=== PATIENT | male | born 1955 ===

== ENCOUNTER 2018-01-14 10:47 | Inpatient (IN) | payer OTHER ==
[2018-01-14] MEDS ORDERED: Sodium Chloride 0.9% 1,000 ML IV STA (11:09)
--- NOTE | 2018-01-14 11:10 | ED PDOC ---
Arrival/HPI - General Time Seen by Provider: 01/14/18 11:00 Historian: Patient, Family - History of Present Illness Narrative History of Present Illness (Text): 01/14/18 11:10 62 year old male hx of quadruple bypass with mitral valve replacement, in [facility] with care at [facility] with prior pneumothorax and pleural effusion per son, presents to the ED accompanied by son for evaluation of shortness of breath and decreased urination. As per son, patient has been unable to urinate for past couple days even after compliance with Lasix. Son states patient began experiencing shortness of breath upon waking up this morning, which progressively worsened with time, prompting him to present to the ED. Medication log shows patient gained 10 pounds overnight. At bedside, patient is tachypneic and is unable express complaints secondary to shortness of breath. Patient denies to any fever, cough or chest pain. HPI and ROS limited due to patient's clinical condition. Time/Duration: < week Symptom Onset: Gradual Symptom Course: Unchanged Activities at Onset: Light Context: Home Past Medical History - Provider Review Nursing Documentation Reviewed: Yes - Psychiatric Hx Depression: No Hx Emotional Abuse: No Hx Physical Abuse: No Hx Substance Use: No - Suicidal Assessment Feels Threatened In Home Enviroment: No Family/Social History - Physician Review Nursing Documentation Reviewed: Yes Family/Social History: Unknown Family HX Hx Alcohol Use: No Hx Substance Use: No Hx Substance Use Treatment: No Allergies/Home Meds Allergies/Adverse Reactions: Allergies No Known Allergies Allergy (Verified 01/14/18 11:05) Review of Systems - Review of Systems Systems not reviewed;Unavailable: Acuity of Condition (limited by shortness of breath) Constitutional: absent: Fevers Eyes: absent: Vision Changes Respiratory: SOB. absent: Cough Cardiovascular: absent: Chest Pain Gastrointestinal: absent: Abdominal Pain, Constipation, Diarrhea, Nausea, Vomiting Skin: absent: Rash Physical Exam Temperature: Hypothermic Blood Pressure: Hypotensive Pulse: Regular Respiratory Rate: Tachypneic Appearance: Positive for: Ill-Appearing Pain Distress: None Mental Status: Positive for: Alert and Oriented X 3 - Systems Exam Head: Present: Atraumatic, Normocephalic Pupils: Present: PERRL Extroacular Muscles: Present: EOMI Conjunctiva: Present: Normal Mouth: Present: Moist Mucous Membranes Neck: Present: Normal Range of Motion Respiratory/Chest: Present: Decreased Breath Sounds (decreased breath sounds to L side), Tachypneic Cardiovascular: Present: Regular Rate and Rhythm. No: Murmurs Abdomen: No: Tenderness, Distention, Peritoneal Signs Back: Present: Normal Inspection Upper Extremity: Present: Normal Inspection. No: Cyanosis, Edema Lower Extremity: Present: Edema (2+ pitting edema ) Neurological: Present: GCS=15, CN II-XII Intact Skin: Present: Warm, Dry, Normal Color, Other (Well healing surgical scar in midline of the chest). No: Rashes Psychiatric: Present: Alert, Oriented x 3 Medical Decision Making ED Course and Treatment: 01/14/18 11:10 Impression: 62 year old male presents to the Emergency department complaining of shortness of breath and lack of urination. Plan: -- ABG -- VBG -- Labs -- EKG -- IV Fluids -- Blood Culture -- Urine Culture -- BIPAP -- Urinalysis -- Reassess and disposition Prior Visits: Notes and results from previous visits were reviewed. Progress Notes: Cxray reviewed by radiologist, shows: Large left pleural effusion. No pneumothorax. Saunders placed with no return of urine. 01/14/18 11:37 Lactate elevated. Hypothermic with elevated wbc and respiratory rate. Giving slow hydration until intubated due to respiratory distress. Covered with broad spectrum antibiotics. Patient uremic with signs of overload and needs emergent dialysis. Treatment of hyperkalemia ordered. Discussed case with Dr. Penaloza, sales marketing director director of flight operations, who is aware of hyperkalemia and agrees with ED management plan, accepts patient consult. 01/14/18 11:[address] Elvis Diaz, drier transfer car operator director of flight operations, who is aware and agrees with Ed management plan, accepts patient admission to ICU. Will evaluate patient at bedside. 01/14/18 12:34 PROCEDURE: INTUBATION Performed by the emergency provider Time: 12:30 Consent: Discussion of the risks, benefits, and alternatives to the procedure, along with informed consent. Timeout: A timeout to verify the correct patient, procedure, and site was performed. Indication: Respiratory distress. Pre-oxygenation: [id number] Medications: See MAR for details. ETT Size: 7.5 Confirmation: Cords directly visualized as tube passed, good bilateral breath sounds, positive CO2 detector color change, tube fogging, adequate chest rise, improving pulse oximetry reading, improved skin color, and absence of gastric sounds,. ETT Secured: The cuff was inflated and the tube was secured appropriately. Post-Procedure: There were no immediate complications. CXR Confirmation: Yes 01/14/18 12:34 30cc/kg IVF ordered immediately after intubation. Dr. Diaz (ICU), Nephrology resident, Dr. Simms and son are present at bedside. - Critical Care Critical Care Minutes: 30 minutes - RAD Interpretation Radiology Orders: 01/14/18 11:08 CHEST PORTABLE [RAD] Stat Tailor'S Aide: Radiologist - Scribe Statement The provider has reviewed the documentation as recorded by the Scribe Masoud Dennis. All medical record entries made by the Scribe were at my direction and personally dictated by me. I have reviewed the chart and agree that the record accurately reflects my personal performance of the history, physical exam, medical decision making, and the department course for this patient. I have also personally directed, reviewed, and agree with the discharge instructions and disposition. Disposition/Present on Arrival - Present on Arrival Any Indicators Present on Arrival: No History of DVT/PE: No History of Uncontrolled Diabetes: No Urinary Catheter: No History Surgical Site Infection Following: None - Disposition Have Diagnosis and Disposition been Completed?: Yes Diagnosis: Pleural effusion, Renal failure, Acidosis, Respiratory distress Disposition: HOSPITALIZED Disposition Time: 11:54 Patient Plan: ICU Patient Problems: Current Active Problems Problem Status Onset Pleural effusion Acute Renal failure Acute Acidosis Acute Condition: CRITICAL
[2018-01-14 11:11] VITALS: BMI 31.8
[2018-01-14 11:29] LABS: VENOUS BLOOD GAS BASE EXCESS -14.8 mmol/L (0.0-2.0); VENOUS BLOOD GAS PO2 58 mm/Hg (30-55)
--- NOTE | 2018-01-14 11:29 | RAD ---
Date of service: 01/14/2018 HISTORY: decreased breath sounds COMPARISON: No prior. FINDINGS: LUNGS: There is a large left effusion with only a small amount of aerated lung in the left apex. PLEURA: There is a large left pleural effusion. No pneumothorax CARDIOVASCULAR: No aortic atherosclerotic calcification present. Severe cardiomegaly. No pulmonary vascular congestion. OSSEOUS STRUCTURES: Sternal wires VISUALIZED UPPER ABDOMEN: Normal. OTHER FINDINGS: None. IMPRESSION: Large left pleural effusion. No pneumothorax
[2018-01-14] MEDS ORDERED: Sodium Chloride 0.9% 250 ML IV SCH (11:30)
[2018-01-14 11:32] LABS: EOS % 0.3 % (1.5-5.0); GRAN # 9.36 (1.4-6.5); HEMOGLOBIN 13.7 g/dL (14.0-18.0); LYMPH # 2.3 (1.2-3.4); LYMPH % 17.6 % (22.0-35.0); MEAN CELL VOLUME 85.7 fl (80.0-105.0); MONO # 1.2 (0.1-0.6); MONO % 9.1 % (1.0-6.0); PLATELET COUNT 132 10^3/uL (120.0-450.0); RBC 4.56 10^6/uL (3.5-6.1); RED CELL DISTRIBUTION WIDTH 21.6 % (11.5-14.5); WHITE BLOOD COUNT 12.8 10^3/uL (4.5-11.0)
[2018-01-14 11:33] LABS: VENOUS BLOOD PH 7.19 (7.32-7.43)
[2018-01-14] MEDS ORDERED: Vancomycin 1gm in NS 250ml 1 GM/250 ML BAG IVPB STA (11:38)
[2018-01-14] MEDS ORDERED: Piperacillin/Tazobact 3.375 gm 100 ML IVPB STA (11:38)
[2018-01-14 11:46] LABS: INR 1.51; PARTIAL THROMBOPLASTIN TIME 42.4 Seconds (25.1-36.5); PROTHROMBIN TIME 17.5 SECONDS (9.4-12.5)
[2018-01-14 11:48] LABS: ALB/GLOB RATIO 0.5 (1.1-1.8); ALBUMIN 2.6 g/dL (3.0-4.8); CALCIUM 7.4 mg/dL (8.4-10.5)
[2018-01-14] MEDS ORDERED: Sodium Bicarbonate (8.4%) 50 Meq Syringe IVP STA (11:50)
[2018-01-14] MEDS ORDERED: Dextrose 50% SYRINGE Inj (50 ml) IVP STA ×2 (11:50→15:42)
[2018-01-14] MEDS ORDERED: Insulin Regular 1 UNITS/0.01 ML ML IV STA ×2 (11:51→15:38)
[2018-01-14 11:56] LABS: TROPONIN I 0.07 ng/mL
[2018-01-14 12:09] LABS: ARTERIAL BLOOD GAS HEMOGLOBIN 13.4 g/dL (11.7-17.4); ARTERIAL BLOOD GAS O2 CAPACITY 18.5 mL/dl (16-24); ARTERIAL BLOOD GAS O2 CONTENT 18.6 ML/dl (15-23); ARTERIAL BLOOD GAS O2 SAT 100.3 % (95-98); ARTERIAL BLOOD GAS PH 7.32 (7.35-7.45); ARTERIAL BLOOD GAS TCO2 9.9 mmol.L (22-28)
[2018-01-14] MEDS ORDERED: Etomidate 20 mg/10ml Inj IV ONE (12:20)
[2018-01-14] MEDS ORDERED: Rocuronium 10 mg/ml (5 ml) ONE (12:21)
[2018-01-14] MEDS ORDERED: Fentanyl 1000mcg/100ml NS 1,000 MCG/100 ML BAG IV PRN (12:33)
[2018-01-14] MEDS ORDERED: Midazolam 50 mg/10 ml Inj IVP ONE (12:33)
[2018-01-14] MEDS ORDERED: Midazolam 100 mg/100ml in NS 100 MG/100 ML SOL IV PRN (12:33)
[2018-01-14] MEDS ORDERED: Midazolam 2 MG/2 ML VIAL IV ONE (12:45)
--- NOTE | 2018-01-14 12:53 | CP.PCM.CON ---
<Jerome Vaughan - Last Filed: 01/14/18 14:51> History of Present Illness - History of Present Illness History of Present Illness: Jerome Vaughan, ICU Consult Note for Dr. Diaz Patient is a 62 y/o M with PMHx of HTN, HLD, quadruple bypass with post op afib, mitral valve repair (October 2017), left pneumothroax at [facility] presented to the ED, accompanied by son, for shortness of breath and decrease urine output for the past several days. In the ED, temperature is 93.1, HR 57, BP 111/57, and SaO2 100% on non-rebreather. VBG in the ED showed pH 7.19 with lactate of 8.1. WBC 12.8, Na 125, K 7.4, and BUN/Cr is 63/7.2. CXR in the ED showed large left sided pleural effusion. BNP was 2010. AST/ALT 728/439. History was obtained from son at bedside due to patient's critical condition. Patient's son mentioned that patient has been having markedly increased sob for the past few days with decreased appetite and decreased urinary output for the past 4 days despite diuretic use. Patient has recently been getting sob during ADLs like changing clothing, walking, and doing household tasks. He has also required more pillows to sleep at night. No fevers, chills, lower extremity swelling was endorsed by the patient's son. During time of interview, patient was intubated in the emergency room. CXR was done and showed proper placement of ET tube. ROS was obtained from patient's son at bedside due to patient's critical state. History was obtained from son due to patient's critical condition: Heliarc Welder: Dr. Hernandez PMHx: HTN, HLD, quadruple bypass with post op afib, mitral valve repair (2017), left pneumothorax PSHx: quadruple bypass with mitral valve repair (October 2017) Meds: lasix 40, potassium 20meq, protonix 40, MVI, norvasc 10, metoprolol 50, aspirin 81, lipitor 40, Allergies: NKDA SocialHx: social drinker. No smoking history. No recreational drug use. FamHx: non-contributory. Review of Systems - Review of Systems All systems: reviewed and no additional remarkable complaints except (as per HPI.) Past Patient History - Past Social History Smoking Status: Unknown If Ever Smoked - CARDIAC Hx Cardiac Disorders: Yes Hx Congestive Heart Failure: Yes Hx Hypertension: Yes Hx Mitral Valve Prolapse: Yes - PULMONARY Hx Respiratory Disorders: Yes (L lung collapse postop 10/2017) - NEUROLOGICAL Hx Neurological Disorder: No - HEENT Hx HEENT Problems: No - ENDOCRINE/METABOLIC Hx Endocrine Disorders: Yes Hx Diabetes Mellitus Type 2: Yes - HEMATOLOGICAL/ONCOLOGICAL Hx Blood Disorders: No - INTEGUMENTARY Hx Dermatological Problems: Yes Other/Comment: surgical scar midsternal and epigastric - MUSCULOSKELETAL/RHEUMATOLOGICAL Hx Musculoskeletal Disorders: No - GASTROINTESTINAL Hx Gastrointestinal Disorders: No - GENITOURINARY/GYNECOLOGICAL Hx Genitourinary Disorders: No - PSYCHIATRIC Hx Depression: No Hx Emotional Abuse: No Hx Physical Abuse: No Hx Substance Use: No - SURGICAL HISTORY Hx Surgeries: Yes Hx Coronary Artery Bypass Graft: Yes (quadruple bypass 10/2017) Hx Valve Replacement: Yes (mitral 10/2017) Meds Allergies/Adverse Reactions: Allergies Allergy/AdvReac Type Severity Reaction Status Date / Time No Known Allergies Allergy Verified 01/14/18 11:05 - Medications Medications: Current Medications Sodium Chloride (Sodium Chloride 0.9%) 250 mls @ 250 mls/hr IV .Q1H NILES Last Admin: 01/14/18 11:30 Dose: 250 mls/hr Vancomycin HCl (Vancomycin 1gm) 1 gm in 250 mls @ 167 mls/hr IVPB STAT STA; Protocol Stop: 01/14/18 13:07 Calcium Gluconate 1,000 mg/ (Sodium Chloride) 110 mls @ 110 mls/hr IVPB ONCE ONE Stop: 01/14/18 12:49 Last Admin: 01/14/18 12:15 Dose: 110 mls/hr Fentanyl Citrate (Fentanyl Citrate/Sodium Chloride 1 Mg/100 Ml) 1,000 mcg in 100 mls @ 2 mls/hr IV .Q24H PRN; Protocol PRN Reason: TITRATE PER MD ORDER Midazolam 100 mg/100ml in NS (Midazolam 100 Mg/100ml In Ns) 100 mg in 100 mls @ 1 mls/hr IV .Q24H PRN; Protocol PRN Reason: Sedation Midazolam HCl (Versed Inj) 5 mg IV ONCE ONE Stop: 01/14/18 12:46 Results - Vital Signs Recent Vital Signs: Last Vital Signs Temp 93.1 F L 01/14/18 11:10 Pulse 56 L 01/14/18 12:34 Resp 14 01/14/18 12:34 BP 84/36 L 01/14/18 12:34 Pulse Ox 100 01/14/18 12:34 - Labs Result Diagrams: 01/14/18 11:00 01/14/18 11:00 Labs: Laboratory Results - last 24 hr 01/14/18 01/14/18 01/14/18 11:00 11:00 11:00 WBC 12.8 H RBC 4.56 Hgb 13.7 L Hct 39.1 L MCV 85.7 MCH 30.0 MCHC 35.0 RDW 21.6 H Plt Count 132 Gran % 73.0 H Lymph % (Auto) 17.6 L [place] % (Auto) 9.1 H Eos % (Auto) 0.3 L Baso % (Auto) 0.0 Gran # 9.36 H Lymph # (Auto) 2.3 [place] # (Auto) 1.2 H Eos # (Auto) 0.0 Baso # (Auto) 0.00 PT 17.5 H INR 1.51 APTT 42.4 H pO2 58 H VBG pH 7.19 L* VBG pCO2 32.0 L VBG HCO3 12.2 L VBG Total CO2 13.2 L VBG O2 Sat (Calc) 87.2 H VBG Base Excess -14.8 L VBG Potassium 7.4 H* Sodium 122.0 L Chloride 90.0 L Glucose 145 H Lactate 8.1 H* FiO2 21.0 Potassium Carbon Dioxide Anion Gap BUN Creatinine Est GFR ( Amer) Est GFR (Non-Af Amer) Random Glucose Calcium Phosphorus Magnesium Total Bilirubin AST ALT Alkaline Phosphatase Lactate Dehydrogenase Total Creatine Kinase CK-MB (CK-2) CK-MB (CK-2) % Troponin I NT-Pro-B Natriuret Pep Total Protein Albumin Globulin Albumin/Globulin Ratio Venous Blood Potassium 7.4 H* 01/14/18 11:00 WBC RBC Hgb Hct MCV MCH MCHC RDW Plt Count Gran % Lymph % (Auto) [place] % (Auto) Eos % (Auto) Baso % (Auto) Gran # Lymph # (Auto) [place] # (Auto) Eos # (Auto) Baso # (Auto) PT INR APTT pO2 VBG pH VBG pCO2 VBG HCO3 VBG Total CO2 VBG O2 Sat (Calc) VBG Base Excess VBG Potassium Sodium 125 L Chloride 97 L Glucose Lactate FiO2 Potassium 7.4 H* Carbon Dioxide 12 L Anion Gap 23 H BUN 63 H Creatinine 7.2 H Est GFR ( Amer) 9 Est GFR (Non-Af Amer) 8 Random Glucose 139 H Calcium 7.4 L Phosphorus 7.6 H Magnesium 2.6 H Total Bilirubin 7.3 H AST 728 H ALT 439 H Alkaline Phosphatase 547 H Lactate Dehydrogenase 1779 H Total Creatine Kinase 588 H CK-MB (CK-2) 12.0 H CK-MB (CK-2) % 2.0 L Troponin I 0.07 NT-Pro-B Natriuret Pep 2010 H Total Protein 8.0 Albumin 2.6 L Globulin 5.4 Albumin/Globulin Ratio 0.5 L Venous Blood Potassium Assessment & Plan - Assessment and Plan (Free Text) Assessment: Patient is a 62 y/o M with PMHx of HTN, HLD, quadruple bypass with mitral valve repair (October 2017) with complication of Left pneumothrox at [facility] presented to the ED, accompanied by son, for shortness of breath and decrease urine output for the past several days. Patient is admitted for Acute Renal Failure, requiring emergent dialysis. Plan: Neuro: - Intubated; ET tube is in place - fentanyl gtt for sedation at 20 mcg/hr Cardio: - Femoral central line was placed - on levophed for blood pressure control - Arterial line was placed in the femoral artery for BP monitoring - Maintain MAP > 65 - serial troponins - Echo - Resume home meds, hold HTN meds for now - Hypothermia in ED, Temp 93.1; maintain normothermia with bear-hugger - Hx of mitral valve repair - Cardio consulted (Dr. Hernandez) Pulm: - Intubated; ET tube - Ventilation settings: PRVC 450/5/20 - CXR: large left pleural effusion - Maintain SaO2 > 92% GI: - Protonix IVP 40mg - Transaminitis; f/u AST/ALT - NPO : - da silva catheter placed Renal: - Trialysis catheter placed in right IJ; dialysis session for the afternoon - f/u BUN/Cr - BUN/Cr was 63/7.2 in ED - K was 7.4 in ED - Given calcium gluconate, insulin, and D50 in the ED - Monitor Intake and Output - Hold nephrotoxic meds Heme: - Heparin SC for DVT ppx ID: - procalcitonin level - Lactate 8.1 in ED; repeat - f/u blood cx - f/u urine cx Dispo: Patient will be monitored in the ICU. Pending dialysis this afternoon. Case was discussed and reviewed with Attending Physician, Dr. Diaz <Elvis Diaz - Last Filed: 01/14/18 17:58> Meds - Medications Medications: Current Medications Heparin Sodium (Porcine) (Heparin) 5,000 units SC Q12 NILES; Protocol Sodium Chloride (Sodium Chloride 0.9%) 250 mls @ 250 mls/hr IV .Q1H NILES Last Admin: 01/14/18 11:30 Dose: 250 mls/hr Fentanyl Citrate (Fentanyl Citrate/Sodium Chloride 1 Mg/100 Ml) 1,000 mcg in 100 mls @ 2 mls/hr IV .Q24H PRN; Protocol PRN Reason: TITRATE PER MD ORDER Midazolam 100 mg/100ml in NS (Midazolam 100 Mg/100ml In Ns) 100 mg in 100 mls @ 1 mls/hr IV .Q24H PRN; Protocol PRN Reason: Sedation NOREPINEPHRINE BIT/0.9 % NACL (Levophed 4 Mg/ 250 Ml Ns Premixed) 4 mg in 250 mls @ 15 mls/hr IV .[id number] PRN; Protocol PRN Reason: TITRATE PER MD ORDER Last Admin: 01/14/18 15:45 Dose: 4 mcg/min, 15 mls/hr Vancomycin HCl (Vancomycin 1gm) 1 gm in 250 mls @ 167 mls/hr IVPB DAILY NILES; Protocol Piperacillin Sod/Tazobactam Sod (Zosyn 3.375 In Ns 100ml) 100 mls @ 25 mls/hr IVPB Q12 NILES; Protocol Stop: 01/15/18 01:59 Pantoprazole Sodium (Protonix Inj) 40 mg IVP DAILY NILES Results - Vital Signs Recent Vital Signs: Last Vital Signs Temp 93.1 F L 01/14/18 15:28 Pulse 57 L 01/14/18 14:46 Resp 12 01/14/18 15:28 BP 111/57 L 01/14/18 15:28 Pulse Ox 100 01/14/18 15:28 - Labs Result Diagrams: 01/14/18 11:00 01/14/18 15:00 Labs: Laboratory Results - last 24 hr 01/14/18 01/14/18 01/14/18 11:00 11:00 11:00 WBC 12.8 H RBC 4.56 Hgb 13.7 L Hct 39.1 L MCV 85.7 MCH 30.0 MCHC 35.0 RDW 21.6 H Plt Count 132 Gran % 73.0 H Lymph % (Auto) 17.6 L [place] % (Auto) 9.1 H Eos % (Auto) 0.3 L Baso % (Auto) 0.0 Gran # 9.36 H Lymph # (Auto) 2.3 [place] # (Auto) 1.2 H Eos # (Auto) 0.0 Baso # (Auto) 0.00 PT 17.5 H INR 1.51 APTT 42.4 H pCO2 pO2 58 H HCO3 ABG pH ABG Total CO2 ABG O2 Saturation ABG O2 Content ABG Base Excess ABG Hemoglobin ABG Carboxyhemoglobin POC ABG HHb (Measured) ABG Methemoglobin ABG O2 Capacity VBG pH 7.19 L* VBG pCO2 32.0 L VBG HCO3 12.2 L VBG Total CO2 13.2 L VBG O2 Sat (Calc) 87.2 H VBG Base Excess -14.8 L VBG Potassium 7.4 H* Hgb O2 Saturation Sodium 122.0 L Chloride 90.0 L Glucose 145 H Lactate 8.1 H* FiO2 21.0 Potassium Carbon Dioxide Anion Gap BUN Creatinine Est GFR ( Amer) Est GFR (Non-Af Amer) Random Glucose Calcium Phosphorus Magnesium Total Bilirubin AST ALT Alkaline Phosphatase Lactate Dehydrogenase Total Creatine Kinase CK-MB (CK-2) CK-MB (CK-2) % Troponin I NT-Pro-B Natriuret Pep Total Protein Albumin Globulin Albumin/Globulin Ratio Venous Blood Potassium 7.4 H* 01/14/18 01/14/18 01/14/18 11:00 12:00 15:00 WBC RBC Hgb Hct MCV MCH MCHC RDW Plt Count Gran % Lymph % (Auto) [place] % (Auto) Eos % (Auto) Baso % (Auto) Gran # Lymph # (Auto) [place] # (Auto) Eos # (Auto) Baso # (Auto) PT INR APTT pCO2 18 L* pO2 149.0 H HCO3 9.3 L* ABG pH 7.32 L ABG Total CO2 9.9 L ABG O2 Saturation 100.3 H ABG O2 Content 18.6 ABG Base Excess -14.3 L ABG Hemoglobin 13.4 ABG Carboxyhemoglobin 1.9 H POC ABG HHb (Measured) -0.3 L ABG Methemoglobin 1.0 ABG O2 Capacity 18.5 VBG pH VBG pCO2 VBG HCO3 VBG Total CO2 VBG O2 Sat (Calc) VBG Base Excess VBG Potassium Hgb O2 Saturation 97.4 Sodium 125 L Chloride 97 L Glucose Lactate FiO2 40.0 Potassium 7.4 H* 7.0 H* Carbon Dioxide 12 L Anion Gap 23 H BUN 63 H Creatinine 7.2 H Est GFR ( Amer) 9 Est GFR (Non-Af Amer) 8 Random Glucose 139 H Calcium 7.4 L Phosphorus 7.6 H Magnesium 2.6 H Total Bilirubin 7.3 H AST 728 H ALT 439 H Alkaline Phosphatase 547 H Lactate Dehydrogenase 1779 H Total Creatine Kinase 588 H CK-MB (CK-2) 12.0 H CK-MB (CK-2) % 2.0 L Troponin I 0.07 NT-Pro-B Natriuret Pep 2010 H Total Protein 8.0 Albumin 2.6 L Globulin 5.4 Albumin/Globulin Ratio 0.5 L Venous Blood Potassium 01/14/18 15:00 WBC RBC Hgb Hct MCV MCH MCHC RDW Plt Count Gran % Lymph % (Auto) [place] % (Auto) Eos % (Auto) Baso % (Auto) Gran # Lymph # (Auto) [place] # (Auto) Eos # (Auto) Baso # (Auto) PT INR APTT pCO2 pO2 65 H HCO3 ABG pH ABG Total CO2 ABG O2 Saturation ABG O2 Content ABG Base Excess ABG Hemoglobin ABG Carboxyhemoglobin POC ABG HHb (Measured) ABG Methemoglobin ABG O2 Capacity VBG pH 7.33 VBG pCO2 28.0 L VBG HCO3 14.8 L VBG Total CO2 15.7 L VBG O2 Sat (Calc) 93.9 H VBG Base Excess -9.6 L VBG Potassium 7.0 H* Hgb O2 Saturation Sodium 123.0 L Chloride 93.0 L Glucose 198 H Lactate 5.2 H* FiO2 21.0 Potassium Carbon Dioxide Anion Gap BUN Creatinine Est GFR ( Amer) Est GFR (Non-Af Amer) Random Glucose Calcium Phosphorus Magnesium Total Bilirubin AST ALT Alkaline Phosphatase Lactate Dehydrogenase Total Creatine Kinase CK-MB (CK-2) CK-MB (CK-2) % Troponin I NT-Pro-B Natriuret Pep Total Protein Albumin Globulin Albumin/Globulin Ratio Venous Blood Potassium 7.0 H* Addendum Addendum: 01/14/18 17:58 ICU Attending Addendum Patient seen and examined. Case reviewed on round with housestaff. Agree with resident note above with the following additions/exceptions: 62M with recent quadruple bypass with post op afib, mitral valve repair (October 2017), left effusion at [facility] presented to the ED with shortness of breath and decrease urine output for the past several days. Labs and history reviewed. pH 7.19 with lactate of 8.1. WBC 12.8, Na 125, K 7.4, and BUN/Cr is 63/7.2. CXR shows large left sided pleural effusion. AST/ALT 728/439. Mr. Solano is very sick. He is in acute renal failure possibly cardio-renal vs dehydration given poor PO intake while still taking his diuretics. His entire cardio history is not clear at this point as we will illicit more history from his primary mortgage manager. His renal failure is likely causing and RTA and lac acidosis making his very acidemia which is causing hyperk. HyperK was initially treated in ED. For now he will need emergent HD for hyperK and acidosis. Will insert HD catheter via right IJ. repeat chem and lac Will give him empitic abx for now although infection is low on my list. -morena and kourtney Cardio on consult. Will also get 2 D echo and repeat TNI x 3. He was intubated in the ED. Will follow up ABG. He has a unilateral left sided effusion that I will tap. 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 Rest of care as above Elvis Diaz MD Pulmonary Critical Care and Sleep Medicine CC Time: Spent 74 mins caring for the patient and discussing with ED physician, nephrology and sitting with family.
[2018-01-14 12:59] LABS: ARTERIAL BLOOD GAS PCO2 18 mm/Hg (35-45)
[2018-01-14 13:00] LABS: ARTERIAL BLOOD GAS HCO3 9.3 mmol/L (21-28)
--- NOTE | 2018-01-14 13:13 | RAD ---
Date of service: 01/14/2018 HISTORY: s/p intubation COMPARISON: Earlier same day FINDINGS: LUNGS: Endotracheal tube in satisfactory position PLEURA: Large left pleural effusion CARDIOVASCULAR: No aortic atherosclerotic calcification present. Cardiomegaly no pulmonary vascular congestion. OSSEOUS STRUCTURES: Sternal wires VISUALIZED UPPER ABDOMEN: Normal. OTHER FINDINGS: None. IMPRESSION: Endotracheal tube in satisfactory position
[2018-01-14] MEDS ORDERED: NOREPINEPHRINE BIT/0.9 % NACL 4 MG/250 ML BAG IV ONE (13:35)
[2018-01-14] MEDS ORDERED: Pneumococcal 23-Valent Vaccine IM ONE (13:56)
[2018-01-14] MEDS ORDERED: Influenza Vaccine 60 mcg/0.5 mL SYR (4YR UP) IM ONE (13:56)
[2018-01-14 15:13] LABS: VENOUS BLOOD GAS BASE EXCESS -9.6 mmol/L (0.0-2.0); VENOUS BLOOD GAS PO2 65 mm/Hg (30-55); VENOUS BLOOD PH 7.33 (7.32-7.43)
--- NOTE | 2018-01-14 15:25 | RAD ---
Date of service: 01/14/2018 HISTORY: dialysis COMPARISON: 01/14/2018 FINDINGS: Endotracheal tube terminates in the mid trachea. The right IJV central venous catheter terminates in the SVC. LUNGS: The right lung is well inflated and clear. There is near complete opacification of the left hemithorax. There are multiple surgical clips in the left perihilar region. PLEURA: No pleural effusions or pneumothorax. CARDIOVASCULAR: Cannot be evaluated due to complete opacification of the left hemithorax. Status post CABG and prosthetic valve OSSEOUS STRUCTURES: Within normal limits for the patient's age. VISUALIZED UPPER ABDOMEN: Normal. OTHER FINDINGS: None. IMPRESSION: Interval near complete opacification of the left hemithorax which may be related to worsening pleural effusion planus atelectasis. Stable position endotracheal tube. Right IJV central venous catheter terminates in the SVC.
--- NOTE | 2018-01-14 15:43 | CP.PCM.CON ---
<Harris Matias - Last Filed: 01/14/18 20:57> History of Present Illness - History of Present Illness History of Present Illness: Nephro Consult Note for Dr. Penaloza Service Consulted for possible emergent hemodialysis This is a 62 yo M with PMH of quadruple bypass with mitral valve replacement 3 months prior, and reported borderline diabetes who presents from home with reports of decreasing urine production despite daily Lasix x2 weeks and anuria for last 4 days, now with acute onset and acutely worsening shortness of breath since this morning. HPI and ROS limited to history provided by son as patient on Bipap and then intubated at time of exam due to worsening mental status, bradycardia, and hypotension. As per son, patient was started on Lasix due to LE edema that he began to develop post-CABG. He has been compliant with the medications since. Patient reported feeling malaised/ill for last 2 weeks, coinciding with his decreased urine output. Son is not aware of patient doubling-up on Lasix or skipping doses. For last 4 days, patient has had not urine output, but not until this AM did patient report any shortness of breath. No recent imaging studies with dye. No known frequent or routine NSAID use prior to this admission. No history of renal injury or failure as per son. Of note, patient's vitals on arrival concerning for HR in the 30's-40's and SBP in the 70's, and labs concerning for Cr of 7.2 and K of 7.4. Received Calcium gluconate IVPB, Insulin IV, D50 IV, and Sodium Bicarb emergently. Patient was intubated, taken to the ICU, and access with a [facility] and [facility] Dialysis Cath was obtained, and the patient was started on Levophed for pressor support given persistent hypotension. Repeat K was 7.0, so decision was made to initiate emergent hemodialysis. PMH: as above PSH: quadruple bypass and Mitral valve replacement 3 months prior Fam Hx: unknown Soc Hx: Denies tobacco, illicits, IVDA. Admits to social EtOH use (no binge episode within last 4 weeks). PMD: Dr. Solomon Review of Systems - Review of Systems Systems not reviewed;Unavailable: Intubated Past Patient History - Past Social History Smoking Status: Unknown If Ever Smoked - CARDIAC Hx Cardiac Disorders: Yes Hx Congestive Heart Failure: Yes Hx Hypertension: Yes Hx Mitral Valve Prolapse: Yes - PULMONARY Hx Respiratory Disorders: Yes (L lung collapse postop 10/2017) - NEUROLOGICAL Hx Neurological Disorder: No - HEENT Hx HEENT Problems: No - RENAL Hx Chronic Kidney Disease: No - ENDOCRINE/METABOLIC Hx Endocrine Disorders: Yes Hx Diabetes Mellitus Type 2: Yes - HEMATOLOGICAL/ONCOLOGICAL Hx Blood Disorders: No - INTEGUMENTARY Hx Dermatological Problems: Yes Other/Comment: surgical scar midsternal and epigastric - MUSCULOSKELETAL/RHEUMATOLOGICAL Hx Musculoskeletal Disorders: No - GASTROINTESTINAL Hx Gastrointestinal Disorders: No - GENITOURINARY/GYNECOLOGICAL Hx Genitourinary Disorders: No - PSYCHIATRIC Hx Depression: No Hx Emotional Abuse: No Hx Physical Abuse: No Hx Substance Use: No - SURGICAL HISTORY Hx Surgeries: Yes Hx Coronary Artery Bypass Graft: Yes (quadruple bypass 10/2017) Hx Valve Replacement: Yes (mitral 10/2017) Meds Allergies/Adverse Reactions: Allergies Allergy/AdvReac Type Severity Reaction Status Date / Time No Known Allergies Allergy Verified 01/14/18 11:05 - Medications Medications: Current Medications Heparin Sodium (Porcine) (Heparin) 5,000 units SC Q12 NILES; Protocol Sodium Chloride (Sodium Chloride 0.9%) 250 mls @ 250 mls/hr IV .Q1H NILES Last Admin: 01/14/18 11:30 Dose: 250 mls/hr Fentanyl Citrate (Fentanyl Citrate/Sodium Chloride 1 Mg/100 Ml) 1,000 mcg in 100 mls @ 2 mls/hr IV .Q24H PRN; Protocol PRN Reason: TITRATE PER MD ORDER Midazolam 100 mg/100ml in NS (Midazolam 100 Mg/100ml In Ns) 100 mg in 100 mls @ 1 mls/hr IV .Q24H PRN; Protocol PRN Reason: Sedation NOREPINEPHRINE BIT/0.9 % NACL (Levophed 4 Mg/ 250 Ml Ns Premixed) 4 mg in 250 mls @ 15 mls/hr IV .[id number] PRN; Protocol PRN Reason: TITRATE PER MD ORDER Pantoprazole Sodium (Protonix Inj) 40 mg IVP DAILY [facility] Physical Exam - Constitutional Appears: In Acute Distress Additional comments: Ill-appearing, Lethargic - Head Exam Head Exam: ATRAUMATIC, NORMAL INSPECTION, NORMOCEPHALIC - Eye Exam Eye Exam: EOMI, Normal appearance. absent: Conjunctival injection, Scleral icterus Pupil Exam: absent: Irregular, Unequal - ENT Exam ENT Exam: Mucous Membranes Moist - Neck Exam Neck exam: Positive for: Full Rom. Negative for: Lymphadenopathy - Respiratory Exam Respiratory Exam: Clear to Auscultation Bilateral, NORMAL BREATHING PATTERN. absent: Accessory Muscle Use, Chest Wall Tenderness, Decreased Breath Sounds, Rales, Rhonchi, Wheezes - Cardiovascular Exam Cardiovascular Exam: Bradycardia, Irregular Rhythm, +S1, +S2. absent: Tac hycardia, REGULAR RHYTHM, JVD, RRR, +S4 - GI/Abdominal Exam GI & Abdominal Exam: Firm, Normal Bowel Sounds. absent: Diminished Bowel Sounds, Hyperactive Bowel Sounds, Hypoactive Bowel Sounds, Rigid, Soft - Extremities Exam Extremities exam: Positive for: pedal edema (+1-2 pitting edema from feet to mid-shins bilaterally) - Neurological Exam Additional comments: prior to sedation/intubation: lethargic but arousable, following simple commands, few spontaneous movements - Psychiatric Exam Additional comments: unable to assess, lethargic, then intubated - Skin Skin Exam: Dry, Intact, Normal Color, Warm Results - Vital Signs Recent Vital Signs: Last Vital Signs Temp 93.1 F L 01/14/18 15:28 Pulse 57 L 01/14/18 14:46 Resp 12 01/14/18 15:28 BP 111/57 L 01/14/18 15:28 Pulse Ox 100 01/14/18 15:28 - Labs Result Diagrams: 01/14/18 11:00 01/14/18 15:00 Labs: Laboratory Results - last 24 hr 01/14/18 01/14/18 01/14/18 11:00 11:00 11:00 WBC 12.8 H RBC 4.56 Hgb 13.7 L Hct 39.1 L MCV 85.7 MCH 30.0 MCHC 35.0 RDW 21.6 H Plt Count 132 Gran % 73.0 H Lymph % (Auto) 17.6 L [place] % (Auto) 9.1 H Eos % (Auto) 0.3 L Baso % (Auto) 0.0 Gran # 9.36 H Lymph # (Auto) 2.3 [place] # (Auto) 1.2 H Eos # (Auto) 0.0 Baso # (Auto) 0.00 PT 17.5 H INR 1.51 APTT 42.4 H pCO2 pO2 58 H HCO3 ABG pH ABG Total CO2 ABG O2 Saturation ABG O2 Content ABG Base Excess ABG Hemoglobin ABG Carboxyhemoglobin POC ABG HHb (Measured) ABG Methemoglobin ABG O2 Capacity VBG pH 7.19 L* VBG pCO2 32.0 L VBG HCO3 12.2 L VBG Total CO2 13.2 L VBG O2 Sat (Calc) 87.2 H VBG Base Excess -14.8 L VBG Potassium 7.4 H* Hgb O2 Saturation Sodium 122.0 L Chloride 90.0 L Glucose 145 H Lactate 8.1 H* FiO2 21.0 Potassium Carbon Dioxide Anion Gap BUN Creatinine Est GFR ( Amer) Est GFR (Non-Af Amer) Random Glucose Calcium Phosphorus Magnesium Total Bilirubin AST ALT Alkaline Phosphatase Lactate Dehydrogenase Total Creatine Kinase CK-MB (CK-2) CK-MB (CK-2) % Troponin I NT-Pro-B Natriuret Pep Total Protein Albumin Globulin Albumin/Globulin Ratio Venous Blood Potassium 7.4 H* 01/14/18 01/14/18 01/14/18 11:00 12:00 15:00 WBC RBC Hgb Hct MCV MCH MCHC RDW Plt Count Gran % Lymph % (Auto) [place] % (Auto) Eos % (Auto) Baso % (Auto) Gran # Lymph # (Auto) [place] # (Auto) Eos # (Auto) Baso # (Auto) PT INR APTT pCO2 18 L* pO2 149.0 H HCO3 9.3 L* ABG pH 7.32 L ABG Total CO2 9.9 L ABG O2 Saturation 100.3 H ABG O2 Content 18.6 ABG Base Excess -14.3 L ABG Hemoglobin 13.4 ABG Carboxyhemoglobin 1.9 H POC ABG HHb (Measured) -0.3 L ABG Methemoglobin 1.0 ABG O2 Capacity 18.5 VBG pH VBG pCO2 VBG HCO3 VBG Total CO2 VBG O2 Sat (Calc) VBG Base Excess VBG Potassium Hgb O2 Saturation 97.4 Sodium 125 L Chloride 97 L Glucose Lactate FiO2 40.0 Potassium 7.4 H* 7.0 H* Carbon Dioxide 12 L Anion Gap 23 H BUN 63 H Creatinine 7.2 H Est GFR ( Amer) 9 Est GFR (Non-Af Amer) 8 Random Glucose 139 H Calcium 7.4 L Phosphorus 7.6 H Magnesium 2.6 H Total Bilirubin 7.3 H AST 728 H ALT 439 H Alkaline Phosphatase 547 H Lactate Dehydrogenase 1779 H Total Creatine Kinase 588 H CK-MB (CK-2) 12.0 H CK-MB (CK-2) % 2.0 L Troponin I 0.07 NT-Pro-B Natriuret Pep 2010 H Total Protein 8.0 Albumin 2.6 L Globulin 5.4 Albumin/Globulin Ratio 0.5 L Venous Blood Potassium 01/14/18 15:00 WBC RBC Hgb Hct MCV MCH MCHC RDW Plt Count Gran % Lymph % (Auto) [place] % (Auto) Eos % (Auto) Baso % (Auto) Gran # Lymph # (Auto) [place] # (Auto) Eos # (Auto) Baso # (Auto) PT INR APTT pCO2 pO2 65 H HCO3 ABG pH ABG Total CO2 ABG O2 Saturation ABG O2 Content ABG Base Excess ABG Hemoglobin ABG Carboxyhemoglobin POC ABG HHb (Measured) ABG Methemoglobin ABG O2 Capacity VBG pH 7.33 VBG pCO2 28.0 L VBG HCO3 14.8 L VBG Total CO2 15.7 L VBG O2 Sat (Calc) 93.9 H VBG Base Excess -9.6 L VBG Potassium 7.0 H* Hgb O2 Saturation Sodium 123.0 L Chloride 93.0 L Glucose 198 H Lactate 5.2 H* FiO2 21.0 Potassium Carbon Dioxide Anion Gap BUN Creatinine Est GFR ( Amer) Est GFR (Non-Af Amer) Random Glucose Calcium Phosphorus Magnesium Total Bilirubin AST ALT Alkaline Phosphatase Lactate Dehydrogenase Total Creatine Kinase CK-MB (CK-2) CK-MB (CK-2) % Troponin I NT-Pro-B Natriuret Pep Total Protein Albumin Globulin Albumin/Globulin Ratio Venous Blood Potassium 7.0 H* Assessment & Plan - Assessment and Plan (Free Text) Assessment: This is a 62 yo M with PMH of quadruple bypass with mitral valve replacement 3 months prior, and reported borderline diabetes who presents from home with reports of decreasing urine production despite daily Lasix x2 weeks and anuria for last 4 days, now with acute onset and acutely worsening shortness of breath since this morning. Nephro consulted for emergent hemodialysis in setting of acute renal failure. Plan: Acute Renal Failure Acute respiratory failure requiring intubation Shock requiring pressor support Severe Hyperkalemia with Bradycardia to 30's Hypermagnesemia Hyperphosphatemia Anuria Sepsis Left pleural effusion on CXR S/p quadruple bypass with MV replacement K 7.4, repeat was 7 despite Insulin, D50, Bicarb Anuric, no output since da silva placed in ED Pending initiation of Hemodialysis, Shiley cath placed by ICU Agree with pressor support, intubation/ventilation, Calcium gluconate for cardiac membrane stabilization Recommend careful IVF as remains anuric and signs of fluid overload (left pleural effusion) Urine eosinophils ordered, f/u Patient reviewed and discussed at length with attending, Dr. Penaloza <Tommy Penaloza S - Last Filed: 01/14/18 21:39> Meds - Medications Medications: Current Medications Heparin Sodium (Porcine) (Heparin) 5,000 units SC Q12 NILES; Protocol Fentanyl Citrate (Fentanyl Citrate/Sodium Chloride 1 Mg/100 Ml) 1,000 mcg in 100 mls @ 2 mls/hr IV .Q24H PRN; Protocol PRN Reason: TITRATE PER MD ORDER Midazolam 100 mg/100ml in NS (Midazolam 100 Mg/100ml In Ns) 100 mg in 100 mls @ 1 mls/hr IV .Q24H PRN; Protocol PRN Reason: Sedation NOREPINEPHRINE BIT/0.9 % NACL (Levophed 4 Mg/ 250 Ml Ns Premixed) 4 mg in 250 mls @ 15 mls/hr IV .[id number] PRN; Protocol PRN Reason: TITRATE PER MD ORDER Last Titration: 01/14/18 19:47 Dose: 20 mcg/min, 75 mls/hr Piperacillin Sod/Tazobactam Sod (Zosyn 3.375 In Ns 100ml) 100 mls @ 25 mls/hr IVPB Q12 NILES; Protocol Stop: 01/15/18 01:59 Sodium Chloride (Sodium Chloride 0.9%) 1,000 mls @ 100 mls/hr IV .Q10H NILES Last Admin: 01/14/18 20:29 Dose: 100 mls/hr Meropenem/Sodium Chloride (Merrem Iv 500 Mg/Ns 50 Ml) 500 mg in 50 mls @ 100 mls/hr IVPB Q12 NILES; Protocol Linezolid (Zyvox 600mg/300ml D5w) 600 mg in 300 mls @ 200 mls/hr IVPB Q12 NILES; Protocol Stop: 01/21/18 22:01 Doxycycline Hyclate 100 mg/ (Sodium Chloride) 100 mls @ 100 mls/hr IVPB Q12 NILES; Protocol Ondansetron HCl (Zofran Inj) 4 mg IVP Q4H PRN PRN Reason: Nausea/Vomiting Pantoprazole Sodium (Protonix Inj) 40 mg IVP DAILY NILES Results - Vital Signs Recent Vital Signs: Last Vital Signs Temp 95.7 F L 01/14/18 18:50 Pulse 78 01/14/18 18:50 Resp 18 01/14/18 18:50 BP 86/48 L 01/14/18 17:05 Pulse Ox 98 01/14/18 18:50 - Labs Result Diagrams: 01/14/18 11:00 01/14/18 15:00 Labs: Laboratory Results - last 24 hr 01/14/18 01/14/18 01/14/18 11:00 11:00 11:00 WBC 12.8 H RBC 4.56 Hgb 13.7 L Hct 39.1 L MCV 85.7 MCH 30.0 MCHC 35.0 RDW 21.6 H Plt Count 132 Gran % 73.0 H Lymph % (Auto) 17.6 L [place] % (Auto) 9.1 H Eos % (Auto) 0.3 L Baso % (Auto) 0.0 Gran # 9.36 H Lymph # (Auto) 2.3 [place] # (Auto) 1.2 H Eos # (Auto) 0.0 Baso # (Auto) 0.00 PT 17.5 H INR 1.51 APTT 42.4 H pCO2 pO2 58 H HCO3 ABG pH ABG Total CO2 ABG O2 Saturation ABG O2 Content ABG Base Excess ABG Hemoglobin ABG Carboxyhemoglobin POC ABG HHb (Measured) ABG Methemoglobin ABG O2 Capacity VBG pH 7.19 L* VBG pCO2 32.0 L VBG HCO3 12.2 L VBG Total CO2 13.2 L VBG O2 Sat (Calc) 87.2 H VBG Base Excess -14.8 L VBG Potassium 7.4 H* Hgb O2 Saturation Sodium 122.0 L Chloride 90.0 L Glucose 145 H Lactate 8.1 H* FiO2 21.0 Potassium Carbon Dioxide Anion Gap BUN Creatinine Est GFR ( Amer) Est GFR (Non-Af Amer) Random Glucose Uric Acid Calcium Phosphorus Magnesium Total Bilirubin AST ALT Alkaline Phosphatase Lactate Dehydrogenase Total Creatine Kinase CK-MB (CK-2) CK-MB (CK-2) % Troponin I NT-Pro-B Natriuret Pep Total Protein Albumin Globulin Albumin/Globulin Ratio Venous Blood Potassium 7.4 H* Fluid Source Fluid Appearance Fluid WBC Fluid RBC Fluid Tot Cell Count Fluid Neutrophils Fluid Lymphocytes Fld Monocyte/Macrophag Fluid Comment Thoracentesis Fluid pH 01/14/18 01/14/18 01/14/18 11:00 12:00 15:00 WBC RBC Hgb Hct MCV MCH MCHC RDW Plt Count Gran % Lymph % (Auto) [place] % (Auto) Eos % (Auto) Baso % (Auto) Gran # Lymph # (Auto) [place] # (Auto) Eos # (Auto) Baso # (Auto) PT INR APTT pCO2 18 L* pO2 149.0 H HCO3 9.3 L* ABG pH 7.32 L ABG Total CO2 9.9 L ABG O2 Saturation 100.3 H ABG O2 Content 18.6 ABG Base Excess -14.3 L ABG Hemoglobin 13.4 ABG Carboxyhemoglobin 1.9 H POC ABG HHb (Measured) -0.3 L ABG Methemoglobin 1.0 ABG O2 Capacity 18.5 VBG pH VBG pCO2 VBG HCO3 VBG Total CO2 VBG O2 Sat (Calc) VBG Base Excess VBG Potassium Hgb O2 Saturation 97.4 Sodium 125 L Chloride 97 L Glucose Lactate FiO2 40.0 Potassium 7.4 H* 7.0 H* Carbon Dioxide 12 L Anion Gap 23 H BUN 63 H Creatinine 7.2 H Est GFR ( Amer) 9 Est GFR (Non-Af Amer) 8 Random Glucose 139 H Uric Acid Calcium 7.4 L Phosphorus 7.6 H Magnesium 2.6 H Total Bilirubin 7.3 H AST 728 H ALT 439 H Alkaline Phosphatase 547 H Lactate Dehydrogenase 1779 H Total Creatine Kinase 588 H CK-MB (CK-2) 12.0 H CK-MB (CK-2) % 2.0 L Troponin I 0.07 NT-Pro-B Natriuret Pep 2010 H Total Protein 8.0 Albumin 2.6 L Globulin 5.4 Albumin/Globulin Ratio 0.5 L Venous Blood Potassium Fluid Source Fluid Appearance Fluid WBC Fluid RBC Fluid Tot Cell Count Fluid Neutrophils Fluid Lymphocytes Fld Monocyte/Macrophag Fluid Comment Thoracentesis Fluid pH 01/14/18 01/14/18 01/14/18 15:00 17:40 19:27 WBC RBC Hgb Hct MCV MCH MCHC RDW Plt Count Gran % Lymph % (Auto) [place] % (Auto) Eos % (Auto) Baso % (Auto) Gran # Lymph # (Auto) [place] # (Auto) Eos # (Auto) Baso # (Auto) PT INR APTT pCO2 pO2 65 H HCO3 ABG pH ABG Total CO2 ABG O2 Saturation ABG O2 Content ABG Base Excess ABG Hemoglobin ABG Carboxyhemoglobin POC ABG HHb (Measured) ABG Methemoglobin ABG O2 Capacity VBG pH 7.33 VBG pCO2 28.0 L VBG HCO3 14.8 L VBG Total CO2 15.7 L VBG O2 Sat (Calc) 93.9 H VBG Base Excess -9.6 L VBG Potassium 7.0 H* Hgb O2 Saturation Sodium 123.0 L Chloride 93.0 L Glucose 198 H Lactate 5.2 H* FiO2 21.0 Potassium Carbon Dioxide Anion Gap BUN Creatinine Est GFR ( Amer) Est GFR (Non-Af Amer) Random Glucose Uric Acid Calcium Phosphorus Magnesium Total Bilirubin AST ALT Alkaline Phosphatase Lactate Dehydrogenase Total Creatine Kinase CK-MB (CK-2) CK-MB (CK-2) % Troponin I 0.07 NT-Pro-B Natriuret Pep Total Protein Albumin Globulin Albumin/Globulin Ratio Venous Blood Potassium 7.0 H* Fluid Source Fluid Appearance Fluid WBC Fluid RBC Fluid Tot Cell Count Fluid Neutrophils Fluid Lymphocytes Fld Monocyte/Macrophag Fluid Comment Thoracentesis Fluid pH 8.0 01/14/18 01/14/18 19:27 19:31 WBC RBC Hgb Hct MCV MCH MCHC RDW Plt Count Gran % Lymph % (Auto) [place] % (Auto) Eos % (Auto) Baso % (Auto) Gran # Lymph # (Auto) [place] # (Auto) Eos # (Auto) Baso # (Auto) PT INR APTT pCO2 pO2 HCO3 ABG pH ABG Total CO2 ABG O2 Saturation ABG O2 Content ABG Base Excess ABG Hemoglobin ABG Carboxyhemoglobin POC ABG HHb (Measured) ABG Methemoglobin ABG O2 Capacity VBG pH VBG pCO2 VBG HCO3 VBG Total CO2 VBG O2 Sat (Calc) VBG Base Excess VBG Potassium Hgb O2 Saturation Sodium Chloride Glucose Lactate FiO2 Potassium Carbon Dioxide Anion Gap BUN Creatinine Est GFR ( Amer) Est GFR (Non-Af Amer) Random Glucose Uric Acid 6.3 Calcium Phosphorus Magnesium Total Bilirubin AST ALT Alkaline Phosphatase Lactate Dehydrogenase Total Creatine Kinase 474 H CK-MB (CK-2) 10.3 H CK-MB (CK-2) % 2.2 L Troponin I 0.07 NT-Pro-B Natriuret Pep Total Protein Albumin Globulin Albumin/Globulin Ratio Venous Blood Potassium Fluid Source Pleural/thoracentesi Fluid Appearance Bloody Fluid WBC 463.0 H Fluid RBC 85006.0 H Fluid Tot Cell Count 100 H Fluid Neutrophils 24.2 H Fluid Lymphocytes 75.8 H Fld Monocyte/Macrophag TEST NOT PERFORMED Fluid Comment Red color Thoracentesis Fluid pH Assessment & Plan - Assessment and Plan (Free Text) Plan: Pt seen and examined. I have reviewed the note of the medical advisor and agree with it. I have discussed the assessment and plan with the resident. I have re viewed the patient's labs and medications. Pt with ROBER and hypotensive shock, acute resp failure and hyperkalemia. ER called about acute HD for hyperkalemia. Pt received Cagluconate in the ER. Repeat K did show that K was critically high. A R IJ temp dialysis catheter was placed and dialysis was begun. Pt was seen at the start of HD. I did speak to the family regarding the plan of care. I spoke t o the administration intern (Dr Leal) about the case. L pleural effusion improved after thoracentesis. Dr Valdivia asked for Dr Goldberg to take over care for this pt. ICU updated Dr Goldberg, who will take over at this point.
[2018-01-14] MEDS: NOREPINEPHRINE BIT/0.9 % NACL 4 MG/250 ML BAG IV PRN ×3 (15:45→22:42)
--- NOTE | 2018-01-14 17:59 | PCM.SEPTIC ---
Sepsis Progress Note - Reassessment Type Date of Evaluation: 01/14/18 Time of Evaluation: 17:58 Reassessment Type: Non-invasive reassessment - Non Invasive Reassessment Were the most recent vital sign reviewed: Yes Vital Sign (Latest): Temp Pulse Resp BP Pulse Ox 93.1 F L 57 L 12 111/57 L 100 01/14/18 15:28 01/14/18 14:46 01/14/18 15:28 01/14/18 15:28 01/14/18 15:28 Cardiovascular: Yes: Regular Rate, Rhythm. No: Gallop, Murmur, Ectopy, Friction Rub Respiratory: Yes: Other (mechanical ventilated). No: Crackles, Rales, Rhonchi Capillary Refill: Delayed Pulses: Normal Radial, Decreased Dorsalis Pedis, Decreased Posterior Tibialis Skin: Warm - Invasive Reassessment (complete 2 of 4) Was a Central Venous Pressure Measurement obtained within 6 Hours after the presentation of septic shock: No Was a central venous oxygen measurement obtained within 6 hours after the presentation of septic shock: No Was a bedside cardiovascular ultrasound performed within 6 hours after the presentation of septic shock: No Was a passive leg raise performed or was a fluid challenge performed within 6 hrs of the initial fluid bolus: No
--- NOTE | 2018-01-14 18:02 | PCM.PROC ---
Addendum Addendum: 01/14/18 18:01 Central Venous Catheter (CVC, Central Line) Placement 01/14/2018 Indication: Hemodynamic monitoring/Intravenous access A time-out was completed verifying correct patient, procedure, site, positioning. The patient was placed in a dependent position appropriate for central line placement based on the vein to be cannulated. The patients right groin was prepped and draped in sterile fashion. 1% Lidocaine was used to anesthetize the surrounding skin area. A triple lumen Cordis catheter was introduced into the common femoral vein using the Seldinger technique and under ultrasound guidance. The catheter was threaded smoothly over the guide wire and appropriate blood return was obtained. Each lumen of the catheter was evacuated of air and flushed with sterile saline. The catheter was then sutured in place to the skin and a sterile dressing applied. Perfusion to the extremity distal to the point of catheter insertion was checked and found to be adequate. Estimated Blood Loss: minimal The patient tolerated the procedure well and there were no complications.
--- NOTE | 2018-01-14 18:05 | PCM.PROC ---
Addendum Addendum: 01/14/18 18:03 A-Line placement Right Fem Artery 01/14/2018 Indication: Hemodynamic monitoring A time-out was completed verifying correct patient, procedure, site, positioning. The patients right groin was prepped and draped in sterile fashion. 1% Lidocaine was used to anesthetize the surrounding skin area. An Arrow arterial line was introduced into the femoral artery using the Seldinger technique and under ultrasound guidance. Pulsatile flow seen. The catheter was threaded smoothly over the guide wire and appropriate blood return was obtained. The catheter was then sutured in place to the skin and a sterile dressing applied. Perfusion to the extremity distal to the point of catheter insertion was checked and found to be adequate. Estimated Blood Loss: minimal The patient tolerated the procedure well and there were no complications.
--- NOTE | 2018-01-14 18:08 | PCM.PROC ---
Addendum Addendum: 01/14/18 18:06 Hemodialysis Catheter Placement Indication: Emergent HD A time-out was completed verifying correct patient, procedure, site, positioning. The patient was placed in a dependent position appropriate for central line placement based on the vein to be cannulated. The patients right neck was prepped and draped in sterile fashion. 1% Lidocaine was used to anesthetize the surrounding skin area. A HD catheter was introduced into the right IJ using the Seldinger technique and under ultrasound guidance. The cath eter was threaded smoothly over the guide wire and appropriate blood return was obtained. Each lumen of the catheter was evacuated of air and flushed with sterile saline. The catheter was then sutured in place to the skin and a sterile dressing applied. Perfusion to the extremity distal to the point of catheter insertion was checked and found to be adequate. CXR confirms good positions and now PTX. Estimated Blood Loss: minimal The patient tolerated the procedure well and there were no complications.
--- NOTE | 2018-01-14 18:11 | RAD ---
Date of service: 01/14/2018 HISTORY: s/p thoracentesis; r/o pneumothorax COMPARISON: 01/14/2018 at 14:59. FINDINGS: LUNGS: Markedly improved aeration of the previously identified collapse left lung. PLEURA: No significant remaining left pleural effusion. No pneumothorax. CARDIOVASCULAR: No radiographic findings to suggest acute or significant cardiovascular disease. Atherosclerotic calcifications identified primarily aortic arch Venous access catheter in stable, satisfactory position. OSSEOUS STRUCTURES: No significant abnormalities. VISUALIZED UPPER ABDOMEN: Normal. OTHER FINDINGS: Stable position of endotracheal tube. IMPRESSION: Status post left thoracentesis. Substantial reduction in left pleural effusion with commensurate re-expansion left lung. No visible pneumothorax
--- NOTE | 2018-01-14 18:12 | PCM.PROC ---
Addendum Addendum: 01/14/18 18:10 Thoracentesis 01/14/2018 Indication: Large left pleural effusion A time-out was completed verifying correct patient, procedure, site, positioning. The patients left side was prepped and draped in a sterile manner after the appropriate infiltration level was confirmed by ultrasound. 1% lidocaine was used anesthetize the surrounding skin. A finder needle was then used to locate fluid and clear yellow fluid was obtained. A 10-blade scalpel used to make the incision. The thoracentesis catheter was then threaded without difficulty. The patient had 1800 of pinkinsh yellow fluid removed. A post- procedure chest x-ray was ordered and the fluid will be sent for several studies. Estimated Blood Loss: minimal The patient tolerated the procedure well and there were no complications.
[2018-01-14 19:29] LABS: BODY FLUID TYPE PLEURAL/THORACENTESI
[2018-01-14 19:48] LABS: URIC ACID 6.3 mg/dL (3.5-8.5)
[2018-01-14 20:01] LABS: BF GROSS APPEARANCE BLOODY (CLEAR)
[2018-01-14 20:01] LABS: TROPONIN I 0.07 ng/mL
[2018-01-14 20:02] LABS: BODY FLUID TOTAL COUNT 100 (0-0)
[2018-01-14 20:05] LABS: CK MB% 2.2 % (2.5-3.0); CK-MB 10.3 ng/mL (0.0-3.6)
--- NOTE | 2018-01-14 20:09 | CP.PCM.CON ---
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 d/w , she had agreed. pt has dialysis access Rt IJ in place Maintain hemodynamics stable. Avoid hypotension. Patient not on ACEI/ARB due to ROBER and low BP Monitor Input/Output, daily weights and renal function with basic metabolic panel continue with IVF as NS @ 100 ml/hr supplement lytes as needed Check urine analysis, spot protein/creatinine, albumin/creatinine ratio, urine Na/cr. renal sono Check GN work up as VIRIDIANA,Anti dsDNA, ANCA (MPO and MA-3), Anti GBM antibody, H IV/Hep B and Hep C serology Check for 25-OH vitamin D, iPTH, phosphorus level. SPEP and ARIEL with serum FLC assay acetaminophen, salicylate and alcohol level with urine drug screen. Dose meds/antibiotics for reduced GFR. Avoid fleets enema/magnesium based laxatives. Avoid nephrotoxins/NSAIDs/ iodinated contrast (unless needed emergently) Glycemic control Further work up/management as per primary team Thanks for allowing me to participate in care of your patient. Will follow patient with you. Please call if any Qs. had d/w team Dr Jose Goldberg Office: [phone] Chief Complaint; unable to obtain Reason for consult: ROBER HPI: Pt is a 62 year M with hx of HTN, mitral valve repair and CABG oct 2017 @ [facility], also left collapsed lung with water as per , went to rehab and has been home since early november. as per , pt has been doing fine, no known kidney or liver problem (except Hep B +), until weekend when he felt SOB and decreased urine output renal consult for ROBER pt unable to provide any hx pt was hypothermic, intubated for respi failure, s/p thoracocentesis (1.8 L) left lung, started on pressors, abnormal LFT denied smoking/etoh/drugs/acetaminophen/salicylate/toxic ingestion/OTC or herbal meds no vomitting or diarrhoea review of home vitals WNL ROS: unable obtain from pt Physical Examination: General Appearance: in no acute respiratory distress, ill appearing. orally intubated Vitals reviewed and noted as below Head; Atraumatic, normocephalic ENT: orally intubated EYES: Pupils are equal, round and reactive to light accommodation. Eye muscles and extraocular movement intact. Sclera is icteric. Neck; supple no lymphadenopathy, no thyromegaly or bruit Lungs: Increased respiratory rate/effort. Breath sounds reduced at Lt base Heart: Normal rate. s1s2 normal. No rub or gallop. has CABg scar + Extremities: 1+ edema. No varicose veins. Neurological: Patient is sedated Skin: Warm and dry. Normal turgor. No rash. Palpitation: Normal elasticity for age Abdomen: Abdomen is soft. Bowel sounds +. There is no abdominal tenderness, no guarding/rigidity no organomegaly. has superifical erythematous angiomas over abdomen skin Psych: unable MSK: no joint tenderness or swelling. Digits and nails normal, no deformity : kidney or bladder not palpable. has da silva Labs/imaging reviewed. Past medical history, past surgical history, family history, social history, allergy reviewed and noted as below Family hx: no hx of CKD. Rest non-contributory Past Patient History - Past Social History Smoking Status: Unknown If Ever Smoked - CARDIAC Hx Cardiac Disorders: Yes Hx Congestive Heart Failure: Yes Hx Hypertension: Yes Hx Mitral Valve Prolapse: Yes - PULMONARY Hx Respiratory Disorders: Yes (L lung collapse postop 10/2017) - NEUROLOGICAL Hx Neurological Disorder: No - HEENT Hx HEENT Problems: No - RENAL Hx Chronic Kidney Disease: No - ENDOCRINE/METABOLIC Hx Endocrine Disorders: Yes Hx Diabetes Mellitus Type 2: Yes - HEMATOLOGICAL/ONCOLOGICAL Hx Blood Disorders: No - INTEGUMENTARY Hx Dermatological Problems: Yes Other/Comment: surgical scar midsternal and epigastric - MUSCULOSKELETAL/RHEUMATOLOGICAL Hx Musculoskeletal Disorders: No - GASTROINTESTINAL Hx Gastrointestinal Disorders: No - GENITOURINARY/GYNECOLOGICAL Hx Genitourinary Disorders: No - PSYCHIATRIC Hx Depression: No Hx Emotional Abuse: No Hx Physical Abuse: No Hx Substance Use: No - SURGICAL HISTORY Hx Surgeries: Yes Hx Coronary Artery Bypass Graft: Yes (quadruple bypass 10/2017) Hx Valve Replacement: Yes (mitral 10/2017) Meds Allergies/Adverse Reactions: Allergies Allergy/AdvReac Type Severity Reaction Status Date / Time No Known Allergies Allergy Verified 01/14/18 11:05 - Medications Medications: Current Medications Heparin Sodium (Porcine) (Heparin) 5,000 units SC Q12 NILES; Protocol Sodium Chloride (Sodium Chloride 0.9%) 250 mls @ 250 mls/hr IV .Q1H NILES Last Admin: 01/14/18 11:30 Dose: 250 mls/hr Fentanyl Citrate (Fentanyl Citrate/Sodium Chloride 1 Mg/100 Ml) 1,000 mcg in 100 mls @ 2 mls/hr IV .Q24H PRN; Protocol PRN Reason: TITRATE PER MD ORDER Midazolam 100 mg/100ml in NS (Midazolam 100 Mg/100ml In Ns) 100 mg in 100 mls @ 1 mls/hr IV .Q24H PRN; Protocol PRN Reason: Sedation NOREPINEPHRINE BIT/0.9 % NACL (Levophed 4 Mg/ 250 Ml Ns Premixed) 4 mg in 250 mls @ 15 mls/hr IV .[id number] PRN; Protocol PRN Reason: TITRATE PER MD ORDER Last Titration: 01/14/18 19:47 Dose: 20 mcg/min, 75 mls/hr Vancomycin HCl (Vancomycin 1gm) 1 gm in 250 mls @ 167 mls/hr IVPB DAILY NILES; Protocol Piperacillin Sod/Tazobactam Sod (Zosyn 3.375 In Ns 100ml) 100 mls @ 25 mls/hr IVPB Q12 NILES; Protocol Stop: 01/15/18 01:59 Ondansetron HCl (Zofran Inj) 4 mg IVP Q4H PRN PRN Reason: Nausea/Vomiting Pantoprazole Sodium (Protonix Inj) 40 mg IVP DAILY NILES Results - Vital Signs Recent Vital Signs: Last Vital Signs Temp 95.7 F L 01/14/18 18:50 Pulse 78 01/14/18 18:50 Resp 18 01/14/18 18:50 BP 86/48 L 01/14/18 17:05 Pulse Ox 98 01/14/18 18:50 - Labs Result Diagrams: 01/14/18 11:00 01/14/18 15:00 Labs: Laboratory Results - last 24 hr 01/14/18 01/14/18 01/14/18 11:00 11:00 11:00 WBC 12.8 H RBC 4.56 Hgb 13.7 L Hct 39.1 L MCV 85.7 MCH 30.0 MCHC 35.0 RDW 21.6 H Plt Count 132 Gran % 73.0 H Lymph % (Auto) 17.6 L [place] % (Auto) 9.1 H Eos % (Auto) 0.3 L Baso % (Auto) 0.0 Gran # 9.36 H Lymph # (Auto) 2.3 [place] # (Auto) 1.2 H Eos # (Auto) 0.0 Baso # (Auto) 0.00 PT 17.5 H INR 1.51 APTT 42.4 H pCO2 pO2 58 H HCO3 ABG pH ABG Total CO2 ABG O2 Saturation ABG O2 Content ABG Base Excess ABG Hemoglobin ABG Carboxyhemoglobin POC ABG HHb (Measured) ABG Methemoglobin ABG O2 Capacity VBG pH 7.19 L* VBG pCO2 32.0 L VBG HCO3 12.2 L VBG Total CO2 13.2 L VBG O2 Sat (Calc) 87.2 H VBG Base Excess -14.8 L VBG Potassium 7.4 H* Hgb O2 Saturation Sodium 122.0 L Chloride 90.0 L Glucose 145 H Lactate 8.1 H* FiO2 21.0 Potassium Carbon Dioxide Anion Gap BUN Creatinine Est GFR ( Amer) Est GFR (Non-Af Amer) Random Glucose Uric Acid Calcium Phosphorus Magnesium Total Bilirubin AST ALT Alkaline Phosphatase Lactate Dehydrogenase Total Creatine Kinase CK-MB (CK-2) CK-MB (CK-2) % Troponin I NT-Pro-B Natriuret Pep Total Protein Albumin Globulin Albumin/Globulin Ratio Venous Blood Potassium 7.4 H* Fluid Source Thoracentesis Fluid pH 01/14/18 01/14/18 01/14/18 11:00 12:00 15:00 WBC RBC Hgb Hct MCV MCH MCHC RDW Plt Count Gran % Lymph % (Auto) [place] % (Auto) Eos % (Auto) Baso % (Auto) Gran # Lymph # (Auto) [place] # (Auto) Eos # (Auto) Baso # (Auto) PT INR APTT pCO2 18 L* pO2 149.0 H HCO3 9.3 L* ABG pH 7.32 L ABG Total CO2 9.9 L ABG O2 Saturation 100.3 H ABG O2 Content 18.6 ABG Base Excess -14.3 L ABG Hemoglobin 13.4 ABG Carboxyhemoglobin 1.9 H POC ABG HHb (Measured) -0.3 L ABG Methemoglobin 1.0 ABG O2 Capacity 18.5 VBG pH VBG pCO2 VBG HCO3 VBG Total CO2 VBG O2 Sat (Calc) VBG Base Excess VBG Potassium Hgb O2 Saturation 97.4 Sodium 125 L Chloride 97 L Glucose Lactate FiO2 40.0 Potassium 7.4 H* 7.0 H* Carbon Dioxide 12 L Anion Gap 23 H BUN 63 H Creatinine 7.2 H Est GFR ( Amer) 9 Est GFR (Non-Af Amer) 8 Random Glucose 139 H Uric Acid Calcium 7.4 L Phosphorus 7.6 H Magnesium 2.6 H Total Bilirubin 7.3 H AST 728 H ALT 439 H Alkaline Phosphatase 547 H Lactate Dehydrogenase 1779 H Total Creatine Kinase 588 H CK-MB (CK-2) 12.0 H CK-MB (CK-2) % 2.0 L Troponin I 0.07 NT-Pro-B Natriuret Pep 2010 H Total Protein 8.0 Albumin 2.6 L Globulin 5.4 Albumin/Globulin Ratio 0.5 L Venous Blood Potassium Fluid Source Thoracentesis Fluid pH 01/14/18 01/14/18 01/14/18 15:00 17:40 19:27 WBC RBC Hgb Hct MCV MCH MCHC RDW Plt Count Gran % Lymph % (Auto) [place] % (Auto) Eos % (Auto) Baso % (Auto) Gran # Lymph # (Auto) [place] # (Auto) Eos # (Auto) Baso # (Auto) PT INR APTT pCO2 pO2 65 H HCO3 ABG pH ABG Total CO2 ABG O2 Saturation ABG O2 Content ABG Base Excess ABG Hemoglobin ABG Carboxyhemoglobin POC ABG HHb (Measured) ABG Methemoglobin ABG O2 Capacity VBG pH 7.33 VBG pCO2 28.0 L VBG HCO3 14.8 L VBG Total CO2 15.7 L VBG O2 Sat (Calc) 93.9 H VBG Base Excess -9.6 L VBG Potassium 7.0 H* Hgb O2 Saturation Sodium 123.0 L Chloride 93.0 L Glucose 198 H Lactate 5.2 H* FiO2 21.0 Potassium Carbon Dioxide Anion Gap BUN Creatinine Est GFR ( Amer) Est GFR (Non-Af Amer) Random Glucose Uric Acid Calcium Phosphorus Magnesium Total Bilirubin AST ALT Alkaline Phosphatase Lactate Dehydrogenase Total Creatine Kinase CK-MB (CK-2) CK-MB (CK-2) % Troponin I 0.07 NT-Pro-B Natriuret Pep Total Protein Albumin Globulin Albumin/Globulin Ratio Venous Blood Potassium 7.0 H* Fluid Source Thoracentesis Fluid pH 8.0 01/14/18 01/14/18 19:27 19:31 WBC RBC Hgb Hct MCV MCH MCHC RDW Plt Count Gran % Lymph % (Auto) [place] % (Auto) Eos % (Auto) Baso % (Auto) Gran # Lymph # (Auto) [place] # (Auto) Eos # (Auto) Baso # (Auto) PT INR APTT pCO2 pO2 HCO3 ABG pH ABG Total CO2 ABG O2 Saturation ABG O2 Content ABG Base Excess ABG Hemoglobin ABG Carboxyhemoglobin POC ABG HHb (Measured) ABG Methemoglobin ABG O2 Capacity VBG pH VBG pCO2 VBG HCO3 VBG Total CO2 VBG O2 Sat (Calc) VBG Base Excess VBG Potassium Hgb O2 Saturation Sodium Chloride Glucose Lactate FiO2 Potassium Carbon Dioxide Anion Gap BUN Creatinine Est GFR ( Amer) Est GFR (Non-Af Amer) Random Glucose Uric Acid 6.3 Calcium Phosphorus Magnesium Total Bilirubin AST ALT Alkaline Phosphatase Lactate Dehydrogenase Total Creatine Kinase 474 H CK-MB (CK-2) CK-MB (CK-2) % Troponin I NT-Pro-B Natriuret Pep Total Protein Albumin Globulin Albumin/Globulin Ratio Venous Blood Potassium Fluid Source Pleural/thoracentesi Thoracentesis Fluid pH
--- NOTE | 2018-01-14 20:11 | CP.PCM.PN ---
Subjective - Date & Time of Evaluation Date of Evaluation: 01/14/18 Time of Evaluation: 20:10 - Subjective Subjective: Dialysis NOTE pt seen during HD, tolerating well bedside d/w HD nurse will use dialysate Na 130 as pt hyponatremic, hence to avoid correction in serum Na >6-8 meq/24 hrs 2 K bath UF goal nil at this time due to his shock state vitals reviewed next HD tomorrow as well Objective - Vital Signs/Intake and Output Vital Signs (last 24 hours): Temp Pulse Resp BP Pulse Ox 95.7 F L 78 18 86/48 L 98 01/14/18 18:50 01/14/18 18:50 01/14/18 18:50 01/14/18 17:05 01/14/18 18:50 Intake and Output: 01/14/18 01/15/18 18:59 06:59 Intake Total 250 90 Balance 250 90 - Medications Medications: Current Medications Heparin Sodium (Porcine) (Heparin) 5,000 units SC Q12 NILES; Protocol Sodium Chloride (Sodium Chloride 0.9%) 250 mls @ 250 mls/hr IV .Q1H NILES Last Admin: 01/14/18 11:30 Dose: 250 mls/hr Fentanyl Citrate (Fentanyl Citrate/Sodium Chloride 1 Mg/100 Ml) 1,000 mcg in 100 mls @ 2 mls/hr IV .Q24H PRN; Protocol PRN Reason: TITRATE PER MD ORDER Midazolam 100 mg/100ml in NS (Midazolam 100 Mg/100ml In Ns) 100 mg in 100 mls @ 1 mls/hr IV .Q24H PRN; Protocol PRN Reason: Sedation NOREPINEPHRINE BIT/0.9 % NACL (Levophed 4 Mg/ 250 Ml Ns Premixed) 4 mg in 250 mls @ 15 mls/hr IV .[id number] PRN; Protocol PRN Reason: TITRATE PER MD ORDER Last Titration: 01/14/18 19:47 Dose: 20 mcg/min, 75 mls/hr Vancomycin HCl (Vancomycin 1gm) 1 gm in 250 mls @ 167 mls/hr IVPB DAILY NILES; Protocol Piperacillin Sod/Tazobactam Sod (Zosyn 3.375 In Ns 100ml) 100 mls @ 25 mls/hr IVPB Q12 NILES; Protocol Stop: 01/15/18 01:59 Ondansetron HCl (Zofran Inj) 4 mg IVP Q4H PRN PRN Reason: Nausea/Vomiting Pantoprazole Sodium (Protonix Inj) 40 mg IVP DAILY NILES - Labs Labs: 01/14/18 11:00 01/14/18 15:00 PT 17.5 SECONDS (9.4-12.5) H 01/14/18 11:00 INR 1.51 01/14/18 11:00 APTT 42.4 Seconds (25.1-36.5) H 01/14/18 11:00
[2018-01-14] MEDS ORDERED: Sodium Chloride 0.9% 1,000 ML IV SCH (20:30)
[2018-01-14] MEDS ORDERED: Piperacillin/Tazobact 3.375 gm 100 ML IVPB SCH (22:00)
[2018-01-14 22:29] LABS: ARTERIAL BLOOD GAS HCO3 17.5 mmol/L (21-28); ARTERIAL BLOOD GAS PCO2 21 mm/Hg (35-45); ARTERIAL BLOOD GAS PH 7.53 (7.35-7.45); ARTERIAL BLOOD GAS TCO2 18.1 mmol.L (22-28)
[2018-01-14 22:51] LABS: VENOUS BLOOD GAS BASE EXCESS -2.1 mmol/L (0.0-2.0); VENOUS BLOOD GAS PO2 260 mm/Hg (30-55); VENOUS BLOOD PH 7.51 (7.32-7.43)
[2018-01-14] MEDS: Linezolid 600 mg in D5W 300 ml 600 MG/300 ML BAG IVPB SCH (22:55)
[2018-01-14 23:09] LABS: ACETAMINOPHEN < 10.0 ug/ml (10.0-20.0); SALICYLATE < 1 mg/dL (2.0-20.0)
[2018-01-14 23:10] LABS: ALB/GLOB RATIO 0.5 (1.1-1.8); CALCIUM 6.6 mg/dL (8.4-10.5)
[2018-01-14 23:13] LABS: TROPONIN I 0.08 ng/mL
[2018-01-14 23:28] LABS: CK-MB 8.4 ng/mL (0.0-3.6)
[2018-01-14] MEDS: MEROPENEM 500 MG in NS 500 MG/50 ML BAG IVPB SCH (23:51)
[2018-01-15 01:02] LABS: BASO # 0.02 K/mm3 (0.0-2.0); BASO % 0.2 % (0.0-3.0); EOS # 0.2 (0.0-0.7); EOS % 2.2 % (1.5-5.0); GRAN % 67.6 % (50.0-68.0); HEMOGLOBIN 12.9 g/dL (14.0-18.0); LYMPH # 2.3 (1.2-3.4); LYMPH % 21.5 % (22.0-35.0); MEAN CELL VOLUME 83.3 fl (80.0-105.0); MEAN CORPUSCULAR HEMOGLOBIN 29.9 pg (25.0-35.0); MEAN CORPUSCULAR HGB CONC 35.9 g/dl (31.0-37.0); MONO # 0.9 (0.1-0.6); MONO % 8.5 % (1.0-6.0); PLATELET COUNT 86 10^3/uL (120.0-450.0); RBC 4.31 10^6/uL (3.5-6.1); RED CELL DISTRIBUTION WIDTH 21.3 % (11.5-14.5); WHITE BLOOD COUNT 10.5 10^3/uL (4.5-11.0)
[2018-01-15] MEDS: NOREPINEPHRINE BIT/0.9 % NACL 4 MG/250 ML BAG IV PRN ×8 (02:23→22:15)
[2018-01-15 03:50] LABS: BASO # 0.03 K/mm3 (0.0-2.0); BASO % 0.2 % (0.0-3.0); EOS # 0.2 (0.0-0.7); GRAN # 8.54 (1.4-6.5); GRAN % 69.6 % (50.0-68.0); HEMOGLOBIN 13.2 g/dL (14.0-18.0); LYMPH # 2.5 (1.2-3.4); LYMPH % 20.1 % (22.0-35.0); MEAN CELL VOLUME 84.5 fl (80.0-105.0); MEAN CORPUSCULAR HEMOGLOBIN 30.1 pg (25.0-35.0); MEAN CORPUSCULAR HGB CONC 35.6 g/dl (31.0-37.0); MONO % 8.1 % (1.0-6.0); PLATELET COUNT 87 10^3/uL (120.0-450.0); RBC 4.39 10^6/uL (3.5-6.1); RED CELL DISTRIBUTION WIDTH 21.5 % (11.5-14.5); WHITE BLOOD COUNT 12.3 10^3/uL (4.5-11.0)
[2018-01-15 04:00] LABS: VENOUS BLOOD GAS BASE EXCESS -7.6 mmol/L (0.0-2.0); VENOUS BLOOD GAS PO2 105 mm/Hg (30-55); VENOUS BLOOD PH 7.43 (7.32-7.43)
[2018-01-15 04:09] LABS: ALB/GLOB RATIO 0.4 (1.1-1.8); ALBUMIN 1.8 g/dL (3.0-4.8); BILIRUBIN,DIRECT 4.4 mg/dL (0.0-0.4); CALCIUM 6.1 mg/dL (8.4-10.5); TROPONIN I 0.12 ng/mL
[2018-01-15] MEDS ORDERED: Dextrose 50% SYRINGE Inj (50 ml) IVP ONE ×2 (04:13→05:50)
[2018-01-15] MEDS ORDERED: Insulin Regular 1 UNITS/0.01 ML ML SC ONE (04:13)
[2018-01-15] MEDS ORDERED: Sodium Bicarbonate (8.4%) 50 Meq Syringe IVP ONE ×2 (04:22→04:35)
[2018-01-15] MEDS ORDERED: Albumin Human 25% (12.5 gm/50 ml) IV ONE ×2 (04:25→07:18)
[2018-01-15] MEDS ORDERED: Dextrose 50% SYRINGE Inj (50 ml) ONE (04:35)
[2018-01-15 05:35] LABS: CK MB% 0.9 % (2.5-3.0); CK-MB 9.6 ng/mL (0.0-3.6)
[2018-01-15 06:06] LABS: ARTERIAL BLOOD GAS O2 SAT 98.2 % (95-98); ARTERIAL BLOOD GAS PCO2 26 mm/Hg (35-45); ARTERIAL BLOOD GAS PH 7.34 (7.35-7.45); ARTERIAL BLOOD GAS TCO2 14.8 mmol.L (22-28)
--- NOTE | 2018-01-15 07:20 | CON ---
DATE: 01/14/2018 ADDENDUM TO THE CONSULTATION DONE TODAY This is a 62-year-old male who was admitted to the hospital because of acute kidney injury, hypokalemia, metabolic acidosis. The patient is in shock. I was consulted from the ER because the patient required emergent treatment for the hypokalemia. The patient has a right IJ catheter that was placed for dialysis by the ICU team. Repeat potassium that was done after the patient had received fluids, calcium, insulin, dextrose, and bicarb still showed hypokalemia. The patient had undergone emergent dialysis. I was at the bedside with the nurse when the patient was started on dialysis. I will order a renal ultrasound. At this point, I am not sure of the cause of the acute kidney injury. The patient does have a mild white count, no fevers. The patient's chest x-ray does not show any infiltrates. We will need to rule out sepsis. The patient has blood cultures and urine cultures that have been done. I placed the patient on a 2K bath for 3 hours. The patient is on Levophed. The patient is oxygenating well on the ventilator. I did speak to the patient's family at the bedside to give them an update. Please see the full consultation that was done earlier today. Dr. Simms had asked for Dr. Goldberg to take over care for this patient's dialysis and management of acute kidney injury. Tommy Penaloza MD
[2018-01-15] MEDS ORDERED: Sodium Chloride 0.9% 1,000 ML IV SCH (07:27)
--- NOTE | 2018-01-15 07:28 | CP.PCM.CON ---
History of Present Illness - History of Present Illness History of Present Illness: Surgical Consult Note for Dr. Huerta 62M w/ PMH of HTN, HLD, quadruple bypass with post op afib, mitral valve repair (October 2017), left pneumothroax at [facility] [place] presented to [facility] [place] ED on 01/14 w/ CC of SOB and decreased urine output over the past few days. Patient's son mentioned that patient has been having markedly increased sob for the past few days with decreased appetite and decreased urinary output for the past 4 days de spite diuretic use. Surgery was consulted because patient was noted to have a Tbili of 5.3 and a di rect bilirubin of 4.4; CTAP showed large cholelithiasis. Pt. seen and examined at bedside this AM Intubated at this time w/ mild sedation. Unable to respond to questioning/ ROS unobtainable. X Ray Service Technician: Dr. Hernandez PMHx: HTN, HLD, quadruple bypass with post op afib, mitral valve repair (Oct), left pneumothorax PSHx: quadruple bypass with mitral valve repair (October 2017) Meds: lasix 40, potassium 20meq, protonix 40, MVI, norvasc 10, metoprolol 50, aspirin 81, lipitor 40, Allergies: NKDA SocialHx: social drinker. No smoking history. No recreational drug use. FamHx: non-contributory. Review of Systems - Review of Systems Systems not reviewed;Unavailable: Intubated Past Patient History - Past Social History Smoking Status: Unknown If Ever Smoked - CARDIAC Hx Cardiac Disorders: Yes Hx Congestive Heart Failure: Yes Hx Hypertension: Yes Hx Mitral Valve Prolapse: Yes - PULMONARY Hx Respiratory Disorders: Yes (L lung collapse postop 10/2017) - NEUROLOGICAL Hx Neurological Disorder: No - HEENT Hx HEENT Problems: No - RENAL Hx Chronic Kidney Disease: No - ENDOCRINE/METABOLIC Hx Endocrine Disorders: Yes Hx Diabetes Mellitus Type 2: Yes - HEMATOLOGICAL/ONCOLOGICAL Hx Blood Disorders: No - INTEGUMENTARY Hx Dermatological Problems: Yes Other/Comment: surgical scar midsternal and epigastric - MUSCULOSKELETAL/RHEUMATOLOGICAL Hx Musculoskeletal Disorders: No - GASTROINTESTINAL Hx Gastrointestinal Disorders: No - GENITOURINARY/GYNECOLOGICAL Hx Genitourinary Disorders: No - PSYCHIATRIC Hx Depression: No Hx Emotional Abuse: No Hx Physical Abuse: No Hx Substance Use: No - SURGICAL HISTORY Hx Surgeries: Yes Hx Coronary Artery Bypass Graft: Yes (quadruple bypass 10/2017) Hx Valve Replacement: Yes (mitral 10/2017) Meds Allergies/Adverse Reactions: Allergies Allergy/AdvReac Type Severity Reaction Status Date / Time No Known Allergies Allergy Verified 01/14/18 11:05 - Medications Medications: Current Medications Albumin Human (Albumin Human 25% (12.5 Gm/50 Ml)) 100 gm IV ONCE ONE Stop: 01/15/18 07:19 Heparin Sodium (Porcine) (Heparin) 5,000 units SC Q12 NILES; Protocol Last Admin: 01/14/18 22:53 Dose: 5,000 units Fentanyl Citrate (Fentanyl Citrate/Sodium Chloride 1 Mg/100 Ml) 1,000 mcg in 100 mls @ 2 mls/hr IV .Q24H PRN; Protocol PRN Reason: TITRATE PER MD ORDER Last Titration: 01/14/18 22:29 Dose: 5 mcg/hr, 0.5 mls/hr Midazolam 100 mg/100ml in NS (Midazolam 100 Mg/100ml In Ns) 100 mg in 100 mls @ 1 mls/hr IV .Q24H PRN; Protocol PRN Reason: Sedation NOREPINEPHRINE BIT/0.9 % NACL (Levophed 4 Mg/ 250 Ml Ns Premixed) 4 mg in 250 mls @ 15 mls/hr IV .[id number] PRN; Protocol PRN Reason: TITRATE PER MD ORDER Last Admin: 01/15/18 06:03 Dose: 20 mcg/min, 75 mls/hr Sodium Chloride (Sodium Chloride 0.9%) 1,000 mls @ 100 mls/hr IV .Q10H NILES Last Admin: 01/14/18 20:29 Dose: 100 mls/hr Meropenem/Sodium Chloride (Merrem Iv 500 Mg/Ns 50 Ml) 500 mg in 50 mls @ 100 mls/hr IVPB Q12 NILES; Protocol Last Admin: 01/14/18 23:51 Dose: 100 mls/hr Linezolid (Zyvox 600mg/300ml D5w) 600 mg in 300 mls @ 200 mls/hr IVPB Q12 NILES; Protocol Stop: 01/21/18 22:01 Last Admin: 01/14/18 22:55 Dose: 200 mls/hr Doxycycline Hyclate 100 mg/ (Sodium Chloride) 100 mls @ 100 mls/hr IVPB Q12 [facility]; Protocol Last Admin: 01/14/18 23:51 Dose: 100 mls/hr Vasopressin 20 units/ Sodium (Chloride) 101 mls @ 9.09 mls/hr IV .Q11H7M [facility]; Protocol Last Admin: 01/15/18 04:56 Dose: 9.09 mls/hr Ondansetron HCl (Zofran Inj) 4 mg IVP Q4H PRN PRN Reason: Nausea/Vomiting Pantoprazole Sodium (Protonix Inj) 40 mg IVP DAILY [facility] Physical Exam - Constitutional Appears: Toxic, No Acute Distress - Head Exam Head Exam: ATRAUMATIC, NORMOCEPHALIC - Eye Exam Eye Exam: EOMI, PERRL, Scleral icterus - ENT Exam Additional comments: ET Tube in place - Respiratory Exam Additional comments: Vented - Cardiovascular Exam Cardiovascular Exam: RRR, +S1, +S2 - GI/Abdominal Exam Additional comments: Fluid wave present Distended Dull to percussion - Skin Additional comments: Jaundice Results - Vital Signs Recent Vital Signs: Last Vital Signs Temp 98.8 F 01/15/18 06:30 Pulse 82 01/15/18 06:30 Resp 25 H 01/15/18 00:00 BP 106/44 L 01/15/18 06:00 Pulse Ox 94 L 01/15/18 06:30 - Labs Result Diagrams: 01/15/18 03:30 01/15/18 03:30 Labs: Laboratory Results - last 24 hr 01/14/18 01/14/18 01/14/18 11:00 11:00 11:00 WBC 12.8 H RBC 4.56 Hgb 13.7 L Hct 39.1 L MCV 85.7 MCH 30.0 MCHC 35.0 RDW 21.6 H Plt Count 132 Gran % 73.0 H Lymph % (Auto) 17.6 L [place] % (Auto) 9.1 H Eos % (Auto) 0.3 L Baso % (Auto) 0.0 Gran # 9.36 H Lymph # (Auto) 2.3 [place] # (Auto) 1.2 H Eos # (Auto) 0.0 Baso # (Auto) 0.00 PT 17.5 H INR 1.51 APTT 42.4 H pCO2 pO2 58 H HCO3 ABG pH ABG Total CO2 ABG O2 Saturation ABG O2 Content ABG Base Excess ABG Hemoglobin ABG Carboxyhemoglobin POC ABG HHb (Measured) ABG Methemoglobin ABG O2 Capacity ABG Potassium VBG pH 7.19 L* VBG pCO2 32.0 L VBG HCO3 12.2 L VBG Total CO2 13.2 L VBG O2 Sat (Calc) 87.2 H VBG Base Excess -14.8 L VBG Potassium 7.4 H* Hgb O2 Saturation Sodium 122.0 L Chloride 90.0 L Glucose 145 H Lactate 8.1 H* Mechanical Rate FiO2 21.0 Tidal Volume PEEP Potassium Carbon Dioxide Anion Gap BUN Creatinine Est GFR ( Amer) Est GFR (Non-Af Amer) Random Glucose Fructosamine Uric Acid Calcium Phosphorus Magnesium Total Bilirubin Direct Bilirubin AST ALT Alkaline Phosphatase Lactate Dehydrogenase Total Creatine Kinase CK-MB (CK-2) CK-MB (CK-2) % Troponin I NT-Pro-B Natriuret Pep Total Protein Albumin Globulin Albumin/Globulin Ratio Triglycerides Cholesterol LDL Cholesterol Direct HDL Cholesterol Arterial Blood Potassium Venous Blood Potassium 7.4 H* Fluid Source Fluid Appearance Fluid WBC Fluid RBC Fluid Tot Cell Count Fluid Neutrophils Fluid Lymphocytes Fld Monocyte/Macrophag Fluid Comment Thoracentesis Fluid pH Salicylates Acetaminophen Alcohol, Quantitative 01/14/18 01/14/18 01/14/18 11:00 12:00 15:00 WBC RBC Hgb Hct MCV MCH MCHC RDW Plt Count Gran % Lymph % (Auto) [place] % (Auto) Eos % (Auto) Baso % (Auto) Gran # Lymph # (Auto) [place] # (Auto) Eos # (Auto) Baso # (Auto) PT INR APTT pCO2 18 L* pO2 149.0 H HCO3 9.3 L* ABG pH 7.32 L ABG Total CO2 9.9 L ABG O2 Saturation 100.3 H ABG O2 Content 18.6 ABG Base Excess -14.3 L ABG Hemoglobin 13.4 ABG Carboxyhemoglobin 1.9 H POC ABG HHb (Measured) -0.3 L ABG Methemoglobin 1.0 ABG O2 Capacity 18.5 ABG Potassium VBG pH VBG pCO2 VBG HCO3 VBG Total CO2 VBG O2 Sat (Calc) VBG Base Excess VBG Potassium Hgb O2 Saturation 97.4 Sodium 125 L Chloride 97 L Glucose Lactate Mechanical Rate FiO2 40.0 Tidal Volume PEEP Potassium 7.4 H* 7.0 H* Carbon Dioxide 12 L Anion Gap 23 H BUN 63 H Creatinine 7.2 H Est GFR ( Amer) 9 Est GFR (Non-Af Amer) 8 Random Glucose 139 H Fructosamine Uric Acid Calcium 7.4 L Phosphorus 7.6 H Magnesium 2.6 H Total Bilirubin 7.3 H Direct Bilirubin AST 728 H ALT 439 H Alkaline Phosphatase 547 H Lactate Dehydrogenase 1779 H Total Creatine Kinase 588 H CK-MB (CK-2) 12.0 H CK-MB (CK-2) % 2.0 L Troponin I 0.07 NT-Pro-B Natriuret Pep 2010 H Total Protein 8.0 Albumin 2.6 L Globulin 5.4 Albumin/Globulin Ratio 0.5 L Triglycerides Cholesterol LDL Cholesterol Direct HDL Cholesterol Arterial Blood Potassium Venous Blood Potassium Fluid Source Fluid Appearance Fluid WBC Fluid RBC Fluid Tot Cell Count Fluid Neutrophils Fluid Lymphocytes Fld Monocyte/Macrophag Fluid Comment Thoracentesis Fluid pH Salicylates Acetaminophen Alcohol, Quantitative 01/14/18 01/14/18 01/14/18 15:00 17:40 19:27 WBC RBC Hgb Hct MCV MCH MCHC RDW Plt Count Gran % Lymph % (Auto) [place] % (Auto) Eos % (Auto) Baso % (Auto) Gran # Lymph # (Auto) [place] # (Auto) Eos # (Auto) Baso # (Auto) PT INR APTT pCO2 pO2 65 H HCO3 ABG pH ABG Total CO2 ABG O2 Saturation ABG O2 Content ABG Base Excess ABG Hemoglobin ABG Carboxyhemoglobin POC ABG HHb (Measured) ABG Methemoglobin ABG O2 Capacity ABG Potassium VBG pH 7.33 VBG pCO2 28.0 L VBG HCO3 14.8 L VBG Total CO2 15.7 L VBG O2 Sat (Calc) 93.9 H VBG Base Excess -9.6 L VBG Potassium 7.0 H* Hgb O2 Saturation Sodium 123.0 L Chloride 93.0 L Glucose 198 H Lactate 5.2 H* Mechanical Rate FiO2 21.0 Tidal Volume PEEP Potassium Carbon Dioxide Anion Gap BUN Creatinine Est GFR ( Amer) Est GFR (Non-Af Amer) Random Glucose Fructosamine Uric Acid Calcium Phosphorus Magnesium Total Bilirubin Direct Bilirubin AST ALT Alkaline Phosphatase Lactate Dehydrogenase Total Creatine Kinase CK-MB (CK-2) CK-MB (CK-2) % Troponin I 0.07 NT-Pro-B Natriuret Pep Total Protein Albumin Globulin Albumin/Globulin Ratio Triglycerides Cholesterol LDL Cholesterol Direct HDL Cholesterol Arterial Blood Potassium Venous Blood Potassium 7.0 H* Fluid Source Fluid Appearance Fluid WBC Fluid RBC Fluid Tot Cell Count Fluid Neutrophils Fluid Lymphocytes Fld Monocyte/Macrophag Fluid Comment Thoracentesis Fluid pH 8.0 Salicylates Acetaminophen Alcohol, Quantitative 01/14/18 01/14/18 01/14/18 19:27 19:31 19:31 WBC RBC Hgb Hct MCV MCH MCHC RDW Plt Count Gran % Lymph % (Auto) [place] % (Auto) Eos % (Auto) Baso % (Auto) Gran # Lymph # (Auto) [place] # (Auto) Eos # (Auto) Baso # (Auto) PT INR APTT pCO2 pO2 HCO3 ABG pH ABG Total CO2 ABG O2 Saturation ABG O2 Content ABG Base Excess ABG Hemoglobin ABG Carboxyhemoglobin POC ABG HHb (Measured) ABG Methemoglobin ABG O2 Capacity ABG Potassium VBG pH VBG pCO2 VBG HCO3 VBG Total CO2 VBG O2 Sat (Calc) VBG Base Excess VBG Potassium Hgb O2 Saturation Sodium Chloride Glucose Lactate Mechanical Rate FiO2 Tidal Volume PEEP Potassium Carbon Dioxide Anion Gap BUN Creatinine Est GFR ( Amer) Est GFR (Non-Af Amer) Random Glucose Fructosamine 315 H Uric Acid 6.3 Calcium Phosphorus Magnesium Total Bilirubin Direct Bilirubin AST ALT Alkaline Phosphatase Lactate Dehydrogenase Total Creatine Kinase 474 H CK-MB (CK-2) 10.3 H CK-MB (CK-2) % 2.2 L Troponin I 0.07 NT-Pro-B Natriuret Pep Total Protein Albumin Globulin Albumin/Globulin Ratio Triglycerides Cholesterol LDL Cholesterol Direct HDL Cholesterol Arterial Blood Potassium Venous Blood Potassium Fluid Source Pleural/thoracentesi Fluid Appearance Bloody Fluid WBC 463.0 H Fluid RBC 75058.0 H Fluid Tot Cell Count 100 H Fluid Neutrophils 24.2 H Fluid Lymphocytes 75.8 H Fld Monocyte/Macrophag TEST NOT PERFORMED Fluid Comment Red color Thoracentesis Fluid pH Salicylates Acetaminophen Alcohol, Quantitative 01/14/18 01/14/18 01/14/18 22:26 22:30 22:46 WBC RBC Hgb Hct MCV MCH MCHC RDW Plt Count Gran % Lymph % (Auto) [place] % (Auto) Eos % (Auto) Baso % (Auto) Gran # Lymph # (Auto) [place] # (Auto) Eos # (Auto) Baso # (Auto) PT INR APTT pCO2 21 L pO2 266.0 H 260 H HCO3 17.5 L ABG pH 7.53 H ABG Total CO2 18.1 L ABG O2 Saturation 100.0 H ABG O2 Content ABG Base Excess -3.2 L ABG Hemoglobin ABG Carboxyhemoglobin POC ABG HHb (Measured) ABG Methemoglobin ABG O2 Capacity ABG Potassium 4.9 VBG pH 7.51 H VBG pCO2 24.0 L VBG HCO3 19.2 L VBG Total CO2 19.9 L VBG O2 Sat (Calc) 100.1 H VBG Base Excess -2.1 L VBG Potassium 5.2 Hgb O2 Saturation Sodium 135.0 130 L 128.0 L Chloride 97.0 L 102 98.0 Glucose 97 99 Lactate 3.7 H 4.4 H* Mechanical Rate 20 FiO2 80.0 21.0 Tidal Volume 450 PEEP 5 Potassium 5.2 H Carbon Dioxide 20 L Anion Gap 13 BUN 36 H Creatinine 4.4 H Est GFR ( Amer) 17 Est GFR (Non-Af Amer) 14 Random Glucose 97 Fructosamine Uric Acid Calcium 6.6 L* Phosphorus 5.1 H Magnesium 1.9 Total Bilirubin 5.6 H Direct Bilirubin AST 752 H ALT 380 H Alkaline Phosphatase 454 H Lactate Dehydrogenase Total Creatine Kinase 467 H CK-MB (CK-2) 8.4 H CK-MB (CK-2) % Troponin I 0.08 NT-Pro-B Natriuret Pep Total Protein 6.2 Albumin 2.0 L Globulin 4.2 Albumin/Globulin Ratio 0.5 L Triglycerides Cholesterol LDL Cholesterol Direct HDL Cholesterol Arterial Blood Potassium 4.9 Venous Blood Potassium 5.2 Fluid Source Fluid Appearance Fluid WBC Fluid RBC Fluid Tot Cell Count Fluid Neutrophils Fluid Lymphocytes Fld Monocyte/Macrophag Fluid Comment Thoracentesis Fluid pH Salicylates Acetaminophen Alcohol, Quantitative 01/14/18 01/14/18 01/15/18 22:57 22:58 00:40 WBC 10.5 RBC 4.31 Hgb 12.9 L Hct 35.9 L MCV 83.3 MCH 29.9 MCHC 35.9 RDW 21.3 H Plt Count 86 L Gran % 67.6 Lymph % (Auto) 21.5 L [place] % (Auto) 8.5 H Eos % (Auto) 2.2 Baso % (Auto) 0.2 Gran # 7.10 H Lymph # (Auto) 2.3 [place] # (Auto) 0.9 H Eos # (Auto) 0.2 Baso # (Auto) 0.02 PT INR APTT pCO2 pO2 HCO3 ABG pH ABG Total CO2 ABG O2 Saturation ABG O2 Content ABG Base Excess ABG Hemoglobin ABG Carboxyhemoglobin POC ABG HHb (Measured) ABG Methemoglobin ABG O2 Capacity ABG Potassium VBG pH VBG pCO2 VBG HCO3 VBG Total CO2 VBG O2 Sat (Calc) VBG Base Excess VBG Potassium Hgb O2 Saturation Sodium Chloride Glucose Lactate Mechanical Rate FiO2 Tidal Volume PEEP Potassium Carbon Dioxide Anion Gap BUN Creatinine Est GFR ( Amer) Est GFR (Non-Af Amer) Random Glucose Fructosamine Uric Acid Calcium Phosphorus Magnesium Total Bilirubin Direct Bilirubin AST ALT Alkaline Phosphatase Lactate Dehydrogenase Total Creatine Kinase CK-MB (CK-2) CK-MB (CK-2) % Troponin I NT-Pro-B Natriuret Pep Total Protein Albumin Globulin Albumin/Globulin Ratio Triglycerides Cholesterol LDL Cholesterol Direct HDL Cholesterol Arterial Blood Potassium Venous Blood Potassium Fluid Source Fluid Appearance Fluid WBC Fluid RBC Fluid Tot Cell Count Fluid Neutrophils Fluid Lymphocytes Fld Monocyte/Macrophag Fluid Comment Thoracentesis Fluid pH Salicylates < 1 L Acetaminophen < 10.0 L Alcohol, Quantitative < 10 01/15/18 01/15/18 01/15/18 03:30 03:30 03:30 WBC 12.3 H RBC 4.39 Hgb 13.2 L Hct 37.1 L MCV 84.5 MCH 30.1 MCHC 35.6 RDW 21.5 H Plt Count 87 L Gran % 69.6 H Lymph % (Auto) 20.1 L [place] % (Auto) 8.1 H Eos % (Auto) 2.0 Baso % (Auto) 0.2 Gran # 8.54 H Lymph # (Auto) 2.5 [place] # (Auto) 1.0 H Eos # (Auto) 0.2 Baso # (Auto) 0.03 PT INR APTT pCO2 pO2 105 H HCO3 ABG pH ABG Total CO2 ABG O2 Saturation ABG O2 Content ABG Base Excess ABG Hemoglobin ABG Carboxyhemoglobin POC ABG HHb (Measured) ABG Methemoglobin ABG O2 Capacity ABG Potassium VBG pH 7.43 VBG pCO2 22.0 L VBG HCO3 14.6 L VBG Total CO2 15.3 L VBG O2 Sat (Calc) 99.3 H VBG Base Excess -7.6 L VBG Potassium 5.7 H Hgb O2 Saturation Sodium 128 L 128.0 L Chloride 103 98.0 Glucose 73 L Lactate 6.7 H* Mechanical Rate FiO2 21.0 Tidal Volume PEEP Potassium 5.6 H* Carbon Dioxide 15 L Anion Gap 16 BUN 37 H Creatinine 4.7 H Est GFR ( Amer) 15 Est GFR (Non-Af Amer) 13 Random Glucose 69 L Fructosamine Uric Acid Calcium 6.1 L* Phosphorus 5.7 H Magnesium 1.9 Total Bilirubin 5.3 H Direct Bilirubin 4.4 H AST 853 H ALT 391 H Alkaline Phosphatase 436 H Lactate Dehydrogenase Total Creatine Kinase 1124 H CK-MB (CK-2) 9.6 H CK-MB (CK-2) % 0.9 L Troponin I 0.12 D NT-Pro-B Natriuret Pep Total Protein 5.8 Albumin 1.8 L Globulin 4.0 Albumin/Globulin Ratio 0.4 L Triglycerides 126 Cholesterol 145 LDL Cholesterol Direct 76 HDL Cholesterol 12 L Arterial Blood Potassium Venous Blood Potassium 5.7 H Fluid Source Fluid Appearance Fluid WBC Fluid RBC Fluid Tot Cell Count Fluid Neutrophils Fluid Lymphocytes Fld Monocyte/Macrophag Fluid Comment Thoracentesis Fluid pH Salicylates Acetaminophen Alcohol, Quantitative 01/15/18 05:50 WBC RBC Hgb Hct MCV MCH MCHC RDW Plt Count Gran % Lymph % (Auto) [place] % (Auto) Eos % (Auto) Baso % (Auto) Gran # Lymph # (Auto) [place] # (Auto) Eos # (Auto) Baso # (Auto) PT INR APTT pCO2 26 L pO2 86.0 HCO3 14.0 L ABG pH 7.34 L ABG Total CO2 14.8 L ABG O2 Saturation 98.2 H ABG O2 Content ABG Base Excess -10.1 L ABG Hemoglobin ABG Carboxyhemoglobin POC ABG HHb (Measured) ABG Methemoglobin ABG O2 Capacity ABG Potassium 4.8 VBG pH VBG pCO2 VBG HCO3 VBG Total CO2 VBG O2 Sat (Calc) VBG Base Excess VBG Potassium Hgb O2 Saturation Sodium 130.0 L Chloride 99.0 Glucose 76 Lactate 8.2 H* Mechanical Rate FiO2 40.0 Tidal Volume PEEP Potassium Carbon Dioxide Anion Gap BUN Creatinine Est GFR ( Amer) Est GFR (Non-Af Amer) Random Glucose Fructosamine Uric Acid Calcium Phosphorus Magnesium Total Bilirubin Direct Bilirubin AST ALT Alkaline Phosphatase Lactate Dehydrogenase Total Creatine Kinase CK-MB (CK-2) CK-MB (CK-2) % Troponin I NT-Pro-B Natriuret Pep Total Protein Albumin Globulin Albumin/Globulin Ratio Triglycerides Cholesterol LDL Cholesterol Direct HDL Cholesterol Arterial Blood Potassium 4.8 Venous Blood Potassium Fluid Source Fluid Appearance Fluid WBC Fluid RBC Fluid Tot Cell Count Fluid Neutrophils Fluid Lymphocytes Fld Monocyte/Macrophag Fluid Comment Thoracentesis Fluid pH Salicylates Acetaminophen Alcohol, Quantitative Assessment & Plan - Assessment and Plan (Free Text) Assessment: 62M admitted to ICU for urgent HD. Surgery consulted for evaluation of large cholelithiasis on CTAP w/ associated Tbili / Dbili elevations. Plan: -CTAP shows 8.5 x 6.4 mm stone along biliary tract -Abd U/s official read pending - Gallbladder contracted possible biliary sludge + cholelithiasis -C/w Abx as per ID -C/w DVT PPX -C/w Aggressive fluid resuscitation -Monitor urine output -Correct electrolytes -Dialysis as per nephrology -Vent management as per intesivist service -IR reccs appreciated -Further reccs by Dr. Deanna Srivastava DO PGY1 - Internal Medicine [employer] - Surgical Consult Note for Dr. Huerta - Date & Time Date: 01/15/18 Time: 08:04
--- NOTE | 2018-01-15 07:28 | HP ---
DATE OF EXAM: 01/14/2018 HISTORY OF PRESENT ILLNESS: The patient is a 62-year-old [place] male who presented to the [facility] emergency room via [facility] ambulance. Most of the history is given by the patient's daughter and the patient's . According to the family, the patient has been having increasing shortness of breath for the last 3-4 days. The patient to the emergency room, unable to speak full sentences. The patient was found to be tachypneic, lethargic. According to the patient's and the daughter, the patient has no urine output since Sunday or Sunday. The patient was seen by according to the ER physician evaluation. The patient presented with above symptoms according to the son. The patient also had been unable to urinate for the last 3 to 4 days. Also complaining of shortness of breath on waking this morning and had chest heaviness.. The patient was found to be tachypneic, short of breath. The patient had coronary artery bypass graft done in 11/2017 at [facility] and also had a mitral valve surgery and was then the patient was sent to rehab. According to the patient's , the patient does not like to see the doctors that often. The patient was seen in stretcher #3 in the emergency room. According to the patient's , the patient has not seen any doctor since his discharge from the rehab in 11/2017, and according to the patient's , the patient had lab work done with his primary care physician, Dr. Solomon on Sunday, but the patient was unable to urinate and the patient came to the emergency room with above. CODE STATUS: FULL CODE. LIVING WILL ADVANCE DIRECTIVE: None. ALLERGIES: NONE. Height is 5 feet 6 inches. BMI is 32. HOME MEDICATIONS: Hydralazine 10 mg 3 times a day, Norvasc 10 mg daily, K-Dur 20 mEq twice a day, Protonix 40 mg daily, Lopressor 50 mg twice a day, Lasix 40 mg twice a day, Dermovate 0.25% twice a day, Lipitor 40 mg daily, Ecotrin 81 mg daily, DuoNeb nebulizer p.r.n. SOCIAL HISTORY: Negative for substance abuse. Negative for alcohol use. Negative for smoking. PAST MEDICAL AND SURGICAL HISTORY: History of coronary artery disease, history of mitral valve disorder status post mitral valve repair, history of hypertension, history of hyperlipidemia, history of coronary artery bypass graft x4, history of congestive heart failure, history of mitral valve prolapse, history of bilateral lower extremity venous stasis, history of questionable diabetes, history of gait dysfunction, history of left lung collapse in 10/2017 and 11/2017, history of left pneumothorax in [facility], and history of post coronary artery bypass graft atrial fibrillation. PHYSICAL EXAMINATION: GENERAL: The patient is seen in stretcher #3 in the emergency room. The patient is in the process of being intubated by the ER physician. VITAL SIGNS: T-max 92.3 at arrival. Pulse rate is 57, 54, 48. Blood pressure was 95/54, 90/45, 81/49. Respiration is 12. O2 sat was 93% to 85% to 100%. The patient is seen lying in the stretcher. The patient is tachypneic, in the process of being intubated. HEENT: Head examination; normocephalic, atraumatic. HEENT examination shows pinkish pale conjunctivae. Anicteric sclerae. No oropharyngeal lesion. No neck rigidity. Positive median sternotomy surgical scar. LUNGS: Examination shows decreased breath sounds bilaterally, left more than the right. CARDIOVASCULAR: S1, S2. Positive systolic murmur in left sternal border, right second intercostal space, left second intercostal space. Decreased breath sounds noted. Positive rhonchi, upper anterior lung field. ABDOMEN: Soft. Positive bowel sounds. No palpable appreciable hepatosplenomegaly noted. GENITALIA: Male. Rectal examination deferred. EXTREMITY: Shows positive swelling of the lower extremity. MUSCULOSKELETAL: Examination shows a body mass index of 31. Gait examination is not tested. As mentioned, the patient is in the process of getting intubated by the ER physician and the typing bookkeeper. DIAGNOSTICS: WBC 12.8, hemoglobin and hematocrit 13.7 and 39.1, platelet 132,000. Granulocytes, 73% segs. PT and PTT 17.5 and 42.4. VBG initially shows a pH of 7.19, pCO2 of 32, bicarb 12, pO2 of 87. Potassium 7.4, lactic acid 8.1. After repeat VBG was done in 6 hours, which still shows lactate of 5.2, pH of 7.33, and pCO2 of 28. The patient had ABG done after intubation which shows pH of 7.32, pCO2 of 18, pO2 of 149, bicarb 9.3, saturation of 100% on 40%. The patient's chemistry shows sodium of 125, potassium 7.4 non-hemolyzed. Chloride 97, CO2 of 12, anion gap 23, BUN 63, creatinine 7.4, glucose 139, uric acid 6.3, calcium 7.4, phosphorus 7.6, magnesium 2.6, total bili 7.3, AST 728, ALT 439, alk phos 547, LDH 1779, CPK 588. BNP 2010. Repeat CPK 474. Troponin 0.07 x3. The patient had an ultrasound-guided left thoracentesis done with drainage of 1800 mL removed. The patient had a hemodialysis catheter placement. The patient had arterial line, central line and dialysis catheter placed. The patient was intubated in the emergency room and the patient was transferred to ICU after . The patient's EKG shows sinus rhythm, questionable intraventricular conduction delay versus left bundle-branch block pattern. IMPRESSION AND PLAN: 1. Hypothermia, etiology undetermined. 2. Questionable acute systolic versus diastolic congestive heart failure with volume overload. 3. Large left pleural effusion status post left thoracentesis. 4. Non-hemolyzed hyperkalemia. 5. Hypotensive shock. 6. Ventilator-dependent respiratory failure. 7. Leukocytosis with granulocytosis. 8. Normocytic anemia. 9. Increased anion gap metabolic acidosis and lactic acidosis. 10. Hyponatremia. 11. Acute renal failure. 12. Hyperglycemia. 13. Hyperphosphatemia. 14. Hyperbilirubinemia and severe transaminitis versus shock liver. 15. Indeterminate troponin. 16. Mild rhabdomyolysis. 17. Status post left thoracentesis with removal of 1800 mL of pleural fluid. 18. Status post right internal jugular hemodialysis catheter placement. 19. Status post arterial line placement in the right femoral artery. 20. Status post triple-lumen catheter placement. 21. History of coronary artery disease, coronary artery bypass graft, history of mitral valve repair, and history of left-sided pleural effusion. 22. Hepatorenal and cardiorenal syndrome. 23. Ventilator-dependent respiratory failure. 24. Status post coronary artery disease. 25. Severe cardiomegaly. 26. Questionable left anterior hemiblock with nonspecific intraventricular conduction delay versus incomplete left bundle-branch block. 27. Acute tubular necrosis secondary to hypotension and hypotensive shock. 28. Questionable sepsis. 29. Hyperglobulinemia with decreased albumin-globulin ratio. PLAN: At this time, the patient will be admitted to intensive care unit. The patient has been treated for hyperkalemia in the emergency room. The patient will be started on hemodialysis as soon as possible. Currently, Nephrology consultation, Cardiology consultation, Infectious Disease consultation, and Interventional Radiology consultation have been ordered. Repeat serial labs have been ordered. LFTs, magnesium, phosphorus, and troponin have been ordered. Vitamin D level has been ordered. The patient has been ordered lab data as per urology. The patient's repeat CBC has been ordered. Blood and urine cultures ordered. The patient has been ordered procalcitonin level. The patient has been treated with calcium gluconate D50. The patient has been started on doxycycline 100 mg IV every 12 hours. The patient is sedated on ventilator. The patient has been started on DVT prophylaxis, insulin was given intravenously. The patient is started on meropenem 500 IV every 12 hours. The patient is on Levophed drip. The patient has been started on GI, DVT prophylaxis. The patient has been started on IV fluid 0.9 normal saline at 100 mL an hour by Nephrology. The patient received vancomycin 1 g in the emergency room. The patient is on Zofran 4 IV every 4 hours. The patient received Zosyn in the emergency room. The patient is started on Zyvox 600 IV every 12 hours. Repeat chest x-ray has been ordered. Ultrasound of the abdomen and renal ultrasound ordered. The patient has been ordered repeat EKG. SLY stockings, SCDs have been ordered. At present, the patient's overall prognosis is extremely guarded to poor, which has been explained to the patient's and the patient's son at length. I have discussed the living will advance directive with the patient's son and the patient does not have a living will advance directive. Later on in the day, I have met with the patient's in the intensive care unit. I have explained to the patient's about overall the patient's guarded to poor prognosis, critical condition which she acknowledged understand. All questions concerned answered to her satisfaction. The patient's entire diagnostic data reviewed. Case discussed with Nephrology, Infectious Disease and other subspecialty. Time spent in the entire process more than 1 hour 55 minutes. Dictated and electronically signed, not read. Abdon Simms MD
[2018-01-15 07:57] LABS: VENOUS BLOOD GAS BASE EXCESS -9.4 mmol/L (0.0-2.0); VENOUS BLOOD GAS PO2 42 mm/Hg (30-55); VENOUS BLOOD PH 7.28 (7.32-7.43)
[2018-01-15 08:04] LABS: INR 2.01; PARTIAL THROMBOPLASTIN TIME 79.4 Seconds (25.1-36.5); PROTHROMBIN TIME 23.4 SECONDS (9.4-12.5)
[2018-01-15] MEDS ORDERED: DOBUTamine 500mg/250ml D5W 500 MG/250 ML BAG IV PRN (08:21)
--- NOTE | 2018-01-15 08:31 | RAD ---
Date of service: 01/15/2018 HISTORY: left pleural effusion; intubated COMPARISON: Portable chest 01/14/2018 4:44 p.m.. FINDINGS: LUNGS: Endotracheal tube not significantly changed in position and temporary right central venous dialysis catheter unchanged in position. Post CABG and prosthetic cardiac valve replacement reiterated. No definite acute airspace disease appreciated bilaterally. PLEURA: No significant pleural effusion identified, no pneumothorax apparent. CARDIOVASCULAR: No aortic atherosclerotic calcification present. Normal cardiac size. No pulmonary vascular congestion. OSSEOUS STRUCTURES: No significant abnormalities. VISUALIZED UPPER ABDOMEN: Normal. OTHER FINDINGS: None. IMPRESSION: No definitive interval acute cardiopulmonary changes identified. Tubes and catheters in situ as discussed above.
--- NOTE | 2018-01-15 08:32 | CARD ---
APPROVED REPORT Date of service: 01/14/2018 EXAM: Two-dimensional and M-mode echocardiogram with Doppler and color Doppler. Other Information Quality : FairRhythm : INDICATION LT PLEURAL EFFUSION, HX MVR 2D DIMENSIONS Left Atrium (2D)3.6 (1.6-4.0cm)IVSd1.3 (0.7-1.1cm) LVDd3.8 (3.9-5.9cm)PWd1.3 (0.7-1.1cm) LVDs2.2 (2.5-4.0cm)FS (%) 41.9 % LVEF (%)73.0 (>50%) M-Mode DIMENSIONS Aortic Root3.10 (2.2-3.7cm)Aortic Cusp Exc.1.50 (1.5-2.0cm) Aortic Valve AoV Peak Iyatuvar139.0cm/s Mitral Valve MV E Wlgjajuu02.3cm/sMV A Tllomnxo404.0cm/sMV IFE427mc E/A ratio0.8MVA (PHT)2.04cm2 TDI Lateral E' Peak V4.48cm/sMedial E' Peak V5.26cm/sE/Lateral E'19.9 E/Medial E'17.0 Pulmonary Valve PV Peak Bztamvly48.5cm/sPV Peak Grad.2mmHg Tricuspid Valve TR Peak Xeucvihe200ee/sRAP [id number] Peak Gr.13mmHg [id number] LEFT VENTRICLE The left ventricle is normal size. There is moderate concentric left ventricular hypertrophy. The left ventricular function is normal. The left ventricular ejection fraction is within the normal range. There is normal LV segmental wall motion. RIGHT VENTRICLE The right ventricle is normal size. ATRIA The left atrium size is normal. The right atrium size is normal. The interatrial septum is intact with no evidence for an atrial septal defect. AORTIC VALVE The aortic valve is normal in structure. There is mild aortic regurgitation. MITRAL VALVE The mitral valve is mildly thickened but opens well. Intact MV repair, probable annuloplasty ring present. TRICUSPID VALVE The tricuspid valve is normal in structure. There is trace tricuspid regurgitation. GREAT VESSELS The aortic root is normal in size. PERICARDIAL EFFUSION Pleural effusion present There is a trace pericardial effusion. <Conclusion> The left ventricle is normal size. There is moderate concentric left ventricular hypertrophy. The left ventricular function is normal. There is mild aortic regurgitation. The mitral valve is mildly thickened but opens well. Intact MV repair, probable annuloplasty ring present. There is trace tricuspid regurgitation. A large pleural effusion present There is a trace pericardial effusion.
[2018-01-15 08:36] LABS: ARTERIAL BLOOD GAS HCO3 12.7 mmol/L (21-28); ARTERIAL BLOOD GAS HEMOGLOBIN 11.7 g/dL (11.7-17.4); ARTERIAL BLOOD GAS O2 CONTENT 15.5 ML/dl (15-23); ARTERIAL BLOOD GAS O2 SAT 96.9 % (95-98); ARTERIAL BLOOD GAS PCO2 23 mm/Hg (35-45); ARTERIAL BLOOD GAS PH 7.35 (7.35-7.45); ARTERIAL BLOOD GAS TCO2 13.4 mmol.L (22-28)
[2018-01-15] MEDS ORDERED: WATER IV ONE ×3 (09:00→14:00)
[2018-01-15] MEDS ORDERED: DEXTROSE 5% IV ONE ×3 (09:00→14:00)
[2018-01-15] MEDS ORDERED: Sodium Bicarbonate 8.4% 150 MEQ in Dextrose 5% In Water 1,000 ML IV SCH (09:00)
[2018-01-15] MEDS ORDERED: ACETYLCYSTEINE IV ONE ×3 (09:00→14:00)
[2018-01-15] MEDS ORDERED: Albumin Human 5% (12.5 gm/250 ml) IV ONE (09:04)
[2018-01-15] MEDS: Linezolid 600 mg in D5W 300 ml 600 MG/300 ML BAG IVPB SCH (09:19)
[2018-01-15] MEDS: MEROPENEM 500 MG in NS 500 MG/50 ML BAG IVPB SCH ×2 (09:20→21:17)
--- NOTE | 2018-01-15 09:21 | CP.PCM.CON ---
History of Present Illness - History of Present Illness History of Present Illness: 62 y/o male presented to [facility] 10/2017 for sx's of CHF: found to have severe MR due to myxomatous P2 prolapse, severe 3V CAD, hyperdynamic LV function and severe PULM HTN. Ultimately had CABG and MV repair with annuplasty ring on 11/13/2017 and prolonged hospital stay. -> He had re-exploration of CABG same day due to bleeding/coagulopathy -> multiple pleural taps related effusions left sided. -> AFIB/Flutter post op: not given AC due to bleeding/anemia -> D/C creat was 0.9 on 12/05/17 PMHX: reported at [facility] to have untreated HEp B infection, HTN, DM, 2nd habd smoke exposure, asthma Presented to [facility] on 01/14 w/ CC of SOB and decreased urine output over the past few days. Patient's son mentioned that patient has been having markedly increased sob for the past few days with decreased appetite and decreased urinary output for the past 4 days despite diuretic use. Intubated aqnd brought to ICU requring pressor support. Interval : emergent HD done and L. sided thoracentesis with 1.8L removed. Review of Systems - Review of Systems Systems not reviewed;Unavailable: Intubated Past Patient History - Past Social History Smoking Status: Unknown If Ever Smoked - CARDIAC Hx Cardiac Disorders: Yes Hx Congestive Heart Failure: Yes Hx Hypertension: Yes Hx Mitral Valve Prolapse: Yes - PULMONARY Hx Respiratory Disorders: Yes (L lung collapse postop 10/2017) - NEUROLOGICAL Hx Neurological Disorder: No - HEENT Hx HEENT Problems: No - RENAL Hx Chronic Kidney Disease: No - ENDOCRINE/METABOLIC Hx Endocrine Disorders: Yes Hx Diabetes Mellitus Type 2: Yes - HEMATOLOGICAL/ONCOLOGICAL Hx Blood Disorders: No - INTEGUMENTARY Hx Dermatological Problems: Yes Other/Comment: surgical scar midsternal and epigastric - MUSCULOSKELETAL/RHEUMATOLOGICAL Hx Musculoskeletal Disorders: No - GASTROINTESTINAL Hx Gastrointestinal Disorders: No - GENITOURINARY/GYNECOLOGICAL Hx Genitourinary Disorders: No - PSYCHIATRIC Hx Depression: No Hx Emotional Abuse: No Hx Physical Abuse: No Hx Substance Use: No - SURGICAL HISTORY Hx Surgeries: Yes Hx Coronary Artery Bypass Graft: Yes (quadruple bypass 10/2017) Hx Valve Replacement: Yes (mitral 10/2017) Meds Allergies/Adverse Reactions: Allergies Allergy/AdvReac Type Severity Reaction Status Date / Time No Known Allergies Allergy Verified 01/14/18 11:05 - Medications Medications: Current Medications Albumin Human (Albumin Human 25% (12.5 Gm/50 Ml)) 12.5 gm IV Q4H NILES Heparin Sodium (Porcine) (Heparin) 5,000 units SC Q12 NILES; Protocol Last Admin: 01/14/18 22:53 Dose: 5,000 units Hydrocortisone Sodium Succinate (Solu-Cortef) 50 mg IVP Q6H NILES Last Admin: 01/15/18 08:38 Dose: 50 mg Fentanyl Citrate (Fentanyl Citrate/Sodium Chloride 1 Mg/100 Ml) 1,000 mcg in 100 mls @ 2 mls/hr IV .Q24H PRN; Protocol PRN Reason: TITRATE PER MD ORDER Last Titration: 01/14/18 22:29 Dose: 5 mcg/hr, 0.5 mls/hr Midazolam 100 mg/100ml in NS (Midazolam 100 Mg/100ml In Ns) 100 mg in 100 mls @ 1 mls/hr IV .Q24H PRN; Protocol PRN Reason: Sedation NOREPINEPHRINE BIT/0.9 % NACL (Levophed 4 Mg/ 250 Ml Ns Premixed) 4 mg in 250 mls @ 15 mls/hr IV .[id number] PRN; Protocol PRN Reason: TITRATE PER MD ORDER Last Admin: 01/15/18 06:03 Dose: 20 mcg/min, 75 mls/hr Meropenem/Sodium Chloride (Merrem Iv 500 Mg/Ns 50 Ml) 500 mg in 50 mls @ 100 mls/hr IVPB Q12 NILES; Protocol Last Admin: 01/14/18 23:51 Dose: 100 mls/hr Linezolid (Zyvox 600mg/300ml D5w) 600 mg in 300 mls @ 200 mls/hr IVPB Q12 NILES; Protocol Stop: 01/21/18 22:01 Last Admin: 01/14/18 22:55 Dose: 200 mls/hr Doxycycline Hyclate 100 mg/ (Sodium Chloride) 100 mls @ 100 mls/hr IVPB Q12 NILES; Protocol Last Admin: 01/14/18 23:51 Dose: 100 mls/hr Vasopressin 20 units/ Sodium (Chloride) 101 mls @ 9.09 mls/hr IV .Q11H7M NILES; Protocol Last Admin: 01/15/18 04:56 Dose: 9.09 mls/hr Albumin Human (Albumin Human 25% (25 Gm/100 Ml)) 400 mls @ 1 mls/min IV ONCE ONE Stop: 01/15/18 14:24 Last Admin: 01/15/18 08:46 Dose: 1 mls/min Dobutamine HCl/Dextrose (Dobutamine/Dextrose 5% 500mg/250ml) 500 mg in 250 mls @ 6.651 mls/hr IV .Q24H PRN; Protocol PRN Reason: TITRATE PER PROTOCOL Last Admin: 01/15/18 08:38 Dose: 2.5 mcg/kg/min, 6.651 mls/hr Acetylcysteine 13,300 mg/ (Dextrose) 266.5 mls @ 200 mls/hr IV .Q1H20M ONE; Protocol Stop: 01/15/18 10:19 Acetylcysteine 4,430 mg/ (Dextrose) 522.15 mls @ 125 mls/hr IV .Q4H11M ONE; Protocol Stop: 01/15/18 14:10 Acetylcysteine 8,870 mg/ (Dextrose) 1,044.35 mls @ 62.5 mls/hr IV .[id number] ONE; Protocol Stop: 01/16/18 06:42 Sodium Bicarbonate 150 meq/ (Dextrose) 1,150 mls @ 150 mls/hr IV .Q7H40M NILES Epinephrine HCl 1 mg/ Sodium (Chloride) 51 mls @ 3.06 mls/hr IV .[id number] PRN; Protocol PRN Reason: TITRATE PER MD ORDER Ondansetron HCl (Zofran Inj) 4 mg IVP Q4H PRN PRN Reason: Nausea/Vomiting Pantoprazole Sodium (Protonix Inj) 40 mg IVP DAILY [facility] Thiamine HCl (Vitamin B1 Inj) 200 mg IV Q12 NILES Physical Exam - Constitutional Appears: Chronically Ill - Head Exam Head Exam: ATRAUMATIC, NORMAL INSPECTION, NORMOCEPHALIC - Eye Exam Eye Exam: Normal appearance. absent: Scleral icterus - Neck Exam Neck exam: Positive for: Normal Inspection - Respiratory Exam Respiratory Exam: Decreased Breath Sounds, Rhonchi - Cardiovascular Exam Cardiovascular Exam: REGULAR RHYTHM, +S1, +S2. absent: Gallop, Rubs, Systolic Murmur Additional comments: clean midsternotomy scar - GI/Abdominal Exam GI & Abdominal Exam: Distended, Soft. absent: Tenderness - Extremities Exam Extremities exam: Positive for: pedal edema - Skin Skin Exam: Rash Additional comments: cool extrem Results - Vital Signs Recent Vital Signs: Last Vital Signs Temp 99.1 F 01/15/18 07:46 Pulse 85 01/15/18 08:38 Resp 25 H 01/15/18 00:00 BP 87/41 L 01/15/18 08:38 Pulse Ox 95 01/15/18 07:40 - Labs Result Diagrams: 01/15/18 03:30 01/15/18 03:30 Labs: Laboratory Results - last 24 hr 01/14/18 01/14/18 01/14/18 11:00 11:00 11:00 WBC 12.8 H RBC 4.56 Hgb 13.7 L Hct 39.1 L MCV 85.7 MCH 30.0 MCHC 35.0 RDW 21.6 H Plt Count 132 Manual Plt Count Gran % 73.0 H Lymph % (Auto) 17.6 L Hartley % (Auto) 9.1 H Eos % (Auto) 0.3 L Baso % (Auto) 0.0 Gran # 9.36 H Lymph # (Auto) 2.3 Hartley # (Auto) 1.2 H Eos # (Auto) 0.0 Baso # (Auto) 0.00 PT 17.5 H INR 1.51 APTT 42.4 H pCO2 pO2 58 H HCO3 ABG pH ABG Total CO2 ABG O2 Saturation ABG O2 Content ABG Base Excess ABG Hemoglobin ABG Carboxyhemoglobin POC ABG HHb (Measured) ABG Methemoglobin ABG O2 Capacity ABG Potassium VBG pH 7.19 L* VBG pCO2 32.0 L VBG HCO3 12.2 L VBG Total CO2 13.2 L VBG O2 Sat (Calc) 87.2 H VBG Base Excess -14.8 L VBG Potassium 7.4 H* Hgb O2 Saturation Sodium 122.0 L Chloride 90.0 L Glucose 145 H Lactate 8.1 H* Mechanical Rate FiO2 21.0 Tidal Volume PEEP Potassium Carbon Dioxide Anion Gap BUN Creatinine Est GFR ( Amer) Est GFR (Non-Af Amer) POC Glucose (mg/dL) Random Glucose Fructosamine Uric Acid Calcium Phosphorus Magnesium Total Bilirubin Direct Bilirubin AST ALT Alkaline Phosphatase Lactate Dehydrogenase Total Creatine Kinase CK-MB (CK-2) CK-MB (CK-2) % Troponin I NT-Pro-B Natriuret Pep Total Protein Albumin Globulin Albumin/Globulin Ratio Triglycerides Cholesterol LDL Cholesterol Direct HDL Cholesterol Arterial Blood Potassium Venous Blood Potassium 7.4 H* Fluid Source Fluid Appearance Fluid WBC Fluid RBC Fluid Tot Cell Count Fluid Neutrophils Fluid Lymphocytes Fld Monocyte/Macrophag Fluid Comment Thoracentesis Fluid pH Salicylates Acetaminophen Alcohol, Quantitative 01/14/18 01/14/18 01/14/18 11:00 12:00 15:00 WBC RBC Hgb Hct MCV MCH MCHC RDW Plt Count Manual Plt Count Gran % Lymph % (Auto) Hartley % (Auto) Eos % (Auto) Baso % (Auto) Gran # Lymph # (Auto) Hartley # (Auto) Eos # (Auto) Baso # (Auto) PT INR APTT pCO2 18 L* pO2 149.0 H HCO3 9.3 L* ABG pH 7.32 L ABG Total CO2 9.9 L ABG O2 Saturation 100.3 H ABG O2 Content 18.6 ABG Base Excess -14.3 L ABG Hemoglobin 13.4 ABG Carboxyhemoglobin 1.9 H POC ABG HHb (Measured) -0.3 L ABG Methemoglobin 1.0 ABG O2 Capacity 18.5 ABG Potassium VBG pH VBG pCO2 VBG HCO3 VBG Total CO2 VBG O2 Sat (Calc) VBG Base Excess VBG Potassium Hgb O2 Saturation 97.4 Sodium 125 L Chloride 97 L Glucose Lactate Mechanical Rate FiO2 40.0 Tidal Volume PEEP Potassium 7.4 H* 7.0 H* Carbon Dioxide 12 L Anion Gap 23 H BUN 63 H Creatinine 7.2 H Est GFR ( Amer) 9 Est GFR (Non-Af Amer) 8 POC Glucose (mg/dL) Random Glucose 139 H Fructosamine Uric Acid Calcium 7.4 L Phosphorus 7.6 H Magnesium 2.6 H Total Bilirubin 7.3 H Direct Bilirubin AST 728 H ALT 439 H Alkaline Phosphatase 547 H Lactate Dehydrogenase 1779 H Total Creatine Kinase 588 H CK-MB (CK-2) 12.0 H CK-MB (CK-2) % 2.0 L Troponin I 0.07 NT-Pro-B Natriuret Pep 2010 H Total Protein 8.0 Albumin 2.6 L Globulin 5.4 Albumin/Globulin Ratio 0.5 L Triglycerides Cholesterol LDL Cholesterol Direct HDL Cholesterol Arterial Blood Potassium Venous Blood Potassium Fluid Source Fluid Appearance Fluid WBC Fluid RBC Fluid Tot Cell Count Fluid Neutrophils Fluid Lymphocytes Fld Monocyte/Macrophag Fluid Comment Thoracentesis Fluid pH Salicylates Acetaminophen Alcohol, Quantitative 01/14/18 01/14/18 01/14/18 15:00 17:40 19:27 WBC RBC Hgb Hct MCV MCH MCHC RDW Plt Count Manual Plt Count Gran % Lymph % (Auto) Hartley % (Auto) Eos % (Auto) Baso % (Auto) Gran # Lymph # (Auto) Hartley # (Auto) Eos # (Auto) Baso # (Auto) PT INR APTT pCO2 pO2 65 H HCO3 ABG pH ABG Total CO2 ABG O2 Saturation ABG O2 Content ABG Base Excess ABG Hemoglobin ABG Carboxyhemoglobin POC ABG HHb (Measured) ABG Methemoglobin ABG O2 Capacity ABG Potassium VBG pH 7.33 VBG pCO2 28.0 L VBG HCO3 14.8 L VBG Total CO2 15.7 L VBG O2 Sat (Calc) 93.9 H VBG Base Excess -9.6 L VBG Potassium 7.0 H* Hgb O2 Saturation Sodium 123.0 L Chloride 93.0 L Glucose 198 H Lactate 5.2 H* Mechanical Rate FiO2 21.0 Tidal Volume PEEP Potassium Carbon Dioxide Anion Gap BUN Creatinine Est GFR ( Amer) Est GFR (Non-Af Amer) POC Glucose (mg/dL) Random Glucose Fructosamine Uric Acid Calcium Phosphorus Magnesium Total Bilirubin Direct Bilirubin AST ALT Alkaline Phosphatase Lactate Dehydrogenase Total Creatine Kinase CK-MB (CK-2) CK-MB (CK-2) % Troponin I 0.07 NT-Pro-B Natriuret Pep Total Protein Albumin Globulin Albumin/Globulin Ratio Triglycerides Cholesterol LDL Cholesterol Direct HDL Cholesterol Arterial Blood Potassium Venous Blood Potassium 7.0 H* Fluid Source Fluid Appearance Fluid WBC Fluid RBC Fluid Tot Cell Count Fluid Neutrophils Fluid Lymphocytes Fld Monocyte/Macrophag Fluid Comment Thoracentesis Fluid pH 8.0 Salicylates Acetaminophen Alcohol, Quantitative 01/14/18 01/14/18 01/14/18 19:27 19:31 19:31 WBC RBC Hgb Hct MCV MCH MCHC RDW Plt Count Manual Plt Count Gran % Lymph % (Auto) Hartley % (Auto) Eos % (Auto) Baso % (Auto) Gran # Lymph # (Auto) Hartley # (Auto) Eos # (Auto) Baso # (Auto) PT INR APTT pCO2 pO2 HCO3 ABG pH ABG Total CO2 ABG O2 Saturation ABG O2 Content ABG Base Excess ABG Hemoglobin ABG Carboxyhemoglobin POC ABG HHb (Measured) ABG Methemoglobin ABG O2 Capacity ABG Potassium VBG pH VBG pCO2 VBG HCO3 VBG Total CO2 VBG O2 Sat (Calc) VBG Base Excess VBG Potassium Hgb O2 Saturation Sodium Chloride Glucose Lactate Mechanical Rate FiO2 Tidal Volume PEEP Potassium Carbon Dioxide Anion Gap BUN Creatinine Est GFR ( Amer) Est GFR (Non-Af Amer) POC Glucose (mg/dL) Random Glucose Fructosamine 315 H Uric Acid 6.3 Calcium Phosphorus Magnesium Total Bilirubin Direct Bilirubin AST ALT Alkaline Phosphatase Lactate Dehydrogenase Total Creatine Kinase 474 H CK-MB (CK-2) 10.3 H CK-MB (CK-2) % 2.2 L Troponin I 0.07 NT-Pro-B Natriuret Pep Total Protein Albumin Globulin Albumin/Globulin Ratio Triglycerides Cholesterol LDL Cholesterol Direct HDL Cholesterol Arterial Blood Potassium Venous Blood Potassium Fluid Source Pleural/thoracentesi Fluid Appearance Bloody Fluid WBC 463.0 H Fluid RBC 67132.0 H Fluid Tot Cell Count 100 H Fluid Neutrophils 24.2 H Fluid Lymphocytes 75.8 H Fld Monocyte/Macrophag TEST NOT PERFORMED Fluid Comment Red color Thoracentesis Fluid pH Salicylates Acetaminophen Alcohol, Quantitative 01/14/18 01/14/18 01/14/18 22:26 22:30 22:46 WBC RBC Hgb Hct MCV MCH MCHC RDW Plt Count Manual Plt Count Gran % Lymph % (Auto) Hartley % (Auto) Eos % (Auto) Baso % (Auto) Gran # Lymph # (Auto) Hartley # (Auto) Eos # (Auto) Baso # (Auto) PT INR APTT pCO2 21 L pO2 266.0 H 260 H HCO3 17.5 L ABG pH 7.53 H ABG Total CO2 18.1 L ABG O2 Saturation 100.0 H ABG O2 Content ABG Base Excess -3.2 L ABG Hemoglobin ABG Carboxyhemoglobin POC ABG HHb (Measured) ABG Methemoglobin ABG O2 Capacity ABG Potassium 4.9 VBG pH 7.51 H VBG pCO2 24.0 L VBG HCO3 19.2 L VBG Total CO2 19.9 L VBG O2 Sat (Calc) 100.1 H VBG Base Excess -2.1 L VBG Potassium 5.2 Hgb O2 Saturation Sodium 135.0 130 L 128.0 L Chloride 97.0 L 102 98.0 Glucose 97 99 Lactate 3.7 H 4.4 H* Mechanical Rate 20 FiO2 80.0 21.0 Tidal Volume 450 PEEP 5 Potassium 5.2 H Carbon Dioxide 20 L Anion Gap 13 BUN 36 H Creatinine 4.4 H Est GFR ( Amer) 17 Est GFR (Non-Af Amer) 14 POC Glucose (mg/dL) Random Glucose 97 Fructosamine Uric Acid Calcium 6.6 L* Phosphorus 5.1 H Magnesium 1.9 Total Bilirubin 5.6 H Direct Bilirubin AST 752 H ALT 380 H Alkaline Phosphatase 454 H Lactate Dehydrogenase Total Creatine Kinase 467 H CK-MB (CK-2) 8.4 H CK-MB (CK-2) % Troponin I 0.08 NT-Pro-B Natriuret Pep Total Protein 6.2 Albumin 2.0 L Globulin 4.2 Albumin/Globulin Ratio 0.5 L Triglycerides Cholesterol LDL Cholesterol Direct HDL Cholesterol Arterial Blood Potassium 4.9 Venous Blood Potassium 5.2 Fluid Source Fluid Appearance Fluid WBC Fluid RBC Fluid Tot Cell Count Fluid Neutrophils Fluid Lymphocytes Fld Monocyte/Macrophag Fluid Comment Thoracentesis Fluid pH Salicylates Acetaminophen Alcohol, Quantitative 01/14/18 01/14/18 01/15/18 22:57 22:58 00:40 WBC 10.5 RBC 4.31 Hgb 12.9 L Hct 35.9 L MCV 83.3 MCH 29.9 MCHC 35.9 RDW 21.3 H Plt Count 86 L Manual Plt Count Gran % 67.6 Lymph % (Auto) 21.5 L Hartley % (Auto) 8.5 H Eos % (Auto) 2.2 Baso % (Auto) 0.2 Gran # 7.10 H Lymph # (Auto) 2.3 Hartley # (Auto) 0.9 H Eos # (Auto) 0.2 Baso # (Auto) 0.02 PT INR APTT pCO2 pO2 HCO3 ABG pH ABG Total CO2 ABG O2 Saturation ABG O2 Content ABG Base Excess ABG Hemoglobin ABG Carboxyhemoglobin POC ABG HHb (Measured) ABG Methemoglobin ABG O2 Capacity ABG Potassium VBG pH VBG pCO2 VBG HCO3 VBG Total CO2 VBG O2 Sat (Calc) VBG Base Excess VBG Potassium Hgb O2 Saturation Sodium Chloride Glucose Lactate Mechanical Rate FiO2 Tidal Volume PEEP Potassium Carbon Dioxide Anion Gap BUN Creatinine Est GFR ( Amer) Est GFR (Non-Af Amer) POC Glucose (mg/dL) Random Glucose Fructosamine Uric Acid Calcium Phosphorus Magnesium Total Bilirubin Direct Bilirubin AST ALT Alkaline Phosphatase Lactate Dehydrogenase Total Creatine Kinase CK-MB (CK-2) CK-MB (CK-2) % Troponin I NT-Pro-B Natriuret Pep Total Protein Albumin Globulin Albumin/Globulin Ratio Triglycerides Cholesterol LDL Cholesterol Direct HDL Cholesterol Arterial Blood Potassium Venous Blood Potassium Fluid Source Fluid Appearance Fluid WBC Fluid RBC Fluid Tot Cell Count Fluid Neutrophils Fluid Lymphocytes Fld Monocyte/Macrophag Fluid Comment Thoracentesis Fluid pH Salicylates < 1 L Acetaminophen < 10.0 L Alcohol, Quantitative < 10 01/15/18 01/15/18 01/15/18 03:30 03:30 03:30 WBC 12.3 H RBC 4.39 Hgb 13.2 L Hct 37.1 L MCV 84.5 MCH 30.1 MCHC 35.6 RDW 21.5 H Plt Count 87 L Manual Plt Count Gran % 69.6 H Lymph % (Auto) 20.1 L Hartley % (Auto) 8.1 H Eos % (Auto) 2.0 Baso % (Auto) 0.2 Gran # 8.54 H Lymph # (Auto) 2.5 Hartley # (Auto) 1.0 H Eos # (Auto) 0.2 Baso # (Auto) 0.03 PT INR APTT pCO2 pO2 105 H HCO3 ABG pH ABG Total CO2 ABG O2 Saturation ABG O2 Content ABG Base Excess ABG Hemoglobin ABG Carboxyhemoglobin POC ABG HHb (Measured) ABG Methemoglobin ABG O2 Capacity ABG Potassium VBG pH 7.43 VBG pCO2 22.0 L VBG HCO3 14.6 L VBG Total CO2 15.3 L VBG O2 Sat (Calc) 99.3 H VBG Base Excess -7.6 L VBG Potassium 5.7 H Hgb O2 Saturation Sodium 128 L 128.0 L Chloride 103 98.0 Glucose 73 L Lactate 6.7 H* Mechanical Rate FiO2 21.0 Tidal Volume PEEP Potassium 5.6 H* Carbon Dioxide 15 L Anion Gap 16 BUN 37 H Creatinine 4.7 H Est GFR ( Amer) 15 Est GFR (Non-Af Amer) 13 POC Glucose (mg/dL) Random Glucose 69 L Fructosamine Uric Acid Calcium 6.1 L* Phosphorus 5.7 H Magnesium 1.9 Total Bilirubin 5.3 H Direct Bilirubin 4.4 H AST 853 H ALT 391 H Alkaline Phosphatase 436 H Lactate Dehydrogenase Total Creatine Kinase 1124 H CK-MB (CK-2) 9.6 H CK-MB (CK-2) % 0.9 L Troponin I 0.12 D NT-Pro-B Natriuret Pep Total Protein 5.8 Albumin 1.8 L Globulin 4.0 Albumin/Globulin Ratio 0.4 L Triglycerides 126 Cholesterol 145 LDL Cholesterol Direct 76 HDL Cholesterol 12 L Arterial Blood Potassium Venous Blood Potassium 5.7 H Fluid Source Fluid Appearance Fluid WBC Fluid RBC Fluid Tot Cell Count Fluid Neutrophils Fluid Lymphocytes Fld Monocyte/Macrophag Fluid Comment Thoracentesis Fluid pH Salicylates Acetaminophen Alcohol, Quantitative 01/15/18 01/15/18 01/15/18 05:34 05:50 06:43 WBC RBC Hgb Hct MCV MCH MCHC RDW Plt Count Manual Plt Count Gran % Lymph % (Auto) Hartley % (Auto) Eos % (Auto) Baso % (Auto) Gran # Lymph # (Auto) Hartley # (Auto) Eos # (Auto) Baso # (Auto) PT INR APTT pCO2 26 L pO2 86.0 42 HCO3 14.0 L ABG pH 7.34 L ABG Total CO2 14.8 L ABG O2 Saturation 98.2 H ABG O2 Content ABG Base Excess -10.1 L ABG Hemoglobin ABG Carboxyhemoglobin POC ABG HHb (Measured) ABG Methemoglobin ABG O2 Capacity ABG Potassium 4.8 VBG pH 7.28 L VBG pCO2 35.0 L VBG HCO3 16.4 L VBG Total CO2 17.5 L VBG O2 Sat (Calc) 74.5 H VBG Base Excess -9.4 L VBG Potassium 5.4 H Hgb O2 Saturation Sodium 130.0 L 131.0 L Chloride 99.0 98.0 Glucose 76 76 Lactate 8.2 H* 8.3 H* Mechanical Rate FiO2 40.0 21.0 Tidal Volume PEEP Potassium Carbon Dioxide Anion Gap BUN Creatinine Est GFR ( Amer) Est GFR (Non-Af Amer) POC Glucose (mg/dL) 72 Random Glucose Fructosamine Uric Acid Calcium Phosphorus Magnesium Total Bilirubin Direct Bilirubin AST ALT Alkaline Phosphatase Lactate Dehydrogenase Total Creatine Kinase CK-MB (CK-2) CK-MB (CK-2) % Troponin I NT-Pro-B Natriuret Pep Total Protein Albumin Globulin Albumin/Globulin Ratio Triglycerides Cholesterol LDL Cholesterol Direct HDL Cholesterol Arterial Blood Potassium 4.8 Venous Blood Potassium 5.4 H Fluid Source Fluid Appearance Fluid WBC Fluid RBC Fluid Tot Cell Count Fluid Neutrophils Fluid Lymphocytes Fld Monocyte/Macrophag Fluid Comment Thoracentesis Fluid pH Salicylates Acetaminophen Alcohol, Quantitative 01/15/18 01/15/18 01/15/18 06:51 06:51 08:26 WBC RBC Hgb Hct MCV MCH MCHC RDW Plt Count Manual Plt Count 85 L Gran % Lymph % (Auto) Hartley % (Auto) Eos % (Auto) Baso % (Auto) Gran # Lymph # (Auto) Hartley # (Auto) Eos # (Auto) Baso # (Auto) PT 23.4 H INR 2.01 APTT 79.4 H pCO2 23 L pO2 80.0 HCO3 12.7 L ABG pH 7.35 ABG Total CO2 13.4 L ABG O2 Saturation 96.9 ABG O2 Content 15.5 ABG Base Excess -11.1 L ABG Hemoglobin 11.7 ABG Carboxyhemoglobin 1.8 H POC ABG HHb (Measured) 3.0 ABG Methemoglobin 1.2 ABG O2 Capacity 16.0 ABG Potassium VBG pH VBG pCO2 VBG HCO3 VBG Total CO2 VBG O2 Sat (Calc) VBG Base Excess VBG Potassium Hgb O2 Saturation 93.9 L Sodium Chloride Glucose Lactate Mechanical Rate FiO2 40.0 Tidal Volume PEEP Potassium Carbon Dioxide Anion Gap BUN Creatinine Est GFR ( Amer) Est GFR (Non-Af Amer) POC Glucose (mg/dL) Random Glucose Fructosamine Uric Acid Calcium Phosphorus Magnesium Total Bilirubin Direct Bilirubin AST ALT Alkaline Phosphatase Lactate Dehydrogenase Total Creatine Kinase CK-MB (CK-2) CK-MB (CK-2) % Troponin I NT-Pro-B Natriuret Pep Total Protein Albumin Globulin Albumin/Globulin Ratio Triglycerides Cholesterol LDL Cholesterol Direct HDL Cholesterol Arterial Blood Potassium Venous Blood Potassium Fluid Source Fluid Appearance Fluid WBC Fluid RBC Fluid Tot Cell Count Fluid Neutrophils Fluid Lymphocytes Fld Monocyte/Macrophag Fluid Comment Thoracentesis Fluid pH Salicylates Acetaminophen Alcohol, Quantitative - EKG Data EKG Interpreted by: Myself Assessment & Plan - Assessment and Plan (Free Text) Assessment: 62 y/o admitted for anuric/oliguric acute renal failure, acidosis, hyperkalemia, SOB, large L. 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 Cholilithiasis noted on imaging. 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 pleural effusion > ROBER now on HD via R. neck catheter > Intubated on FIO2 40% peep 5 > transaminitis AST 800's; acidotic, mild leukocytosis, normal H/H, hyperkalemia 7.4 > 5.6; creat 7.4 > 4.7, INR 2.0, ALB 1.8 Hypotensive on vent support and pressor support Vassopressin 0.03u levophed 30mcg Epi drip 1mcg ECHO done 01/14/2018: directly reviewed by me: Normal LVEF (small cavity); Normal RV size, no sig TR, no sig MR, mild AI, mild-mod LVH with grade 1 diastolic dysfunction. Findings are suggestive of distributive shock with associated hepatopathy and renal failure. Echo does not suggest primary cardiac cause as MV repair appears preserved, wall motion and EF is normal and filling pressures are not elevated. Plan: Continue HD to help correct lytes and acidosis Supportive ventilation, abx and RX possible sepsis DVT prophylaxis Prognosis is guarded. f/u GI imaging - Date & Time Date: 01/15/18 Time: 09:45
--- NOTE | 2018-01-15 09:23 | CARD ---
APPROVED REPORT Date of service: 01/14/2018 EKG Measurement Heart [id number] <Conclusion> Sinus rhythm with 1st degree AV block LBBB
[2018-01-15] MEDS: EPINEPHrine- 1 MG in Sodium Chloride 0.9% 50 ML IV PRN ×4 (09:48→21:50)
--- NOTE | 2018-01-15 09:59 | CARD ---
APPROVED REPORT Date of service: 01/15/2018 EKG Measurement Heart [id number] <Conclusion> Probably acceleration junctional rhythm PRWP STTW changes LBBB no longer present c/w ECG 01/14/18
[2018-01-15] MEDS ORDERED: Vancomycin 1gm in NS 250ml 1 GM/250 ML BAG IVPB SCH (10:00)
[2018-01-15] MEDS ORDERED: Thiamine 100 mg/ml Inj IV SCH (10:00)
--- NOTE | 2018-01-15 10:39 | CT ---
Date of service: 01/15/2018 PROCEDURE: CT Chest, Abdomen and Pelvis without intravenous contrast HISTORY: ROBER,TRANSAMINITIS COMPARISON: None available. TECHNIQUE: Radiation dose: Total exam DLP = 1590.82 mGy-cm. This CT exam was performed using one or more of the following dose reduction techniques: Automated exposure control, adjustment of the mA and/or kV according to patient size, and/or use of iterative reconstruction technique. FINDINGS: CT CHEST WITHOUT CONTRAST: LUNGS: Release some subsegmental atelectasis affects the left lower lobe in the dependent portion of the left upper lobe as well. Air bronchograms left lower lobe do suggest infiltrate here. No right-sided infiltrate. No definitive mass is seen within aerated lung including the central airways. Endotracheal tube terminates approximately 2.2 cm above the mike. 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 Normal caliber main pulmonary artery. Extensive coronary artery atherosclerosis appreciated. LYMPH NODES: Unremarkable. PLEURA: Trace bilateral pleural effusions are identified with borderline pericardial effusion as well. BONES: Sternotomy wires. OTHER FINDINGS: None. CT ABDOMEN AND PELVIS: LIVER: Obstruction nodule liver is appreciated suggestive of cirrhosis. No overt pattern of varices is appreciated in the abdomen in this noncontrast examination. No definitive biliary tree dilatation is appreciated within or extrinsic to the liver. Mild perihepatic ascites noted. GALLBLADDER AND BILE DUCTS: Appears mild to moderately distended with somewhat thick wall. Cholelithiasis. Is unclear whether this is the function of hydrops related to the abdominal ascites or intrinsic gallbladder inflammation. The former is suspected. No radiodense cholelithiasis evident. CBD appears normal caliber overall. PANCREAS: Some peripancreatic reaction is difficult to exclude at the level of the neck and head with remainder of the pancreas unremarkable. Accordingly, pancreatitis not completely excluded and clinical correlation is advised. SPLEEN: Limited perisplenic ascites with spleen intrinsically unremarkable appearing otherwise. ADRENALS: Unremarkable. No mass. KIDNEYS AND URETERS: Limited nonspecific streaky perinephric changes are identified bilateral with no obstructive uropathy or radiodense urolithiasis related to either kidney. VASCULATURE: Nonaneurysmal abdominal aortic calcific atherosclerotic changes are identified. Unremarkable. No aortic aneurysm. BOWEL: No bowel obstruction identified. Evaluation of the gastrointestinal tract is limited due to the lack of oral contrast administration. Thickening of the arrington of the distal rectosigmoid is not excluded. Small bowel loops appear unremarkable grossly. Rectal probe inserted. APPENDIX: Normal appendix. PERITONEUM: Mild abdominal ascites of indeterminate origin. No free intrarenal gas collection or hemoperitoneum evident. LYMPH NODES: Unremarkable. No enlarged lymph nodes. BLADDER: Saunders catheter decompresses the urinary bladder. REPRODUCTIVE: Unremarkable. BONES: No acute fracture. OTHER FINDINGS: None. IMPRESSION: 1. Potential left lower lobe pneumonia. Asymmetric dependent atelectasis in the left lower lobe and sub dependent portion of the left upper lobe as well on a minimal basis. 2. Trace bilateral pleural effusions. 3. Borderline pericardial effusion. Mild cardiomegaly identified. Prior CABG and mitral replacement operative changes noted as well as extensive coronary artery atherosclerosis. 4. No bowel obstruction appreciate however there is mild ascites of uncertain origin. Potential limited pancreatitis at the level the pancreatic head clinically correlate further. 5. Cirrhotic liver. 6. Cholelithiasis. Likely gallbladder hydrops evident. Clinically correlate further. 7. Thickening of the distal rectosigmoid may reflect colitis/proctitis. Rectal probe inserted. 8. Saunders catheter decompresses urinary bladder. 9. Other lesser findings as discussed above. Preliminary report provided by [facility], 12/15/2017.
--- NOTE | 2018-01-15 10:42 | CP.CCUPN ---
<Jerome Vaughan - Last Filed: 01/15/18 12:28> CCU Subjective - Physician Review Subjective (Free Text): Jerome Vaughan, PGY1 ICU Progress Note for Dr. Shen Patient was seen and examined at bedside this morning. Patient is intubated on sedation. Ventilation settings are PRVC 450/16/5/40%. Patient was briefly following commands. Patient was seen moving his extremities spontaneously. In regards to vital signs, afebrile overnight, BP noted to be 87/41 via A-line during time of interview. ROS was unable to be obtained due to patient's critical condition. CCU Objective - Vital Signs / Intake & Output Vital Signs (Last 4 hours): Vital Signs Temp Pulse Resp BP Pulse Ox 01/15/18 10:15 90 26 H 103/35 L 100 01/15/18 10:10 99.3 F 89 99 01/15/18 10:08 99.3 F 86 01/15/18 10:00 99.3 F 84 27 H 102/37 L 98 01/15/18 09:53 99.3 F 84 01/15/18 09:52 99.3 F 84 01/15/18 09:51 99.3 F 83 01/15/18 09:50 99.3 F 83 01/15/18 09:49 99.3 F 84 01/15/18 09:48 99.3 F 84 01/15/18 09:47 99.3 F 85 01/15/18 09:46 99.3 F 84 01/15/18 09:45 99.5 F 84 92/49 L 01/15/18 09:44 99.5 F 84 01/15/18 09:43 99.5 F 84 01/15/18 09:42 99.5 F 86 01/15/18 09:41 99.3 F 86 01/15/18 09:40 99.3 F 85 01/15/18 09:39 99.5 F 84 01/15/18 09:38 99.5 F 83 01/15/18 09:37 99.5 F 83 01/15/18 09:36 99.5 F 85 01/15/18 09:35 99.5 F 84 01/15/18 09:34 99.5 F 85 01/15/18 09:33 99.5 F 86 01/15/18 09:32 99.5 F 85 18 09:31 99.5 F 86 18 09:30 99.3 F 84 89/45 L 01/15/18 09:29 99.3 F 83 18 09:28 99.5 F 85 18 09:27 99.5 F 84 01/15/18 09:26 99.3 F 85 18 09:25 99.3 F 85 18 09:24 99.5 F 84 18 09:23 99.5 F 83 18 09:22 99.5 F 84 18 09:21 99.5 F 85 01/15/18 09:20 99.5 F 85 01/15/18 09:19 99.5 F 84 01/15/18 09:18 99.5 F 85 01/15/18 09:17 99.5 F 84 01/15/18 09:16 99.5 F 84 01/15/18 09:15 99.5 F 83 79/52 L 01/15/18 09:14 99.5 F 83 01/15/18 09:13 99.5 F 84 01/15/18 09:12 99.5 F 85 01/15/18 09:11 99.5 F 84 01/15/18 09:10 99.5 F 83 01/15/18 09:09 99.5 F 84 01/15/18 09:08 99.5 F 84 01/15/18 09:07 99.3 F 84 01/15/18 09:00 84 26 H 63/30 L 98 01/15/18 08:38 85 87/41 L 18 08:30 85 69/38 L 01/15/18 08:15 85 28 H 78/40 L 97 01/15/18 08:00 85 28 H 90/45 L 95 01/15/18 07:49 83 18 07:46 99.1 F 83 18 07:45 99.1 F 84 01/15/18 07:40 99.1 F 82 95 01/15/18 07:30 99.1 F 81 96 01/15/18 07:20 99.0 F 82 94 L 01/15/18 07:10 99.0 F 82 93 L 01/15/18 07:05 85 26 H 92/41 L 97 01/15/18 07:00 99.0 F 83 92 L 01/15/18 06:50 99.0 F 84 98 01/15/18 06:40 99.0 F 82 82 L Intake and Output (Last 8hrs): Intake & Output 01/14/18 01/15/18 01/15/18 22:59 06:59 14:59 Intake Total 502 3050 200 Output Total 0 Balance 502 3050 200 Weight 88.677 kg Intake: IV 502 3000 200 Right Femoral 2500 Oral 0 Albumin 50 Output: Urine 0 Urine, Voided 0 Other: # Bowel Movements 0 - Physical Exam Physical Exam Limitations: Positive for: Clinical Condition Head: Positive for: Atraumatic, Normocephalic Pupils: Positive for: Non-Reactive, Other (horizontal nystagmus noted at the left eye ). Negative for: PERRL Neck: Positive for: Other (R-IJ HD catheter in place) Respiratory/Chest: Positive for: Decreased Breath Sounds (decreased breath sounds to L lung ). Negative for: Wheezes, Rales, Rhonchi Cardiovascular: Positive for: Regular Rate and Rhythm, Normal S1, S2. Negative for: Murmurs Abdomen: Positive for: Distention. Negative for: Peritoneal Signs, Rebound, Mass/Organomegaly Genitourinary Male: Positive for: Other (Saunders in place. ) Upper Extremity: Positive for: Normal Inspection, NORMAL PULSES. Negative for: Cyanosis, Edema Lower Extremity: Positive for: NORMAL PULSES, Other (Femoral central venous line in place. Femoral arterial line in place. ). Negative for: Edema, CALF TENDERNESS, Tenderness Skin: Positive for: Warm, Dry, Normal Color, Other (Well healing surgical scar in midline of the chest). Negative for: Rashes Psychiatric: Negative for: Alert, Oriented x 3 - Medications Active Medications: Active Medications Generic Name Dose Route Start Last Admin Trade Name Freq PRN Reason Stop Dose Admin Albumin Human 12.5 gm 01/15/18 09:00 Albumin Human 25% (12.5 Gm/50 Ml) IV Q4H NILES Heparin Sodium (Porcine) 5,000 units 01/14/18 22:00 01/14/18 22:53 Heparin SC 5,000 units Q12 NILES Administration Protocol Hydrocortisone Sodium Succinate 50 mg 01/15/18 08:30 01/15/18 08:38 Solu-Cortef IVP 50 mg Q6H NILES Administration Fentanyl Citrate 1,000 mcg in 100 mls @ 2 mls/hr 01/14/18 12:33 01/14/18 22:29 Fentanyl Citrate/Sodium Chloride 1 Mg/100 Ml IV 5 mcg/hr .Q24H PRN 0.5 mls/hr TITRATE PER MD ORDER Titration Protocol 20 MCG/HR Midazolam 100 mg/100ml in NS 100 mg in 100 mls @ 1 mls/hr 01/14/18 12:33 Midazolam 100 Mg/100ml In Ns IV .Q24H PRN Sedation Protocol 1 MG/HR NOREPINEPHRINE BIT/0.9 % NACL 4 mg in 250 mls @ 15 mls/hr 01/14/18 14:20 01/15/18 09:15 Levophed 4 Mg/ 250 Ml Ns Premixed IV 30 mcg/min .[id number] PRN 112.5 mls/hr TITRATE PER MD ORDER Titration Protocol 4 MCG/MIN Meropenem/Sodium Chloride 500 mg in 50 mls @ 100 mls/hr 01/14/18 22:00 12/2818 09:20 Merrem Iv 500 Mg/Ns 50 Ml IVPB 100 mls/hr Q12 NILES Administration Protocol Linezolid 600 mg in 300 mls @ 200 mls/hr 01/14/18 22:00 01/15/18 09:19 Zyvox 600mg/300ml D5w IVPB 01/21/18 22:01 200 mls/hr Q12 NILES Administration Protocol Doxycycline Hyclate 100 mg/ 100 mls @ 100 mls/hr 01/14/18 22:00 01/15/18 09:20 Sodium Chloride IVPB 100 mls/hr Q12 NILES Administration Protocol Vasopressin 20 units/ Sodium 101 mls @ 9.09 mls/hr 01/15/18 04:45 01/15/18 04:56 Chloride IV 9.09 mls/hr .Q11H7M NILES Administration Protocol 0.03 U/MIN Albumin Human 400 mls @ 1 mls/min 01/15/18 07:45 01/15/18 08:46 Albumin Human 25% (25 Gm/100 Ml) IV 01/15/18 14:24 1 mls/min ONCE ONE Administration Dobutamine HCl/Dextrose 500 mg in 250 mls @ 6.651 mls/hr 01/15/18 08:21 01/15/18 08:38 Dobutamine/Dextrose 5% 500mg/250ml IV 2.5 mcg/kg/min .Q24H PRN 6.651 mls/hr TITRATE PER PROTOCOL Administration Protocol 2.5 MCG/KG/MIN Acetylcysteine 4,430 mg/ 522.15 mls @ 125 mls/hr 01/15/18 10:00 Dextrose IV 01/15/18 14:10 .Q4H11M ONE Protocol Acetylcysteine 8,870 mg/ 1,044.35 mls @ 62.5 mls/hr 01/15/18 14:00 Dextrose IV 01/16/18 06:42 .[id number] ONE Protocol Sodium Bicarbonate 150 meq/ 1,150 mls @ 150 mls/hr 01/15/18 09:00 01/15/18 09:45 Dextrose IV 150 mls/hr .Q7H40M NILES Administration Epinephrine HCl 1 mg/ Sodium 51 mls @ 3.06 mls/hr 01/15/18 09:05 01/15/18 09:48 Chloride IV 5 mcg/min .[id number] PRN 15.3 mls/hr TITRATE PER MD ORDER Administration Protocol 1 MCG/MIN Ondansetron HCl 4 mg 01/14/18 18:50 Zofran Inj IVP Q4H PRN Nausea/Vomiting Pantoprazole Sodium 40 mg 01/15/18 10:00 01/15/18 09:19 Protonix Inj IVP 40 mg DAILY NILES Administration Thiamine HCl 200 mg 01/15/18 10:00 01/15/18 09:19 Vitamin B1 Inj IV 200 mg Q12 NILES Administration - Patient Studies Lab Studies: Lab Studies 01/15/18 01/15/18 01/15/18 Range/Units 09:40 08:26 06:51 WBC (4.5-11.0) 10^3/uL RBC (3.5-6.1) 10^6/uL Hgb (14.0-18.0) g/dL Hct (42.0-52.0) % MCV (80.0-105.0) fl MCH (25.0-35.0) pg MCHC (31.0-37.0) g/dl RDW (11.5-14.5) % Plt Count (120.0-450.0) 10^3/uL Manual Plt Count (120-450) K/mm3 Gran % (50.0-68.0) % Lymph % (Auto) (22.0-35.0) % Ector % (Auto) (1.0-6.0) % Eos % (Auto) (1.5-5.0) % Baso % (Auto) (0.0-3.0) % Gran # (1.4-6.5) Lymph # (Auto) (1.2-3.4) Ector # (Auto) (0.1-0.6) Eos # (Auto) (0.0-0.7) Baso # (Auto) (0.0-2.0) K/mm3 PT 23.4 H (9.4-12.5) SECONDS INR 2.01 APTT 79.4 H (25.1-36.5) Seconds pCO2 23 L (35-45) mm/Hg pO2 80.0 (30-55) mm/Hg HCO3 12.7 L (21-28) mmol/L ABG pH 7.35 (7.35-7.45) ABG Total CO2 13.4 L (22-28) mmol.L ABG O2 Saturation 96.9 (95-98) % ABG O2 Content 15.5 (15-23) ML/dl ABG Base Excess -11.1 L (-2.0-3.0) mmol/L ABG Hemoglobin 11.7 (11.7-17.4) g/dL ABG Carboxyhemoglobin 1.8 H (0.5-1.5) % POC ABG HHb (Measured) 3.0 (0-5) % ABG Methemoglobin 1.2 (0.0-3.0) % ABG O2 Capacity 16.0 (16-24) mL/dl ABG Potassium (3.6-5.2) mmol/L VBG pH (7.32-7.43) VBG pCO2 (40-60) VBG HCO3 (21-28) mmol/l VBG Total CO2 (22-28) mmol.L VBG O2 Sat (Calc) (40-65) % VBG Base Excess (0.0-2.0) mmol/L VBG Potassium (3.6-5.2) mmol/L Hgb O2 Saturation 93.9 L (95.0-98.0) % Sodium (132-148) mmol/L Chloride (98-107) mmol/L Glucose (75-110) mg/dl Lactate (0.7-2.1) mmol/L Mechanical Rate FiO2 40.0 % Tidal Volume PEEP Potassium (3.6-5.0) mmol/L Carbon Dioxide (21-33) mmol/L Anion Gap (10-20) BUN (7-21) mg/dL Creatinine (0.8-1.5) mg/dl Est GFR ( Amer) Est GFR (Non-Af Amer) POC Glucose (mg/dL) (65-110) mg/dL Random Glucose (70-110) mg/dL Fructosamine (190-270) umol/L Uric Acid (3.5-8.5) mg/dL Calcium (8.4-10.5) mg/dL Phosphorus (2.5-4.5) mg/dL Magnesium (1.7-2.2) mg/dL Total Bilirubin (0.2-1.3) mg/dL Direct Bilirubin (0.0-0.4) mg/dL AST (17-59) U/L ALT (7-56) U/L Alkaline Phosphatase (38-126) U/L Ammonia 23 (9-33) umol/L Lactate Dehydrogenase (333-699) U/L Total Creatine Kinase (35-230) U/L CK-MB (CK-2) (0.0-3.6) ng/mL CK-MB (CK-2) % (2.5-3.0) % Troponin I ng/mL NT-Pro-B Natriuret Pep (0-450) pg/mL Total Protein (5.8-8.3) g/dL Albumin (3.0-4.8) g/dL Globulin gm/dL Albumin/Globulin Ratio (1.1-1.8) Triglycerides (35-160) mg/dL Cholesterol (130-200) mg/dL LDL Cholesterol Direct (0-129) mg/dL HDL Cholesterol (29-60) mg/dL Arterial Blood Potassium (3.6-5.2) mmol/L Venous Blood Potassium (3.6-5.2) mmol/L Fluid Source Fluid Appearance (CLEAR) Fluid WBC (0.0-300.0) /uL Fluid RBC (0.0-0.0) /uL Fluid Tot Cell Count (0-0) Fluid Neutrophils (0-0) % Fluid Lymphocytes (0-0) % Fld Monocyte/Macrophag Fluid Comment Thoracentesis Fluid pH Salicylates (2.0-20.0) mg/dL Acetaminophen (10.0-20.0) ug/ml Alcohol, Quantitative (0-10) mg/dL 01/15/18 01/15/18 01/15/18 Range/Units 06:51 06:43 05:50 WBC (4.5-11.0) 10^3/uL RBC (3.5-6.1) 10^6/uL Hgb (14.0-18.0) g/dL Hct (42.0-52.0) % MCV (80.0-105.0) fl MCH (25.0-35.0) pg MCHC (31.0-37.0) g/dl RDW (11.5-14.5) % Plt Count (120.0-450.0) 10^3/uL Manual Plt Count 85 L (120-450) K/mm3 Gran % (50.0-68.0) % Lymph % (Auto) (22.0-35.0) % Ector % (Auto) (1.0-6.0) % Eos % (Auto) (1.5-5.0) % Baso % (Auto) (0.0-3.0) % Gran # (1.4-6.5) Lymph # (Auto) (1.2-3.4) Ector # (Auto) (0.1-0.6) Eos # (Auto) (0.0-0.7) Baso # (Auto) (0.0-2.0) K/mm3 PT (9.4-12.5) SECONDS INR APTT (25.1-36.5) Seconds pCO2 26 L (35-45) mm/Hg pO2 42 86.0 (30-55) mm/Hg HCO3 14.0 L (21-28) mmol/L ABG pH 7.34 L (7.35-7.45) ABG Total CO2 14.8 L (22-28) mmol.L ABG O2 Saturation 98.2 H (95-98) % ABG O2 Content (15-23) ML/dl ABG Base Excess -10.1 L (-2.0-3.0) mmol/L ABG Hemoglobin (11.7-17.4) g/dL ABG Carboxyhemoglobin (0.5-1.5) % POC ABG HHb (Measured) (0-5) % ABG Methemoglobin (0.0-3.0) % ABG O2 Capacity (16-24) mL/dl ABG Potassium 4.8 (3.6-5.2) mmol/L VBG pH 7.28 L (7.32-7.43) VBG pCO2 35.0 L (40-60) VBG HCO3 16.4 L (21-28) mmol/l VBG Total CO2 17.5 L (22-28) mmol.L VBG O2 Sat (Calc) 74.5 H (40-65) % VBG Base Excess -9.4 L (0.0-2.0) mmol/L VBG Potassium 5.4 H (3.6-5.2) mmol/L Hgb O2 Saturation (95.0-98.0) % Sodium 131.0 L 130.0 L (132-148) mmol/L Chloride 98.0 99.0 (98-107) mmol/L Glucose 76 76 (75-110) mg/dl Lactate 8.3 H* 8.2 H* (0.7-2.1) mmol/L Mechanical Rate FiO2 21.0 40.0 % Tidal Volume PEEP Potassium (3.6-5.0) mmol/L Carbon Dioxide (21-33) mmol/L Anion Gap (10-20) BUN (7-21) mg/dL Creatinine (0.8-1.5) mg/dl Est GFR ( Amer) Est GFR (Non-Af Amer) POC Glucose (mg/dL) (65-110) mg/dL Random Glucose (70-110) mg/dL Fructosamine (190-270) umol/L Uric Acid (3.5-8.5) mg/dL Calcium (8.4-10.5) mg/dL Phosphorus (2.5-4.5) mg/dL Magnesium (1.7-2.2) mg/dL Total Bilirubin (0.2-1.3) mg/dL Direct Bilirubin (0.0-0.4) mg/dL AST (17-59) U/L ALT (7-56) U/L Alkaline Phosphatase (38-126) U/L Ammonia (9-33) umol/L Lactate Dehydrogenase (333-699) U/L Total Creatine Kinase (35-230) U/L CK-MB (CK-2) (0.0-3.6) ng/mL CK-MB (CK-2) % (2.5-3.0) % Troponin I ng/mL NT-Pro-B Natriuret Pep (0-450) pg/mL Total Protein (5.8-8.3) g/dL Albumin (3.0-4.8) g/dL Globulin gm/dL Albumin/Globulin Ratio (1.1-1.8) Triglycerides (35-160) mg/dL Cholesterol (130-200) mg/dL LDL Cholesterol Direct (0-129) mg/dL HDL Cholesterol (29-60) mg/dL Arterial Blood Potassium 4.8 (3.6-5.2) mmol/L Venous Blood Potassium 5.4 H (3.6-5.2) mmol/L Fluid Source Fluid Appearance (CLEAR) Fluid WBC (0.0-300.0) /uL Fluid RBC (0.0-0.0) /uL Fluid Tot Cell Count (0-0) Fluid Neutrophils (0-0) % Fluid Lymphocytes (0-0) % Fld Monocyte/Macrophag Fluid Comment Thoracentesis Fluid pH Salicylates (2.0-20.0) mg/dL Acetaminophen (10.0-20.0) ug/ml Alcohol, Quantitative (0-10) mg/dL 01/15/18 01/15/18 01/15/18 Range/Units 05:34 03:30 03:30 WBC 12.3 H (4.5-11.0) 10^3/uL RBC 4.39 (3.5-6.1) 10^6/uL Hgb 13.2 L (14.0-18.0) g/dL Hct 37.1 L (42.0-52.0) % MCV 84.5 (80.0-105.0) fl MCH 30.1 (25.0-35.0) pg MCHC 35.6 (31.0-37.0) g/dl RDW 21.5 H (11.5-14.5) % Plt Count 87 L (120.0-450.0) 10^3/uL Manual Plt Count (120-450) K/mm3 Gran % 69.6 H (50.0-68.0) % Lymph % (Auto) 20.1 L (22.0-35.0) % Ector % (Auto) 8.1 H (1.0-6.0) % Eos % (Auto) 2.0 (1.5-5.0) % Baso % (Auto) 0.2 (0.0-3.0) % Gran # 8.54 H (1.4-6.5) Lymph # (Auto) 2.5 (1.2-3.4) Ector # (Auto) 1.0 H (0.1-0.6) Eos # (Auto) 0.2 (0.0-0.7) Baso # (Auto) 0.03 (0.0-2.0) K/mm3 PT (9.4-12.5) SECONDS INR APTT (25.1-36.5) Seconds pCO2 (35-45) mm/Hg pO2 105 H (30-55) mm/Hg HCO3 (21-28) mmol/L ABG pH (7.35-7.45) ABG Total CO2 (22-28) mmol.L ABG O2 Saturation (95-98) % ABG O2 Content (15-23) ML/dl ABG Base Excess (-2.0-3.0) mmol/L ABG Hemoglobin (11.7-17.4) g/dL ABG Carboxyhemoglobin (0.5-1.5) % POC ABG HHb (Measured) (0-5) % ABG Methemoglobin (0.0-3.0) % ABG O2 Capacity (16-24) mL/dl ABG Potassium (3.6-5.2) mmol/L VBG pH 7.43 (7.32-7.43) VBG pCO2 22.0 L (40-60) VBG HCO3 14.6 L (21-28) mmol/l VBG Total CO2 15.3 L (22-28) mmol.L VBG O2 Sat (Calc) 99.3 H (40-65) % VBG Base Excess -7.6 L (0.0-2.0) mmol/L VBG Potassium 5.7 H (3.6-5.2) mmol/L Hgb O2 Saturation (95.0-98.0) % Sodium 128.0 L (132-148) mmol/L Chloride 98.0 (98-107) mmol/L Glucose 73 L (75-110) mg/dl Lactate 6.7 H* (0.7-2.1) mmol/L Mechanical Rate FiO2 21.0 % Tidal Volume PEEP Potassium (3.6-5.0) mmol/L Carbon Dioxide (21-33) mmol/L Anion Gap (10-20) BUN (7-21) mg/dL Creatinine (0.8-1.5) mg/dl Est GFR ( Amer) Est GFR (Non-Af Amer) POC Glucose (mg/dL) 72 (65-110) mg/dL Random Glucose (70-110) mg/dL Fructosamine (190-270) umol/L Uric Acid (3.5-8.5) mg/dL Calcium (8.4-10.5) mg/dL Phosphorus (2.5-4.5) mg/dL Magnesium (1.7-2.2) mg/dL Total Bilirubin (0.2-1.3) mg/dL Direct Bilirubin (0.0-0.4) mg/dL AST (17-59) U/L ALT (7-56) U/L Alkaline Phosphatase (38-126) U/L Ammonia (9-33) umol/L Lactate Dehydrogenase (333-699) U/L Total Creatine Kinase (35-230) U/L CK-MB (CK-2) (0.0-3.6) ng/mL CK-MB (CK-2) % (2.5-3.0) % Troponin I ng/mL NT-Pro-B Natriuret Pep (0-450) pg/mL Total Protein (5.8-8.3) g/dL Albumin (3.0-4.8) g/dL Globulin gm/dL Albumin/Globulin Ratio (1.1-1.8) Triglycerides (35-160) mg/dL Cholesterol (130-200) mg/dL LDL Cholesterol Direct (0-129) mg/dL HDL Cholesterol (29-60) mg/dL Arterial Blood Potassium (3.6-5.2) mmol/L Venous Blood Potassium 5.7 H (3.6-5.2) mmol/L Fluid Source Fluid Appearance (CLEAR) Fluid WBC (0.0-300.0) /uL Fluid RBC (0.0-0.0) /uL Fluid Tot Cell Count (0-0) Fluid Neutrophils (0-0) % Fluid Lymphocytes (0-0) % Fld Monocyte/Macrophag Fluid Comment Thoracentesis Fluid pH Salicylates (2.0-20.0) mg/dL Acetaminophen (10.0-20.0) ug/ml Alcohol, Quantitative (0-10) mg/dL 01/15/18 01/15/18 01/14/18 Range/Units 03:30 00:40 22:58 WBC 10.5 (4.5-11.0) 10^3/uL RBC 4.31 (3.5-6.1) 10^6/uL Hgb 12.9 L (14.0-18.0) g/dL Hct 35.9 L (42.0-52.0) % MCV 83.3 (80.0-105.0) fl MCH 29.9 (25.0-35.0) pg MCHC 35.9 (31.0-37.0) g/dl RDW 21.3 H (11.5-14.5) % Plt Count 86 L (120.0-450.0) 10^3/uL Manual Plt Count (120-450) K/mm3 Gran % 67.6 (50.0-68.0) % Lymph % (Auto) 21.5 L (22.0-35.0) % Ector % (Auto) 8.5 H (1.0-6.0) % Eos % (Auto) 2.2 (1.5-5.0) % Baso % (Auto) 0.2 (0.0-3.0) % Gran # 7.10 H (1.4-6.5) Lymph # (Auto) 2.3 (1.2-3.4) Ector # (Auto) 0.9 H (0.1-0.6) Eos # (Auto) 0.2 (0.0-0.7) Baso # (Auto) 0.02 (0.0-2.0) K/mm3 PT (9.4-12.5) SECONDS INR APTT (25.1-36.5) Seconds pCO2 (35-45) mm/Hg pO2 (30-55) mm/Hg HCO3 (21-28) mmol/L ABG pH (7.35-7.45) ABG Total CO2 (22-28) mmol.L ABG O2 Saturation (95-98) % ABG O2 Content (15-23) ML/dl ABG Base Excess (-2.0-3.0) mmol/L ABG Hemoglobin (11.7-17.4) g/dL ABG Carboxyhemoglobin (0.5-1.5) % POC ABG HHb (Measured) (0-5) % ABG Methemoglobin (0.0-3.0) % ABG O2 Capacity (16-24) mL/dl ABG Potassium (3.6-5.2) mmol/L VBG pH (7.32-7.43) VBG pCO2 (40-60) VBG HCO3 (21-28) mmol/l VBG Total CO2 (22-28) mmol.L VBG O2 Sat (Calc) (40-65) % VBG Base Excess (0.0-2.0) mmol/L VBG Potassium (3.6-5.2) mmol/L Hgb O2 Saturation (95.0-98.0) % Sodium 128 L (132-148) mmol/L Chloride 103 (98-107) mmol/L Glucose (75-110) mg/dl Lactate (0.7-2.1) mmol/L Mechanical Rate FiO2 % Tidal Volume PEEP Potassium 5.6 H* (3.6-5.0) mmol/L Carbon Dioxide 15 L (21-33) mmol/L Anion Gap 16 (10-20) BUN 37 H (7-21) mg/dL Creatinine 4.7 H (0.8-1.5) mg/dl Est GFR ( Amer) 15 Est GFR (Non-Af Amer) 13 POC Glucose (mg/dL) (65-110) mg/dL Random Glucose 69 L (70-110) mg/dL Fructosamine (190-270) umol/L Uric Acid (3.5-8.5) mg/dL Calcium 6.1 L* (8.4-10.5) mg/dL Phosphorus 5.7 H (2.5-4.5) mg/dL Magnesium 1.9 (1.7-2.2) mg/dL Total Bilirubin 5.3 H (0.2-1.3) mg/dL Direct Bilirubin 4.4 H (0.0-0.4) mg/dL AST 853 H (17-59) U/L ALT 391 H (7-56) U/L Alkaline Phosphatase 436 H (38-126) U/L Ammonia (9-33) umol/L Lactate Dehydrogenase (333-699) U/L Total Creatine Kinase 1124 H (35-230) U/L CK-MB (CK-2) 9.6 H (0.0-3.6) ng/mL CK-MB (CK-2) % 0.9 L (2.5-3.0) % Troponin I 0.12 D ng/mL NT-Pro-B Natriuret Pep (0-450) pg/mL Total Protein 5.8 (5.8-8.3) g/dL Albumin 1.8 L (3.0-4.8) g/dL Globulin 4.0 gm/dL Albumin/Globulin Ratio 0.4 L (1.1-1.8) Triglycerides 126 (35-160) mg/dL Cholesterol 145 (130-200) mg/dL LDL Cholesterol Direct 76 (0-129) mg/dL HDL Cholesterol 12 L (29-60) mg/dL Arterial Blood Potassium (3.6-5.2) mmol/L Venous Blood Potassium (3.6-5.2) mmol/L Fluid Source Fluid Appearance (CLEAR) Fluid WBC (0.0-300.0) /uL Fluid RBC (0.0-0.0) /uL Fluid Tot Cell Count (0-0) Fluid Neutrophils (0-0) % Fluid Lymphocytes (0-0) % Fld Monocyte/Macrophag Fluid Comment Thoracentesis Fluid pH Salicylates < 1 L (2.0-20.0) mg/dL Acetaminophen < 10.0 L (10.0-20.0) ug/ml Alcohol, Quantitative (0-10) mg/dL 01/14/18 01/14/18 01/14/18 Range/Units 22:57 22:46 22:30 WBC (4.5-11.0) 10^3/uL RBC (3.5-6.1) 10^6/uL Hgb (14.0-18.0) g/dL Hct (42.0-52.0) % MCV (80.0-105.0) fl MCH (25.0-35.0) pg MCHC (31.0-37.0) g/dl RDW (11.5-14.5) % Plt Count (120.0-450.0) 10^3/uL Manual Plt Count (120-450) K/mm3 Gran % (50.0-68.0) % Lymph % (Auto) (22.0-35.0) % Ector % (Auto) (1.0-6.0) % Eos % (Auto) (1.5-5.0) % Baso % (Auto) (0.0-3.0) % Gran # (1.4-6.5) Lymph # (Auto) (1.2-3.4) Ector # (Auto) (0.1-0.6) Eos # (Auto) (0.0-0.7) Baso # (Auto) (0.0-2.0) K/mm3 PT (9.4-12.5) SECONDS INR APTT (25.1-36.5) Seconds pCO2 (35-45) mm/Hg pO2 260 H (30-55) mm/Hg HCO3 (21-28) mmol/L ABG pH (7.35-7.45) ABG Total CO2 (22-28) mmol.L ABG O2 Saturation (95-98) % ABG O2 Content (15-23) ML/dl ABG Base Excess (-2.0-3.0) mmol/L ABG Hemoglobin (11.7-17.4) g/dL ABG Carboxyhemoglobin (0.5-1.5) % POC ABG HHb (Measured) (0-5) % ABG Methemoglobin (0.0-3.0) % ABG O2 Capacity (16-24) mL/dl ABG Potassium (3.6-5.2) mmol/L VBG pH 7.51 H (7.32-7.43) VBG pCO2 24.0 L (40-60) VBG HCO3 19.2 L (21-28) mmol/l VBG Total CO2 19.9 L (22-28) mmol.L VBG O2 Sat (Calc) 100.1 H (40-65) % VBG Base Excess -2.1 L (0.0-2.0) mmol/L VBG Potassium 5.2 (3.6-5.2) mmol/L Hgb O2 Saturation (95.0-98.0) % Sodium 128.0 L 130 L (132-148) mmol/L Chloride 98.0 102 (98-107) mmol/L Glucose 99 (75-110) mg/dl Lactate 4.4 H* (0.7-2.1) mmol/L Mechanical Rate FiO2 21.0 % Tidal Volume PEEP Potassium 5.2 H (3.6-5.0) mmol/L Carbon Dioxide 20 L (21-33) mmol/L Anion Gap 13 (10-20) BUN 36 H (7-21) mg/dL Creatinine 4.4 H (0.8-1.5) mg/dl Est GFR ( Amer) 17 Est GFR (Non-Af Amer) 14 POC Glucose (mg/dL) (65-110) mg/dL Random Glucose 97 (70-110) mg/dL Fructosamine (190-270) umol/L Uric Acid (3.5-8.5) mg/dL Calcium 6.6 L* (8.4-10.5) mg/dL Phosphorus 5.1 H (2.5-4.5) mg/dL Magnesium 1.9 (1.7-2.2) mg/dL Total Bilirubin 5.6 H (0.2-1.3) mg/dL Direct Bilirubin (0.0-0.4) mg/dL AST 752 H (17-59) U/L ALT 380 H (7-56) U/L Alkaline Phosphatase 454 H (38-126) U/L Ammonia (9-33) umol/L Lactate Dehydrogenase (333-699) U/L Total Creatine Kinase 467 H (35-230) U/L CK-MB (CK-2) 8.4 H (0.0-3.6) ng/mL CK-MB (CK-2) % (2.5-3.0) % Troponin I 0.08 ng/mL NT-Pro-B Natriuret Pep (0-450) pg/mL Total Protein 6.2 (5.8-8.3) g/dL Albumin 2.0 L (3.0-4.8) g/dL Globulin 4.2 gm/dL Albumin/Globulin Ratio 0.5 L (1.1-1.8) Triglycerides (35-160) mg/dL Cholesterol (130-200) mg/dL LDL Cholesterol Direct (0-129) mg/dL HDL Cholesterol (29-60) mg/dL Arterial Blood Potassium (3.6-5.2) mmol/L Venous Blood Potassium 5.2 (3.6-5.2) mmol/L Fluid Source Fluid Appearance (CLEAR) Fluid WBC (0.0-300.0) /uL Fluid RBC (0.0-0.0) /uL Fluid Tot Cell Count (0-0) Fluid Neutrophils (0-0) % Fluid Lymphocytes (0-0) % Fld Monocyte/Macrophag Fluid Comment Thoracentesis Fluid pH Salicylates (2.0-20.0) mg/dL Acetaminophen (10.0-20.0) ug/ml Alcohol, Quantitative < 10 (0-10) mg/dL 01/14/18 01/14/18 01/14/18 Range/Units 22:26 19:31 19:31 WBC (4.5-11.0) 10^3/uL RBC (3.5-6.1) 10^6/uL Hgb (14.0-18.0) g/dL Hct (42.0-52.0) % MCV (80.0-105.0) fl MCH (25.0-35.0) pg MCHC (31.0-37.0) g/dl RDW (11.5-14.5) % Plt Count (120.0-450.0) 10^3/uL Manual Plt Count (120-450) K/mm3 Gran % (50.0-68.0) % Lymph % (Auto) (22.0-35.0) % Ector % (Auto) (1.0-6.0) % Eos % (Auto) (1.5-5.0) % Baso % (Auto) (0.0-3.0) % Gran # (1.4-6.5) Lymph # (Auto) (1.2-3.4) Ector # (Auto) (0.1-0.6) Eos # (Auto) (0.0-0.7) Baso # (Auto) (0.0-2.0) K/mm3 PT (9.4-12.5) SECONDS INR APTT (25.1-36.5) Seconds pCO2 21 L (35-45) mm/Hg pO2 266.0 H (30-55) mm/Hg HCO3 17.5 L (21-28) mmol/L ABG pH 7.53 H (7.35-7.45) ABG Total CO2 18.1 L (22-28) mmol.L ABG O2 Saturation 100.0 H (95-98) % ABG O2 Content (15-23) ML/dl ABG Base Excess -3.2 L (-2.0-3.0) mmol/L ABG Hemoglobin (11.7-17.4) g/dL ABG Carboxyhemoglobin (0.5-1.5) % POC ABG HHb (Measured) (0-5) % ABG Methemoglobin (0.0-3.0) % ABG O2 Capacity (16-24) mL/dl ABG Potassium 4.9 (3.6-5.2) mmol/L VBG pH (7.32-7.43) VBG pCO2 (40-60) VBG HCO3 (21-28) mmol/l VBG Total CO2 (22-28) mmol.L VBG O2 Sat (Calc) (40-65) % VBG Base Excess (0.0-2.0) mmol/L VBG Potassium (3.6-5.2) mmol/L Hgb O2 Saturation (95.0-98.0) % Sodium 135.0 (132-148) mmol/L Chloride 97.0 L (98-107) mmol/L Glucose 97 (75-110) mg/dl Lactate 3.7 H (0.7-2.1) mmol/L Mechanical Rate 20 FiO2 80.0 % Tidal Volume 450 PEEP 5 Potassium (3.6-5.0) mmol/L Carbon Dioxide (21-33) mmol/L Anion Gap (10-20) BUN (7-21) mg/dL Creatinine (0.8-1.5) mg/dl Est GFR ( Amer) Est GFR (Non-Af Amer) POC Glucose (mg/dL) (65-110) mg/dL Random Glucose (70-110) mg/dL Fructosamine 315 H (190-270) umol/L Uric Acid 6.3 (3.5-8.5) mg/dL Calcium (8.4-10.5) mg/dL Phosphorus (2.5-4.5) mg/dL Magnesium (1.7-2.2) mg/dL Total Bilirubin (0.2-1.3) mg/dL Direct Bilirubin (0.0-0.4) mg/dL AST (17-59) U/L ALT (7-56) U/L Alkaline Phosphatase (38-126) U/L Ammonia (9-33) umol/L Lactate Dehydrogenase (333-699) U/L Total Creatine Kinase 474 H (35-230) U/L CK-MB (CK-2) 10.3 H (0.0-3.6) ng/mL CK-MB (CK-2) % 2.2 L (2.5-3.0) % Troponin I 0.07 ng/mL NT-Pro-B Natriuret Pep (0-450) pg/mL Total Protein (5.8-8.3) g/dL Albumin (3.0-4.8) g/dL Globulin gm/dL Albumin/Globulin Ratio (1.1-1.8) Triglycerides (35-160) mg/dL Cholesterol (130-200) mg/dL LDL Cholesterol Direct (0-129) mg/dL HDL Cholesterol (29-60) mg/dL Arterial Blood Potassium 4.9 (3.6-5.2) mmol/L Venous Blood Potassium (3.6-5.2) mmol/L Fluid Source Fluid Appearance (CLEAR) Fluid WBC (0.0-300.0) /uL Fluid RBC (0.0-0.0) /uL Fluid Tot Cell Count (0-0) Fluid Neutrophils (0-0) % Fluid Lymphocytes (0-0) % Fld Monocyte/Macrophag Fluid Comment Thoracentesis Fluid pH Salicylates (2.0-20.0) mg/dL Acetaminophen (10.0-20.0) ug/ml Alcohol, Quantitative (0-10) mg/dL 01/14/18 01/14/18 01/14/18 Range/Units 19:27 19:27 17:40 WBC (4.5-11.0) 10^3/uL RBC (3.5-6.1) 10^6/uL Hgb (14.0-18.0) g/dL Hct (42.0-52.0) % MCV (80.0-105.0) fl MCH (25.0-35.0) pg MCHC (31.0-37.0) g/dl RDW (11.5-14.5) % Plt Count (120.0-450.0) 10^3/uL Manual Plt Count (120-450) K/mm3 Gran % (50.0-68.0) % Lymph % (Auto) (22.0-35.0) % Ector % (Auto) (1.0-6.0) % Eos % (Auto) (1.5-5.0) % Baso % (Auto) (0.0-3.0) % Gran # (1.4-6.5) Lymph # (Auto) (1.2-3.4) Ector # (Auto) (0.1-0.6) Eos # (Auto) (0.0-0.7) Baso # (Auto) (0.0-2.0) K/mm3 PT (9.4-12.5) SECONDS INR APTT (25.1-36.5) Seconds pCO2 (35-45) mm/Hg pO2 (30-55) mm/Hg HCO3 (21-28) mmol/L ABG pH (7.35-7.45) ABG Total CO2 (22-28) mmol.L ABG O2 Saturation (95-98) % ABG O2 Content (15-23) ML/dl ABG Base Excess (-2.0-3.0) mmol/L ABG Hemoglobin (11.7-17.4) g/dL ABG Carboxyhemoglobin (0.5-1.5) % POC ABG HHb (Measured) (0-5) % ABG Methemoglobin (0.0-3.0) % ABG O2 Capacity (16-24) mL/dl ABG Potassium (3.6-5.2) mmol/L VBG pH (7.32-7.43) VBG pCO2 (40-60) VBG HCO3 (21-28) mmol/l VBG Total CO2 (22-28) mmol.L VBG O2 Sat (Calc) (40-65) % VBG Base Excess (0.0-2.0) mmol/L VBG Potassium (3.6-5.2) mmol/L Hgb O2 Saturation (95.0-98.0) % Sodium (132-148) mmol/L Chloride (98-107) mmol/L Glucose (75-110) mg/dl Lactate (0.7-2.1) mmol/L Mechanical Rate FiO2 % Tidal Volume PEEP Potassium (3.6-5.0) mmol/L Carbon Dioxide (21-33) mmol/L Anion Gap (10-20) BUN (7-21) mg/dL Creatinine (0.8-1.5) mg/dl Est GFR ( Amer) Est GFR (Non-Af Amer) POC Glucose (mg/dL) (65-110) mg/dL Random Glucose (70-110) mg/dL Fructosamine (190-270) umol/L Uric Acid (3.5-8.5) mg/dL Calcium (8.4-10.5) mg/dL Phosphorus (2.5-4.5) mg/dL Magnesium (1.7-2.2) mg/dL Total Bilirubin (0.2-1.3) mg/dL Direct Bilirubin (0.0-0.4) mg/dL AST (17-59) U/L ALT (7-56) U/L Alkaline Phosphatase (38-126) U/L Ammonia (9-33) umol/L Lactate Dehydrogenase (333-699) U/L Total Creatine Kinase (35-230) U/L CK-MB (CK-2) (0.0-3.6) ng/mL CK-MB (CK-2) % (2.5-3.0) % Troponin I 0.07 ng/mL NT-Pro-B Natriuret Pep (0-450) pg/mL Total Protein (5.8-8.3) g/dL Albumin (3.0-4.8) g/dL Globulin gm/dL Albumin/Globulin Ratio (1.1-1.8) Triglycerides (35-160) mg/dL Cholesterol (130-200) mg/dL LDL Cholesterol Direct (0-129) mg/dL HDL Cholesterol (29-60) mg/dL Arterial Blood Potassium (3.6-5.2) mmol/L Venous Blood Potassium (3.6-5.2) mmol/L Fluid Source Pleural/thoracentesi Fluid Appearance Bloody (CLEAR) Fluid WBC 463.0 H (0.0-300.0) /uL Fluid RBC 16340.0 H (0.0-0.0) /uL Fluid Tot Cell Count 100 H (0-0) Fluid Neutrophils 24.2 H (0-0) % Fluid Lymphocytes 75.8 H (0-0) % Fld Monocyte/Macrophag TEST NOT PERFORMED Fluid Comment Red color Thoracentesis Fluid pH 8.0 Salicylates (2.0-20.0) mg/dL Acetaminophen (10.0-20.0) ug/ml Alcohol, Quantitative (0-10) mg/dL 01/14/18 01/14/18 01/14/18 Range/Units 15:00 15:00 12:00 WBC (4.5-11.0) 10^3/uL RBC (3.5-6.1) 10^6/uL Hgb (14.0-18.0) g/dL Hct (42.0-52.0) % MCV (80.0-105.0) fl MCH (25.0-35.0) pg MCHC (31.0-37.0) g/dl RDW (11.5-14.5) % Plt Count (120.0-450.0) 10^3/uL Manual Plt Count (120-450) K/mm3 Gran % (50.0-68.0) % Lymph % (Auto) (22.0-35.0) % Ector % (Auto) (1.0-6.0) % Eos % (Auto) (1.5-5.0) % Baso % (Auto) (0.0-3.0) % Gran # (1.4-6.5) Lymph # (Auto) (1.2-3.4) Ector # (Auto) (0.1-0.6) Eos # (Auto) (0.0-0.7) Baso # (Auto) (0.0-2.0) K/mm3 PT (9.4-12.5) SECONDS INR APTT (25.1-36.5) Seconds pCO2 18 L* (35-45) mm/Hg pO2 65 H 149.0 H (30-55) mm/Hg HCO3 9.3 L* (21-28) mmol/L ABG pH 7.32 L (7.35-7.45) ABG Total CO2 9.9 L (22-28) mmol.L ABG O2 Saturation 100.3 H (95-98) % ABG O2 Content 18.6 (15-23) ML/dl ABG Base Excess -14.3 L (-2.0-3.0) mmol/L ABG Hemoglobin 13.4 (11.7-17.4) g/dL ABG Carboxyhemoglobin 1.9 H (0.5-1.5) % POC ABG HHb (Measured) -0.3 L (0-5) % ABG Methemoglobin 1.0 (0.0-3.0) % ABG O2 Capacity 18.5 (16-24) mL/dl ABG Potassium (3.6-5.2) mmol/L VBG pH 7.33 (7.32-7.43) VBG pCO2 28.0 L (40-60) VBG HCO3 14.8 L (21-28) mmol/l VBG Total CO2 15.7 L (22-28) mmol.L VBG O2 Sat (Calc) 93.9 H (40-65) % VBG Base Excess -9.6 L (0.0-2.0) mmol/L VBG Potassium 7.0 H* (3.6-5.2) mmol/L Hgb O2 Saturation 97.4 (95.0-98.0) % Sodium 123.0 L (132-148) mmol/L Chloride 93.0 L (98-107) mmol/L Glucose 198 H (75-110) mg/dl Lactate 5.2 H* (0.7-2.1) mmol/L Mechanical Rate FiO2 21.0 40.0 % Tidal Volume PEEP Potassium 7.0 H* (3.6-5.0) mmol/L Carbon Dioxide (21-33) mmol/L Anion Gap (10-20) BUN (7-21) mg/dL Creatinine (0.8-1.5) mg/dl Est GFR ( Amer) Est GFR (Non-Af Amer) POC Glucose (mg/dL) (65-110) mg/dL Random Glucose (70-110) mg/dL Fructosamine (190-270) umol/L Uric Acid (3.5-8.5) mg/dL Calcium (8.4-10.5) mg/dL Phosphorus (2.5-4.5) mg/dL Magnesium (1.7-2.2) mg/dL Total Bilirubin (0.2-1.3) mg/dL Direct Bilirubin (0.0-0.4) mg/dL AST (17-59) U/L ALT (7-56) U/L Alkaline Phosphatase (38-126) U/L Ammonia (9-33) umol/L Lactate Dehydrogenase (333-699) U/L Total Creatine Kinase (35-230) U/L CK-MB (CK-2) (0.0-3.6) ng/mL CK-MB (CK-2) % (2.5-3.0) % Troponin I ng/mL NT-Pro-B Natriuret Pep (0-450) pg/mL Total Protein (5.8-8.3) g/dL Albumin (3.0-4.8) g/dL Globulin gm/dL Albumin/Globulin Ratio (1.1-1.8) Triglycerides (35-160) mg/dL Cholesterol (130-200) mg/dL LDL Cholesterol Direct (0-129) mg/dL HDL Cholesterol (29-60) mg/dL Arterial Blood Potassium (3.6-5.2) mmol/L Venous Blood Potassium 7.0 H* (3.6-5.2) mmol/L Fluid Source Fluid Appearance (CLEAR) Fluid WBC (0.0-300.0) /uL Fluid RBC (0.0-0.0) /uL Fluid Tot Cell Count (0-0) Fluid Neutrophils (0-0) % Fluid Lymphocytes (0-0) % Fld Monocyte/Macrophag Fluid Comment Thoracentesis Fluid pH Salicylates (2.0-20.0) mg/dL Acetaminophen (10.0-20.0) ug/ml Alcohol, Quantitative (0-10) mg/dL 01/14/18 01/14/18 01/14/18 Range/Units 11:00 11:00 11:00 WBC (4.5-11.0) 10^3/uL RBC (3.5-6.1) 10^6/uL Hgb (14.0-18.0) g/dL Hct (42.0-52.0) % MCV (80.0-105.0) fl MCH (25.0-35.0) pg MCHC (31.0-37.0) g/dl RDW (11.5-14.5) % Plt Count (120.0-450.0) 10^3/uL Manual Plt Count (120-450) K/mm3 Gran % (50.0-68.0) % Lymph % (Auto) (22.0-35.0) % Ector % (Auto) (1.0-6.0) % Eos % (Auto) (1.5-5.0) % Baso % (Auto) (0.0-3.0) % Gran # (1.4-6.5) Lymph # (Auto) (1.2-3.4) Ector # (Auto) (0.1-0.6) Eos # (Auto) (0.0-0.7) Baso # (Auto) (0.0-2.0) K/mm3 PT 17.5 H (9.4-12.5) SECONDS INR 1.51 APTT 42.4 H (25.1-36.5) Seconds pCO2 (35-45) mm/Hg pO2 58 H (30-55) mm/Hg HCO3 (21-28) mmol/L ABG pH (7.35-7.45) ABG Total CO2 (22-28) mmol.L ABG O2 Saturation (95-98) % ABG O2 Content (15-23) ML/dl ABG Base Excess (-2.0-3.0) mmol/L ABG Hemoglobin (11.7-17.4) g/dL ABG Carboxyhemoglobin (0.5-1.5) % POC ABG HHb (Measured) (0-5) % ABG Methemoglobin (0.0-3.0) % ABG O2 Capacity (16-24) mL/dl ABG Potassium (3.6-5.2) mmol/L VBG pH 7.19 L* (7.32-7.43) VBG pCO2 32.0 L (40-60) VBG HCO3 12.2 L (21-28) mmol/l VBG Total CO2 13.2 L (22-28) mmol.L VBG O2 Sat (Calc) 87.2 H (40-65) % VBG Base Excess -14.8 L (0.0-2.0) mmol/L VBG Potassium 7.4 H* (3.6-5.2) mmol/L Hgb O2 Saturation (95.0-98.0) % Sodium 125 L 122.0 L (132-148) mmol/L Chloride 97 L 90.0 L (98-107) mmol/L Glucose 145 H (75-110) mg/dl Lactate 8.1 H* (0.7-2.1) mmol/L Mechanical Rate FiO2 21.0 % Tidal Volume PEEP Potassium 7.4 H* (3.6-5.0) mmol/L Carbon Dioxide 12 L (21-33) mmol/L Anion Gap 23 H (10-20) BUN 63 H (7-21) mg/dL Creatinine 7.2 H (0.8-1.5) mg/dl Est GFR ( Amer) 9 Est GFR (Non-Af Amer) 8 POC Glucose (mg/dL) (65-110) mg/dL Random Glucose 139 H (70-110) mg/dL Fructosamine (190-270) umol/L Uric Acid (3.5-8.5) mg/dL Calcium 7.4 L (8.4-10.5) mg/dL Phosphorus 7.6 H (2.5-4.5) mg/dL Magnesium 2.6 H (1.7-2.2) mg/dL Total Bilirubin 7.3 H (0.2-1.3) mg/dL Direct Bilirubin (0.0-0.4) mg/dL AST 728 H (17-59) U/L ALT 439 H (7-56) U/L Alkaline Phosphatase 547 H (38-126) U/L Ammonia (9-33) umol/L Lactate Dehydrogenase 1779 H (333-699) U/L Total Creatine Kinase 588 H (35-230) U/L CK-MB (CK-2) 12.0 H (0.0-3.6) ng/mL CK-MB (CK-2) % 2.0 L (2.5-3.0) % Troponin I 0.07 ng/mL NT-Pro-B Natriuret Pep 2010 H (0-450) pg/mL Total Protein 8.0 (5.8-8.3) g/dL Albumin 2.6 L (3.0-4.8) g/dL Globulin 5.4 gm/dL Albumin/Globulin Ratio 0.5 L (1.1-1.8) Triglycerides (35-160) mg/dL Cholesterol (130-200) mg/dL LDL Cholesterol Direct (0-129) mg/dL HDL Cholesterol (29-60) mg/dL Arterial Blood Potassium (3.6-5.2) mmol/L Venous Blood Potassium 7.4 H* (3.6-5.2) mmol/L Fluid Source Fluid Appearance (CLEAR) Fluid WBC (0.0-300.0) /uL Fluid RBC (0.0-0.0) /uL Fluid Tot Cell Count (0-0) Fluid Neutrophils (0-0) % Fluid Lymphocytes (0-0) % Fld Monocyte/Macrophag Fluid Comment Thoracentesis Fluid pH Salicylates (2.0-20.0) mg/dL Acetaminophen (10.0-20.0) ug/ml Alcohol, Quantitative (0-10) mg/dL 01/14/18 Range/Units 11:00 WBC 12.8 H (4.5-11.0) 10^3/uL RBC 4.56 (3.5-6.1) 10^6/uL Hgb 13.7 L (14.0-18.0) g/dL Hct 39.1 L (42.0-52.0) % MCV 85.7 (80.0-105.0) fl MCH 30.0 (25.0-35.0) pg MCHC 35.0 (31.0-37.0) g/dl RDW 21.6 H (11.5-14.5) % Plt Count 132 (120.0-450.0) 10^3/uL Manual Plt Count (120-450) K/mm3 Gran % 73.0 H (50.0-68.0) % Lymph % (Auto) 17.6 L (22.0-35.0) % Ector % (Auto) 9.1 H (1.0-6.0) % Eos % (Auto) 0.3 L (1.5-5.0) % Baso % (Auto) 0.0 (0.0-3.0) % Gran # 9.36 H (1.4-6.5) Lymph # (Auto) 2.3 (1.2-3.4) Ector # (Auto) 1.2 H (0.1-0.6) Eos # (Auto) 0.0 (0.0-0.7) Baso # (Auto) 0.00 (0.0-2.0) K/mm3 PT (9.4-12.5) SECONDS INR APTT (25.1-36.5) Seconds pCO2 (35-45) mm/Hg pO2 (30-55) mm/Hg HCO3 (21-28) mmol/L ABG pH (7.35-7.45) ABG Total CO2 (22-28) mmol.L ABG O2 Saturation (95-98) % ABG O2 Content (15-23) ML/dl ABG Base Excess (-2.0-3.0) mmol/L ABG Hemoglobin (11.7-17.4) g/dL ABG Carboxyhemoglobin (0.5-1.5) % POC ABG HHb (Measured) (0-5) % ABG Methemoglobin (0.0-3.0) % ABG O2 Capacity (16-24) mL/dl ABG Potassium (3.6-5.2) mmol/L VBG pH (7.32-7.43) VBG pCO2 (40-60) VBG HCO3 (21-28) mmol/l VBG Total CO2 (22-28) mmol.L VBG O2 Sat (Calc) (40-65) % VBG Base Excess (0.0-2.0) mmol/L VBG Potassium (3.6-5.2) mmol/L Hgb O2 Saturation (95.0-98.0) % Sodium (132-148) mmol/L Chloride (98-107) mmol/L Glucose (75-110) mg/dl Lactate (0.7-2.1) mmol/L Mechanical Rate FiO2 % Tidal Volume PEEP Potassium (3.6-5.0) mmol/L Carbon Dioxide (21-33) mmol/L Anion Gap (10-20) BUN (7-21) mg/dL Creatinine (0.8-1.5) mg/dl Est GFR ( Amer) Est GFR (Non-Af Amer) POC Glucose (mg/dL) (65-110) mg/dL Random Glucose (70-110) mg/dL Fructosamine (190-270) umol/L Uric Acid (3.5-8.5) mg/dL Calcium (8.4-10.5) mg/dL Phosphorus (2.5-4.5) mg/dL Magnesium (1.7-2.2) mg/dL Total Bilirubin (0.2-1.3) mg/dL Direct Bilirubin (0.0-0.4) mg/dL AST (17-59) U/L ALT (7-56) U/L Alkaline Phosphatase (38-126) U/L Ammonia (9-33) umol/L Lactate Dehydrogenase (333-699) U/L Total Creatine Kinase (35-230) U/L CK-MB (CK-2) (0.0-3.6) ng/mL CK-MB (CK-2) % (2.5-3.0) % Troponin I ng/mL NT-Pro-B Natriuret Pep (0-450) pg/mL Total Protein (5.8-8.3) g/dL Albumin (3.0-4.8) g/dL Globulin gm/dL Albumin/Globulin Ratio (1.1-1.8) Triglycerides (35-160) mg/dL Cholesterol (130-200) mg/dL LDL Cholesterol Direct (0-129) mg/dL HDL Cholesterol (29-60) mg/dL Arterial Blood Potassium (3.6-5.2) mmol/L Venous Blood Potassium (3.6-5.2) mmol/L Fluid Source Fluid Appearance (CLEAR) Fluid WBC (0.0-300.0) /uL Fluid RBC (0.0-0.0) /uL Fluid Tot Cell Count (0-0) Fluid Neutrophils (0-0) % Fluid Lymphocytes (0-0) % Fld Monocyte/Macrophag Fluid Comment Thoracentesis Fluid pH Salicylates (2.0-20.0) mg/dL Acetaminophen (10.0-20.0) ug/ml Alcohol, Quantitative (0-10) mg/dL Laboratory Results - last 24 hr 01/14/18 01/14/18 01/14/18 11:00 11:00 11:00 WBC 12.8 H RBC 4.56 Hgb 13.7 L Hct 39.1 L MCV 85.7 MCH 30.0 MCHC 35.0 RDW 21.6 H Plt Count 132 Manual Plt Count Gran % 73.0 H Lymph % (Auto) 17.6 L Ector % (Auto) 9.1 H Eos % (Auto) 0.3 L Baso % (Auto) 0.0 Gran # 9.36 H Lymph # (Auto) 2.3 Ector # (Auto) 1.2 H Eos # (Auto) 0.0 Baso # (Auto) 0.00 PT 17.5 H INR 1.51 APTT 42.4 H pCO2 pO2 58 H HCO3 ABG pH ABG Total CO2 ABG O2 Saturation ABG O2 Content ABG Base Excess ABG Hemoglobin ABG Carboxyhemoglobin POC ABG HHb (Measured) ABG Methemoglobin ABG O2 Capacity ABG Potassium VBG pH 7.19 L* VBG pCO2 32.0 L VBG HCO3 12.2 L VBG Total CO2 13.2 L VBG O2 Sat (Calc) 87.2 H VBG Base Excess -14.8 L VBG Potassium 7.4 H* Hgb O2 Saturation Sodium 122.0 L Chloride 90.0 L Glucose 145 H Lactate 8.1 H* Mechanical Rate FiO2 21.0 Tidal Volume PEEP Potassium Carbon Dioxide Anion Gap BUN Creatinine Est GFR ( Amer) Est GFR (Non-Af Amer) POC Glucose (mg/dL) Random Glucose Fructosamine Uric Acid Calcium Phosphorus Magnesium Total Bilirubin Direct Bilirubin AST ALT Alkaline Phosphatase Ammonia Lactate Dehydrogenase Total Creatine Kinase CK-MB (CK-2) CK-MB (CK-2) % Troponin I NT-Pro-B Natriuret Pep Total Protein Albumin Globulin Albumin/Globulin Ratio Triglycerides Cholesterol LDL Cholesterol Direct HDL Cholesterol Arterial Blood Potassium Venous Blood Potassium 7.4 H* Fluid Source Fluid Appearance Fluid WBC Fluid RBC Fluid Tot Cell Count Fluid Neutrophils Fluid Lymphocytes Fld Monocyte/Macrophag Fluid Comment Thoracentesis Fluid pH Salicylates Acetaminophen Alcohol, Quantitative 01/14/18 01/14/18 01/14/18 11:00 12:00 15:00 WBC RBC Hgb Hct MCV MCH MCHC RDW Plt Count Manual Plt Count Gran % Lymph % (Auto) Ector % (Auto) Eos % (Auto) Baso % (Auto) Gran # Lymph # (Auto) Ector # (Auto) Eos # (Auto) Baso # (Auto) PT INR APTT pCO2 18 L* pO2 149.0 H HCO3 9.3 L* ABG pH 7.32 L ABG Total CO2 9.9 L ABG O2 Saturation 100.3 H ABG O2 Content 18.6 ABG Base Excess -14.3 L ABG Hemoglobin 13.4 ABG Carboxyhemoglobin 1.9 H POC ABG HHb (Measured) -0.3 L ABG Methemoglobin 1.0 ABG O2 Capacity 18.5 ABG Potassium VBG pH VBG pCO2 VBG HCO3 VBG Total CO2 VBG O2 Sat (Calc) VBG Base Excess VBG Potassium Hgb O2 Saturation 97.4 Sodium 125 L Chloride 97 L Glucose Lactate Mechanical Rate FiO2 40.0 Tidal Volume PEEP Potassium 7.4 H* 7.0 H* Carbon Dioxide 12 L Anion Gap 23 H BUN 63 H Creatinine 7.2 H Est GFR ( Amer) 9 Est GFR (Non-Af Amer) 8 POC Glucose (mg/dL) Random Glucose 139 H Fructosamine Uric Acid Calcium 7.4 L Phosphorus 7.6 H Magnesium 2.6 H Total Bilirubin 7.3 H Direct Bilirubin AST 728 H ALT 439 H Alkaline Phosphatase 547 H Ammonia Lactate Dehydrogenase 1779 H Total Creatine Kinase 588 H CK-MB (CK-2) 12.0 H CK-MB (CK-2) % 2.0 L Troponin I 0.07 NT-Pro-B Natriuret Pep 2009 H Total Protein 8.0 Albumin 2.6 L Globulin 5.4 Albumin/Globulin Ratio 0.5 L Triglycerides Cholesterol LDL Cholesterol Direct HDL Cholesterol Arterial Blood Potassium Venous Blood Potassium Fluid Source Fluid Appearance Fluid WBC Fluid RBC Fluid Tot Cell Count Fluid Neutrophils Fluid Lymphocytes Fld Monocyte/Macrophag Fluid Comment Thoracentesis Fluid pH Salicylates Acetaminophen Alcohol, Quantitative 01/14/18 01/14/18 01/14/18 15:00 17:40 19:27 WBC RBC Hgb Hct MCV MCH MCHC RDW Plt Count Manual Plt Count Gran % Lymph % (Auto) Ector % (Auto) Eos % (Auto) Baso % (Auto) Gran # Lymph # (Auto) Ector # (Auto) Eos # (Auto) Baso # (Auto) PT INR APTT pCO2 pO2 65 H HCO3 ABG pH ABG Total CO2 ABG O2 Saturation ABG O2 Content ABG Base Excess ABG Hemoglobin ABG Carboxyhemoglobin POC ABG HHb (Measured) ABG Methemoglobin ABG O2 Capacity ABG Potassium VBG pH 7.33 VBG pCO2 28.0 L VBG HCO3 14.8 L VBG Total CO2 15.7 L VBG O2 Sat (Calc) 93.9 H VBG Base Excess -9.6 L VBG Potassium 7.0 H* Hgb O2 Saturation Sodium 123.0 L Chloride 93.0 L Glucose 198 H Lactate 5.2 H* Mechanical Rate FiO2 21.0 Tidal Volume PEEP Potassium Carbon Dioxide Anion Gap BUN Creatinine Est GFR ( Amer) Est GFR (Non-Af Amer) POC Glucose (mg/dL) Random Glucose Fructosamine Uric Acid Calcium Phosphorus Magnesium Total Bilirubin Direct Bilirubin AST ALT Alkaline Phosphatase Ammonia Lactate Dehydrogenase Total Creatine Kinase CK-MB (CK-2) CK-MB (CK-2) % Troponin I 0.07 NT-Pro-B Natriuret Pep Total Protein Albumin Globulin Albumin/Globulin Ratio Triglycerides Cholesterol LDL Cholesterol Direct HDL Cholesterol Arterial Blood Potassium Venous Blood Potassium 7.0 H* Fluid Source Fluid Appearance Fluid WBC Fluid RBC Fluid Tot Cell Count Fluid Neutrophils Fluid Lymphocytes Fld Monocyte/Macrophag Fluid Comment Thoracentesis Fluid pH 8.0 Salicylates Acetaminophen Alcohol, Quantitative 01/14/18 01/14/18 01/14/18 19:27 19:31 19:31 WBC RBC Hgb Hct MCV MCH MCHC RDW Plt Count Manual Plt Count Gran % Lymph % (Auto) Ector % (Auto) Eos % (Auto) Baso % (Auto) Gran # Lymph # (Auto) Ector # (Auto) Eos # (Auto) Baso # (Auto) PT INR APTT pCO2 pO2 HCO3 ABG pH ABG Total CO2 ABG O2 Saturation ABG O2 Content ABG Base Excess ABG Hemoglobin ABG Carboxyhemoglobin POC ABG HHb (Measured) ABG Methemoglobin ABG O2 Capacity ABG Potassium VBG pH VBG pCO2 VBG HCO3 VBG Total CO2 VBG O2 Sat (Calc) VBG Base Excess VBG Potassium Hgb O2 Saturation Sodium Chloride Glucose Lactate Mechanical Rate FiO2 Tidal Volume PEEP Potassium Carbon Dioxide Anion Gap BUN Creatinine Est GFR ( Amer) Est GFR (Non-Af Amer) POC Glucose (mg/dL) Random Glucose Fructosamine 315 H Uric Acid 6.3 Calcium Phosphorus Magnesium Total Bilirubin Direct Bilirubin AST ALT Alkaline Phosphatase Ammonia Lactate Dehydrogenase Total Creatine Kinase 474 H CK-MB (CK-2) 10.3 H CK-MB (CK-2) % 2.2 L Troponin I 0.07 NT-Pro-B Natriuret Pep Total Protein Albumin Globulin Albumin/Globulin Ratio Triglycerides Cholesterol LDL Cholesterol Direct HDL Cholesterol Arterial Blood Potassium Venous Blood Potassium Fluid Source Pleural/thoracentesi Fluid Appearance Bloody Fluid WBC 463.0 H Fluid RBC 07477.0 H Fluid Tot Cell Count 100 H Fluid Neutrophils 24.2 H Fluid Lymphocytes 75.8 H Fld Monocyte/Macrophag TEST NOT PERFORMED Fluid Comment Red color Thoracentesis Fluid pH Salicylates Acetaminophen Alcohol, Quantitative 01/14/18 01/14/18 01/14/18 22:26 22:30 22:46 WBC RBC Hgb Hct MCV MCH MCHC RDW Plt Count Manual Plt Count Gran % Lymph % (Auto) Ector % (Auto) Eos % (Auto) Baso % (Auto) Gran # Lymph # (Auto) Ector # (Auto) Eos # (Auto) Baso # (Auto) PT INR APTT pCO2 21 L pO2 266.0 H 260 H HCO3 17.5 L ABG pH 7.53 H ABG Total CO2 18.1 L ABG O2 Saturation 100.0 H ABG O2 Content ABG Base Excess -3.2 L ABG Hemoglobin ABG Carboxyhemoglobin POC ABG HHb (Measured) ABG Methemoglobin ABG O2 Capacity ABG Potassium 4.9 VBG pH 7.51 H VBG pCO2 24.0 L VBG HCO3 19.2 L VBG Total CO2 19.9 L VBG O2 Sat (Calc) 100.1 H VBG Base Excess -2.1 L VBG Potassium 5.2 Hgb O2 Saturation Sodium 135.0 130 L 128.0 L Chloride 97.0 L 102 98.0 Glucose 97 99 Lactate 3.7 H 4.4 H* Mechanical Rate 20 FiO2 80.0 21.0 Tidal Volume 450 PEEP 5 Potassium 5.2 H Carbon Dioxide 20 L Anion Gap 13 BUN 36 H Creatinine 4.4 H Est GFR ( Amer) 17 Est GFR (Non-Af Amer) 14 POC Glucose (mg/dL) Random Glucose 97 Fructosamine Uric Acid Calcium 6.6 L* Phosphorus 5.1 H Magnesium 1.9 Total Bilirubin 5.6 H Direct Bilirubin AST 752 H ALT 380 H Alkaline Phosphatase 454 H Ammonia Lactate Dehydrogenase Total Creatine Kinase 467 H CK-MB (CK-2) 8.4 H CK-MB (CK-2) % Troponin I 0.08 NT-Pro-B Natriuret Pep Total Protein 6.2 Albumin 2.0 L Globulin 4.2 Albumin/Globulin Ratio 0.5 L Triglycerides Cholesterol LDL Cholesterol Direct HDL Cholesterol Arterial Blood Potassium 4.9 Venous Blood Potassium 5.2 Fluid Source Fluid Appearance Fluid WBC Fluid RBC Fluid Tot Cell Count Fluid Neutrophils Fluid Lymphocytes Fld Monocyte/Macrophag Fluid Comment Thoracentesis Fluid pH Salicylates Acetaminophen Alcohol, Quantitative 01/14/18 01/14/18 01/15/18 22:57 22:58 00:40 WBC 10.5 RBC 4.31 Hgb 12.9 L Hct 35.9 L MCV 83.3 MCH 29.9 MCHC 35.9 RDW 21.3 H Plt Count 86 L Manual Plt Count Gran % 67.6 Lymph % (Auto) 21.5 L Ector % (Auto) 8.5 H Eos % (Auto) 2.2 Baso % (Auto) 0.2 Gran # 7.10 H Lymph # (Auto) 2.3 Ector # (Auto) 0.9 H Eos # (Auto) 0.2 Baso # (Auto) 0.02 PT INR APTT pCO2 pO2 HCO3 ABG pH ABG Total CO2 ABG O2 Saturation ABG O2 Content ABG Base Excess ABG Hemoglobin ABG Carboxyhemoglobin POC ABG HHb (Measured) ABG Methemoglobin ABG O2 Capacity ABG Potassium VBG pH VBG pCO2 VBG HCO3 VBG Total CO2 VBG O2 Sat (Calc) VBG Base Excess VBG Potassium Hgb O2 Saturation Sodium Chloride Glucose Lactate Mechanical Rate FiO2 Tidal Volume PEEP Potassium Carbon Dioxide Anion Gap BUN Creatinine Est GFR ( Amer) Est GFR (Non-Af Amer) POC Glucose (mg/dL) Random Glucose Fructosamine Uric Acid Calcium Phosphorus Magnesium Total Bilirubin Direct Bilirubin AST ALT Alkaline Phosphatase Ammonia Lactate Dehydrogenase Total Creatine Kinase CK-MB (CK-2) CK-MB (CK-2) % Troponin I NT-Pro-B Natriuret Pep Total Protein Albumin Globulin Albumin/Globulin Ratio Triglycerides Cholesterol LDL Cholesterol Direct HDL Cholesterol Arterial Blood Potassium Venous Blood Potassium Fluid Source Fluid Appearance Fluid WBC Fluid RBC Fluid Tot Cell Count Fluid Neutrophils Fluid Lymphocytes Fld Monocyte/Macrophag Fluid Comment Thoracentesis Fluid pH Salicylates < 1 L Acetaminophen < 10.0 L Alcohol, Quantitative < 10 01/15/18 01/15/18 01/15/18 03:30 03:30 03:30 WBC 12.3 H RBC 4.39 Hgb 13.2 L Hct 37.1 L MCV 84.5 MCH 30.1 MCHC 35.6 RDW 21.5 H Plt Count 87 L Manual Plt Count Gran % 69.6 H Lymph % (Auto) 20.1 L Ector % (Auto) 8.1 H Eos % (Auto) 2.0 Baso % (Auto) 0.2 Gran # 8.54 H Lymph # (Auto) 2.5 Ector # (Auto) 1.0 H Eos # (Auto) 0.2 Baso # (Auto) 0.03 PT INR APTT pCO2 pO2 105 H HCO3 ABG pH ABG Total CO2 ABG O2 Saturation ABG O2 Content ABG Base Excess ABG Hemoglobin ABG Carboxyhemoglobin POC ABG HHb (Measured) ABG Methemoglobin ABG O2 Capacity ABG Potassium VBG pH 7.43 VBG pCO2 22.0 L VBG HCO3 14.6 L VBG Total CO2 15.3 L VBG O2 Sat (Calc) 99.3 H VBG Base Excess -7.6 L VBG Potassium 5.7 H Hgb O2 Saturation Sodium 128 L 128.0 L Chloride 103 98.0 Glucose 73 L Lactate 6.7 H* Mechanical Rate FiO2 21.0 Tidal Volume PEEP Potassium 5.6 H* Carbon Dioxide 15 L Anion Gap 16 BUN 37 H Creatinine 4.7 H Est GFR ( Amer) 15 Est GFR (Non-Af Amer) 13 POC Glucose (mg/dL) Random Glucose 69 L Fructosamine Uric Acid Calcium 6.1 L* Phosphorus 5.7 H Magnesium 1.9 Total Bilirubin 5.3 H Direct Bilirubin 4.4 H AST 853 H ALT 391 H Alkaline Phosphatase 436 H Ammonia Lactate Dehydrogenase Total Creatine Kinase 1124 H CK-MB (CK-2) 9.6 H CK-MB (CK-2) % 0.9 L Troponin I 0.12 D NT-Pro-B Natriuret Pep Total Protein 5.8 Albumin 1.8 L Globulin 4.0 Albumin/Globulin Ratio 0.4 L Triglycerides 126 Cholesterol 145 LDL Cholesterol Direct 76 HDL Cholesterol 12 L Arterial Blood Potassium Venous Blood Potassium 5.7 H Fluid Source Fluid Appearance Fluid WBC Fluid RBC Fluid Tot Cell Count Fluid Neutrophils Fluid Lymphocytes Fld Monocyte/Macrophag Fluid Comment Thoracentesis Fluid pH Salicylates Acetaminophen Alcohol, Quantitative 01/15/18 01/15/18 01/15/18 05:34 05:50 06:43 WBC RBC Hgb Hct MCV MCH MCHC RDW Plt Count Manual Plt Count Gran % Lymph % (Auto) Ector % (Auto) Eos % (Auto) Baso % (Auto) Gran # Lymph # (Auto) Ector # (Auto) Eos # (Auto) Baso # (Auto) PT INR APTT pCO2 26 L pO2 86.0 42 HCO3 14.0 L ABG pH 7.34 L ABG Total CO2 14.8 L ABG O2 Saturation 98.2 H ABG O2 Content ABG Base Excess -10.1 L ABG Hemoglobin ABG Carboxyhemoglobin POC ABG HHb (Measured) ABG Methemoglobin ABG O2 Capacity ABG Potassium 4.8 VBG pH 7.28 L VBG pCO2 35.0 L VBG HCO3 16.4 L VBG Total CO2 17.5 L VBG O2 Sat (Calc) 74.5 H VBG Base Excess -9.4 L VBG Potassium 5.4 H Hgb O2 Saturation Sodium 130.0 L 131.0 L Chloride 99.0 98.0 Glucose 76 76 Lactate 8.2 H* 8.3 H* Mechanical Rate FiO2 40.0 21.0 Tidal Volume PEEP Potassium Carbon Dioxide Anion Gap BUN Creatinine Est GFR ( Amer) Est GFR (Non-Af Amer) POC Glucose (mg/dL) 72 Random Glucose Fructosamine Uric Acid Calcium Phosphorus Magnesium Total Bilirubin Direct Bilirubin AST ALT Alkaline Phosphatase Ammonia Lactate Dehydrogenase Total Creatine Kinase CK-MB (CK-2) CK-MB (CK-2) % Troponin I NT-Pro-B Natriuret Pep Total Protein Albumin Globulin Albumin/Globulin Ratio Triglycerides Cholesterol LDL Cholesterol Direct HDL Cholesterol Arterial Blood Potassium 4.8 Venous Blood Potassium 5.4 H Fluid Source Fluid Appearance Fluid WBC Fluid RBC Fluid Tot Cell Count Fluid Neutrophils Fluid Lymphocytes Fld Monocyte/Macrophag Fluid Comment Thoracentesis Fluid pH Salicylates Acetaminophen Alcohol, Quantitative 01/15/18 01/15/18 01/15/18 06:51 06:51 08:26 WBC RBC Hgb Hct MCV MCH MCHC RDW Plt Count Manual Plt Count 85 L Gran % Lymph % (Auto) Ector % (Auto) Eos % (Auto) Baso % (Auto) Gran # Lymph # (Auto) Ector # (Auto) Eos # (Auto) Baso # (Auto) PT 23.4 H INR 2.01 APTT 79.4 H pCO2 23 L pO2 80.0 HCO3 12.7 L ABG pH 7.35 ABG Total CO2 13.4 L ABG O2 Saturation 96.9 ABG O2 Content 15.5 ABG Base Excess -11.1 L ABG Hemoglobin 11.7 ABG Carboxyhemoglobin 1.8 H POC ABG HHb (Measured) 3.0 ABG Methemoglobin 1.2 ABG O2 Capacity 16.0 ABG Potassium VBG pH VBG pCO2 VBG HCO3 VBG Total CO2 VBG O2 Sat (Calc) VBG Base Excess VBG Potassium Hgb O2 Saturation 93.9 L Sodium Chloride Glucose Lactate Mechanical Rate FiO2 40.0 Tidal Volume PEEP Potassium Carbon Dioxide Anion Gap BUN Creatinine Est GFR ( Amer) Est GFR (Non-Af Amer) POC Glucose (mg/dL) Random Glucose Fructosamine Uric Acid Calcium Phosphorus Magnesium Total Bilirubin Direct Bilirubin AST ALT Alkaline Phosphatase Ammonia Lactate Dehydrogenase Total Creatine Kinase CK-MB (CK-2) CK-MB (CK-2) % Troponin I NT-Pro-B Natriuret Pep Total Protein Albumin Globulin Albumin/Globulin Ratio Triglycerides Cholesterol LDL Cholesterol Direct HDL Cholesterol Arterial Blood Potassium Venous Blood Potassium Fluid Source Fluid Appearance Fluid WBC Fluid RBC Fluid Tot Cell Count Fluid Neutrophils Fluid Lymphocytes Fld Monocyte/Macrophag Fluid Comment Thoracentesis Fluid pH Salicylates Acetaminophen Alcohol, Quantitative 01/15/18 09:40 WBC RBC Hgb Hct MCV MCH MCHC RDW Plt Count Manual Plt Count Gran % Lymph % (Auto) Ector % (Auto) Eos % (Auto) Baso % (Auto) Gran # Lymph # (Auto) Ector # (Auto) Eos # (Auto) Baso # (Auto) PT INR APTT pCO2 pO2 HCO3 ABG pH ABG Total CO2 ABG O2 Saturation ABG O2 Content ABG Base Excess ABG Hemoglobin ABG Carboxyhemoglobin POC ABG HHb (Measured) ABG Methemoglobin ABG O2 Capacity ABG Potassium VBG pH VBG pCO2 VBG HCO3 VBG Total CO2 VBG O2 Sat (Calc) VBG Base Excess VBG Potassium Hgb O2 Saturation Sodium Chloride Glucose Lactate Mechanical Rate FiO2 Tidal Volume PEEP Potassium Carbon Dioxide Anion Gap BUN Creatinine Est GFR ( Amer) Est GFR (Non-Af Amer) POC Glucose (mg/dL) Random Glucose Fructosamine Uric Acid Calcium Phosphorus Magnesium Total Bilirubin Direct Bilirubin AST ALT Alkaline Phosphatase Ammonia 23 Lactate Dehydrogenase Total Creatine Kinase CK-MB (CK-2) CK-MB (CK-2) % Troponin I NT-Pro-B Natriuret Pep Total Protein Albumin Globulin Albumin/Globulin Ratio Triglycerides Cholesterol LDL Cholesterol Direct HDL Cholesterol Arterial Blood Potassium Venous Blood Potassium Fluid Source Fluid Appearance Fluid WBC Fluid RBC Fluid Tot Cell Count Fluid Neutrophils Fluid Lymphocytes Fld Monocyte/Macrophag Fluid Comment Thoracentesis Fluid pH Salicylates Acetaminophen Alcohol, Quantitative EKG/Cardiology Studies: Cardiology / EKG Studies 01/14/18 11:00 EKG [ELECTROCARDIOGRAM] Stat Comment: Reason For Exam: SOB 01/15/18 07:00 EKG [ELECTROCARDIOGRAM] DAILY Comment: Reason For Exam: CAD/MVR 01/16/18 07:00 EKG [ELECTROCARDIOGRAM] DAILY Comment: Reason For Exam: CAD/MVR Review of Systems - Review of Systems Systems not reviewed;Unavailable: Acuity of Condition Critical Care Progress Note - Ventilator Checklist Head of Bed 30 Degrees: Yes Daily Sedation Vacation: Yes Daily Assessment of Readiness to Wean: Yes Daily Spontaneous Breathing Trial: Yes PUD Prophalyxis: Yes DVT Prophylaxis: Yes Oral Care with Chlorhexidine Gluconate {CHG}: Yes - Vent Settings MODE:: PRVC TIDAL VOLUME:: 450 RESP RATE:: 16 FIO2:: 40 PEEP:: 5 - Extremities/Vascular Does the Patient have a Central Venous Catheter?: Yes Insertion Site: Femoral Vein Does the Patient need a Central Venous Catheter?: Yes Does the Patient have a Saunders Catheter?: Yes Does the Patient need a Saunders Catheter?: Yes Catheter Insertion Criteria: Need for accurate measurement of output in critically ill patient - Prophylaxis GI Prophylaxis GI: PPI - Prophylaxis DVT Prophylaxis DVT: Heparin SQ Assessment/Plan - Assessment and Plan (Free Text) Assessment: Patient is a 62 y/o M with PMHx of HTN, HLD, 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 ICU was consulted for management. Patient is admitted for Distributive Shock with Multiorgan Dysfunction in the setting of acute renal failure with ATN and Hepatic Failure, Respiratory Failure, and Severe Lactic Acidosis. Plan: Neuro: - Intubated; ET tube is in place - Patient briefly follows commands and moves extremities - c/w fentanyl gtt for sedation at 20 mcg/hr Cardio: - Distributive shock - c/w Levophed, Vasopressin, Epinephrine, and stress dose steroids for hemodynamic support - Echo (01/14/18): normal EF. Grade I diastolic dysfunction. Echo does not suggest primary cardiac cause as MV repair appears preserved. No wall motion abnormalities. Filling pressures not elevated. - Lactic acidosis; lactate level is uptrending - started on thiamine 200mg IV q12 - Central line in place at femoral vein - Arterial line in place at femoral artery - Maintain MAP > 65 - serial troponins are indeterminate - Hypothermia in ED, patient is now normothermic - Hx of mitral valve repair - Cardio consulted (Dr. Hernandez) and recs appreciated Pulm: - Intubated for respiratory failure with Multiorgan Dysfunction Syndrome - ET tube in place. Vent management: HOB 30 degrees, sedation, daily SBT, PUD ppx, DVT ppx, and oral hygiene - Does not appear to be in ARDS: c/w low-intermediate tidal volume ventilation to prevent barotrauma - CXR (01/15): no acute cardiopulmonary changes from previous CXR. - Patient is s/p thoracentesis (01/14) since CXR on admission showed left sided pleural effusion - f/u pleural fluid studies - Maintain SaO2 > 92% GI: - Worsening transaminitis with hepatic failure; uptrending LFTs, high INR, and hypoalbuminemia - started on bicarb gtt at 125 mls/hr - started on N-acetylcysteine - IR was consulted for possible cholecystostomy tube placement, however, it is not possible with significant risk/injury. Patient is also unstable at this time for HIDA scan. - Surgery consulted, recs appreciated. - CT A/P (01/15): potential left lower lobe PNA. Cirrhotic liver. Cholelithiasis likely gallbladder hydrops evident. (see full report) - GI ppx: Protonix IVP 40mg - NPO Renal: - Acute Renal Failure likely due to Acute Tubular Necrosis 2/2 Distributive Shock - Went for HD yesterday, improvement of acidosis and hyperkalemia; Plan for HD today - started albumin 12.5g IV q4H - Avoid nephrotoxic meds - Trialysis catheter in place a the right IJ - Monitor Intake and Output - downtrending BUN/Cr; continue to monitor Heme: - Thrombocytopenia 2/2 sepsis - monitor platelets; no active bleeding at this time - INR is 2 - Heparin SC for DVT ppx; held at this time ID: - Suspicious for septic shock - c/w meropenem, doxycycline, and linezolid - ID consulted. Recs appreciated. - f/u pleural effusion analysis (s/p thoracentesis) - f/u procalcitonin level - f/u blood cx - f/u urine cx - f/u sputum cx Dispo: Continue to monitor patient in the ICU. Case was discussed and reviewed with Attending Physician, Dr. Shen. <Sriram Shen - Last Filed: 01/15/18 17:35> CCU Objective - Vital Signs / Intake & Output Vital Signs (Last 4 hours): Vital Signs Temp Pulse Resp BP Pulse Ox 01/15/18 16:10 97.5 F L 98 H 93 L 01/15/18 16:00 97.5 F L 98 H 97/34 L 94 L 01/15/18 15:50 97.5 F L 99 H 92 L 01/15/18 15:40 97.5 F L 98 H 93 L 01/15/18 15:30 97.7 F 97 H 92 L 01/15/18 15:20 97.7 F 97 H 93 L 01/15/18 15:10 98 H 93 L 01/15/18 15:09 95 H 01/15/18 15:08 97.7 F 95 H 01/15/18 15:07 97.7 F 97 H 01/15/18 15:06 97.5 F L 96 H 01/15/18 15:05 97.5 F L 98 H 01/15/18 15:04 97.5 F L 97 H 01/15/18 15:00 97.5 F L 101 H 69 L 01/15/18 14:50 97.5 F L 97 H 67 L 01/15/18 14:40 97.5 F L 98 H 72 L 01/15/18 14:30 97.5 F L 98 H 69 L 01/15/18 14:28 97.5 F L 98 H 01/15/18 14:27 97.5 F L 98 H 01/15/18 14:26 97.5 F L 98 H 01/15/18 14:25 97.5 F L 98 H 01/15/18 14:24 97.5 F L 98 H 01/15/18 14:23 97.5 F L 98 H 01/15/18 14:22 97.5 F L 97 H 01/15/18 14:21 97.5 F L 98 H 01/15/18 14:20 97.5 F L 98 H 01/15/18 14:19 97.5 F L 98 H 01/15/18 14:10 97.3 F L 98 H 100 01/15/18 14:00 97.3 F L 98 H 25 H 109/37 L 100 01/15/18 13:50 97.3 F L 98 H 100 01/15/18 13:42 117/39 L 01/15/18 13:40 97.3 F L 97 H 100 Intake and Output (Last 8hrs): Intake & Output 01/15/18 01/15/18 01/15/18 06:59 14:59 22:59 Intake Total 3050 2402 4208 Output Total 0 5 Balance 3050 2402 4203 Weight 195 lb 8 oz Intake: IV 3000 2402 4208 Acetadote 750 Albumin 650 100 Epinephrine drip 97 Fentanyl 6 IVF 1565 IVPB 700 Levophed 1390 Right Femoral 2500 Oral 0 Albumin 50 Output: Urine 0 5 Urethral (Saunders) 5 Urine, Voided 0 Other: # Bowel Movements 0 - Medications Active Medications: Active Medications Generic Name Dose Route Start Last Admin Trade Name Freq PRN Reason Stop Dose Admin Albumin Human 12.5 gm 01/15/18 09:00 01/15/18 17:01 Albumin Human 25% (12.5 Gm/50 Ml) IV 12.5 gm Q4H NILES Administration Heparin Sodium (Porcine) 5,000 units 01/14/18 22:00 01/14/18 22:53 Heparin SC 5,000 units Q12 NILES Administration Protocol Hydrocortisone Sodium Succinate 50 mg 01/15/18 08:30 01/15/18 13:33 Solu-Cortef IVP 50 mg Q6H NILES Administration Fentanyl Citrate 1,000 mcg in 100 mls @ 2 mls/hr 01/14/18 12:33 01/14/18 22:29 Fentanyl Citrate/Sodium Chloride 1 Mg/100 Ml IV 5 mcg/hr .Q24H PRN 0.5 mls/hr TITRATE PER MD ORDER Titration Protocol 20 MCG/HR Midazolam 100 mg/100ml in NS 100 mg in 100 mls @ 1 mls/hr 01/14/18 12:33 Midazolam 100 Mg/100ml In Ns IV .Q24H PRN Sedation Protocol 1 MG/HR NOREPINEPHRINE BIT/0.9 % NACL 4 mg in 250 mls @ 15 mls/hr 01/14/18 14:20 01/15/18 16:51 Levophed 4 Mg/ 250 Ml Ns Premixed IV 30 mcg/min .[id number] PRN 112.5 mls/hr TITRATE PER MD ORDER Administration Protocol 4 MCG/MIN Meropenem/Sodium Chloride 500 mg in 50 mls @ 100 mls/hr 01/14/18 22:00 01/15/18 09:20 Merrem Iv 500 Mg/Ns 50 Ml IVPB 100 mls/hr Q12 NILES Administration Protocol Doxycycline Hyclate 100 mg/ 100 mls @ 100 mls/hr 01/14/18 22:00 01/15/18 09:20 Sodium Chloride IVPB 100 mls/hr Q12 NILES Administration Protocol Vasopressin 20 units/ Sodium 101 mls @ 9.09 mls/hr 01/15/18 04:45 01/15/18 16:00 Chloride IV 9.09 mls/hr .[id number] NILES Administration Protocol 0.03 U/MIN Dobutamine HCl/Dextrose 500 mg in 250 mls @ 6.651 mls/hr 01/15/18 08:21 01/15/18 09:40 Dobutamine/Dextrose 5% 500mg/250ml IV Infused .Q24H PRN Titration TITRATE PER PROTOCOL Protocol 2.5 MCG/KG/MIN Acetylcysteine 8,870 mg/ 1,044.35 mls @ 62.5 mls/hr 01/15/18 14:00 Dextrose IV 01/16/18 06:42 .[id number] ONE Protocol Epinephrine HCl 1 mg/ Sodium 51 mls @ 3.06 mls/hr 01/15/18 09:05 01/15/18 16:32 Chloride IV 3 mcg/min .[id number] PRN 9.18 mls/hr TITRATE PER MD ORDER Administration Protocol 1 MCG/MIN Thiamine HCl 200 mg/ Sodium 52 mls @ 104 mls/hr 01/15/18 22:00 Chloride IV Q12 NILES Sodium Bicarbonate 150 meq/ 1,150 mls @ 125 mls/hr 01/15/18 12:17 01/15/18 12:20 Dextrose IV 125 mls/hr .[id number] NILES Administration Ondansetron HCl 4 mg 01/14/18 18:50 Zofran Inj IVP Q4H PRN Nausea/Vomiting Pantoprazole Sodium 40 mg 01/15/18 10:00 01/15/18 09:19 Protonix Inj IVP 40 mg DAILY NILES Administration - Patient Studies Lab Studies: Microbiology Studies 01/14/18 11:19 Blood Culture - Preliminary Blood NO GROWTH AFTER 24 HOURS 01/14/18 11:00 Blood Culture - Preliminary Blood NO GROWTH AFTER 24 HOURS Lab Studies 01/15/18 01/15/18 01/15/18 Range/Units 16:56 11:21 09:40 WBC (4.5-11.0) 10^3/uL RBC (3.5-6.1) 10^6/uL Hgb (14.0-18.0) g/dL Hct (42.0-52.0) % MCV (80.0-105.0) fl MCH (25.0-35.0) pg MCHC (31.0-37.0) g/dl RDW (11.5-14.5) % Plt Count (120.0-450.0) 10^3/uL Manual Plt Count (120-450) K/mm3 Gran % (50.0-68.0) % Lymph % (Auto) (22.0-35.0) % Ector % (Auto) (1.0-6.0) % Eos % (Auto) (1.5-5.0) % Baso % (Auto) (0.0-3.0) % Gran # (1.4-6.5) Lymph # (Auto) (1.2-3.4) Ector # (Auto) (0.1-0.6) Eos # (Auto) (0.0-0.7) Baso # (Auto) (0.0-2.0) K/mm3 PT (9.4-12.5) SECONDS INR APTT (25.1-36.5) Seconds pCO2 (35-45) mm/Hg pO2 (30-55) mm/Hg HCO3 (21-28) mmol/L ABG pH (7.35-7.45) ABG Total CO2 (22-28) mmol.L ABG O2 Saturation (95-98) % ABG O2 Content (15-23) ML/dl ABG Base Excess (-2.0-3.0) mmol/L ABG Hemoglobin (11.7-17.4) g/dL ABG Carboxyhemoglobin (0.5-1.5) % POC ABG HHb (Measured) (0-5) % ABG Methemoglobin (0.0-3.0) % ABG O2 Capacity (16-24) mL/dl ABG Potassium (3.6-5.2) mmol/L VBG pH (7.32-7.43) VBG pCO2 (40-60) VBG HCO3 (21-28) mmol/l VBG Total CO2 (22-28) mmol.L VBG O2 Sat (Calc) (40-65) % VBG Base Excess (0.0-2.0) mmol/L VBG Potassium (3.6-5.2) mmol/L Hgb O2 Saturation (95.0-98.0) % Glucose (75-110) mg/dl Lactate (0.7-2.1) mmol/L Mechanical Rate FiO2 % Tidal Volume PEEP Sodium (132-148) mmol/L Potassium (3.6-5.0) mmol/L Chloride (98-107) mmol/L Carbon Dioxide (21-33) mmol/L Anion Gap (10-20) BUN (7-21) mg/dL Creatinine (0.8-1.5) mg/dl Est GFR ( Amer) Est GFR (Non-Af Amer) POC Glucose (mg/dL) 135 H 117 H (65-110) mg/dL Random Glucose (70-110) mg/dL Hemoglobin A1c (4.2-6.5) % Fructosamine (190-270) umol/L Uric Acid (3.5-8.5) mg/dL Calcium (8.4-10.5) mg/dL Phosphorus (2.5-4.5) mg/dL Magnesium (1.7-2.2) mg/dL Total Bilirubin (0.2-1.3) mg/dL Direct Bilirubin (0.0-0.4) mg/dL AST (17-59) U/L ALT (7-56) U/L Alkaline Phosphatase (38-126) U/L Ammonia 23 (9-33) umol/L Lactate Dehydrogenase (333-699) U/L Total Creatine Kinase (35-230) U/L CK-MB (CK-2) (0.0-3.6) ng/mL CK-MB (CK-2) % (2.5-3.0) % Troponin I ng/mL C-React Prot High Sens (1.00-3.00) mg/L NT-Pro-B Natriuret Pep (0-450) pg/mL Total Protein (5.8-8.3) g/dL Albumin (3.0-4.8) g/dL Globulin gm/dL Albumin/Globulin Ratio (1.1-1.8) Triglycerides (35-160) mg/dL Cholesterol (130-200) mg/dL LDL Cholesterol Direct (0-129) mg/dL HDL Cholesterol (29-60) mg/dL 25-OH Vitamin D Total (30.0-100.0) NG/ML Procalcitonin (0.19-0.49) NG/ML Arterial Blood Potassium (3.6-5.2) mmol/L Venous Blood Potassium (3.6-5.2) mmol/L Fluid Source Fluid Appearance (CLEAR) Fluid WBC (0.0-300.0) /uL Fluid RBC (0.0-0.0) /uL Fluid Tot Cell Count (0-0) Fluid Neutrophils (0-0) % Fluid Lymphocytes (0-0) % Fld Monocyte/Macrophag Fluid Comment Thoracentesis Fluid pH Salicylates (2.0-20.0) mg/dL Acetaminophen (10.0-20.0) ug/ml Alcohol, Quantitative (0-10) mg/dL Hepatitis A IgM Ab (NEGATIVE) Hep Bs Antigen (NEGATIVE) Hep Bs Ag Neutralizatn Hep Bs Antibody (NEGATIVE) Hep B Core IgM Ab (NEGATIVE) Hepatitis C Antibody (NEGATIVE) HIV 1&2 Antibody Screen (NEGATIVE) 01/15/18 01/15/18 01/15/18 Range/Units 08:26 07:45 07:37 WBC (4.5-11.0) 10^3/uL RBC (3.5-6.1) 10^6/uL Hgb (14.0-18.0) g/dL Hct (42.0-52.0) % MCV (80.0-105.0) fl MCH (25.0-35.0) pg MCHC (31.0-37.0) g/dl RDW (11.5-14.5) % Plt Count (120.0-450.0) 10^3/uL Manual Plt Count (120-450) K/mm3 Gran % (50.0-68.0) % Lymph % (Auto) (22.0-35.0) % Ector % (Auto) (1.0-6.0) % Eos % (Auto) (1.5-5.0) % Baso % (Auto) (0.0-3.0) % Gran # (1.4-6.5) Lymph # (Auto) (1.2-3.4) Ector # (Auto) (0.1-0.6) Eos # (Auto) (0.0-0.7) Baso # (Auto) (0.0-2.0) K/mm3 PT (9.4-12.5) SECONDS INR APTT (25.1-36.5) Seconds pCO2 23 L (35-45) mm/Hg pO2 80.0 (30-55) mm/Hg HCO3 12.7 L (21-28) mmol/L ABG pH 7.35 (7.35-7.45) ABG Total CO2 13.4 L (22-28) mmol.L ABG O2 Saturation 96.9 (95-98) % ABG O2 Content 15.5 (15-23) ML/dl ABG Base Excess -11.1 L (-2.0-3.0) mmol/L ABG Hemoglobin 11.7 (11.7-17.4) g/dL ABG Carboxyhemoglobin 1.8 H (0.5-1.5) % POC ABG HHb (Measured) 3.0 (0-5) % ABG Methemoglobin 1.2 (0.0-3.0) % ABG O2 Capacity 16.0 (16-24) mL/dl ABG Potassium (3.6-5.2) mmol/L VBG pH (7.32-7.43) VBG pCO2 (40-60) VBG HCO3 (21-28) mmol/l VBG Total CO2 (22-28) mmol.L VBG O2 Sat (Calc) (40-65) % VBG Base Excess (0.0-2.0) mmol/L VBG Potassium (3.6-5.2) mmol/L Hgb O2 Saturation 93.9 L (95.0-98.0) % Glucose (75-110) mg/dl Lactate (0.7-2.1) mmol/L Mechanical Rate FiO2 40.0 % Tidal Volume PEEP Sodium (132-148) mmol/L Potassium (3.6-5.0) mmol/L Chloride (98-107) mmol/L Carbon Dioxide (21-33) mmol/L Anion Gap (10-20) BUN (7-21) mg/dL Creatinine (0.8-1.5) mg/dl Est GFR ( Amer) Est GFR (Non-Af Amer) POC Glucose (mg/dL) 88 (65-110) mg/dL Random Glucose (70-110) mg/dL Hemoglobin A1c (4.2-6.5) % Fructosamine (190-270) umol/L Uric Acid (3.5-8.5) mg/dL Calcium (8.4-10.5) mg/dL Phosphorus (2.5-4.5) mg/dL Magnesium (1.7-2.2) mg/dL Total Bilirubin (0.2-1.3) mg/dL Direct Bilirubin (0.0-0.4) mg/dL AST (17-59) U/L ALT (7-56) U/L Alkaline Phosphatase (38-126) U/L Ammonia (9-33) umol/L Lactate Dehydrogenase (333-699) U/L Total Creatine Kinase (35-230) U/L CK-MB (CK-2) (0.0-3.6) ng/mL CK-MB (CK-2) % (2.5-3.0) % Troponin I ng/mL C-React Prot High Sens (1.00-3.00) mg/L NT-Pro-B Natriuret Pep (0-450) pg/mL Total Protein (5.8-8.3) g/dL Albumin (3.0-4.8) g/dL Globulin gm/dL Albumin/Globulin Ratio (1.1-1.8) Triglycerides (35-160) mg/dL Cholesterol (130-200) mg/dL LDL Cholesterol Direct (0-129) mg/dL HDL Cholesterol (29-60) mg/dL 25-OH Vitamin D Total (30.0-100.0) NG/ML Procalcitonin (0.19-0.49) NG/ML Arterial Blood Potassium (3.6-5.2) mmol/L Venous Blood Potassium (3.6-5.2) mmol/L Fluid Source Fluid Appearance (CLEAR) Fluid WBC (0.0-300.0) /uL Fluid RBC (0.0-0.0) /uL Fluid Tot Cell Count (0-0) Fluid Neutrophils (0-0) % Fluid Lymphocytes (0-0) % Fld Monocyte/Macrophag Fluid Comment Thoracentesis Fluid pH Salicylates (2.0-20.0) mg/dL Acetaminophen (10.0-20.0) ug/ml Alcohol, Quantitative (0-10) mg/dL Hepatitis A IgM Ab (NEGATIVE) Hep Bs Antigen (NEGATIVE) Hep Bs Ag Neutralizatn Confirmed positive H Hep Bs Antibody (NEGATIVE) Hep B Core IgM Ab (NEGATIVE) Hepatitis C Antibody (NEGATIVE) HIV 1&2 Antibody Screen (NEGATIVE) 01/15/18 01/15/18 01/15/18 Range/Units 06:51 06:51 06:43 WBC (4.5-11.0) 10^3/uL RBC (3.5-6.1) 10^6/uL Hgb (14.0-18.0) g/dL Hct (42.0-52.0) % MCV (80.0-105.0) fl MCH (25.0-35.0) pg MCHC (31.0-37.0) g/dl RDW (11.5-14.5) % Plt Count (120.0-450.0) 10^3/uL Manual Plt Count 85 L (120-450) K/mm3 Gran % (50.0-68.0) % Lymph % (Auto) (22.0-35.0) % Ector % (Auto) (1.0-6.0) % Eos % (Auto) (1.5-5.0) % Baso % (Auto) (0.0-3.0) % Gran # (1.4-6.5) Lymph # (Auto) (1.2-3.4) Ector # (Auto) (0.1-0.6) Eos # (Auto) (0.0-0.7) Baso # (Auto) (0.0-2.0) K/mm3 PT 23.4 H (9.4-12.5) SECONDS INR 2.01 APTT 79.4 H (25.1-36.5) Seconds pCO2 (35-45) mm/Hg pO2 42 (30-55) mm/Hg HCO3 (21-28) mmol/L ABG pH (7.35-7.45) ABG Total CO2 (22-28) mmol.L ABG O2 Saturation (95-98) % ABG O2 Content (15-23) ML/dl ABG Base Excess (-2.0-3.0) mmol/L ABG Hemoglobin (11.7-17.4) g/dL ABG Carboxyhemoglobin (0.5-1.5) % POC ABG HHb (Measured) (0-5) % ABG Methemoglobin (0.0-3.0) % ABG O2 Capacity (16-24) mL/dl ABG Potassium (3.6-5.2) mmol/L VBG pH 7.28 L (7.32-7.43) VBG pCO2 35.0 L (40-60) VBG HCO3 16.4 L (21-28) mmol/l VBG Total CO2 17.5 L (22-28) mmol.L VBG O2 Sat (Calc) 74.5 H (40-65) % VBG Base Excess -9.4 L (0.0-2.0) mmol/L VBG Potassium 5.4 H (3.6-5.2) mmol/L Hgb O2 Saturation (95.0-98.0) % Glucose 76 (75-110) mg/dl Lactate 8.3 H* (0.7-2.1) mmol/L Mechanical Rate FiO2 21.0 % Tidal Volume PEEP Sodium 131.0 L (132-148) mmol/L Potassium (3.6-5.0) mmol/L Chloride 98.0 (98-107) mmol/L Carbon Dioxide (21-33) mmol/L Anion Gap (10-20) BUN (7-21) mg/dL Creatinine (0.8-1.5) mg/dl Est GFR ( Amer) Est GFR (Non-Af Amer) POC Glucose (mg/dL) (65-110) mg/dL Random Glucose (70-110) mg/dL Hemoglobin A1c (4.2-6.5) % Fructosamine (190-270) umol/L Uric Acid (3.5-8.5) mg/dL Calcium (8.4-10.5) mg/dL Phosphorus (2.5-4.5) mg/dL Magnesium (1.7-2.2) mg/dL Total Bilirubin (0.2-1.3) mg/dL Direct Bilirubin (0.0-0.4) mg/dL AST (17-59) U/L ALT (7-56) U/L Alkaline Phosphatase (38-126) U/L Ammonia (9-33) umol/L Lactate Dehydrogenase (333-699) U/L Total Creatine Kinase (35-230) U/L CK-MB (CK-2) (0.0-3.6) ng/mL CK-MB (CK-2) % (2.5-3.0) % Troponin I ng/mL C-React Prot High Sens (1.00-3.00) mg/L NT-Pro-B Natriuret Pep (0-450) pg/mL Total Protein (5.8-8.3) g/dL Albumin (3.0-4.8) g/dL Globulin gm/dL Albumin/Globulin Ratio (1.1-1.8) Triglycerides (35-160) mg/dL Cholesterol (130-200) mg/dL LDL Cholesterol Direct (0-129) mg/dL HDL Cholesterol (29-60) mg/dL 25-OH Vitamin D Total (30.0-100.0) NG/ML Procalcitonin (0.19-0.49) NG/ML Arterial Blood Potassium (3.6-5.2) mmol/L Venous Blood Potassium 5.4 H (3.6-5.2) mmol/L Fluid Source Fluid Appearance (CLEAR) Fluid WBC (0.0-300.0) /uL Fluid RBC (0.0-0.0) /uL Fluid Tot Cell Count (0-0) Fluid Neutrophils (0-0) % Fluid Lymphocytes (0-0) % Fld Monocyte/Macrophag Fluid Comment Thoracentesis Fluid pH Salicylates (2.0-20.0) mg/dL Acetaminophen (10.0-20.0) ug/ml Alcohol, Quantitative (0-10) mg/dL Hepatitis A IgM Ab (NEGATIVE) Hep Bs Antigen (NEGATIVE) Hep Bs Ag Neutralizatn Hep Bs Antibody (NEGATIVE) Hep B Core IgM Ab (NEGATIVE) Hepatitis C Antibody (NEGATIVE) HIV 1&2 Antibody Screen (NEGATIVE) 01/15/18 01/15/18 01/15/18 Range/Units 06:00 05:50 05:34 WBC (4.5-11.0) 10^3/uL RBC (3.5-6.1) 10^6/uL Hgb (14.0-18.0) g/dL Hct (42.0-52.0) % MCV (80.0-105.0) fl MCH (25.0-35.0) pg MCHC (31.0-37.0) g/dl RDW (11.5-14.5) % Plt Count (120.0-450.0) 10^3/uL Manual Plt Count (120-450) K/mm3 Gran % (50.0-68.0) % Lymph % (Auto) (22.0-35.0) % Ector % (Auto) (1.0-6.0) % Eos % (Auto) (1.5-5.0) % Baso % (Auto) (0.0-3.0) % Gran # (1.4-6.5) Lymph # (Auto) (1.2-3.4) Ector # (Auto) (0.1-0.6) Eos # (Auto) (0.0-0.7) Baso # (Auto) (0.0-2.0) K/mm3 PT (9.4-12.5) SECONDS INR APTT (25.1-36.5) Seconds pCO2 26 L (35-45) mm/Hg pO2 86.0 (30-55) mm/Hg HCO3 14.0 L (21-28) mmol/L ABG pH 7.34 L (7.35-7.45) ABG Total CO2 14.8 L (22-28) mmol.L ABG O2 Saturation 98.2 H (95-98) % ABG O2 Content (15-23) ML/dl ABG Base Excess -10.1 L (-2.0-3.0) mmol/L ABG Hemoglobin (11.7-17.4) g/dL ABG Carboxyhemoglobin (0.5-1.5) % POC ABG HHb (Measured) (0-5) % ABG Methemoglobin (0.0-3.0) % ABG O2 Capacity (16-24) mL/dl ABG Potassium 4.8 (3.6-5.2) mmol/L VBG pH (7.32-7.43) VBG pCO2 (40-60) VBG HCO3 (21-28) mmol/l VBG Total CO2 (22-28) mmol.L VBG O2 Sat (Calc) (40-65) % VBG Base Excess (0.0-2.0) mmol/L VBG Potassium (3.6-5.2) mmol/L Hgb O2 Saturation (95.0-98.0) % Glucose 76 (75-110) mg/dl Lactate 8.2 H* (0.7-2.1) mmol/L Mechanical Rate FiO2 40.0 % Tidal Volume PEEP Sodium 130.0 L (132-148) mmol/L Potassium (3.6-5.0) mmol/L Chloride 99.0 (98-107) mmol/L Carbon Dioxide (21-33) mmol/L Anion Gap (10-20) BUN (7-21) mg/dL Creatinine (0.8-1.5) mg/dl Est GFR ( Amer) Est GFR (Non-Af Amer) POC Glucose (mg/dL) 72 (65-110) mg/dL Random Glucose (70-110) mg/dL Hemoglobin A1c (4.2-6.5) % Fructosamine (190-270) umol/L Uric Acid (3.5-8.5) mg/dL Calcium (8.4-10.5) mg/dL Phosphorus (2.5-4.5) mg/dL Magnesium (1.7-2.2) mg/dL Total Bilirubin (0.2-1.3) mg/dL Direct Bilirubin (0.0-0.4) mg/dL AST (17-59) U/L ALT (7-56) U/L Alkaline Phosphatase (38-126) U/L Ammonia (9-33) umol/L Lactate Dehydrogenase (333-699) U/L Total Creatine Kinase (35-230) U/L CK-MB (CK-2) (0.0-3.6) ng/mL CK-MB (CK-2) % (2.5-3.0) % Troponin I ng/mL C-React Prot High Sens (1.00-3.00) mg/L NT-Pro-B Natriuret Pep (0-450) pg/mL Total Protein (5.8-8.3) g/dL Albumin (3.0-4.8) g/dL Globulin gm/dL Albumin/Globulin Ratio (1.1-1.8) Triglycerides (35-160) mg/dL Cholesterol (130-200) mg/dL LDL Cholesterol Direct (0-129) mg/dL HDL Cholesterol (29-60) mg/dL 25-OH Vitamin D Total (30.0-100.0) NG/ML Procalcitonin (0.19-0.49) NG/ML Arterial Blood Potassium 4.8 (3.6-5.2) mmol/L Venous Blood Potassium (3.6-5.2) mmol/L Fluid Source Fluid Appearance (CLEAR) Fluid WBC (0.0-300.0) /uL Fluid RBC (0.0-0.0) /uL Fluid Tot Cell Count (0-0) Fluid Neutrophils (0-0) % Fluid Lymphocytes (0-0) % Fld Monocyte/Macrophag Fluid Comment Thoracentesis Fluid pH Salicylates (2.0-20.0) mg/dL Acetaminophen (10.0-20.0) ug/ml Alcohol, Quantitative (0-10) mg/dL Hepatitis A IgM Ab Negative (NEGATIVE) Hep Bs Antigen Reactive (NEGATIVE) Hep Bs Ag Neutralizatn Hep Bs Antibody (NEGATIVE) Hep B Core IgM Ab Negative (NEGATIVE) Hepatitis C Antibody Negative (NEGATIVE) HIV 1&2 Antibody Screen (NEGATIVE) 01/15/18 01/15/18 01/15/18 Range/Units 03:30 03:30 03:30 WBC 12.3 H (4.5-11.0) 10^3/uL RBC 4.39 (3.5-6.1) 10^6/uL Hgb 13.2 L (14.0-18.0) g/dL Hct 37.1 L (42.0-52.0) % MCV 84.5 (80.0-105.0) fl MCH 30.1 (25.0-35.0) pg MCHC 35.6 (31.0-37.0) g/dl RDW 21.5 H (11.5-14.5) % Plt Count 87 L (120.0-450.0) 10^3/uL Manual Plt Count (120-450) K/mm3 Gran % 69.6 H (50.0-68.0) % Lymph % (Auto) 20.1 L (22.0-35.0) % Ector % (Auto) 8.1 H (1.0-6.0) % Eos % (Auto) 2.0 (1.5-5.0) % Baso % (Auto) 0.2 (0.0-3.0) % Gran # 8.54 H (1.4-6.5) Lymph # (Auto) 2.5 (1.2-3.4) Ector # (Auto) 1.0 H (0.1-0.6) Eos # (Auto) 0.2 (0.0-0.7) Baso # (Auto) 0.03 (0.0-2.0) K/mm3 PT (9.4-12.5) SECONDS INR APTT (25.1-36.5) Seconds pCO2 (35-45) mm/Hg pO2 105 H (30-55) mm/Hg HCO3 (21-28) mmol/L ABG pH (7.35-7.45) ABG Total CO2 (22-28) mmol.L ABG O2 Saturation (95-98) % ABG O2 Content (15-23) ML/dl ABG Base Excess (-2.0-3.0) mmol/L ABG Hemoglobin (11.7-17.4) g/dL ABG Carboxyhemoglobin (0.5-1.5) % POC ABG HHb (Measured) (0-5) % ABG Methemoglobin (0.0-3.0) % ABG O2 Capacity (16-24) mL/dl ABG Potassium (3.6-5.2) mmol/L VBG pH 7.43 (7.32-7.43) VBG pCO2 22.0 L (40-60) VBG HCO3 14.6 L (21-28) mmol/l VBG Total CO2 15.3 L (22-28) mmol.L VBG O2 Sat (Calc) 99.3 H (40-65) % VBG Base Excess -7.6 L (0.0-2.0) mmol/L VBG Potassium 5.7 H (3.6-5.2) mmol/L Hgb O2 Saturation (95.0-98.0) % Glucose 73 L (75-110) mg/dl Lactate 6.7 H* (0.7-2.1) mmol/L Mechanical Rate FiO2 21.0 % Tidal Volume PEEP Sodium 128.0 L (132-148) mmol/L Potassium (3.6-5.0) mmol/L Chloride 98.0 (98-107) mmol/L Carbon Dioxide (21-33) mmol/L Anion Gap (10-20) BUN (7-21) mg/dL Creatinine (0.8-1.5) mg/dl Est GFR ( Amer) Est GFR (Non-Af Amer) POC Glucose (mg/dL) (65-110) mg/dL Random Glucose (70-110) mg/dL Hemoglobin A1c 6.3 (4.2-6.5) % Fructosamine (190-270) umol/L Uric Acid (3.5-8.5) mg/dL Calcium (8.4-10.5) mg/dL Phosphorus (2.5-4.5) mg/dL Magnesium (1.7-2.2) mg/dL Total Bilirubin (0.2-1.3) mg/dL Direct Bilirubin (0.0-0.4) mg/dL AST (17-59) U/L ALT (7-56) U/L Alkaline Phosphatase (38-126) U/L Ammonia (9-33) umol/L Lactate Dehydrogenase (333-699) U/L Total Creatine Kinase (35-230) U/L CK-MB (CK-2) (0.0-3.6) ng/mL CK-MB (CK-2) % (2.5-3.0) % Troponin I ng/mL C-React Prot High Sens (1.00-3.00) mg/L NT-Pro-B Natriuret Pep (0-450) pg/mL Total Protein (5.8-8.3) g/dL Albumin (3.0-4.8) g/dL Globulin gm/dL Albumin/Globulin Ratio (1.1-1.8) Triglycerides (35-160) mg/dL Cholesterol (130-200) mg/dL LDL Cholesterol Direct (0-129) mg/dL HDL Cholesterol (29-60) mg/dL 25-OH Vitamin D Total (30.0-100.0) NG/ML Procalcitonin (0.19-0.49) NG/ML Arterial Blood Potassium (3.6-5.2) mmol/L Venous Blood Potassium 5.7 H (3.6-5.2) mmol/L Fluid Source Fluid Appearance (CLEAR) Fluid WBC (0.0-300.0) /uL Fluid RBC (0.0-0.0) /uL Fluid Tot Cell Count (0-0) Fluid Neutrophils (0-0) % Fluid Lymphocytes (0-0) % Fld Monocyte/Macrophag Fluid Comment Thoracentesis Fluid pH Salicylates (2.0-20.0) mg/dL Acetaminophen (10.0-20.0) ug/ml Alcohol, Quantitative (0-10) mg/dL Hepatitis A IgM Ab (NEGATIVE) Hep Bs Antigen (NEGATIVE) Hep Bs Ag Neutralizatn Hep Bs Antibody (NEGATIVE) Hep B Core IgM Ab (NEGATIVE) Hepatitis C Antibody (NEGATIVE) HIV 1&2 Antibody Screen (NEGATIVE) 01/15/18 01/15/18 01/15/18 Range/Units 03:30 03:30 00:40 WBC 10.5 (4.5-11.0) 10^3/uL RBC 4.31 (3.5-6.1) 10^6/uL Hgb 12.9 L (14.0-18.0) g/dL Hct 35.9 L (42.0-52.0) % MCV 83.3 (80.0-105.0) fl MCH 29.9 (25.0-35.0) pg MCHC 35.9 (31.0-37.0) g/dl RDW 21.3 H (11.5-14.5) % Plt Count 86 L (120.0-450.0) 10^3/uL Manual Plt Count (120-450) K/mm3 Gran % 67.6 (50.0-68.0) % Lymph % (Auto) 21.5 L (22.0-35.0) % Ector % (Auto) 8.5 H (1.0-6.0) % Eos % (Auto) 2.2 (1.5-5.0) % Baso % (Auto) 0.2 (0.0-3.0) % Gran # 7.10 H (1.4-6.5) Lymph # (Auto) 2.3 (1.2-3.4) Ector # (Auto) 0.9 H (0.1-0.6) Eos # (Auto) 0.2 (0.0-0.7) Baso # (Auto) 0.02 (0.0-2.0) K/mm3 PT (9.4-12.5) SECONDS INR APTT (25.1-36.5) Seconds pCO2 (35-45) mm/Hg pO2 (30-55) mm/Hg HCO3 (21-28) mmol/L ABG pH (7.35-7.45) ABG Total CO2 (22-28) mmol.L ABG O2 Saturation (95-98) % ABG O2 Content (15-23) ML/dl ABG Base Excess (-2.0-3.0) mmol/L ABG Hemoglobin (11.7-17.4) g/dL ABG Carboxyhemoglobin (0.5-1.5) % POC ABG HHb (Measured) (0-5) % ABG Methemoglobin (0.0-3.0) % ABG O2 Capacity (16-24) mL/dl ABG Potassium (3.6-5.2) mmol/L VBG pH (7.32-7.43) VBG pCO2 (40-60) VBG HCO3 (21-28) mmol/l VBG Total CO2 (22-28) mmol.L VBG O2 Sat (Calc) (40-65) % VBG Base Excess (0.0-2.0) mmol/L VBG Potassium (3.6-5.2) mmol/L Hgb O2 Saturation (95.0-98.0) % Glucose (75-110) mg/dl Lactate (0.7-2.1) mmol/L Mechanical Rate FiO2 % Tidal Volume PEEP Sodium 128 L (132-148) mmol/L Potassium 5.6 H* (3.6-5.0) mmol/L Chloride 103 (98-107) mmol/L Carbon Dioxide 15 L (21-33) mmol/L Anion Gap 16 (10-20) BUN 37 H (7-21) mg/dL Creatinine 4.7 H (0.8-1.5) mg/dl Est GFR ( Amer) 15 Est GFR (Non-Af Amer) 13 POC Glucose (mg/dL) (65-110) mg/dL Random Glucose 69 L (70-110) mg/dL Hemoglobin A1c (4.2-6.5) % Fructosamine (190-270) umol/L Uric Acid (3.5-8.5) mg/dL Calcium 6.1 L* (8.4-10.5) mg/dL Phosphorus 5.7 H (2.5-4.5) mg/dL Magnesium 1.9 (1.7-2.2) mg/dL Total Bilirubin 5.3 H (0.2-1.3) mg/dL Direct Bilirubin 4.4 H (0.0-0.4) mg/dL AST 853 H (17-59) U/L ALT 391 H (7-56) U/L Alkaline Phosphatase 436 H (38-126) U/L Ammonia (9-33) umol/L Lactate Dehydrogenase (333-699) U/L Total Creatine Kinase 1124 H (35-230) U/L CK-MB (CK-2) 9.6 H (0.0-3.6) ng/mL CK-MB (CK-2) % 0.9 L (2.5-3.0) % Troponin I 0.12 D ng/mL C-React Prot High Sens (1.00-3.00) mg/L NT-Pro-B Natriuret Pep (0-450) pg/mL Total Protein 5.8 (5.8-8.3) g/dL Albumin 1.8 L (3.0-4.8) g/dL Globulin 4.0 gm/dL Albumin/Globulin Ratio 0.4 L (1.1-1.8) Triglycerides 126 (35-160) mg/dL Cholesterol 145 (130-200) mg/dL LDL Cholesterol Direct 76 (0-129) mg/dL HDL Cholesterol 12 L (29-60) mg/dL 25-OH Vitamin D Total 17.6 L (30.0-100.0) NG/ML Procalcitonin (0.19-0.49) NG/ML Arterial Blood Potassium (3.6-5.2) mmol/L Venous Blood Potassium (3.6-5.2) mmol/L Fluid Source Fluid Appearance (CLEAR) Fluid WBC (0.0-300.0) /uL Fluid RBC (0.0-0.0) /uL Fluid Tot Cell Count (0-0) Fluid Neutrophils (0-0) % Fluid Lymphocytes (0-0) % Fld Monocyte/Macrophag Fluid Comment Thoracentesis Fluid pH Salicylates (2.0-20.0) mg/dL Acetaminophen (10.0-20.0) ug/ml Alcohol, Quantitative (0-10) mg/dL Hepatitis A IgM Ab (NEGATIVE) Hep Bs Antigen (NEGATIVE) Hep Bs Ag Neutralizatn Hep Bs Antibody (NEGATIVE) Hep B Core IgM Ab (NEGATIVE) Hepatitis C Antibody (NEGATIVE) HIV 1&2 Antibody Screen (NEGATIVE) 01/14/18 01/14/18 01/14/18 Range/Units 23:00 23:00 23:00 WBC (4.5-11.0) 10^3/uL RBC (3.5-6.1) 10^6/uL Hgb (14.0-18.0) g/dL Hct (42.0-52.0) % MCV (80.0-105.0) fl MCH (25.0-35.0) pg MCHC (31.0-37.0) g/dl RDW (11.5-14.5) % Plt Count (120.0-450.0) 10^3/uL Manual Plt Count (120-450) K/mm3 Gran % (50.0-68.0) % Lymph % (Auto) (22.0-35.0) % Ector % (Auto) (1.0-6.0) % Eos % (Auto) (1.5-5.0) % Baso % (Auto) (0.0-3.0) % Gran # (1.4-6.5) Lymph # (Auto) (1.2-3.4) Ector # (Auto) (0.1-0.6) Eos # (Auto) (0.0-0.7) Baso # (Auto) (0.0-2.0) K/mm3 PT (9.4-12.5) SECONDS INR APTT (25.1-36.5) Seconds pCO2 (35-45) mm/Hg pO2 (30-55) mm/Hg HCO3 (21-28) mmol/L ABG pH (7.35-7.45) ABG Total CO2 (22-28) mmol.L ABG O2 Saturation (95-98) % ABG O2 Content (15-23) ML/dl ABG Base Excess (-2.0-3.0) mmol/L ABG Hemoglobin (11.7-17.4) g/dL ABG Carboxyhemoglobin (0.5-1.5) % POC ABG HHb (Measured) (0-5) % ABG Methemoglobin (0.0-3.0) % ABG O2 Capacity (16-24) mL/dl ABG Potassium (3.6-5.2) mmol/L VBG pH (7.32-7.43) VBG pCO2 (40-60) VBG HCO3 (21-28) mmol/l VBG Total CO2 (22-28) mmol.L VBG O2 Sat (Calc) (40-65) % VBG Base Excess (0.0-2.0) mmol/L VBG Potassium (3.6-5.2) mmol/L Hgb O2 Saturation (95.0-98.0) % Glucose (75-110) mg/dl Lactate (0.7-2.1) mmol/L Mechanical Rate FiO2 % Tidal Volume PEEP Sodium (132-148) mmol/L Potassium (3.6-5.0) mmol/L Chloride (98-107) mmol/L Carbon Dioxide (21-33) mmol/L Anion Gap (10-20) BUN (7-21) mg/dL Creatinine (0.8-1.5) mg/dl Est GFR ( Amer) Est GFR (Non-Af Amer) POC Glucose (mg/dL) (65-110) mg/dL Random Glucose (70-110) mg/dL Hemoglobin A1c (4.2-6.5) % Fructosamine (190-270) umol/L Uric Acid (3.5-8.5) mg/dL Calcium (8.4-10.5) mg/dL Phosphorus (2.5-4.5) mg/dL Magnesium (1.7-2.2) mg/dL Total Bilirubin (0.2-1.3) mg/dL Direct Bilirubin (0.0-0.4) mg/dL AST (17-59) U/L ALT (7-56) U/L Alkaline Phosphatase (38-126) U/L Ammonia (9-33) umol/L Lactate Dehydrogenase (333-699) U/L Total Creatine Kinase (35-230) U/L CK-MB (CK-2) (0.0-3.6) ng/mL CK-MB (CK-2) % (2.5-3.0) % Troponin I ng/mL C-React Prot High Sens (1.00-3.00) mg/L NT-Pro-B Natriuret Pep (0-450) pg/mL Total Protein (5.8-8.3) g/dL Albumin (3.0-4.8) g/dL Globulin gm/dL Albumin/Globulin Ratio (1.1-1.8) Triglycerides (35-160) mg/dL Cholesterol (130-200) mg/dL LDL Cholesterol Direct (0-129) mg/dL HDL Cholesterol (29-60) mg/dL 25-OH Vitamin D Total (30.0-100.0) NG/ML Procalcitonin (0.19-0.49) NG/ML Arterial Blood Potassium (3.6-5.2) mmol/L Venous Blood Potassium (3.6-5.2) mmol/L Fluid Source Fluid Appearance (CLEAR) Fluid WBC (0.0-300.0) /uL Fluid RBC (0.0-0.0) /uL Fluid Tot Cell Count (0-0) Fluid Neutrophils (0-0) % Fluid Lymphocytes (0-0) % Fld Monocyte/Macrophag Fluid Comment Thoracentesis Fluid pH Salicylates (2.0-20.0) mg/dL Acetaminophen (10.0-20.0) ug/ml Alcohol, Quantitative (0-10) mg/dL Hepatitis A IgM Ab (NEGATIVE) Hep Bs Antigen Reactive (NEGATIVE) Hep Bs Ag Neutralizatn Confirmed positive H Hep Bs Antibody Negative (NEGATIVE) Hep B Core IgM Ab Negative (NEGATIVE) Hepatitis C Antibody Negative (NEGATIVE) HIV 1&2 Antibody Screen Negative (NEGATIVE) 01/14/18 01/14/18 01/14/18 Range/Units 22:58 22:57 22:46 WBC (4.5-11.0) 10^3/uL RBC (3.5-6.1) 10^6/uL Hgb (14.0-18.0) g/dL Hct (42.0-52.0) % MCV (80.0-105.0) fl MCH (25.0-35.0) pg MCHC (31.0-37.0) g/dl RDW (11.5-14.5) % Plt Count (120.0-450.0) 10^3/uL Manual Plt Count (120-450) K/mm3 Gran % (50.0-68.0) % Lymph % (Auto) (22.0-35.0) % Ector % (Auto) (1.0-6.0) % Eos % (Auto) (1.5-5.0) % Baso % (Auto) (0.0-3.0) % Gran # (1.4-6.5) Lymph # (Auto) (1.2-3.4) Ector # (Auto) (0.1-0.6) Eos # (Auto) (0.0-0.7) Baso # (Auto) (0.0-2.0) K/mm3 PT (9.4-12.5) SECONDS INR APTT (25.1-36.5) Seconds pCO2 (35-45) mm/Hg pO2 260 H (30-55) mm/Hg HCO3 (21-28) mmol/L ABG pH (7.35-7.45) ABG Total CO2 (22-28) mmol.L ABG O2 Saturation (95-98) % ABG O2 Content (15-23) ML/dl ABG Base Excess (-2.0-3.0) mmol/L ABG Hemoglobin (11.7-17.4) g/dL ABG Carboxyhemoglobin (0.5-1.5) % POC ABG HHb (Measured) (0-5) % ABG Methemoglobin (0.0-3.0) % ABG O2 Capacity (16-24) mL/dl ABG Potassium (3.6-5.2) mmol/L VBG pH 7.51 H (7.32-7.43) VBG pCO2 24.0 L (40-60) VBG HCO3 19.2 L (21-28) mmol/l VBG Total CO2 19.9 L (22-28) mmol.L VBG O2 Sat (Calc) 100.1 H (40-65) % VBG Base Excess -2.1 L (0.0-2.0) mmol/L VBG Potassium 5.2 (3.6-5.2) mmol/L Hgb O2 Saturation (95.0-98.0) % Glucose 99 (75-110) mg/dl Lactate 4.4 H* (0.7-2.1) mmol/L Mechanical Rate FiO2 21.0 % Tidal Volume PEEP Sodium 128.0 L (132-148) mmol/L Potassium (3.6-5.0) mmol/L Chloride 98.0 (98-107) mmol/L Carbon Dioxide (21-33) mmol/L Anion Gap (10-20) BUN (7-21) mg/dL Creatinine (0.8-1.5) mg/dl Est GFR ( Amer) Est GFR (Non-Af Amer) POC Glucose (mg/dL) (65-110) mg/dL Random Glucose (70-110) mg/dL Hemoglobin A1c (4.2-6.5) % Fructosamine (190-270) umol/L Uric Acid (3.5-8.5) mg/dL Calcium (8.4-10.5) mg/dL Phosphorus (2.5-4.5) mg/dL Magnesium (1.7-2.2) mg/dL Total Bilirubin (0.2-1.3) mg/dL Direct Bilirubin (0.0-0.4) mg/dL AST (17-59) U/L ALT (7-56) U/L Alkaline Phosphatase (38-126) U/L Ammonia (9-33) umol/L Lactate Dehydrogenase (333-699) U/L Total Creatine Kinase (35-230) U/L CK-MB (CK-2) (0.0-3.6) ng/mL CK-MB (CK-2) % (2.5-3.0) % Troponin I ng/mL C-React Prot High Sens (1.00-3.00) mg/L NT-Pro-B Natriuret Pep (0-450) pg/mL Total Protein (5.8-8.3) g/dL Albumin (3.0-4.8) g/dL Globulin gm/dL Albumin/Globulin Ratio (1.1-1.8) Triglycerides (35-160) mg/dL Cholesterol (130-200) mg/dL LDL Cholesterol Direct (0-129) mg/dL HDL Cholesterol (29-60) mg/dL 25-OH Vitamin D Total (30.0-100.0) NG/ML Procalcitonin (0.19-0.49) NG/ML Arterial Blood Potassium (3.6-5.2) mmol/L Venous Blood Potassium 5.2 (3.6-5.2) mmol/L Fluid Source Fluid Appearance (CLEAR) Fluid WBC (0.0-300.0) /uL Fluid RBC (0.0-0.0) /uL Fluid Tot Cell Count (0-0) Fluid Neutrophils (0-0) % Fluid Lymphocytes (0-0) % Fld Monocyte/Macrophag Fluid Comment Thoracentesis Fluid pH Salicylates < 1 L (2.0-20.0) mg/dL Acetaminophen < 10.0 L (10.0-20.0) ug/ml Alcohol, Quantitative < 10 (0-10) mg/dL Hepatitis A IgM Ab (NEGATIVE) Hep Bs Antigen (NEGATIVE) Hep Bs Ag Neutralizatn Hep Bs Antibody (NEGATIVE) Hep B Core IgM Ab (NEGATIVE) Hepatitis C Antibody (NEGATIVE) HIV 1&2 Antibody Screen (NEGATIVE) 01/14/18 01/14/18 01/14/18 Range/Units 22:30 22:26 19:31 WBC (4.5-11.0) 10^3/uL RBC (3.5-6.1) 10^6/uL Hgb (14.0-18.0) g/dL Hct (42.0-52.0) % MCV (80.0-105.0) fl MCH (25.0-35.0) pg MCHC (31.0-37.0) g/dl RDW (11.5-14.5) % Plt Count (120.0-450.0) 10^3/uL Manual Plt Count (120-450) K/mm3 Gran % (50.0-68.0) % Lymph % (Auto) (22.0-35.0) % Ector % (Auto) (1.0-6.0) % Eos % (Auto) (1.5-5.0) % Baso % (Auto) (0.0-3.0) % Gran # (1.4-6.5) Lymph # (Auto) (1.2-3.4) Ector # (Auto) (0.1-0.6) Eos # (Auto) (0.0-0.7) Baso # (Auto) (0.0-2.0) K/mm3 PT (9.4-12.5) SECONDS INR APTT (25.1-36.5) Seconds pCO2 21 L (35-45) mm/Hg pO2 266.0 H (30-55) mm/Hg HCO3 17.5 L (21-28) mmol/L ABG pH 7.53 H (7.35-7.45) ABG Total CO2 18.1 L (22-28) mmol.L ABG O2 Saturation 100.0 H (95-98) % ABG O2 Content (15-23) ML/dl ABG Base Excess -3.2 L (-2.0-3.0) mmol/L ABG Hemoglobin (11.7-17.4) g/dL ABG Carboxyhemoglobin (0.5-1.5) % POC ABG HHb (Measured) (0-5) % ABG Methemoglobin (0.0-3.0) % ABG O2 Capacity (16-24) mL/dl ABG Potassium 4.9 (3.6-5.2) mmol/L VBG pH (7.32-7.43) VBG pCO2 (40-60) VBG HCO3 (21-28) mmol/l VBG Total CO2 (22-28) mmol.L VBG O2 Sat (Calc) (40-65) % VBG Base Excess (0.0-2.0) mmol/L VBG Potassium (3.6-5.2) mmol/L Hgb O2 Saturation (95.0-98.0) % Glucose 97 (75-110) mg/dl Lactate 3.7 H (0.7-2.1) mmol/L Mechanical Rate 20 FiO2 80.0 % Tidal Volume 450 PEEP 5 Sodium 130 L 135.0 (132-148) mmol/L Potassium 5.2 H (3.6-5.0) mmol/L Chloride 102 97.0 L (98-107) mmol/L Carbon Dioxide 20 L (21-33) mmol/L Anion Gap 13 (10-20) BUN 36 H (7-21) mg/dL Creatinine 4.4 H (0.8-1.5) mg/dl Est GFR ( Amer) 17 Est GFR (Non-Af Amer) 14 POC Glucose (mg/dL) (65-110) mg/dL Random Glucose 97 (70-110) mg/dL Hemoglobin A1c (4.2-6.5) % Fructosamine (190-270) umol/L Uric Acid (3.5-8.5) mg/dL Calcium 6.6 L* (8.4-10.5) mg/dL Phosphorus 5.1 H (2.5-4.5) mg/dL Magnesium 1.9 (1.7-2.2) mg/dL Total Bilirubin 5.6 H (0.2-1.3) mg/dL Direct Bilirubin (0.0-0.4) mg/dL AST 752 H (17-59) U/L ALT 380 H (7-56) U/L Alkaline Phosphatase 454 H (38-126) U/L Ammonia (9-33) umol/L Lactate Dehydrogenase (333-699) U/L Total Creatine Kinase 467 H (35-230) U/L CK-MB (CK-2) 8.4 H (0.0-3.6) ng/mL CK-MB (CK-2) % (2.5-3.0) % Troponin I 0.08 ng/mL C-React Prot High Sens > 15.00 H (1.00-3.00) mg/L NT-Pro-B Natriuret Pep (0-450) pg/mL Total Protein 6.2 (5.8-8.3) g/dL Albumin 2.0 L (3.0-4.8) g/dL Globulin 4.2 gm/dL Albumin/Globulin Ratio 0.5 L (1.1-1.8) Triglycerides (35-160) mg/dL Cholesterol (130-200) mg/dL LDL Cholesterol Direct (0-129) mg/dL HDL Cholesterol (29-60) mg/dL 25-OH Vitamin D Total (30.0-100.0) NG/ML Procalcitonin (0.19-0.49) NG/ML Arterial Blood Potassium 4.9 (3.6-5.2) mmol/L Venous Blood Potassium (3.6-5.2) mmol/L Fluid Source Fluid Appearance (CLEAR) Fluid WBC (0.0-300.0) /uL Fluid RBC (0.0-0.0) /uL Fluid Tot Cell Count (0-0) Fluid Neutrophils (0-0) % Fluid Lymphocytes (0-0) % Fld Monocyte/Macrophag Fluid Comment Thoracentesis Fluid pH Salicylates (2.0-20.0) mg/dL Acetaminophen (10.0-20.0) ug/ml Alcohol, Quantitative (0-10) mg/dL Hepatitis A IgM Ab (NEGATIVE) Hep Bs Antigen (NEGATIVE) Hep Bs Ag Neutralizatn Hep Bs Antibody (NEGATIVE) Hep B Core IgM Ab (NEGATIVE) Hepatitis C Antibody (NEGATIVE) HIV 1&2 Antibody Screen (NEGATIVE) 01/14/18 01/14/18 01/14/18 Range/Units 19:31 19:31 19:31 WBC (4.5-11.0) 10^3/uL RBC (3.5-6.1) 10^6/uL Hgb (14.0-18.0) g/dL Hct (42.0-52.0) % MCV (80.0-105.0) fl MCH (25.0-35.0) pg MCHC (31.0-37.0) g/dl RDW (11.5-14.5) % Plt Count (120.0-450.0) 10^3/uL Manual Plt Count (120-450) K/mm3 Gran % (50.0-68.0) % Lymph % (Auto) (22.0-35.0) % Ector % (Auto) (1.0-6.0) % Eos % (Auto) (1.5-5.0) % Baso % (Auto) (0.0-3.0) % Gran # (1.4-6.5) Lymph # (Auto) (1.2-3.4) Ector # (Auto) (0.1-0.6) Eos # (Auto) (0.0-0.7) Baso # (Auto) (0.0-2.0) K/mm3 PT (9.4-12.5) SECONDS INR APTT (25.1-36.5) Seconds pCO2 (35-45) mm/Hg pO2 (30-55) mm/Hg HCO3 (21-28) mmol/L ABG pH (7.35-7.45) ABG Total CO2 (22-28) mmol.L ABG O2 Saturation (95-98) % ABG O2 Content (15-23) ML/dl ABG Base Excess (-2.0-3.0) mmol/L ABG Hemoglobin (11.7-17.4) g/dL ABG Carboxyhemoglobin (0.5-1.5) % POC ABG HHb (Measured) (0-5) % ABG Methemoglobin (0.0-3.0) % ABG O2 Capacity (16-24) mL/dl ABG Potassium (3.6-5.2) mmol/L VBG pH (7.32-7.43) VBG pCO2 (40-60) VBG HCO3 (21-28) mmol/l VBG Total CO2 (22-28) mmol.L VBG O2 Sat (Calc) (40-65) % VBG Base Excess (0.0-2.0) mmol/L VBG Potassium (3.6-5.2) mmol/L Hgb O2 Saturation (95.0-98.0) % Glucose (75-110) mg/dl Lactate (0.7-2.1) mmol/L Mechanical Rate FiO2 % Tidal Volume PEEP Sodium (132-148) mmol/L Potassium (3.6-5.0) mmol/L Chloride (98-107) mmol/L Carbon Dioxide (21-33) mmol/L Anion Gap (10-20) BUN (7-21) mg/dL Creatinine (0.8-1.5) mg/dl Est GFR ( Amer) Est GFR (Non-Af Amer) POC Glucose (mg/dL) (65-110) mg/dL Random Glucose (70-110) mg/dL Hemoglobin A1c (4.2-6.5) % Fructosamine 315 H (190-270) umol/L Uric Acid 6.3 (3.5-8.5) mg/dL Calcium (8.4-10.5) mg/dL Phosphorus (2.5-4.5) mg/dL Magnesium (1.7-2.2) mg/dL Total Bilirubin (0.2-1.3) mg/dL Direct Bilirubin (0.0-0.4) mg/dL AST (17-59) U/L ALT (7-56) U/L Alkaline Phosphatase (38-126) U/L Ammonia (9-33) umol/L Lactate Dehydrogenase (333-699) U/L Total Creatine Kinase 474 H (35-230) U/L CK-MB (CK-2) 10.3 H (0.0-3.6) ng/mL CK-MB (CK-2) % 2.2 L (2.5-3.0) % Troponin I 0.07 ng/mL C-React Prot High Sens (1.00-3.00) mg/L NT-Pro-B Natriuret Pep (0-450) pg/mL Total Protein (5.8-8.3) g/dL Albumin (3.0-4.8) g/dL Globulin gm/dL Albumin/Globulin Ratio (1.1-1.8) Triglycerides (35-160) mg/dL Cholesterol (130-200) mg/dL LDL Cholesterol Direct (0-129) mg/dL HDL Cholesterol (29-60) mg/dL 25-OH Vitamin D Total (30.0-100.0) NG/ML Procalcitonin 4.96 H (0.19-0.49) NG/ML Arterial Blood Potassium (3.6-5.2) mmol/L Venous Blood Potassium (3.6-5.2) mmol/L Fluid Source Fluid Appearance (CLEAR) Fluid WBC (0.0-300.0) /uL Fluid RBC (0.0-0.0) /uL Fluid Tot Cell Count (0-0) Fluid Neutrophils (0-0) % Fluid Lymphocytes (0-0) % Fld Monocyte/Macrophag Fluid Comment Thoracentesis Fluid pH Salicylates (2.0-20.0) mg/dL Acetaminophen (10.0-20.0) ug/ml Alcohol, Quantitative (0-10) mg/dL Hepatitis A IgM Ab (NEGATIVE) Hep Bs Antigen (NEGATIVE) Hep Bs Ag Neutralizatn Hep Bs Antibody (NEGATIVE) Hep B Core IgM Ab (NEGATIVE) Hepatitis C Antibody (NEGATIVE) HIV 1&2 Antibody Screen (NEGATIVE) 01/14/18 01/14/18 01/14/18 Range/Units 19:27 19:27 17:40 WBC (4.5-11.0) 10^3/uL RBC (3.5-6.1) 10^6/uL Hgb (14.0-18.0) g/dL Hct (42.0-52.0) % MCV (80.0-105.0) fl MCH (25.0-35.0) pg MCHC (31.0-37.0) g/dl RDW (11.5-14.5) % Plt Count (120.0-450.0) 10^3/uL Manual Plt Count (120-450) K/mm3 Gran % (50.0-68.0) % Lymph % (Auto) (22.0-35.0) % Ector % (Auto) (1.0-6.0) % Eos % (Auto) (1.5-5.0) % Baso % (Auto) (0.0-3.0) % Gran # (1.4-6.5) Lymph # (Auto) (1.2-3.4) Ector # (Auto) (0.1-0.6) Eos # (Auto) (0.0-0.7) Baso # (Auto) (0.0-2.0) K/mm3 PT (9.4-12.5) SECONDS INR APTT (25.1-36.5) Seconds pCO2 (35-45) mm/Hg pO2 (30-55) mm/Hg HCO3 (21-28) mmol/L ABG pH (7.35-7.45) ABG Total CO2 (22-28) mmol.L ABG O2 Saturation (95-98) % ABG O2 Content (15-23) ML/dl ABG Base Excess (-2.0-3.0) mmol/L ABG Hemoglobin (11.7-17.4) g/dL ABG Carboxyhemoglobin (0.5-1.5) % POC ABG HHb (Measured) (0-5) % ABG Methemoglobin (0.0-3.0) % ABG O2 Capacity (16-24) mL/dl ABG Potassium (3.6-5.2) mmol/L VBG pH (7.32-7.43) VBG pCO2 (40-60) VBG HCO3 (21-28) mmol/l VBG Total CO2 (22-28) mmol.L VBG O2 Sat (Calc) (40-65) % VBG Base Excess (0.0-2.0) mmol/L VBG Potassium (3.6-5.2) mmol/L Hgb O2 Saturation (95.0-98.0) % Glucose (75-110) mg/dl Lactate (0.7-2.1) mmol/L Mechanical Rate FiO2 % Tidal Volume PEEP Sodium (132-148) mmol/L Potassium (3.6-5.0) mmol/L Chloride (98-107) mmol/L Carbon Dioxide (21-33) mmol/L Anion Gap (10-20) BUN (7-21) mg/dL Creatinine (0.8-1.5) mg/dl Est GFR ( Amer) Est GFR (Non-Af Amer) POC Glucose (mg/dL) (65-110) mg/dL Random Glucose (70-110) mg/dL Hemoglobin A1c (4.2-6.5) % Fructosamine (190-270) umol/L Uric Acid (3.5-8.5) mg/dL Calcium (8.4-10.5) mg/dL Phosphorus (2.5-4.5) mg/dL Magnesium (1.7-2.2) mg/dL Total Bilirubin (0.2-1.3) mg/dL Direct Bilirubin (0.0-0.4) mg/dL AST (17-59) U/L ALT (7-56) U/L Alkaline Phosphatase (38-126) U/L Ammonia (9-33) umol/L Lactate Dehydrogenase (333-699) U/L Total Creatine Kinase (35-230) U/L CK-MB (CK-2) (0.0-3.6) ng/mL CK-MB (CK-2) % (2.5-3.0) % Troponin I 0.07 ng/mL C-React Prot High Sens (1.00-3.00) mg/L NT-Pro-B Natriuret Pep (0-450) pg/mL Total Protein (5.8-8.3) g/dL Albumin (3.0-4.8) g/dL Globulin gm/dL Albumin/Globulin Ratio (1.1-1.8) Triglycerides (35-160) mg/dL Cholesterol (130-200) mg/dL LDL Cholesterol Direct (0-129) mg/dL HDL Cholesterol (29-60) mg/dL 25-OH Vitamin D Total (30.0-100.0) NG/ML Procalcitonin (0.19-0.49) NG/ML Arterial Blood Potassium (3.6-5.2) mmol/L Venous Blood Potassium (3.6-5.2) mmol/L Fluid Source Pleural/thoracentesi Fluid Appearance Bloody (CLEAR) Fluid WBC 463.0 H (0.0-300.0) /uL Fluid RBC 63822.0 H (0.0-0.0) /uL Fluid Tot Cell Count 100 H (0-0) Fluid Neutrophils 24.2 H (0-0) % Fluid Lymphocytes 75.8 H (0-0) % Fld Monocyte/Macrophag TEST NOT PERFORMED Fluid Comment Red color Thoracentesis Fluid pH 8.0 Salicylates (2.0-20.0) mg/dL Acetaminophen (10.0-20.0) ug/ml Alcohol, Quantitative (0-10) mg/dL Hepatitis A IgM Ab (NEGATIVE) Hep Bs Antigen (NEGATIVE) Hep Bs Ag Neutralizatn Hep Bs Antibody (NEGATIVE) Hep B Core IgM Ab (NEGATIVE) Hepatitis C Antibody (NEGATIVE) HIV 1&2 Antibody Screen (NEGATIVE) 01/14/18 01/14/18 Range/Units 15:00 11:00 WBC (4.5-11.0) 10^3/uL RBC (3.5-6.1) 10^6/uL Hgb (14.0-18.0) g/dL Hct (42.0-52.0) % MCV (80.0-105.0) fl MCH (25.0-35.0) pg MCHC (31.0-37.0) g/dl RDW (11.5-14.5) % Plt Count (120.0-450.0) 10^3/uL Manual Plt Count (120-450) K/mm3 Gran % (50.0-68.0) % Lymph % (Auto) (22.0-35.0) % Ector % (Auto) (1.0-6.0) % Eos % (Auto) (1.5-5.0) % Baso % (Auto) (0.0-3.0) % Gran # (1.4-6.5) Lymph # (Auto) (1.2-3.4) Ector # (Auto) (0.1-0.6) Eos # (Auto) (0.0-0.7) Baso # (Auto) (0.0-2.0) K/mm3 PT (9.4-12.5) SECONDS INR APTT (25.1-36.5) Seconds pCO2 (35-45) mm/Hg pO2 65 H (30-55) mm/Hg HCO3 (21-28) mmol/L ABG pH (7.35-7.45) ABG Total CO2 (22-28) mmol.L ABG O2 Saturation (95-98) % ABG O2 Content (15-23) ML/dl ABG Base Excess (-2.0-3.0) mmol/L ABG Hemoglobin (11.7-17.4) g/dL ABG Carboxyhemoglobin (0.5-1.5) % POC ABG HHb (Measured) (0-5) % ABG Methemoglobin (0.0-3.0) % ABG O2 Capacity (16-24) mL/dl ABG Potassium (3.6-5.2) mmol/L VBG pH 7.33 (7.32-7.43) VBG pCO2 28.0 L (40-60) VBG HCO3 14.8 L (21-28) mmol/l VBG Total CO2 15.7 L (22-28) mmol.L VBG O2 Sat (Calc) 93.9 H (40-65) % VBG Base Excess -9.6 L (0.0-2.0) mmol/L VBG Potassium 7.0 H* (3.6-5.2) mmol/L Hgb O2 Saturation (95.0-98.0) % Glucose 198 H (75-110) mg/dl Lactate 5.2 H* (0.7-2.1) mmol/L Mechanical Rate FiO2 21.0 % Tidal Volume PEEP Sodium 123.0 L 125 L (132-148) mmol/L Potassium 7.4 H* (3.6-5.0) mmol/L Chloride 93.0 L 97 L (98-107) mmol/L Carbon Dioxide 12 L (21-33) mmol/L Anion Gap 23 H (10-20) BUN 63 H (7-21) mg/dL Creatinine 7.2 H (0.8-1.5) mg/dl Est GFR ( Amer) 9 Est GFR (Non-Af Amer) 8 POC Glucose (mg/dL) (65-110) mg/dL Random Glucose 139 H (70-110) mg/dL Hemoglobin A1c (4.2-6.5) % Fructosamine (190-270) umol/L Uric Acid (3.5-8.5) mg/dL Calcium 7.4 L (8.4-10.5) mg/dL Phosphorus 7.6 H (2.5-4.5) mg/dL Magnesium 2.6 H (1.7-2.2) mg/dL Total Bilirubin 7.3 H (0.2-1.3) mg/dL Direct Bilirubin (0.0-0.4) mg/dL AST 728 H (17-59) U/L ALT 439 H (7-56) U/L Alkaline Phosphatase 547 H (38-126) U/L Ammonia (9-33) umol/L Lactate Dehydrogenase 1779 H (333-699) U/L Total Creatine Kinase 588 H (35-230) U/L CK-MB (CK-2) 12.0 H (0.0-3.6) ng/mL CK-MB (CK-2) % 2.0 L (2.5-3.0) % Troponin I 0.07 ng/mL C-React Prot High Sens (1.00-3.00) mg/L NT-Pro-B Natriuret Pep 2010 H (0-450) pg/mL Total Protein 8.0 (5.8-8.3) g/dL Albumin 2.6 L (3.0-4.8) g/dL Globulin 5.4 gm/dL Albumin/Globulin Ratio 0.5 L (1.1-1.8) Triglycerides (35-160) mg/dL Cholesterol (130-200) mg/dL LDL Cholesterol Direct (0-129) mg/dL HDL Cholesterol (29-60) mg/dL 25-OH Vitamin D Total (30.0-100.0) NG/ML Procalcitonin (0.19-0.49) NG/ML Arterial Blood Potassium (3.6-5.2) mmol/L Venous Blood Potassium 7.0 H* (3.6-5.2) mmol/L Fluid Source Fluid Appearance (CLEAR) Fluid WBC (0.0-300.0) /uL Fluid RBC (0.0-0.0) /uL Fluid Tot Cell Count (0-0) Fluid Neutrophils (0-0) % Fluid Lymphocytes (0-0) % Fld Monocyte/Macrophag Fluid Comment Thoracentesis Fluid pH Salicylates (2.0-20.0) mg/dL Acetaminophen (10.0-20.0) ug/ml Alcohol, Quantitative (0-10) mg/dL Hepatitis A IgM Ab (NEGATIVE) Hep Bs Antigen (NEGATIVE) Hep Bs Ag Neutralizatn Hep Bs Antibody (NEGATIVE) Hep B Core IgM Ab (NEGATIVE) Hepatitis C Antibody (NEGATIVE) HIV 1&2 Antibody Screen (NEGATIVE) Laboratory Results - last 24 hr 01/14/18 01/14/18 01/14/18 11:00 15:00 17:40 WBC RBC Hgb Hct MCV MCH MCHC RDW Plt Count Manual Plt Count Gran % Lymph % (Auto) [place] % (Auto) Eos % (Auto) Baso % (Auto) Gran # Lymph # (Auto) [place] # (Auto) Eos # (Auto) Baso # (Auto) PT INR APTT pCO2 pO2 65 H HCO3 ABG pH ABG Total CO2 ABG O2 Saturation ABG O2 Content ABG Base Excess ABG Hemoglobin ABG Carboxyhemoglobin POC ABG HHb (Measured) ABG Methemoglobin ABG O2 Capacity ABG Potassium VBG pH 7.33 VBG pCO2 28.0 L VBG HCO3 14.8 L VBG Total CO2 15.7 L VBG O2 Sat (Calc) 93.9 H VBG Base Excess -9.6 L VBG Potassium 7.0 H* Hgb O2 Saturation Glucose 198 H Lactate 5.2 H* Mechanical Rate FiO2 21.0 Tidal Volume PEEP Sodium 125 L 123.0 L Potassium 7.4 H* Chloride 97 L 93.0 L Carbon Dioxide 12 L Anion Gap 23 H BUN 63 H Creatinine 7.2 H Est GFR ( Amer) 9 Est GFR (Non-Af Amer) 8 POC Glucose (mg/dL) Random Glucose 139 H Hemoglobin A1c Fructosamine Uric Acid Calcium 7.4 L Phosphorus 7.6 H Magnesium 2.6 H Total Bilirubin 7.3 H Direct Bilirubin AST 728 H ALT 439 H Alkaline Phosphatase 547 H Ammonia Lactate Dehydrogenase 1779 H Total Creatine Kinase 588 H CK-MB (CK-2) 12.0 H CK-MB (CK-2) % 2.0 L Troponin I 0.07 0.07 C-React Prot High Sens NT-Pro-B Natriuret Pep 2010 H Total Protein 8.0 Albumin 2.6 L Globulin 5.4 Albumin/Globulin Ratio 0.5 L Triglycerides Cholesterol LDL Cholesterol Direct HDL Cholesterol 25-OH Vitamin D Total Procalcitonin Arterial Blood Potassium Venous Blood Potassium 7.0 H* Fluid Source Fluid Appearance Fluid WBC Fluid RBC Fluid Tot Cell Count Fluid Neutrophils Fluid Lymphocytes Fld Monocyte/Macrophag Fluid Comment Thoracentesis Fluid pH Salicylates Acetaminophen Alcohol, Quantitative Hepatitis A IgM Ab Hep Bs Antigen Hep Bs Ag Neutralizatn Hep Bs Antibody Hep B Core IgM Ab Hepatitis C Antibody HIV 1&2 Antibody Screen 01/14/18 01/14/18 01/14/18 19:27 19:27 19:31 WBC RBC Hgb Hct MCV MCH MCHC RDW Plt Count Manual Plt Count Gran % Lymph % (Auto) [place] % (Auto) Eos % (Auto) Baso % (Auto) Gran # Lymph # (Auto) [place] # (Auto) Eos # (Auto) Baso # (Auto) PT INR APTT pCO2 pO2 HCO3 ABG pH ABG Total CO2 ABG O2 Saturation ABG O2 Content ABG Base Excess ABG Hemoglobin ABG Carboxyhemoglobin POC ABG HHb (Measured) ABG Methemoglobin ABG O2 Capacity ABG Potassium VBG pH VBG pCO2 VBG HCO3 VBG Total CO2 VBG O2 Sat (Calc) VBG Base Excess VBG Potassium Hgb O2 Saturation Glucose Lactate Mechanical Rate FiO2 Tidal Volume PEEP Sodium Potassium Chloride Carbon Dioxide Anion Gap BUN Creatinine Est GFR ( Amer) Est GFR (Non-Af Amer) POC Glucose (mg/dL) Random Glucose Hemoglobin A1c Fructosamine Uric Acid 6.3 Calcium Phosphorus Magnesium Total Bilirubin Direct Bilirubin AST ALT Alkaline Phosphatase Ammonia Lactate Dehydrogenase Total Creatine Kinase 474 H CK-MB (CK-2) 10.3 H CK-MB (CK-2) % 2.2 L Troponin I 0.07 C-React Prot High Sens NT-Pro-B Natriuret Pep Total Protein Albumin Globulin Albumin/Globulin Ratio Triglycerides Cholesterol LDL Cholesterol Direct HDL Cholesterol 25-OH Vitamin D Total Procalcitonin Arterial Blood Potassium Venous Blood Potassium Fluid Source Pleural/thoracentesi Fluid Appearance Bloody Fluid WBC 463.0 H Fluid RBC 31677.0 H Fluid Tot Cell Count 100 H Fluid Neutrophils 24.2 H Fluid Lymphocytes 75.8 H Fld Monocyte/Macrophag TEST NOT PERFORMED Fluid Comment Red color Thoracentesis Fluid pH 8.0 Salicylates Acetaminophen Alcohol, Quantitative Hepatitis A IgM Ab Hep Bs Antigen Hep Bs Ag Neutralizatn Hep Bs Antibody Hep B Core IgM Ab Hepatitis C Antibody HIV 1&2 Antibody Screen 01/14/18 01/14/18 01/14/18 19:31 19:31 19:31 WBC RBC Hgb Hct MCV MCH MCHC RDW Plt Count Manual Plt Count Gran % Lymph % (Auto) [place] % (Auto) Eos % (Auto) Baso % (Auto) Gran # Lymph # (Auto) [place] # (Auto) Eos # (Auto) Baso # (Auto) PT INR APTT pCO2 pO2 HCO3 ABG pH ABG Total CO2 ABG O2 Saturation ABG O2 Content ABG Base Excess ABG Hemoglobin ABG Carboxyhemoglobin POC ABG HHb (Measured) ABG Methemoglobin ABG O2 Capacity ABG Potassium VBG pH VBG pCO2 VBG HCO3 VBG Total CO2 VBG O2 Sat (Calc) VBG Base Excess VBG Potassium Hgb O2 Saturation Glucose Lactate Mechanical Rate FiO2 Tidal Volume PEEP Sodium Potassium Chloride Carbon Dioxide Anion Gap BUN Creatinine Est GFR ( Amer) Est GFR (Non-Af Amer) POC Glucose (mg/dL) Random Glucose Hemoglobin A1c Fructosamine 315 H Uric Acid Calcium Phosphorus Magnesium Total Bilirubin Direct Bilirubin AST ALT Alkaline Phosphatase Ammonia Lactate Dehydrogenase Total Creatine Kinase CK-MB (CK-2) CK-MB (CK-2) % Troponin I C-React Prot High Sens > 15.00 H NT-Pro-B Natriuret Pep Total Protein Albumin Globulin Albumin/Globulin Ratio Triglycerides Cholesterol LDL Cholesterol Direct HDL Cholesterol 25-OH Vitamin D Total Procalcitonin 4.96 H Arterial Blood Potassium Venous Blood Potassium Fluid Source Fluid Appearance Fluid WBC Fluid RBC Fluid Tot Cell Count Fluid Neutrophils Fluid Lymphocytes Fld Monocyte/Macrophag Fluid Comment Thoracentesis Fluid pH Salicylates Acetaminophen Alcohol, Quantitative Hepatitis A IgM Ab Hep Bs Antigen Hep Bs Ag Neutralizatn Hep Bs Antibody Hep B Core IgM Ab Hepatitis C Antibody HIV 1&2 Antibody Screen 01/14/18 01/14/18 01/14/18 22:26 22:30 22:46 WBC RBC Hgb Hct MCV MCH MCHC RDW Plt Count Manual Plt Count Gran % Lymph % (Auto) [place] % (Auto) Eos % (Auto) Baso % (Auto) Gran # Lymph # (Auto) [place] # (Auto) Eos # (Auto) Baso # (Auto) PT INR APTT pCO2 21 L pO2 266.0 H 260 H HCO3 17.5 L ABG pH 7.53 H ABG Total CO2 18.1 L ABG O2 Saturation 100.0 H ABG O2 Content ABG Base Excess -3.2 L ABG Hemoglobin ABG Carboxyhemoglobin POC ABG HHb (Measured) ABG Methemoglobin ABG O2 Capacity ABG Potassium 4.9 VBG pH 7.51 H VBG pCO2 24.0 L VBG HCO3 19.2 L VBG Total CO2 19.9 L VBG O2 Sat (Calc) 100.1 H VBG Base Excess -2.1 L VBG Potassium 5.2 Hgb O2 Saturation Glucose 97 99 Lactate 3.7 H 4.4 H* Mechanical Rate 20 FiO2 80.0 21.0 Tidal Volume 450 PEEP 5 Sodium 135.0 130 L 128.0 L Potassium 5.2 H Chloride 97.0 L 102 98.0 Carbon Dioxide 20 L Anion Gap 13 BUN 36 H Creatinine 4.4 H Est GFR ( Amer) 17 Est GFR (Non-Af Amer) 14 POC Glucose (mg/dL) Random Glucose 97 Hemoglobin A1c Fructosamine Uric Acid Calcium 6.6 L* Phosphorus 5.1 H Magnesium 1.9 Total Bilirubin 5.6 H Direct Bilirubin AST 752 H ALT 380 H Alkaline Phosphatase 454 H Ammonia Lactate Dehydrogenase Total Creatine Kinase 467 H CK-MB (CK-2) 8.4 H CK-MB (CK-2) % Troponin I 0.08 C-React Prot High Sens NT-Pro-B Natriuret Pep Total Protein 6.2 Albumin 2.0 L Globulin 4.2 Albumin/Globulin Ratio 0.5 L Triglycerides Cholesterol LDL Cholesterol Direct HDL Cholesterol 25-OH Vitamin D Total Procalcitonin Arterial Blood Potassium 4.9 Venous Blood Potassium 5.2 Fluid Source Fluid Appearance Fluid WBC Fluid RBC Fluid Tot Cell Count Fluid Neutrophils Fluid Lymphocytes Fld Monocyte/Macrophag Fluid Comment Thoracentesis Fluid pH Salicylates Acetaminophen Alcohol, Quantitative Hepatitis A IgM Ab Hep Bs Antigen Hep Bs Ag Neutralizatn Hep Bs Antibody Hep B Core IgM Ab Hepatitis C Antibody HIV 1&2 Antibody Screen 01/14/18 01/14/18 01/14/18 22:57 22:58 23:00 WBC RBC Hgb Hct MCV MCH MCHC RDW Plt Count Manual Plt Count Gran % Lymph % (Auto) [place] % (Auto) Eos % (Auto) Baso % (Auto) Gran # Lymph # (Auto) [place] # (Auto) Eos # (Auto) Baso # (Auto) PT INR APTT pCO2 pO2 HCO3 ABG pH ABG Total CO2 ABG O2 Saturation ABG O2 Content ABG Base Excess ABG Hemoglobin ABG Carboxyhemoglobin POC ABG HHb (Measured) ABG Methemoglobin ABG O2 Capacity ABG Potassium VBG pH VBG pCO2 VBG HCO3 VBG Total CO2 VBG O2 Sat (Calc) VBG Base Excess VBG Potassium Hgb O2 Saturation Glucose Lactate Mechanical Rate FiO2 Tidal Volume PEEP Sodium Potassium Chloride Carbon Dioxide Anion Gap BUN Creatinine Est GFR ( Amer) Est GFR (Non-Af Amer) POC Glucose (mg/dL) Random Glucose Hemoglobin A1c Fructosamine Uric Acid Calcium Phosphorus Magnesium Total Bilirubin Direct Bilirubin AST ALT Alkaline Phosphatase Ammonia Lactate Dehydrogenase Total Creatine Kinase CK-MB (CK-2) CK-MB (CK-2) % Troponin I C-React Prot High Sens NT-Pro-B Natriuret Pep Total Protein Albumin Globulin Albumin/Globulin Ratio Triglycerides Cholesterol LDL Cholesterol Direct HDL Cholesterol 25-OH Vitamin D Total Procalcitonin Arterial Blood Potassium Venous Blood Potassium Fluid Source Fluid Appearance Fluid WBC Fluid RBC Fluid Tot Cell Count Fluid Neutrophils Fluid Lymphocytes Fld Monocyte/Macrophag Fluid Comment Thoracentesis Fluid pH Salicylates < 1 L Acetaminophen < 10.0 L Alcohol, Quantitative < 10 Hepatitis A IgM Ab Hep Bs Antigen Reactive Hep Bs Ag Neutralizatn Confirmed positive H Hep Bs Antibody Hep B Core IgM Ab Negative Hepatitis C Antibody Negative HIV 1&2 Antibody Screen 01/14/18 01/14/18 01/15/18 23:00 23:00 00:40 WBC 10.5 RBC 4.31 Hgb 12.9 L Hct 35.9 L MCV 83.3 MCH 29.9 MCHC 35.9 RDW 21.3 H Plt Count 86 L Manual Plt Count Gran % 67.6 Lymph % (Auto) 21.5 L [place] % (Auto) 8.5 H Eos % (Auto) 2.2 Baso % (Auto) 0.2 Gran # 7.10 H Lymph # (Auto) 2.3 [place] # (Auto) 0.9 H Eos # (Auto) 0.2 Baso # (Auto) 0.02 PT INR APTT pCO2 pO2 HCO3 ABG pH ABG Total CO2 ABG O2 Saturation ABG O2 Content ABG Base Excess ABG Hemoglobin ABG Carboxyhemoglobin POC ABG HHb (Measured) ABG Methemoglobin ABG O2 Capacity ABG Potassium VBG pH VBG pCO2 VBG HCO3 VBG Total CO2 VBG O2 Sat (Calc) VBG Base Excess VBG Potassium Hgb O2 Saturation Glucose Lactate Mechanical Rate FiO2 Tidal Volume PEEP Sodium Potassium Chloride Carbon Dioxide Anion Gap BUN Creatinine Est GFR ( Amer) Est GFR (Non-Af Amer) POC Glucose (mg/dL) Random Glucose Hemoglobin A1c Fructosamine Uric Acid Calcium Phosphorus Magnesium Total Bilirubin Direct Bilirubin AST ALT Alkaline Phosphatase Ammonia Lactate Dehydrogenase Total Creatine Kinase CK-MB (CK-2) CK-MB (CK-2) % Troponin I C-React Prot High Sens NT-Pro-B Natriuret Pep Total Protein Albumin Globulin Albumin/Globulin Ratio Triglycerides Cholesterol LDL Cholesterol Direct HDL Cholesterol 25-OH Vitamin D Total Procalcitonin Arterial Blood Potassium Venous Blood Potassium Fluid Source Fluid Appearance Fluid WBC Fluid RBC Fluid Tot Cell Count Fluid Neutrophils Fluid Lymphocytes Fld Monocyte/Macrophag Fluid Comment Thoracentesis Fluid pH Salicylates Acetaminophen Alcohol, Quantitative Hepatitis A IgM Ab Hep Bs Antigen Hep Bs Ag Neutralizatn Hep Bs Antibody Negative Hep B Core IgM Ab Hepatitis C Antibody HIV 1&2 Antibody Screen Negative 01/15/18 01/15/18 01/15/18 03:30 03:30 03:30 WBC 12.3 H RBC 4.39 Hgb 13.2 L Hct 37.1 L MCV 84.5 MCH 30.1 MCHC 35.6 RDW 21.5 H Plt Count 87 L Manual Plt Count Gran % 69.6 H Lymph % (Auto) 20.1 L [place] % (Auto) 8.1 H Eos % (Auto) 2.0 Baso % (Auto) 0.2 Gran # 8.54 H Lymph # (Auto) 2.5 [place] # (Auto) 1.0 H Eos # (Auto) 0.2 Baso # (Auto) 0.03 PT INR APTT pCO2 pO2 HCO3 ABG pH ABG Total CO2 ABG O2 Saturation ABG O2 Content ABG Base Excess ABG Hemoglobin ABG Carboxyhemoglobin POC ABG HHb (Measured) ABG Methemoglobin ABG O2 Capacity ABG Potassium VBG pH VBG pCO2 VBG HCO3 VBG Total CO2 VBG O2 Sat (Calc) VBG Base Excess VBG Potassium Hgb O2 Saturation Glucose Lactate Mechanical Rate FiO2 Tidal Volume PEEP Sodium 128 L Potassium 5.6 H* Chloride 103 Carbon Dioxide 15 L Anion Gap 16 BUN 37 H Creatinine 4.7 H Est GFR ( Amer) 15 Est GFR (Non-Af Amer) 13 POC Glucose (mg/dL) Random Glucose 69 L Hemoglobin A1c Fructosamine Uric Acid Calcium 6.1 L* Phosphorus 5.7 H Magnesium 1.9 Total Bilirubin 5.3 H Direct Bilirubin 4.4 H AST 853 H ALT 391 H Alkaline Phosphatase 436 H Ammonia Lactate Dehydrogenase Total Creatine Kinase 1124 H CK-MB (CK-2) 9.6 H CK-MB (CK-2) % 0.9 L Troponin I 0.12 D C-React Prot High Sens NT-Pro-B Natriuret Pep Total Protein 5.8 Albumin 1.8 L Globulin 4.0 Albumin/Globulin Ratio 0.4 L Triglycerides 126 Cholesterol 145 LDL Cholesterol Direct 76 HDL Cholesterol 12 L 25-OH Vitamin D Total 17.6 L Procalcitonin Arterial Blood Potassium Venous Blood Potassium Fluid Source Fluid Appearance Fluid WBC Fluid RBC Fluid Tot Cell Count Fluid Neutrophils Fluid Lymphocytes Fld Monocyte/Macrophag Fluid Comment Thoracentesis Fluid pH Salicylates Acetaminophen Alcohol, Quantitative Hepatitis A IgM Ab Hep Bs Antigen Hep Bs Ag Neutralizatn Hep Bs Antibody Hep B Core IgM Ab Hepatitis C Antibody HIV 1&2 Antibody Screen 01/15/18 01/15/18 01/15/18 03:30 03:30 05:34 WBC RBC Hgb Hct MCV MCH MCHC RDW Plt Count Manual Plt Count Gran % Lymph % (Auto) [place] % (Auto) Eos % (Auto) Baso % (Auto) Gran # Lymph # (Auto) [place] # (Auto) Eos # (Auto) Baso # (Auto) PT INR APTT pCO2 pO2 105 H HCO3 ABG pH ABG Total CO2 ABG O2 Saturation ABG O2 Content ABG Base Excess ABG Hemoglobin ABG Carboxyhemoglobin POC ABG HHb (Measured) ABG Methemoglobin ABG O2 Capacity ABG Potassium VBG pH 7.43 VBG pCO2 22.0 L VBG HCO3 14.6 L VBG Total CO2 15.3 L VBG O2 Sat (Calc) 99.3 H VBG Base Excess -7.6 L VBG Potassium 5.7 H Hgb O2 Saturation Glucose 73 L Lactate 6.7 H* Mechanical Rate FiO2 21.0 Tidal Volume PEEP Sodium 128.0 L Potassium Chloride 98.0 Carbon Dioxide Anion Gap BUN Creatinine Est GFR ( Amer) Est GFR (Non-Af Amer) POC Glucose (mg/dL) 72 Random Glucose Hemoglobin A1c 6.3 Fructosamine Uric Acid Calcium Phosphorus Magnesium Total Bilirubin Direct Bilirubin AST ALT Alkaline Phosphatase Ammonia Lactate Dehydrogenase Total Creatine Kinase CK-MB (CK-2) CK-MB (CK-2) % Troponin I C-React Prot High Sens NT-Pro-B Natriuret Pep Total Protein Albumin Globulin Albumin/Globulin Ratio Triglycerides Cholesterol LDL Cholesterol Direct HDL Cholesterol 25-OH Vitamin D Total Procalcitonin Arterial Blood Potassium Venous Blood Potassium 5.7 H Fluid Source Fluid Appearance Fluid WBC Fluid RBC Fluid Tot Cell Count Fluid Neutrophils Fluid Lymphocytes Fld Monocyte/Macrophag Fluid Comment Thoracentesis Fluid pH Salicylates Acetaminophen Alcohol, Quantitative Hepatitis A IgM Ab Hep Bs Antigen Hep Bs Ag Neutralizatn Hep Bs Antibody Hep B Core IgM Ab Hepatitis C Antibody HIV 1&2 Antibody Screen 01/15/18 01/15/18 01/15/18 05:50 06:00 06:43 WBC RBC Hgb Hct MCV MCH MCHC RDW Plt Count Manual Plt Count Gran % Lymph % (Auto) [place] % (Auto) Eos % (Auto) Baso % (Auto) Gran # Lymph # (Auto) [place] # (Auto) Eos # (Auto) Baso # (Auto) PT INR APTT pCO2 26 L pO2 86.0 42 HCO3 14.0 L ABG pH 7.34 L ABG Total CO2 14.8 L ABG O2 Saturation 98.2 H ABG O2 Content ABG Base Excess -10.1 L ABG Hemoglobin ABG Carboxyhemoglobin POC ABG HHb (Measured) ABG Methemoglobin ABG O2 Capacity ABG Potassium 4.8 VBG pH 7.28 L VBG pCO2 35.0 L VBG HCO3 16.4 L VBG Total CO2 17.5 L VBG O2 Sat (Calc) 74.5 H VBG Base Excess -9.4 L VBG Potassium 5.4 H Hgb O2 Saturation Glucose 76 76 Lactate 8.2 H* 8.3 H* Mechanical Rate FiO2 40.0 21.0 Tidal Volume PEEP Sodium 130.0 L 131.0 L Potassium Chloride 99.0 98.0 Carbon Dioxide Anion Gap BUN Creatinine Est GFR ( Amer) Est GFR (Non-Af Amer) POC Glucose (mg/dL) Random Glucose Hemoglobin A1c Fructosamine Uric Acid Calcium Phosphorus Magnesium Total Bilirubin Direct Bilirubin AST ALT Alkaline Phosphatase Ammonia Lactate Dehydrogenase Total Creatine Kinase CK-MB (CK-2) CK-MB (CK-2) % Troponin I C-React Prot High Sens NT-Pro-B Natriuret Pep Total Protein Albumin Globulin Albumin/Globulin Ratio Triglycerides Cholesterol LDL Cholesterol Direct HDL Cholesterol 25-OH Vitamin D Total Procalcitonin Arterial Blood Potassium 4.8 Venous Blood Potassium 5.4 H Fluid Source Fluid Appearance Fluid WBC Fluid RBC Fluid Tot Cell Count Fluid Neutrophils Fluid Lymphocytes Fld Monocyte/Macrophag Fluid Comment Thoracentesis Fluid pH Salicylates Acetaminophen Alcohol, Quantitative Hepatitis A IgM Ab Negative Hep Bs Antigen Reactive Hep Bs Ag Neutralizatn Hep Bs Antibody Hep B Core IgM Ab Negative Hepatitis C Antibody Negative HIV 1&2 Antibody Screen 01/15/18 01/15/18 01/15/18 06:51 06:51 07:37 WBC RBC Hgb Hct MCV MCH MCHC RDW Plt Count Manual Plt Count 85 L Gran % Lymph % (Auto) [place] % (Auto) Eos % (Auto) Baso % (Auto) Gran # Lymph # (Auto) [place] # (Auto) Eos # (Auto) Baso # (Auto) PT 23.4 H INR 2.01 APTT 79.4 H pCO2 pO2 HCO3 ABG pH ABG Total CO2 ABG O2 Saturation ABG O2 Content ABG Base Excess ABG Hemoglobin ABG Carboxyhemoglobin POC ABG HHb (Measured) ABG Methemoglobin ABG O2 Capacity ABG Potassium VBG pH VBG pCO2 VBG HCO3 VBG Total CO2 VBG O2 Sat (Calc) VBG Base Excess VBG Potassium Hgb O2 Saturation Glucose Lactate Mechanical Rate FiO2 Tidal Volume PEEP Sodium Potassium Chloride Carbon Dioxide Anion Gap BUN Creatinine Est GFR ( Amer) Est GFR (Non-Af Amer) POC Glucose (mg/dL) 88 Random Glucose Hemoglobin A1c Fructosamine Uric Acid Calcium Phosphorus Magnesium Total Bilirubin Direct Bilirubin AST ALT Alkaline Phosphatase Ammonia Lactate Dehydrogenase Total Creatine Kinase CK-MB (CK-2) CK-MB (CK-2) % Troponin I C-React Prot High Sens NT-Pro-B Natriuret Pep Total Protein Albumin Globulin Albumin/Globulin Ratio Triglycerides Cholesterol LDL Cholesterol Direct HDL Cholesterol 25-OH Vitamin D Total Procalcitonin Arterial Blood Potassium Venous Blood Potassium Fluid Source Fluid Appearance Fluid WBC Fluid RBC Fluid Tot Cell Count Fluid Neutrophils Fluid Lymphocytes Fld Monocyte/Macrophag Fluid Comment Thoracentesis Fluid pH Salicylates Acetaminophen Alcohol, Quantitative Hepatitis A IgM Ab Hep Bs Antigen Hep Bs Ag Neutralizatn Hep Bs Antibody Hep B Core IgM Ab Hepatitis C Antibody HIV 1&2 Antibody Screen 01/15/18 01/15/18 01/15/18 07:45 08:26 09:40 WBC RBC Hgb Hct MCV MCH MCHC RDW Plt Count Manual Plt Count Gran % Lymph % (Auto) [place] % (Auto) Eos % (Auto) Baso % (Auto) Gran # Lymph # (Auto) [place] # (Auto) Eos # (Auto) Baso # (Auto) PT INR APTT pCO2 23 L pO2 80.0 HCO3 12.7 L ABG pH 7.35 ABG Total CO2 13.4 L ABG O2 Saturation 96.9 ABG O2 Content 15.5 ABG Base Excess -11.1 L ABG Hemoglobin 11.7 ABG Carboxyhemoglobin 1.8 H POC ABG HHb (Measured) 3.0 ABG Methemoglobin 1.2 ABG O2 Capacity 16.0 ABG Potassium VBG pH VBG pCO2 VBG HCO3 VBG Total CO2 VBG O2 Sat (Calc) VBG Base Excess VBG Potassium Hgb O2 Saturation 93.9 L Glucose Lactate Mechanical Rate FiO2 40.0 Tidal Volume PEEP Sodium Potassium Chloride Carbon Dioxide Anion Gap BUN Creatinine Est GFR ( Amer) Est GFR (Non-Af Amer) POC Glucose (mg/dL) Random Glucose Hemoglobin A1c Fructosamine Uric Acid Calcium Phosphorus Magnesium Total Bilirubin Direct Bilirubin AST ALT Alkaline Phosphatase Ammonia 23 Lactate Dehydrogenase Total Creatine Kinase CK-MB (CK-2) CK-MB (CK-2) % Troponin I C-React Prot High Sens NT-Pro-B Natriuret Pep Total Protein Albumin Globulin Albumin/Globulin Ratio Triglycerides Cholesterol LDL Cholesterol Direct HDL Cholesterol 25-OH Vitamin D Total Procalcitonin Arterial Blood Potassium Venous Blood Potassium Fluid Source Fluid Appearance Fluid WBC Fluid RBC Fluid Tot Cell Count Fluid Neutrophils Fluid Lymphocytes Fld Monocyte/Macrophag Fluid Comment Thoracentesis Fluid pH Salicylates Acetaminophen Alcohol, Quantitative Hepatitis A IgM Ab Hep Bs Antigen Hep Bs Ag Neutralizatn Confirmed positive H Hep Bs Antibody Hep B Core IgM Ab Hepatitis C Antibody HIV 1&2 Antibody Screen 01/15/18 01/15/18 11:21 16:56 WBC RBC Hgb Hct MCV MCH MCHC RDW Plt Count Manual Plt Count Gran % Lymph % (Auto) [place] % (Auto) Eos % (Auto) Baso % (Auto) Gran # Lymph # (Auto) [place] # (Auto) Eos # (Auto) Baso # (Auto) PT INR APTT pCO2 pO2 HCO3 ABG pH ABG Total CO2 ABG O2 Saturation ABG O2 Content ABG Base Excess ABG Hemoglobin ABG Carboxyhemoglobin POC ABG HHb (Measured) ABG Methemoglobin ABG O2 Capacity ABG Potassium VBG pH VBG pCO2 VBG HCO3 VBG Total CO2 VBG O2 Sat (Calc) VBG Base Excess VBG Potassium Hgb O2 Saturation Glucose Lactate Mechanical Rate FiO2 Tidal Volume PEEP Sodium Potassium Chloride Carbon Dioxide Anion Gap BUN Creatinine Est GFR ( Amer) Est GFR (Non-Af Amer) POC Glucose (mg/dL) 117 H 135 H Random Glucose Hemoglobin A1c Fructosamine Uric Acid Calcium Phosphorus Magnesium Total Bilirubin Direct Bilirubin AST ALT Alkaline Phosphatase Ammonia Lactate Dehydrogenase Total Creatine Kinase CK-MB (CK-2) CK-MB (CK-2) % Troponin I C-React Prot High Sens NT-Pro-B Natriuret Pep Total Protein Albumin Globulin Albumin/Globulin Ratio Triglycerides Cholesterol LDL Cholesterol Direct HDL Cholesterol 25-OH Vitamin D Total Procalcitonin Arterial Blood Potassium Venous Blood Potassium Fluid Source Fluid Appearance Fluid WBC Fluid RBC Fluid Tot Cell Count Fluid Neutrophils Fluid Lymphocytes Fld Monocyte/Macrophag Fluid Comment Thoracentesis Fluid pH Salicylates Acetaminophen Alcohol, Quantitative Hepatitis A IgM Ab Hep Bs Antigen Hep Bs Ag Neutralizatn Hep Bs Antibody Hep B Core IgM Ab Hepatitis C Antibody HIV 1&2 Antibody Screen EKG/Cardiology Studies: Cardiology / EKG Studies 01/15/18 07:00 EKG [ELECTROCARDIOGRAM] DAILY Comment: Reason For Exam: CAD/MVR 01/16/18 07:00 EKG [ELECTROCARDIOGRAM] DAILY Comment: Reason For Exam: CAD/MVR Attending/Attestation - Attestation I have personally seen and examined this patient.: Yes I have fully participated in the care of the patient.: Yes I have reviewed all pertinent clinical information: Yes Notes (Text): 01/15/18 17:[address] Shen note
--- NOTE | 2018-01-15 10:46 | PCM.IRP ---
History of Present Illness - History of Present Illness History of Present Illness: IR consulted for cholecystostomy tube. CT and US reviewed. The anatomy of the patient makes percutaneous cholecystostomy tube placement NOT possible without risk of pneumothorax or right colon injury. Would also recommend HIDA scan as the GB is contracted and no may not have cholecystitis. Objective - Vital Signs/Intake and Output Vital Signs (last 24 hours): Vital Signs - 24 hr 01/14/18 01/14/18 01/14/18 11:05 11:10 11:15 Temperature 93.1 F L Pulse Rate 57 L Pulse Rate [ Apical] Respiratory 12 Rate Blood Pressure 95/44 L 111/57 L Blood Pressure [Right Femoral Artery] O2 Sat by Pulse 100 100 Oximetry 01/14/18 01/14/18 01/14/18 11:30 11:45 12:20 Temperature Pulse Rate 58 L 53 L 48 L Pulse Rate [ Apical] Respiratory 12 12 14 Rate Blood Pressure 90/45 L 95/34 L 78/19 L Blood Pressure [Right Femoral Artery] O2 Sat by Pulse 100 100 100 Oximetry 01/14/18 01/14/18 01/14/18 12:34 12:45 13:00 Temperature Pulse Rate 56 L 55 L 52 L Pulse Rate [ Apical] Respiratory 14 20 20 Rate Blood Pressure 84/36 L 80/48 L 81/49 L Blood Pressure [Right Femoral Artery] O2 Sat by Pulse 100 100 100 Oximetry 01/14/18 01/14/18 01/14/18 13:12 13:15 13:17 Temperature Pulse Rate Pulse Rate [ Apical] Respiratory 51 H Rate Blood Pressure 63/20 L Blood Pressure 105/53 L [Right Femoral Artery] O2 Sat by Pulse Oximetry 01/14/18 01/14/18 01/14/18 13:18 13:19 13:20 Temperature 92.8 F L 92.8 F L 93.0 F L Pulse Rate Pulse Rate [ Apical] Respiratory Rate Blood Pressure Blood Pressure [Right Femoral Artery] O2 Sat by Pulse 96 87 L 93 L Oximetry 01/14/18 01/14/18 01/14/18 13:21 13:22 13:28 Temperature 93.0 F L 93.0 F L 93.0 F L Pulse Rate 54 L Pulse Rate [ Apical] Respiratory 17 Rate Blood Pressure Blood Pressure [Right Femoral Artery] O2 Sat by Pulse 96 93 L 94 L Oximetry 01/14/18 01/14/18 01/14/18 13:29 13:30 13:32 Temperature 93.0 F L Pulse Rate 51 L Pulse Rate [ 52 L Apical] Respiratory 17 20 Rate Blood Pressure 60/31 L Blood Pressure [Right Femoral Artery] O2 Sat by Pulse 94 L Oximetry 01/14/18 01/14/18 01/14/18 13:38 13:40 13:45 Temperature 93.2 F L 93.2 F L 93.2 F L Pulse Rate 51 L 50 L 51 L Pulse Rate [ Apical] Respiratory 20 20 20 Rate Blood Pressure 62/16 L 56/34 L 75/36 L Blood Pressure [Right Femoral Artery] O2 Sat by Pulse 93 L 93 L 91 L Oximetry 01/14/18 01/14/18 01/14/18 13:50 13:55 14:00 Temperature 93.2 F L 93.2 F L 93.2 F L Pulse Rate 53 L 53 L 54 L Pulse Rate [ Apical] Respiratory 20 20 20 Rate Blood Pressure 79/54 L 81/45 L 75/43 L Blood Pressure 121/64 [Right Femoral Artery] O2 Sat by Pulse Oximetry 01/14/18 01/14/18 01/14/18 14:05 14:10 14:15 Temperature 93.2 F L 93.4 F L 93.4 F L Pulse Rate 54 L 54 L 54 L Pulse Rate [ Apical] Respiratory 20 20 20 Rate Blood Pressure 76/41 L 88/43 L 85/49 L Blood Pressure [Right Femoral Artery] O2 Sat by Pulse Oximetry 01/14/18 01/14/18 01/14/18 14:20 14:21 14:25 Temperature 93.4 F L 93.4 F L 93.4 F L Pulse Rate 55 L 65 63 Pulse Rate [ Apical] Respiratory 20 20 Rate Blood Pressure 85/67 L 100/64 Blood Pressure [Right Femoral Artery] O2 Sat by Pulse Oximetry 01/14/18 01/14/18 01/14/18 14:30 14:31 14:35 Temperature 93.4 F L 93.4 F L 93.4 F L Pulse Rate 59 L 55 L 56 L Pulse Rate [ Apical] Respiratory 27 H 21 20 Rate Blood Pressure 87/55 L 94/42 L Blood Pressure [Right Femoral Artery] O2 Sat by Pulse Oximetry 01/14/18 01/14/18 01/14/18 14:40 14:45 14:46 Temperature 93.4 F L 93.4 F L 93.4 F L Pulse Rate 56 L 57 L 57 L Pulse Rate [ Apical] Respiratory 20 20 Rate Blood Pressure 88/42 L 89/51 L Blood Pressure [Right Femoral Artery] O2 Sat by Pulse Oximetry 01/14/18 01/14/18 01/14/18 15:28 15:33 15:40 Temperature 93.1 F L 93.7 F L 93.7 F L Pulse Rate 57 L 57 L Pulse Rate [ Apical] Respiratory 12 20 Rate Blood Pressure 111/57 L Blood Pressure 104/56 L [Right Femoral Artery] O2 Sat by Pulse 100 Oximetry 01/14/18 01/14/18 01/14/18 15:50 15:54 16:00 Temperature 93.7 F L 93.7 F L 93.7 F L Pulse Rate 59 L 61 58 L Pulse Rate [ Apical] Respiratory 22 20 Rate Blood Pressure Blood Pressure 102/56 L [Right Femoral Artery] O2 Sat by Pulse Oximetry 01/14/18 01/14/18 01/14/18 16:10 16:16 16:20 Temperature 93.7 F L 93.7 F L 93.7 F L Pulse Rate 56 L 57 L 56 L Pulse Rate [ Apical] Respiratory 29 H 19 Rate Blood Pressure Blood Pressure [Right Femoral Artery] O2 Sat by Pulse Oximetry 01/14/18 01/14/18 01/14/18 16:22 16:29 16:30 Temperature 93.7 F L 93.7 F L 93.7 F L Pulse Rate 58 L 59 L 60 Pulse Rate [ Apical] Respiratory 16 Rate Blood Pressure Blood Pressure [Right Femoral Artery] O2 Sat by Pulse Oximetry 01/14/18 01/14/18 01/14/18 16:39 16:40 16:41 Temperature Pulse Rate 65 57 L 57 L Pulse Rate [ Apical] Respiratory 18 21 13 Rate Blood Pressure Blood Pressure [Right Femoral Artery] O2 Sat by Pulse Oximetry 01/14/18 01/14/18 01/14/18 16:42 16:43 16:44 Temperature 93.7 F L 93.7 F L 93.7 F L Pulse Rate 57 L 59 L 58 L Pulse Rate [ Apical] Respiratory 29 H 13 Rate Blood Pressure Blood Pressure [Right Femoral Artery] O2 Sat by Pulse Oximetry 01/14/18 01/14/1801/14/18 16:45 16:47 16:48 Temperature 93.7 F L 93.7 F L 93.7 F L Pulse Rate 84 57 L 56 L Pulse Rate [ Apical] Respiratory 19 Rate Blood Pressure Blood Pressure [Right Femoral Artery] O2 Sat by Pulse 100 100 Oximetry 01/14/18 01/14/18 01/14/18 16:49 16:50 16:51 Temperature 93.7 F L 93.7 F L 93.7 F L Pulse Rate 57 L 57 L 57 L Pulse Rate [ Apical] Respiratory 5 L Rate Blood Pressure Blood Pressure [Right Femoral Artery] O2 Sat by Pulse 100 100 100 Oximetry 01/14/18 01/14/18 01/14/18 16:52 16:53 16:54 Temperature 93.9 F L 93.9 F L 93.9 F L Pulse Rate 57 L 57 L 57 L Pulse Rate [ Apical] Respiratory Rate Blood Pressure Blood Pressure [Right Femoral Artery] O2 Sat by Pulse 100 100 100 Oximetry 01/14/18 01/14/18 01/14/18 16:57 16:58 16:59 Temperature 93.7 F L 93.7 F L 93.7 F L Pulse Rate 56 L 56 L 58 L Pulse Rate [ Apical] Respiratory Rate Blood Pressure Blood Pressure [Right Femoral Artery] O2 Sat by Pulse 100 100 100 Oximetry 01/14/18 01/14/18 01/14/18 17:00 17:01 17:02 Temperature 93.7 F L 93.7 F L 93.7 F L Pulse Rate 57 L 57 L 58 L Pulse Rate [ Apical] Respiratory Rate Blood Pressure Blood Pressure [Right Femoral Artery] O2 Sat by Pulse 100 100 100 Oximetry 01/14/18 01/14/18 01/14/18 17:03 17:04 17:05 Temperature 93.7 F L 93.7 F L Pulse Rate 57 L 57 L Pulse Rate [ Apical] Respiratory Rate Blood Pressure Blood Pressure 86/48 L [Right Femoral Artery] O2 Sat by Pulse 100 100 Oximetry 01/14/18 01/14/18 01/14/18 17:10 17:16 17:20 Temperature 93.7 F L 93.7 F L 93.7 F L Pulse Rate 57 L 58 L 58 L Pulse Rate [ Apical] Respiratory 19 Rate Blood Pressure Blood Pressure [Right Femoral Artery] O2 Sat by Pulse 100 100 100 Oximetry 01/14/18 01/14/18 01/14/18 17:30 17:40 17:50 Temperature 93.9 F L 94.1 F L 94.3 F L Pulse Rate 63 69 73 Pulse Rate [ Apical] Respiratory 20 20 23 Rate Blood Pressure Blood Pressure [Right Femoral Artery] O2 Sat by Pulse 100 99 100 Oximetry 01/14/18 01/14/18 01/14/18 17:51 17:53 17:59 Temperature 94.3 F L 94.5 F L 94.5 F L Pulse Rate 73 74 75 Pulse Rate [ Apical] Respiratory Rate Blood Pressure Blood Pressure [Right Femoral Artery] O2 Sat by Pulse 100 100 100 Oximetry 01/14/18 01/14/18 01/14/18 18:00 18:10 18:20 Temperature 94.6 F L 94.8 F L 95.2 F L Pulse Rate 75 75 77 Pulse Rate [ Apical] Respiratory 11 L 23 Rate Blood Pressure Blood Pressure [Right Femoral Artery] O2 Sat by Pulse 100 100 98 Oximetry 01/14/18 01/14/18 01/14/18 18:24 18:30 18:40 Temperature 95.2 F L 95.4 F L 95.5 F L Pulse Rate 76 76 77 Pulse Rate [ Apical] Respiratory 22 22 Rate Blood Pressure Blood Pressure [Right Femoral Artery] O2 Sat by Pulse 100 99 98 Oximetry 01/14/18 01/14/18 01/14/18 18:50 19:00 19:10 Temperature 95.7 F L 95.9 F L 96.1 F L Pulse Rate 78 78 78 Pulse Rate [ Apical] Respiratory 18 19 24 Rate Blood Pressure 86/46 L Blood Pressure [Right Femoral Artery] O2 Sat by Pulse 98 97 100 Oximetry 01/14/18 01/14/18 01/14/18 19:18 19:20 19:30 Temperature 96.3 F L 96.3 F L 96.3 F L Pulse Rate 78 78 77 Pulse Rate [ Apical] Respiratory 24 22 Rate Blood Pressure Blood Pressure [Right Femoral Artery] O2 Sat by Pulse 97 98 98 Oximetry 01/14/18 01/14/18 01/14/18 19:40 19:42 19:50 Temperature 96.4 F L 96.4 F L 96.6 F L Pulse Rate 78 77 78 Pulse Rate [ Apical] Respiratory 25 H 29 H Rate Blood Pressure Blood Pressure [Right Femoral Artery] O2 Sat by Pulse 100 81 L 97 Oximetry 01/14/18 01/14/18 01/14/18 19:52 20:00 20:10 Temperature 96.6 F L 97.5 F L 96.8 F L Pulse Rate 79 79 78 Pulse Rate [ Apical] Respiratory 25 H 25 H Rate Blood Pressure 89/49 L Blood Pressure [Right Femoral Artery] O2 Sat by Pulse 97 99 99 Oximetry 01/14/18 01/14/18 01/14/18 20:16 20:20 20:30 Temperature 97.0 F L 97.0 F L 97.5 F L Pulse Rate 80 79 77 Pulse Rate [ Apical] Respiratory 18 23 Rate Blood Pressure Blood Pressure [Right Femoral Artery] O2 Sat by Pulse 100 90 L 99 Oximetry 01/14/18 01/14/18 01/14/18 20:40 20:48 20:50 Temperature 97.2 F L 97.3 F L 97.3 F L Pulse Rate 77 77 76 Pulse Rate [ Apical] Respiratory 22 23 24 Rate Blood Pressure 78/46 L Blood Pressure [Right Femoral Artery] O2 Sat by Pulse 100 100 99 Oximetry 01/14/18 01/14/18 01/14/18 21:00 21:04 21:10 Temperature 97.3 F L 97.3 F L 97.5 F L Pulse Rate 75 72 75 Pulse Rate [ Apical] Respiratory 29 H 25 H Rate Blood Pressure 100/49 L Blood Pressure [Right Femoral Artery] O2 Sat by Pulse 100 100 100 Oximetry 01/14/18 01/14/18 01/14/18 21:12 21:16 21:20 Temperature 97.5 F L 97.5 F L 97.7 F Pulse Rate 75 73 74 Pulse Rate [ Apical] Respiratory 22 Rate Blood Pressure Blood Pressure [Right Femoral Artery] O2 Sat by Pulse 98 100 100 Oximetry 01/14/18 01/14/18 01/14/18 21:28 21:30 21:37 Temperature 97.7 F 97.7 F 97.7 F Pulse Rate 74 73 76 Pulse Rate [ Apical] Respiratory 27 H Rate Blood Pressure Blood Pressure [Right Femoral Artery] O2 Sat by Pulse 96 99 98 Oximetry 01/14/18 01/14/18 01/14/18 21:40 21:43 21:47 Temperature 97.7 F 97.7 F 97.7 F Pulse Rate 74 74 73 Pulse Rate [ Apical] Respiratory 16 Rate Blood Pressure Blood Pressure [Right Femoral Artery] O2 Sat by Pulse 98 99 100 Oximetry 01/14/18 01/14/18 01/14/18 21:49 21:50 21:51 Temperature 97.7 F 97.7 F 97.9 F Pulse Rate 72 73 72 Pulse Rate [ Apical] Respiratory Rate Blood Pressure Blood Pressure [Right Femoral Artery] O2 Sat by Pulse 99 99 100 Oximetry 01/14/18 01/14/18 01/14/18 21:53 21:56 22:00 Temperature 97.9 F 97.9 F 97.9 F Pulse Rate 73 72 72 Pulse Rate [ Apical] Respiratory 22 Rate Blood Pressure 93/45 L Blood Pressure [Right Femoral Artery] O2 Sat by Pulse 99 95 99 Oximetry 01/14/18 01/14/18 01/14/18 22:01 22:10 22:11 Temperature 97.9 F 97.9 F 97.9 F Pulse Rate 72 73 72 Pulse Rate [ Apical] Respiratory 19 Rate Blood Pressure Blood Pressure [Right Femoral Artery] O2 Sat by Pulse 98 92 L 100 Oximetry 01/14/18 01/14/18 01/14/18 22:18 22:19 22:20 Temperature 98.1 F 98.1 F 98.1 F Pulse Rate 73 73 74 Pulse Rate [ Apical] Respiratory Rate Blood Pressure Blood Pressure [Right Femoral Artery] O2 Sat by Pulse 100 100 100 Oximetry 01/14/18 01/14/18 01/14/18 22:27 22:28 22:30 Temperature 98.1 F 98.1 F 98.1 F Pulse Rate 73 73 74 Pulse Rate [ Apical] Respiratory 15 Rate Blood Pressure Blood Pressure [Right Femoral Artery] O2 Sat by Pulse 98 99 97 Oximetry 01/14/18 01/14/18 01/14/18 22:40 22:42 22:49 Temperature 98.1 F 98.1 F 98.1 F Pulse Rate 74 74 75 Pulse Rate [ Apical] Respiratory 31 H Rate Blood Pressure Blood Pressure [Right Femoral Artery] O2 Sat by Pulse 97 97 97 Oximetry 01/14/18 01/14/18 01/14/18 22:50 22:56 22:58 Temperature 98.1 F 98.2 F 98.2 F Pulse Rate 75 76 73 Pulse Rate [ Apical] Respiratory 23 Rate Blood Pressure Blood Pressure [Right Femoral Artery] O2 Sat by Pulse 97 97 96 Oximetry 01/14/18 01/14/18 01/14/18 23:00 23:01 23:04 Temperature 98.2 F 98.2 F 98.2 F Pulse Rate 76 75 75 Pulse Rate [ Apical] Respiratory 7 L Rate Blood Pressure 98/47 L Blood Pressure [Right Femoral Artery] O2 Sat by Pulse 96 96 97 Oximetry 01/14/18 01/15/18 01/15/18 23:05 00:00 02:00 Temperature 98.2 F 98.4 F Pulse Rate 75 79 81 Pulse Rate [ Apical] Respiratory 25 H Rate Blood Pressure 109/50 L Blood Pressure [Right Femoral Artery] O2 Sat by Pulse 97 Oximetry 01/15/18 01/15/18 01/15/18 04:00 04:22 04:23 Temperature 98.8 F 98.8 F Pulse Rate 86 85 84 Pulse Rate [ Apical] Respiratory Rate Blood Pressure 82/52 L Blood Pressure [Right Femoral Artery] O2 Sat by Pulse Oximetry 01/15/18 01/15/18 01/15/18 04:24 04:25 04:26 Temperature 98.8 F 98.8 F 98.8 F Pulse Rate 85 84 82 Pulse Rate [ Apical] Respiratory Rate Blood Pressure Blood Pressure [Right Femoral Artery] O2 Sat by Pulse Oximetry 01/15/18 01/15/18 01/15/18 04:27 04:28 04:29 Temperature 98.8 F 98.8 F 98.8 F Pulse Rate 84 85 85 Pulse Rate [ Apical] Respiratory Rate Blood Pressure Blood Pressure [Right Femoral Artery] O2 Sat by Pulse Oximetry 01/15/18 01/15/18 01/15/18 04:30 04:31 04:32 Temperature 98.8 F 98.8 F 98.8 F Pulse Rate 85 84 84 Pulse Rate [ Apical] Respiratory Rate Blood Pressure Blood Pressure [Right Femoral Artery] O2 Sat by Pulse Oximetry 01/15/18 01/15/18 01/15/18 04:34 04:35 04:36 Temperature 98.8 F 98.8 F 98.8 F Pulse Rate 84 84 84 Pulse Rate [ Apical] Respiratory Rate Blood Pressure Blood Pressure [Right Femoral Artery] O2 Sat by Pulse Oximetry 01/15/18 01/15/18 01/15/18 04:38 04:39 04:40 Temperature 98.8 F 98.8 F 98.8 F Pulse Rate 84 83 79 Pulse Rate [ Apical] Respiratory Rate Blood Pressure Blood Pressure [Right Femoral Artery] O2 Sat by Pulse Oximetry 01/15/18 01/15/18 01/15/18 04:41 04:42 04:43 Temperature 98.6 F 98.8 F 98.8 F Pulse Rate 77 81 83 Pulse Rate [ Apical] Respiratory Rate Blood Pressure Blood Pressure [Right Femoral Artery] O2 Sat by Pulse Oximetry 01/15/18 01/15/18 01/15/18 04:44 04:45 04:46 Temperature 98.8 F 98.8 F 98.8 F Pulse Rate 82 80 82 Pulse Rate [ Apical] Respiratory Rate Blood Pressure Blood Pressure [Right Femoral Artery] O2 Sat by Pulse Oximetry 01/15/18 01/15/18 01/15/18 04:47 04:48 04:49 Temperature 98.8 F 98.8 F 98.8 F Pulse Rate 82 82 82 Pulse Rate [ Apical] Respiratory Rate Blood Pressure Blood Pressure [Right Femoral Artery] O2 Sat by Pulse Oximetry 01/15/18 01/15/18 01/15/18 04:50 04:51 04:52 Temperature 98.8 F 98.8 F 98.8 F Pulse Rate 82 84 84 Pulse Rate [ Apical] Respiratory Rate Blood Pressure Blood Pressure [Right Femoral Artery] O2 Sat by Pulse Oximetry 01/15/18 01/15/18 01/15/18 04:53 04:54 04:55 Temperature 98.8 F 98.8 F 98.8 F Pulse Rate 85 85 86 Pulse Rate [ Apical] Respiratory Rate Blood Pressure Blood Pressure [Right Femoral Artery] O2 Sat by Pulse Oximetry 01/15/18 01/15/18 01/15/18 04:56 04:57 04:58 Temperature 98.8 F 98.8 F 98.8 F Pulse Rate 86 86 85 Pulse Rate [ Apical] Respiratory Rate Blood Pressure 93/51 L Blood Pressure [Right Femoral Artery] O2 Sat by Pulse Oximetry 01/15/18 01/15/18 01/15/18 04:59 05:00 05:02 Temperature 98.8 F 98.8 F 98.8 F Pulse Rate 85 86 86 Pulse Rate [ Apical] Respiratory Rate Blood Pressure 84/48 L Blood Pressure [Right Femoral Artery] O2 Sat by Pulse Oximetry 01/15/18 01/15/18 01/15/18 05:03 05:04 05:05 Temperature 98.8 F 98.8 F 98.8 F Pulse Rate 87 86 85 Pulse Rate [ Apical] Respiratory Rate Blood Pressure Blood Pressure [Right Femoral Artery] O2 Sat by Pulse Oximetry 01/15/18 01/15/18 01/15/18 05:10 05:20 05:30 Temperature 98.8 F 99.0 F 99.0 F Pulse Rate 87 88 87 Pulse Rate [ Apical] Respiratory Rate Blood Pressure Blood Pressure [Right Femoral Artery] O2 Sat by Pulse 92 L 94 L 96 Oximetry 01/15/18 01/15/18 01/15/18 05:40 05:50 06:00 Temperature 99.0 F 99.0 F 99.0 F Pulse Rate 85 82 84 Pulse Rate [ Apical] Respiratory Rate Blood Pressure 106/44 L Blood Pressure [Right Femoral Artery] O2 Sat by Pulse 95 98 100 Oximetry 01/15/18 01/15/18 01/15/18 06:01 06:02 06:10 Temperature 99.0 F 99.0 F 99.0 F Pulse Rate 82 81 82 Pulse Rate [ Apical] Respiratory Rate Blood Pressure Blood Pressure [Right Femoral Artery] O2 Sat by Pulse 94 L Oximetry 01/15/18 01/15/18 01/15/18 06:20 06:30 06:40 Temperature 99.0 F 98.8 F 99.0 F Pulse Rate 84 82 82 Pulse Rate [ Apical] Respiratory Rate Blood Pressure Blood Pressure [Right Femoral Artery] O2 Sat by Pulse 94 L 94 L 82 L Oximetry 01/15/18 01/15/18 01/15/18 06:50 07:00 07:05 Temperature 99.0 F 99.0 F Pulse Rate 84 83 85 Pulse Rate [ Apical] Respiratory 26 H Rate Blood Pressure 92/41 L Blood Pressure [Right Femoral Artery] O2 Sat by Pulse 98 92 L 97 Oximetry 01/15/18 01/15/18 01/15/18 07:10 07:20 07:30 Temperature 99.0 F 99.0 F 99.1 F Pulse Rate 82 82 81 Pulse Rate [ Apical] Respiratory Rate Blood Pressure Blood Pressure [Right Femoral Artery] O2 Sat by Pulse 93 L 94 L 96 Oximetry 01/15/18 01/15/18 01/15/18 07:40 07:45 07:46 Temperature 99.1 F 99.1 F 99.1 F Pulse Rate 82 84 83 Pulse Rate [ Apical] Respiratory Rate Blood Pressure Blood Pressure [Right Femoral Artery] O2 Sat by Pulse 95 Oximetry 01/15/18 01/15/18 01/15/18 07:49 08:00 08:15 Temperature Pulse Rate 83 85 85 Pulse Rate [ Apical] Respiratory 28 H 28 H Rate Blood Pressure 90/45 L 78/40 L Blood Pressure [Right Femoral Artery] O2 Sat by Pulse 95 97 Oximetry 01/15/18 01/15/18 01/15/18 08:30 08:38 09:00 Temperature Pulse Rate 85 85 84 Pulse Rate [ Apical] Respiratory 26 H Rate Blood Pressure 69/38 L 87/41 L 63/30 L Blood Pressure [Right Femoral Artery] O2 Sat by Pulse 98 Oximetry 01/15/18 01/15/18 01/15/18 09:07 09:08 09:09 Temperature 99.3 F 99.5 F 99.5 F Pulse Rate 84 84 84 Pulse Rate [ Apical] Respiratory Rate Blood Pressure Blood Pressure [Right Femoral Artery] O2 Sat by Pulse Oximetry 01/15/18 01/15/18 01/15/18 09:10 09:11 09:12 Temperature 99.5 F 99.5 F 99.5 F Pulse Rate 83 84 85 Pulse Rate [ Apical] Respiratory Rate Blood Pressure Blood Pressure [Right Femoral Artery] O2 Sat by Pulse Oximetry 01/15/18 01/15/18 01/15/18 09:13 09:14 09:15 Temperature 99.5 F 99.5 F 99.5 F Pulse Rate 84 83 83 Pulse Rate [ Apical] Respiratory Rate Blood Pressure 79/52 L Blood Pressure [Right Femoral Artery] O2 Sat by Pulse Oximetry 01/15/18 01/15/18 01/15/18 09:16 09:17 09:18 Temperature 99.5 F 99.5 F 99.5 F Pulse Rate 84 84 85 Pulse Rate [ Apical] Respiratory Rate Blood Pressure Blood Pressure [Right Femoral Artery] O2 Sat by Pulse Oximetry 01/15/18 01/15/18 01/15/18 09:19 09:20 09:21 Temperature 99.5 F 99.5 F 99.5 F Pulse Rate 84 85 85 Pulse Rate [ Apical] Respiratory Rate Blood Pressure Blood Pressure [Right Femoral Artery] O2 Sat by Pulse Oximetry 01/15/18 01/15/18 01/15/18 09:22 09:23 09:24 Temperature 99.5 F 99.5 F 99.5 F Pulse Rate 84 83 84 Pulse Rate [ Apical] Respiratory Rate Blood Pressure Blood Pressure [Right Femoral Artery] O2 Sat by Pulse Oximetry 01/15/18 01/15/18 01/15/18 09:25 09:26 09:27 Temperature 99.3 F 99.3 F 99.5 F Pulse Rate 85 85 84 Pulse Rate [ Apical] Respiratory Rate Blood Pressure Blood Pressure [Right Femoral Artery] O2 Sat by Pulse Oximetry 01/15/18 01/15/18 01/15/18 09:28 09:29 09:30 Temperature 99.5 F 99.3 F 99.3 F Pulse Rate 85 83 84 Pulse Rate [ Apical] Respiratory Rate Blood Pressure 89/45 L Blood Pressure [Right Femoral Artery] O2 Sat by Pulse Oximetry 01/15/18 01/15/18 01/15/18 09:31 09:32 09:33 Temperature 99.5 F 99.5 F 99.5 F Pulse Rate 86 85 86 Pulse Rate [ Apical] Respiratory Rate Blood Pressure Blood Pressure [Right Femoral Artery] O2 Sat by Pulse Oximetry 01/15/18 01/15/18 01/15/18 09:34 09:35 09:36 Temperature 99.5 F 99.5 F 99.5 F Pulse Rate 85 84 85 Pulse Rate [ Apical] Respiratory Rate Blood Pressure Blood Pressure [Right Femoral Artery] O2 Sat by Pulse Oximetry 01/15/18 01/15/18 01/15/18 09:37 09:38 09:39 Temperature 99.5 F 99.5 F 99.5 F Pulse Rate 83 83 84 Pulse Rate [ Apical] Respiratory Rate Blood Pressure Blood Pressure [Right Femoral Artery] O2 Sat by Pulse Oximetry 01/15/18 01/15/18 01/15/18 09:40 09:41 09:42 Temperature 99.3 F 99.3 F 99.5 F Pulse Rate 85 86 86 Pulse Rate [ Apical] Respiratory Rate Blood Pressure Blood Pressure [Right Femoral Artery] O2 Sat by Pulse Oximetry 01/15/18 01/15/18 01/15/18 09:43 09:44 09:45 Temperature 99.5 F 99.5 F 99.5 F Pulse Rate 84 84 84 Pulse Rate [ Apical] Respiratory Rate Blood Pressure 92/49 L Blood Pressure [Right Femoral Artery] O2 Sat by Pulse Oximetry 01/15/18 01/15/18 01/15/18 09:46 09:47 09:48 Temperature 99.3 F 99.3 F 99.3 F Pulse Rate 84 85 84 Pulse Rate [ Apical] Respiratory Rate Blood Pressure Blood Pressure [Right Femoral Artery] O2 Sat by Pulse Oximetry 01/15/18 01/15/18 01/15/18 09:49 09:50 09:51 Temperature 99.3 F 99.3 F 99.3 F Pulse Rate 84 83 83 Pulse Rate [ Apical] Respiratory Rate Blood Pressure Blood Pressure [Right Femoral Artery] O2 Sat by Pulse Oximetry 01/15/18 01/15/18 01/15/18 09:52 09:53 10:00 Temperature 99.3 F 99.3 F 99.3 F Pulse Rate 84 84 84 Pulse Rate [ Apical] Respiratory 27 H Rate Blood Pressure 102/37 L Blood Pressure [Right Femoral Artery] O2 Sat by Pulse 98 Oximetry 01/15/18 01/15/18 01/15/18 10:08 10:10 10:15 Temperature 99.3 F 99.3 F Pulse Rate 86 89 90 Pulse Rate [ Apical] Respiratory 26 H Rate Blood Pressure 103/35 L Blood Pressure [Right Femoral Artery] O2 Sat by Pulse 99 100 Oximetry Intake and Output (last 12 hours): Intake & Output 01/14/18 01/15/18 01/15/18 18:59 06:59 18:59 Intake Total 250 3302 200 Output Total 0 Balance 250 3302 200 Weight 196 lb 14.4 oz 195 lb 8 oz Intake: IV 250 3252 200 Right Femoral 2500 Oral 0 Albumin 50 Output: Urine 0 Urine, Voided 0 Other: Voiding Method Indwelling Catheter # Bowel Movements 0 - Medications Medications: Current Medications Albumin Human (Albumin Human 25% (12.5 Gm/50 Ml)) 12.5 gm IV Q4H NILES Heparin Sodium (Porcine) (Heparin) 5,000 units SC Q12 NILES; Protocol Last Admin: 01/14/18 22:53 Dose: 5,000 units Hydrocortisone Sodium Succinate (Solu-Cortef) 50 mg IVP Q6H NILES Last Admin: 01/15/18 08:38 Dose: 50 mg Fentanyl Citrate (Fentanyl Citrate/Sodium Chloride 1 Mg/100 Ml) 1,000 mcg in 100 mls @ 2 mls/hr IV .Q24H PRN; Protocol PRN Reason: TITRATE PER MD ORDER Last Titration: 01/14/18 22:29 Dose: 5 mcg/hr, 0.5 mls/hr Midazolam 100 mg/100ml in NS (Midazolam 100 Mg/100ml In Ns) 100 mg in 100 mls @ 1 mls/hr IV .Q24H PRN; Protocol PRN Reason: Sedation NOREPINEPHRINE BIT/0.9 % NACL (Levophed 4 Mg/ 250 Ml Ns Premixed) 4 mg in 250 mls @ 15 mls/hr IV .[id number] PRN; Protocol PRN Reason: TITRATE PER MD ORDER Last Titration: 01/15/18 09:15 Dose: 30 mcg/min, 112.5 mls/hr Meropenem/Sodium Chloride (Merrem Iv 500 Mg/Ns 50 Ml) 500 mg in 50 mls @ 100 mls/hr IVPB Q12 NILES; Protocol Last Admin: 01/15/18 09:20 Dose: 100 mls/hr Linezolid (Zyvox 600mg/300ml D5w) 600 mg in 300 mls @ 200 mls/hr IVPB Q12 NILES; Protocol Stop: 01/21/18 22:01 Last Admin: 01/15/18 09:19 Dose: 200 mls/hr Doxycycline Hyclate 100 mg/ (Sodium Chloride) 100 mls @ 100 mls/hr IVPB Q12 NILES; Protocol Last Admin: 01/15/18 09:20 Dose: 100 mls/hr Vasopressin 20 units/ Sodium (Chloride) 101 mls @ 9.09 mls/hr IV .Q11H7M NILES; Protocol Last Admin: 01/15/18 04:56 Dose: 9.09 mls/hr Albumin Human (Albumin Human 25% (25 Gm/100 Ml)) 400 mls @ 1 mls/min IV ONCE ONE Stop: 01/15/18 14:24 Last Admin: 01/15/18 08:46 Dose: 1 mls/min Dobutamine HCl/Dextrose (Dobutamine/Dextrose 5% 500mg/250ml) 500 mg in 250 mls @ 6.651 mls/hr IV .Q24H PRN; Protocol PRN Reason: TITRATE PER PROTOCOL Last Admin: 01/15/18 08:38 Dose: 2.5 mcg/kg/min, 6.651 mls/hr Acetylcysteine 4,430 mg/ (Dextrose) 522.15 mls @ 125 mls/hr IV .Q4H11M ONE; Protocol Stop: 01/15/18 14:10 Acetylcysteine 8,870 mg/ (Dextrose) 1,044.35 mls @ 62.5 mls/hr IV .[id number] ONE; Protocol Stop: 01/16/18 06:42 Sodium Bicarbonate 150 meq/ (Dextrose) 1,150 mls @ 150 mls/hr IV .Q7H40M [facility] Last Admin: 01/15/18 09:45 Dose: 150 mls/hr Epinephrine HCl 1 mg/ Sodium (Chloride) 51 mls @ 3.06 mls/hr IV .[id number] PRN; Protocol PRN Reason: TITRATE PER MD ORDER Last Admin: 01/15/18 09:48 Dose: 5 mcg/min, 15.3 mls/hr Ondansetron HCl (Zofran Inj) 4 mg IVP Q4H PRN PRN Reason: Nausea/Vomiting Pantoprazole Sodium (Protonix Inj) 40 mg IVP DAILY [facility] Last Admin: 01/15/18 09:19 Dose: 40 mg Thiamine HCl (Vitamin B1 Inj) 200 mg IV Q12 [facility] Last Admin: 01/15/18 09:19 Dose: 200 mg - Labs Labs (last 24 hours): Laboratory Results - last 24 hr 01/14/18 01/14/18 01/14/18 11:00 11:00 11:00 WBC 12.8 H RBC 4.56 Hgb 13.7 L Hct 39.1 L MCV 85.7 MCH 30.0 MCHC 35.0 RDW 21.6 H Plt Count 132 Manual Plt Count Gran % 73.0 H Lymph % (Auto) 17.6 L [place] % (Auto) 9.1 H Eos % (Auto) 0.3 L Baso % (Auto) 0.0 Gran # 9.36 H Lymph # (Auto) 2.3 [place] # (Auto) 1.2 H Eos # (Auto) 0.0 Baso # (Auto) 0.00 PT 17.5 H INR 1.51 APTT 42.4 H pCO2 pO2 58 H HCO3 ABG pH ABG Total CO2 ABG O2 Saturation ABG O2 Content ABG Base Excess ABG Hemoglobin ABG Carboxyhemoglobin POC ABG HHb (Measured) ABG Methemoglobin ABG O2 Capacity ABG Potassium VBG pH 7.19 L* VBG pCO2 32.0 L VBG HCO3 12.2 L VBG Total CO2 13.2 L VBG O2 Sat (Calc) 87.2 H VBG Base Excess -14.8 L VBG Potassium 7.4 H* Hgb O2 Saturation Sodium 122.0 L Chloride 90.0 L Glucose 145 H Lactate 8.1 H* Mechanical Rate FiO2 21.0 Tidal Volume PEEP Potassium Carbon Dioxide Anion Gap BUN Creatinine Est GFR ( Amer) Est GFR (Non-Af Amer) POC Glucose (mg/dL) Random Glucose Fructosamine Uric Acid Calcium Phosphorus Magnesium Total Bilirubin Direct Bilirubin AST ALT Alkaline Phosphatase Ammonia Lactate Dehydrogenase Total Creatine Kinase CK-MB (CK-2) CK-MB (CK-2) % Troponin I NT-Pro-B Natriuret Pep Total Protein Albumin Globulin Albumin/Globulin Ratio Triglycerides Cholesterol LDL Cholesterol Direct HDL Cholesterol Arterial Blood Potassium Venous Blood Potassium 7.4 H* Fluid Source Fluid Appearance Fluid WBC Fluid RBC Fluid Tot Cell Count Fluid Neutrophils Fluid Lymphocytes Fld Monocyte/Macrophag Fluid Comment Thoracentesis Fluid pH Salicylates Acetaminophen Alcohol, Quantitative 01/14/18 01/14/18 01/14/18 11:00 12:00 15:00 WBC RBC Hgb Hct MCV MCH MCHC RDW Plt Count Manual Plt Count Gran % Lymph % (Auto) [place] % (Auto) Eos % (Auto) Baso % (Auto) Gran # Lymph # (Auto) [place] # (Auto) Eos # (Auto) Baso # (Auto) PT INR APTT pCO2 18 L* pO2 149.0 H HCO3 9.3 L* ABG pH 7.32 L ABG Total CO2 9.9 L ABG O2 Saturation 100.3 H ABG O2 Content 18.6 ABG Base Excess -14.3 L ABG Hemoglobin 13.4 ABG Carboxyhemoglobin 1.9 H POC ABG HHb (Measured) -0.3 L ABG Methemoglobin 1.0 ABG O2 Capacity 18.5 ABG Potassium VBG pH VBG pCO2 VBG HCO3 VBG Total CO2 VBG O2 Sat (Calc) VBG Base Excess VBG Potassium Hgb O2 Saturation 97.4 Sodium 125 L Chloride 97 L Glucose Lactate Mechanical Rate FiO2 40.0 Tidal Volume PEEP Potassium 7.4 H* 7.0 H* Carbon Dioxide 12 L Anion Gap 23 H BUN 63 H Creatinine 7.2 H Est GFR ( Amer) 9 Est GFR (Non-Af Amer) 8 POC Glucose (mg/dL) Random Glucose 139 H Fructosamine Uric Acid Calcium 7.4 L Phosphorus 7.6 H Magnesium 2.6 H Total Bilirubin 7.3 H Direct Bilirubin AST 728 H ALT 439 H Alkaline Phosphatase 547 H Ammonia Lactate Dehydrogenase 1779 H Total Creatine Kinase 588 H CK-MB (CK-2) 12.0 H CK-MB (CK-2) % 2.0 L Troponin I 0.07 NT-Pro-B Natriuret Pep 2010 H Total Protein 8.0 Albumin 2.6 L Globulin 5.4 Albumin/Globulin Ratio 0.5 L Triglycerides Cholesterol LDL Cholesterol Direct HDL Cholesterol Arterial Blood Potassium Venous Blood Potassium Fluid Source Fluid Appearance Fluid WBC Fluid RBC Fluid Tot Cell Count Fluid Neutrophils Fluid Lymphocytes Fld Monocyte/Macrophag Fluid Comment Thoracentesis Fluid pH Salicylates Acetaminophen Alcohol, Quantitative 01/14/18 01/14/18 01/14/18 15:00 17:40 19:27 WBC RBC Hgb Hct MCV MCH MCHC RDW Plt Count Manual Plt Count Gran % Lymph % (Auto) [place] % (Auto) Eos % (Auto) Baso % (Auto) Gran # Lymph # (Auto) [place] # (Auto) Eos # (Auto) Baso # (Auto) PT INR APTT pCO2 pO2 65 H HCO3 ABG pH ABG Total CO2 ABG O2 Saturation ABG O2 Content ABG Base Excess ABG Hemoglobin ABG Carboxyhemoglobin POC ABG HHb (Measured) ABG Methemoglobin ABG O2 Capacity ABG Potassium VBG pH 7.33 VBG pCO2 28.0 L VBG HCO3 14.8 L VBG Total CO2 15.7 L VBG O2 Sat (Calc) 93.9 H VBG Base Excess -9.6 L VBG Potassium 7.0 H* Hgb O2 Saturation Sodium 123.0 L Chloride 93.0 L Glucose 198 H Lactate 5.2 H* Mechanical Rate FiO2 21.0 Tidal Volume PEEP Potassium Carbon Dioxide Anion Gap BUN Creatinine Est GFR ( Amer) Est GFR (Non-Af Amer) POC Glucose (mg/dL) Random Glucose Fructosamine Uric Acid Calcium Phosphorus Magnesium Total Bilirubin Direct Bilirubin AST ALT Alkaline Phosphatase Ammonia Lactate Dehydrogenase Total Creatine Kinase CK-MB (CK-2) CK-MB (CK-2) % Troponin I 0.07 NT-Pro-B Natriuret Pep Total Protein Albumin Globulin Albumin/Globulin Ratio Triglycerides Cholesterol LDL Cholesterol Direct HDL Cholesterol Arterial Blood Potassium Venous Blood Potassium 7.0 H* Fluid Source Fluid Appearance Fluid WBC Fluid RBC Fluid Tot Cell Count Fluid Neutrophils Fluid Lymphocytes Fld Monocyte/Macrophag Fluid Comment Thoracentesis Fluid pH 8.0 Salicylates Acetaminophen Alcohol, Quantitative 01/14/18 01/14/18 01/14/18 19:27 19:31 19:31 WBC RBC Hgb Hct MCV MCH MCHC RDW Plt Count Manual Plt Count Gran % Lymph % (Auto) [place] % (Auto) Eos % (Auto) Baso % (Auto) Gran # Lymph # (Auto) [place] # (Auto) Eos # (Auto) Baso # (Auto) PT INR APTT pCO2 pO2 HCO3 ABG pH ABG Total CO2 ABG O2 Saturation ABG O2 Content ABG Base Excess ABG Hemoglobin ABG Carboxyhemoglobin POC ABG HHb (Measured) ABG Methemoglobin ABG O2 Capacity ABG Potassium VBG pH VBG pCO2 VBG HCO3 VBG Total CO2 VBG O2 Sat (Calc) VBG Base Excess VBG Potassium Hgb O2 Saturation Sodium Chloride Glucose Lactate Mechanical Rate FiO2 Tidal Volume PEEP Potassium Carbon Dioxide Anion Gap BUN Creatinine Est GFR ( Amer) Est GFR (Non-Af Amer) POC Glucose (mg/dL) Random Glucose Fructosamine 315 H Uric Acid 6.3 Calcium Phosphorus Magnesium Total Bilirubin Direct Bilirubin AST ALT Alkaline Phosphatase Ammonia Lactate Dehydrogenase Total Creatine Kinase 474 H CK-MB (CK-2) 10.3 H CK-MB (CK-2) % 2.2 L Troponin I 0.07 NT-Pro-B Natriuret Pep Total Protein Albumin Globulin Albumin/Globulin Ratio Triglycerides Cholesterol LDL Cholesterol Direct HDL Cholesterol Arterial Blood Potassium Venous Blood Potassium Fluid Source Pleural/thoracentesi Fluid Appearance Bloody Fluid WBC 463.0 H Fluid RBC 310[address].0 H Fluid Tot Cell Count 100 H Fluid Neutrophils 24.2 H Fluid Lymphocytes 75.8 H Fld Monocyte/Macrophag TEST NOT PERFORMED Fluid Comment Red color Thoracentesis Fluid pH Salicylates Acetaminophen Alcohol, Quantitative 01/14/18 01/14/18 01/14/18 22:26 22:30 22:46 WBC RBC Hgb Hct MCV MCH MCHC RDW Plt Count Manual Plt Count Gran % Lymph % (Auto) [place] % (Auto) Eos % (Auto) Baso % (Auto) Gran # Lymph # (Auto) [place] # (Auto) Eos # (Auto) Baso # (Auto) PT INR APTT pCO2 21 L pO2 266.0 H 260 H HCO3 17.5 L ABG pH 7.53 H ABG Total CO2 18.1 L ABG O2 Saturation 100.0 H ABG O2 Content ABG Base Excess -3.2 L ABG Hemoglobin ABG Carboxyhemoglobin POC ABG HHb (Measured) ABG Methemoglobin ABG O2 Capacity ABG Potassium 4.9 VBG pH 7.51 H VBG pCO2 24.0 L VBG HCO3 19.2 L VBG Total CO2 19.9 L VBG O2 Sat (Calc) 100.1 H VBG Base Excess -2.1 L VBG Potassium 5.2 Hgb O2 Saturation Sodium 135.0 130 L 128.0 L Chloride 97.0 L 102 98.0 Glucose 97 99 Lactate 3.7 H 4.4 H* Mechanical Rate 20 FiO2 80.0 21.0 Tidal Volume 450 PEEP 5 Potassium 5.2 H Carbon Dioxide 20 L Anion Gap 13 BUN 36 H Creatinine 4.4 H Est GFR ( Amer) 17 Est GFR (Non-Af Amer) 14 POC Glucose (mg/dL) Random Glucose 97 Fructosamine Uric Acid Calcium 6.6 L* Phosphorus 5.1 H Magnesium 1.9 Total Bilirubin 5.6 H Direct Bilirubin AST 752 H ALT 380 H Alkaline Phosphatase 454 H Ammonia Lactate Dehydrogenase Total Creatine Kinase 467 H CK-MB (CK-2) 8.4 H CK-MB (CK-2) % Troponin I 0.08 NT-Pro-B Natriuret Pep Total Protein 6.2 Albumin 2.0 L Globulin 4.2 Albumin/Globulin Ratio 0.5 L Triglycerides Cholesterol LDL Cholesterol Direct HDL Cholesterol Arterial Blood Potassium 4.9 Venous Blood Potassium 5.2 Fluid Source Fluid Appearance Fluid WBC Fluid RBC Fluid Tot Cell Count Fluid Neutrophils Fluid Lymphocytes Fld Monocyte/Macrophag Fluid Comment Thoracentesis Fluid pH Salicylates Acetaminophen Alcohol, Quantitative 01/14/18 01/14/18 01/15/18 22:57 22:58 00:40 WBC 10.5 RBC 4.31 Hgb 12.9 L Hct 35.9 L MCV 83.3 MCH 29.9 MCHC 35.9 RDW 21.3 H Plt Count 86 L Manual Plt Count Gran % 67.6 Lymph % (Auto) 21.5 L [place] % (Auto) 8.5 H Eos % (Auto) 2.2 Baso % (Auto) 0.2 Gran # 7.10 H Lymph # (Auto) 2.3 [place] # (Auto) 0.9 H Eos # (Auto) 0.2 Baso # (Auto) 0.02 PT INR APTT pCO2 pO2 HCO3 ABG pH ABG Total CO2 ABG O2 Saturation ABG O2 Content ABG Base Excess ABG Hemoglobin ABG Carboxyhemoglobin POC ABG HHb (Measured) ABG Methemoglobin ABG O2 Capacity ABG Potassium VBG pH VBG pCO2 VBG HCO3 VBG Total CO2 VBG O2 Sat (Calc) VBG Base Excess VBG Potassium Hgb O2 Saturation Sodium Chloride Glucose Lactate Mechanical Rate FiO2 Tidal Volume PEEP Potassium Carbon Dioxide Anion Gap BUN Creatinine Est GFR ( Amer) Est GFR (Non-Af Amer) POC Glucose (mg/dL) Random Glucose Fructosamine Uric Acid Calcium Phosphorus Magnesium Total Bilirubin Direct Bilirubin AST ALT Alkaline Phosphatase Ammonia Lactate Dehydrogenase Total Creatine Kinase CK-MB (CK-2) CK-MB (CK-2) % Troponin I NT-Pro-B Natriuret Pep Total Protein Albumin Globulin Albumin/Globulin Ratio Triglycerides Cholesterol LDL Cholesterol Direct HDL Cholesterol Arterial Blood Potassium Venous Blood Potassium Fluid Source Fluid Appearance Fluid WBC Fluid RBC Fluid Tot Cell Count Fluid Neutrophils Fluid Lymphocytes Fld Monocyte/Macrophag Fluid Comment Thoracentesis Fluid pH Salicylates < 1 L Acetaminophen < 10.0 L Alcohol, Quantitative < 10 01/15/18 01/15/18 01/15/18 03:30 03:30 03:30 WBC 12.3 H RBC 4.39 Hgb 13.2 L Hct 37.1 L MCV 84.5 MCH 30.1 MCHC 35.6 RDW 21.5 H Plt Count 87 L Manual Plt Count Gran % 69.6 H Lymph % (Auto) 20.1 L [place] % (Auto) 8.1 H Eos % (Auto) 2.0 Baso % (Auto) 0.2 Gran # 8.54 H Lymph # (Auto) 2.5 [place] # (Auto) 1.0 H Eos # (Auto) 0.2 Baso # (Auto) 0.03 PT INR APTT pCO2 pO2 105 H HCO3 ABG pH ABG Total CO2 ABG O2 Saturation ABG O2 Content ABG Base Excess ABG Hemoglobin ABG Carboxyhemoglobin POC ABG HHb (Measured) ABG Methemoglobin ABG O2 Capacity ABG Potassium VBG pH 7.43 VBG pCO2 22.0 L VBG HCO3 14.6 L VBG Total CO2 15.3 L VBG O2 Sat (Calc) 99.3 H VBG Base Excess -7.6 L VBG Potassium 5.7 H Hgb O2 Saturation Sodium 128 L 128.0 L Chloride 103 98.0 Glucose 73 L Lactate 6.7 H* Mechanical Rate FiO2 21.0 Tidal Volume PEEP Potassium 5.6 H* Carbon Dioxide 15 L Anion Gap 16 BUN 37 H Creatinine 4.7 H Est GFR ( Amer) 15 Est GFR (Non-Af Amer) 13 POC Glucose (mg/dL) Random Glucose 69 L Fructosamine Uric Acid Calcium 6.1 L* Phosphorus 5.7 H Magnesium 1.9 Total Bilirubin 5.3 H Direct Bilirubin 4.4 H AST 853 H ALT 391 H Alkaline Phosphatase 436 H Ammonia Lactate Dehydrogenase Total Creatine Kinase 1124 H CK-MB (CK-2) 9.6 H CK-MB (CK-2) % 0.9 L Troponin I 0.12 D NT-Pro-B Natriuret Pep Total Protein 5.8 Albumin 1.8 L Globulin 4.0 Albumin/Globulin Ratio 0.4 L Triglycerides 126 Cholesterol 145 LDL Cholesterol Direct 76 HDL Cholesterol 12 L Arterial Blood Potassium Venous Blood Potassium 5.7 H Fluid Source Fluid Appearance Fluid WBC Fluid RBC Fluid Tot Cell Count Fluid Neutrophils Fluid Lymphocytes Fld Monocyte/Macrophag Fluid Comment Thoracentesis Fluid pH Salicylates Acetaminophen Alcohol, Quantitative 01/15/18 01/15/18 01/15/18 05:34 05:50 06:43 WBC RBC Hgb Hct MCV MCH MCHC RDW Plt Count Manual Plt Count Gran % Lymph % (Auto) [place] % (Auto) Eos % (Auto) Baso % (Auto) Gran # Lymph # (Auto) [place] # (Auto) Eos # (Auto) Baso # (Auto) PT INR APTT pCO2 26 L pO2 86.0 42 HCO3 14.0 L ABG pH 7.34 L ABG Total CO2 14.8 L ABG O2 Saturation 98.2 H ABG O2 Content ABG Base Excess -10.1 L ABG Hemoglobin ABG Carboxyhemoglobin POC ABG HHb (Measured) ABG Methemoglobin ABG O2 Capacity ABG Potassium 4.8 VBG pH 7.28 L VBG pCO2 35.0 L VBG HCO3 16.4 L VBG Total CO2 17.5 L VBG O2 Sat (Calc) 74.5 H VBG Base Excess -9.4 L VBG Potassium 5.4 H Hgb O2 Saturation Sodium 130.0 L 131.0 L Chloride 99.0 98.0 Glucose 76 76 Lactate 8.2 H* 8.3 H* Mechanical Rate FiO2 40.0 21.0 Tidal Volume PEEP Potassium Carbon Dioxide Anion Gap BUN Creatinine Est GFR ( Amer) Est GFR (Non-Af Amer) POC Glucose (mg/dL) 72 Random Glucose Fructosamine Uric Acid Calcium Phosphorus Magnesium Total Bilirubin Direct Bilirubin AST ALT Alkaline Phosphatase Ammonia Lactate Dehydrogenase Total Creatine Kinase CK-MB (CK-2) CK-MB (CK-2) % Troponin I NT-Pro-B Natriuret Pep Total Protein Albumin Globulin Albumin/Globulin Ratio Triglycerides Cholesterol LDL Cholesterol Direct HDL Cholesterol Arterial Blood Potassium 4.8 Venous Blood Potassium 5.4 H Fluid Source Fluid Appearance Fluid WBC Fluid RBC Fluid Tot Cell Count Fluid Neutrophils Fluid Lymphocytes Fld Monocyte/Macrophag Fluid Comment Thoracentesis Fluid pH Salicylates Acetaminophen Alcohol, Quantitative 01/15/18 01/15/18 01/15/18 06:51 06:51 08:26 WBC RBC Hgb Hct MCV MCH MCHC RDW Plt Count Manual Plt Count 85 L Gran % Lymph % (Auto) [place] % (Auto) Eos % (Auto) Baso % (Auto) Gran # Lymph # (Auto) [place] # (Auto) Eos # (Auto) Baso # (Auto) PT 23.4 H INR 2.01 APTT 79.4 H pCO2 23 L pO2 80.0 HCO3 12.7 L ABG pH 7.35 ABG Total CO2 13.4 L ABG O2 Saturation 96.9 ABG O2 Content 15.5 ABG Base Excess -11.1 L ABG Hemoglobin 11.7 ABG Carboxyhemoglobin 1.8 H POC ABG HHb (Measured) 3.0 ABG Methemoglobin 1.2 ABG O2 Capacity 16.0 ABG Potassium VBG pH VBG pCO2 VBG HCO3 VBG Total CO2 VBG O2 Sat (Calc) VBG Base Excess VBG Potassium Hgb O2 Saturation 93.9 L Sodium Chloride Glucose Lactate Mechanical Rate FiO2 40.0 Tidal Volume PEEP Potassium Carbon Dioxide Anion Gap BUN Creatinine Est GFR ( Amer) Est GFR (Non-Af Amer) POC Glucose (mg/dL) Random Glucose Fructosamine Uric Acid Calcium Phosphorus Magnesium Total Bilirubin Direct Bilirubin AST ALT Alkaline Phosphatase Ammonia Lactate Dehydrogenase Total Creatine Kinase CK-MB (CK-2) CK-MB (CK-2) % Troponin I NT-Pro-B Natriuret Pep Total Protein Albumin Globulin Albumin/Globulin Ratio Triglycerides Cholesterol LDL Cholesterol Direct HDL Cholesterol Arterial Blood Potassium Venous Blood Potassium Fluid Source Fluid Appearance Fluid WBC Fluid RBC Fluid Tot Cell Count Fluid Neutrophils Fluid Lymphocytes Fld Monocyte/Macrophag Fluid Comment Thoracentesis Fluid pH Salicylates Acetaminophen Alcohol, Quantitative 01/15/18 09:40 WBC RBC Hgb Hct MCV MCH MCHC RDW Plt Count Manual Plt Count Gran % Lymph % (Auto) [place] % (Auto) Eos % (Auto) Baso % (Auto) Gran # Lymph # (Auto) [place] # (Auto) Eos # (Auto) Baso # (Auto) PT INR APTT pCO2 pO2 HCO3 ABG pH ABG Total CO2 ABG O2 Saturation ABG O2 Content ABG Base Excess ABG Hemoglobin ABG Carboxyhemoglobin POC ABG HHb (Measured) ABG Methemoglobin ABG O2 Capacity ABG Potassium VBG pH VBG pCO2 VBG HCO3 VBG Total CO2 VBG O2 Sat (Calc) VBG Base Excess VBG Potassium Hgb O2 Saturation Sodium Chloride Glucose Lactate Mechanical Rate FiO2 Tidal Volume PEEP Potassium Carbon Dioxide Anion Gap BUN Creatinine Est GFR ( Amer) Est GFR (Non-Af Amer) POC Glucose (mg/dL) Random Glucose Fructosamine Uric Acid Calcium Phosphorus Magnesium Total Bilirubin Direct Bilirubin AST ALT Alkaline Phosphatase Ammonia 23 Lactate Dehydrogenase Total Creatine Kinase CK-MB (CK-2) CK-MB (CK-2) % Troponin I NT-Pro-B Natriuret Pep Total Protein Albumin Globulin Albumin/Globulin Ratio Triglycerides Cholesterol LDL Cholesterol Direct HDL Cholesterol Arterial Blood Potassium Venous Blood Potassium Fluid Source Fluid Appearance Fluid WBC Fluid RBC Fluid Tot Cell Count Fluid Neutrophils Fluid Lymphocytes Fld Monocyte/Macrophag Fluid Comment Thoracentesis Fluid pH Salicylates Acetaminophen Alcohol, Quantitative
[2018-01-15] MEDS ORDERED: Vancomycin 1gm in NS 250ml 1 GM/250 ML BAG IVPB STA (10:58)
[2018-01-15] MEDS: Albumin Human 25% (12.5 gm/50 ml) IV SCH ×4 (12:00→21:16)
--- NOTE | 2018-01-15 12:07 | PN ---
DATE: 01/15/2018 SUBJECTIVE: The patient is seen and examined at bedside. The patient is intubated on [facility]. The current settings are 450/16/5/40%. On that setting, oxygen saturation 96%. The patient is on norepinephrine 20 mcg per minute, vasopressin 0.03 units per minute. The patient is receiving normal saline at 150 mL per hour. The patient requiring only 20 mcg per minute of Fentanyl to be comfortable on mechanical ventilation. He appears to be synchronous with ventilator. OBJECTIVE: VITAL SIGNS: Blood pressure 81/39, heart rate 83, temperature 99.3. GENERAL: The patient had an episode of hypothermia yesterday after admission to hospital and then ICU. HEENT: Head and neck atraumatic. The patient is intubated. HEART: Regular rate and rhythm. S1, S2 distant. LUNGS: Clear to auscultation bilaterally. Decreased breath sounds bibasilar. ABDOMEN: Soft, nontender, nondistended. MUSCULOSKELETAL: Trace bilateral pedal and ankle edema. NEUROLOGIC: The patient was seen moving all extremities spontaneously. SKIN: Moist. PSYCHIATRIC: The patient following commands. Chest x-ray status post thoracentesis showed substantial improvement in left lung aeration. A CT abdomen and pelvis as well as chest was done, official report is pending. Echocardiogram was done, official report is pending. LABORATORY DATA: WBC 12.3, hemoglobin 13.2, platelet count 87,000. Sodium 128, potassium 5.6, chloride 103, carbon dioxide 15, BUN 37, creatinine 4.7, calcium 6.1, AST 853, ALT 391, total bilirubin 5.3. CPK 1124. Troponin 0.12, albumin 1.8. INR 2. VBG showed pH 7.28 with lactic acid 8.3. Salicylates less than 1. Tylenol less than 10. Alcohol level less than 10 as well. Pleural effusion was sent for analysis as of now, it is a lymphocyte predominant with pH 8, no glucose, LDH, protein as well as albumin content available at present time. MEDICATIONS: Doxycycline, dobutamine, heparin subcutaneous, hydrocortisone 50 mg IV every 6 hours, meropenem, norepinephrine, Zofran p.r.n., Protonix, sodium chloride at 150 mL/hour, thiamine 200 mg IV every 12 hours, vasopressin, and Zyvox. ASSESSMENT AND PLAN: This 62-year-old gentleman with shock, likely distributive with multiorgan system failure including acute kidney injury/acute tubular necrosis, respiratory failure, liver failure and severe lactic acidosis. 1. Neurologic: The patient is comfortable. He requires only minimal sedation on mechanical ventilation. He is following commands and moving all extremities. 2. Pulmonary: The patient is intubated for respiratory failure as a part of multiorgan dysfunction syndrome secondary to shock. Based on chest imaging and fi02 requirement--doesnt appear to have ARDS . We will proceed with low to intermediate tidal volume ventilation (KATIE 2018 from [employer] investigators, Vt <10 cc/pbw with Ppl<25 cmH20) to avoid ventilator induced lung injury. Patient did have thoracenthesis yesterday with removal of 1.8L-->most of the labs are pending, thus cant say whether exudate or transudate, but ph is 8, thus not an empyema. small area of consolidation is also visible, which may or may not be a source of refractory and profound septic shock (discussed with ID service as well). The patient is in shock, thus still requiring fluid resuscitation. Once shock resolved, conservative fluid oxygen management, daily sedation vacations and weaning trials will be instituted. We will continue with head of bed elevated more 35 degrees and oral hygiene. 3. Cardiovascular, ID, GI: Initially differential diagnosis included distributive vs cardiogenic shock, short trial of dobutamine (on top of NE, vaso and stress dose steroids) however did not improve hemodynamics. Shortly thereafter discussed case and echo with cardiology service, who was invloved with perioperative management of patient after 4 vessel CABG and MV repair. Agreed with dobutamine trial, which was d/c-ed by that time. Echo--did not reveal significant valvular abnormalities nor LV systolic/significant diastolic dysfunction. even troponin level was not elevated-->thus unlikely cardiogenic shock. Based on clinical presentation distributive shock is more likely, sepsis vs decompensated end stage liver disease. CT and abdominal US discussed with Dr. Huerta (surgical service) at bedside-->acute cholecystitis is highly unlikely and no role for cholecystostomy tube. Patient is too unstable for intrahospital transfer to nuclear radiology for HIDA scan. Intra and extrahepatic billiary tree does not seem dilated-->unlikely choledocholithiasis/ascending cholangitis. LLL consolidation may or may not be a potential source-->sputum culture, urine for legionella and strep ag were ordered (waiting for patient to produce some urine-patient is anuric), patient blood culture was sent, procalcitonin ordered. Patient has underlying liver disease, based on CT (discussed with Dr. 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 Nevertheless, synthetic function is clearly impared (INR>2, albumin 1.8, thrombocytopenia)-->started on NAC, albumin supplementation and resuscitation. No role for lamivudine (discussed with GI and ID service). Patient is not a candidate for liver transplant (profound shock, MODS, ROBER)-->GI svc agreed. Patient vasopressor requirement increased to NE 30 mcg/min, vaso 0.03 U/min and epinephrine 5 mcg/min. patient receiving stress dose steroids as well. started thiamine 200 mg IV BID (prelim retrospective single center data)-->Babak et al, Crit Care Med 2018. 4. Renal: The patient has acute kidney injury most likely due to acute tubular necrosis, due to distributive shock. The patient undergone 1 session of dialysis yesterday. His acidosis appears to be better controlled. His latest ABG showed pH 7.35. We will try to avoid hyperchloremia, nephrotoxic medication. We will maintain mean arterial pressure more than 65 and maintain euglycemia. 6. Infectious disease: The patient had an episode of hypothermia he has had a little bit of leukocytosis. I have high suspicion for sepsis/septic shock. The patient is on meropenem, doxycycline, linezolid. Infectious disease service is following him as well. Blood culture was sent. We will send sputum culture as well. Pleural effusion was sent for micro-analysis as well; however, it does not appear to be empyema We will send procalcitonin and urine culture. The patient undergone thoracentesis and there are some left lower lobe basilar consolidation visible. I will send urine for Legionella and Streptococcal antigen as well. 7. Hematology: The patient has thrombocytopenia, which most likely related to sepsis/DIC liver failure. We will keep close eye on that. No signs of bleeding. Hemoglobin is stable. I will hold heparin as the patient's INR is above 2 at present time. Addendum: repeated labs showed drop in Hb, platelets, significant increase in INR-->DIC with occult bleeding? worsening liver failure? LFTs are in 1000s now, lactate failed to clear (10.2). Will get hematology consult, will get peripheral smear, fibrinogen and retic count. Will hold on plasma and PRBC transfusion (discussed with Dr. France as well); will repeat CBC ccm time 40 min Sriram Shen MD [facility]
--- NOTE | 2018-01-15 12:08 | CP.PCM.PN ---
Subjective - Date & Time of Evaluation Date of Evaluation: 01/15/18 Time of Evaluation: 12:01 - Subjective Subjective: Nephrology Consultation Note: Assessment: critical Acute Kidney Injury (N17.9) oligoanuria: likely ATN due to hypotension/shock ? 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 2nd session today. using lower Na (132) in dialysate to avoid rapid correction in serum na (target not more than 6-8 meq/24 hrs) Maintain hemodynamics stable. Avoid hypotension. Patient not on ACEI/ARB due to ROBER and low BP Monitor Input/Output, daily weights and renal function with basic metabolic panel continue with IVF, pt started on bicarb drip, can add 125 meq bicarb in D5W instead of 150 meq in view of his hyponatremia supplement lytes as needed pt on pressors. GI, ID and cardiology following. may need input from tertiary care liver center once pt clinical condition better. ? add octreotide 200 mcg sq q8 hr. Check urine analysis, spot protein/creatinine, albumin/creatinine ratio, urine Na/cr. renal sono Check GN work up as VIRIDIANA,Anti dsDNA, ANCA (MPO and AR-3), Anti GBM antibody, HIV/Hep B and Hep C serology Check for 25-OH vitamin D, iPTH, phosphorus level. SPEP and ARIEL with serum FLC assay acetaminophen, salicylate and alcohol level with urine drug screen. Dose meds/antibiotics for reduced GFR. Avoid fleets enema/magnesium based laxatives. Avoid nephrotoxins/NSAIDs/ iodinated contrast (unless needed emergently) Glycemic control Further work up/management as per primary team Thanks for allowing me to participate in care of your patient. Will follow patient with you. Please call if any Qs. had d/w team Dr Jose Goldberg Office: [phone] Chief Complaint; unable to obtain Reason for consult: ROBER HPI: Pt is a 62 year M with hx of HTN, mitral valve repair and CABG oct 2017 @ [facility] [place], also left collapsed lung with water as per , went to rehab and has been home since early november. as per , pt has been doing fine, no known kid mehreen or liver problem (except Hep B +), until weekend when he felt SOB and decreased urine output renal consult for ROBER pt unable to provide any hx pt was hypothermic, intubated for respi failure, s/p thoracocentesis (1.8 L) left lung, started on pressors, abnormal LFT denied smoking/etoh/drugs/acetaminophen/salicylate/toxic ingestion/OTC or herbal meds no vomitting or diarrhoea review of home vitals WNL ROS: unable obtain from pt Physical Examination: seen during HD General Appearance: in no acute respiratory distress, ill appearing. orally intubated Vitals reviewed and noted as below Head; Atraumatic, normocephalic ENT: orally intubated EYES: Pupils are equal, round and reactive to light accommodation. Eye muscles and extraocular movement intact. Sclera is icteric. Neck; supple no lymphadenopathy, no thyromegaly or bruit Lungs: Increased respiratory rate/effort. Breath sounds reduced at Lt base Heart: Normal rate. s1s2 normal. No rub or gallop. has CABG scar + Extremities: 1+ edema. No varicose veins. Neurological: Patient is sedated Skin: Warm and dry. Normal turgor. No rash. Palpitation: Normal elasticity for age Abdomen: Abdomen is soft. Bowel sounds +. There is no abdominal tenderness, no guarding/rigidity no organomegaly. has superifical erythematous angiomas over abdomen skin Psych: unable MSK: no joint tenderness or swelling. Digits and nails normal, no deformity : kidney or bladder not palpable. has da silva Labs/imaging reviewed. Past medical history, past surgical history, family history, social history, allergy reviewed and noted as below Family hx: no hx of CKD. Rest non-contributory Objective - Vital Signs/Intake and Output Vital Signs (last 24 hours): Temp Pulse Resp BP Pulse Ox 99.3 F 90 26 H 103/35 L 100 01/15/18 10:10 01/15/18 10:15 01/15/18 10:15 01/15/18 10:15 01/15/18 10:15 Intake and Output: 01/15/18 01/15/18 06:59 18:59 Intake Total 3302 1901 Output Total 0 Balance 3302 1901 - Medications Medications: Current Medications Albumin Human (Albumin Human 25% (12.5 Gm/50 Ml)) 12.5 gm IV Q4H NILES Heparin Sodium (Porcine) (Heparin) 5,000 units SC Q12 NILES; Protocol Last Admin: 01/14/18 22:53 Dose: 5,000 units Hydrocortisone Sodium Succinate (Solu-Cortef) 50 mg IVP Q6H NILES Last Admin: 01/15/18 08:38 Dose: 50 mg Fentanyl Citrate (Fentanyl Citrate/Sodium Chloride 1 Mg/100 Ml) 1,000 mcg in 100 mls @ 2 mls/hr IV .Q24H PRN; Protocol PRN Reason: TITRATE PER MD ORDER Last Titration: 01/14/18 22:29 Dose: 5 mcg/hr, 0.5 mls/hr Midazolam 100 mg/100ml in NS (Midazolam 100 Mg/100ml In Ns) 100 mg in 100 mls @ 1 mls/hr IV .Q24H PRN; Protocol PRN Reason: Sedation NOREPINEPHRINE BIT/0.9 % NACL (Levophed 4 Mg/ 250 Ml Ns Premixed) 4 mg in 250 mls @ 15 mls/hr IV .[id number] PRN; Protocol PRN Reason: TITRATE PER MD ORDER Last Admin: 01/15/18 11:46 Dose: 30 mcg/min, 112.5 mls/hr Meropenem/Sodium Chloride (Merrem Iv 500 Mg/Ns 50 Ml) 500 mg in 50 mls @ 100 mls/hr IVPB Q12 NILES; Protocol Last Admin: 01/15/18 09:20 Dose: 100 mls/hr Doxycycline Hyclate 100 mg/ (Sodium Chloride) 100 mls @ 100 mls/hr IVPB Q12 NILES; Protocol Last Admin: 01/15/18 09:20 Dose: 100 mls/hr Vasopressin 20 units/ Sodium (Chloride) 101 mls @ 9.09 mls/hr IV .Q11H7M NILES; Protocol Last Admin: 01/15/18 04:56 Dose: 9.09 mls/hr Albumin Human (Albumin Human 25% (25 Gm/100 Ml)) 400 mls @ 1 mls/min IV ONCE ONE Stop: 01/15/18 14:24 Last Admin: 01/15/18 08:46 Dose: 1 mls/min Dobutamine HCl/Dextrose (Dobutamine/Dextrose 5% 500mg/250ml) 500 mg in 250 mls @ 6.651 mls/hr IV .Q24H PRN; Protocol PRN Reason: TITRATE PER PROTOCOL Last Admin: 01/15/18 08:38 Dose: 2.5 mcg/kg/min, 6.651 mls/hr Acetylcysteine 4,430 mg/ (Dextrose) 522.15 mls @ 125 mls/hr IV .Q4H11M ONE; Protocol Stop: 01/15/18 14:10 Acetylcysteine 8,870 mg/ (Dextrose) 1,044.35 mls @ 62.5 mls/hr IV .[id number] ONE; Protocol Stop: 01/16/18 06:42 Sodium Bicarbonate 150 meq/ (Dextrose) 1,150 mls @ 150 mls/hr IV .Q7H40M COUNT INCLUDES THE [facility] Last Admin: 01/15/18 09:45 Dose: 150 mls/hr Epinephrine HCl 1 mg/ Sodium (Chloride) 51 mls @ 3.06 mls/hr IV .[id number] PRN; Protocol PRN Reason: TITRATE PER MD ORDER Last Admin: 01/15/18 11:49 Dose: 5 mcg/min, 15.3 mls/hr Vancomycin HCl (Vancomycin 1gm) 1 gm in 250 mls @ 167 mls/hr IVPB STAT STA; Protocol Stop: 01/15/18 12:27 Thiamine HCl 200 mg/ Sodium (Chloride) 52 mls @ 104 mls/hr IV Q12 COUNT INCLUDES THE [facility] Ondansetron HCl (Zofran Inj) 4 mg IVP Q4H PRN PRN Reason: Nausea/Vomiting Pantoprazole Sodium (Protonix Inj) 40 mg IVP DAILY COUNT INCLUDES THE [facility] Last Admin: 01/15/18 09:19 Dose: 40 mg - Labs Labs: 01/15/18 03:30 01/15/18 03:30 PT 23.4 SECONDS (9.4-12.5) H 01/15/18 06:51 INR 2.01 01/15/18 06:51 APTT 79.4 Seconds (25.1-36.5) H 01/15/18 06:51
[2018-01-15] MEDS: Sodium Bicarbonate 8.4% 150 MEQ in Dextrose 5% In Water 1,000 ML IV SCH (12:20)
[2018-01-15 13:01] LABS: HEPATITIS A IGM NEGATIVE (NEGATIVE); HEPATITIS B CORE AB NEGATIVE (NEGATIVE)
[2018-01-15 13:13] LABS: HEPATITIS C ANTIBODY NEGATIVE (NEGATIVE)
[2018-01-15 13:24] LABS: HEPATITIS B CORE AB NEGATIVE (NEGATIVE)
[2018-01-15 13:36] LABS: HEPATITIS C ANTIBODY NEGATIVE (NEGATIVE)
--- NOTE | 2018-01-15 13:46 | US ---
Date of service: 01/15/2018 HISTORY: HEPATO RENAL FAILURE COMPARISON: None. TECHNIQUE: Sonographic evaluation of the abdomen. FINDINGS: LIVER: Measures 12.4 cm. Normal echogenicity of the liver parenchyma. No mass. No intrahepatic bile duct dilatation. Trace perihepatic ascites noted. GALLBLADDER: Cholelithiasis identified within a mildly distended gallbladder. No reported sonographic Steve sign. Limited sludge is question in the lumen. Thickening of the gallbladder wall is questioned, potentially up to 5 mm. No pericholecystic fluid collection. Clinically correlate for potential cholecystitis. COMMON BILE DUCT: Not identified due to over overlapped bowel gas. PANCREAS: Not identified due to overlying bowel gas. RIGHT KIDNEY: Measures 11.9cm. Normal echogenicity. No calculus, mass, or hydronephrosis. LEFT KIDNEY: Measures 11.5cm. Normal echogenicity. No calculus, mass, or hydronephrosis. SPLEEN: Normal in size and contour 8.3 cm greatest dimension. No mass. Trace perisplenic ascites noted. AORTA: Not visualized due to overlying bowel gas. IVC: Not visualized due to overlying bowel gas. OTHER FINDINGS: Incidental perihepatic and perisplenic ascites. IMPRESSION: Mild perihepatic and perisplenic ascites identified however no suspicious intrinsic liver or splenic changes are identified. Cholelithiasis and sludge in the lumen of the gallbladder with pattern suspicious for thickening of the gallbladder wall as well. Although there is no sonographic Steve sign, clinically correlate for potential cholecystitis. Pancreas, common bile duct and aorta as well as inferior vena cava are not identified due to extensive overlying bowel gas.
--- NOTE | 2018-01-15 14:59 | CON ---
DATE: 01/15/2018 The patient was seen in the ICU 128, bed 1. CHIEF COMPLAINT: Respiratory failure, intubated on a ventilator x1 day duration. HISTORY OF PRESENT ILLNESS: This is a 62-year-old male with a past medical history of hepatitis B, it is not clear if it is hepatitis B or chronic hepatitis B with a history of pulmonary hypertension, coronary artery disease, and systemic hypertension, diabetes, recently had coronary artery bypass graft approximately 3 months ago with a mitral valve repair, is admitted now with pleural effusion and respiratory failure. The patient was seen in the emergency room by Dr. Joy Aldridge and the patient was seen in the emergency room and needed emergent dialysis and the patient at respiratory failure, intubated on a ventilator and hypotension. The patient had been hypothermic, unable to give any information at this time. REVIEW OF SYSTEMS: Fourteen-point review of systems is performed. There is hypotension history reported, hypothermia is reported, and there has been abdominal pain reported, shortness of breath, and had minimal cough, unknown dysuria or frequency. PAST MEDICAL HISTORY: Significant for coronary artery disease, pulmonary hypertension, diabetes mellitus, systemic hypertension, and chronic hepatitis B. PAST SURGICAL HISTORY: Significant for the recent coronary artery bypass graft and mitral valve repair. ALLERGIES: THE PATIENT HAS NO KNOWN ALLERGIES. MEDICATIONS AT HOME: Reveals the patient to be on hydralazine, amlodipine, potassium, metoprolol, furosemide, atorvastatin, aspirin, and inhaler. PHYSICAL EXAMINATION: GENERAL: On exam, he is intubated on a ventilator. Overall, in poor condition and in the ICU bed #1. VITAL SIGNS: Initially temperature was 92.8, the patient's blood pressure is 103/35, and it was down to 75/43; respiratory rate, on a vent; heart rate of 84; saturation is noted. HEENT: Revealed the ET tube in place. NECK: Supple. LUNGS: Have decreased breath sounds. HEART: Normal S1, S2. ABDOMEN: Soft, nontender. No organomegaly. No rebound. No masses. LABORATORY DATA: Laboratory examination reveals a white count of 12,800, hemoglobin of 13, platelets of 132,000 which has dropped to 86,000 and the chemistries are noted. The patient's creatinine is 4.7, yesterday on admission it was 7.2, prior to that in the last hospitalization, the patient's creatinine was normal. LFTs are elevated at 8.8. AST of 728 and alkaline phosphatase is 547, CK of 588, and LVH. Pleural fluid information is reviewed. The patient had a CAT scan of the chest, no infiltrates are seen, it was read by Dr. Miguel Corado and atelectasis is seen in the right lower lobe and mediastinum is noted. ET tube is reviewed. The gallbladder appears cholelithiasis and distended. Common bile duct appears normal. Pancreatic reaction is difficult to evaluate. Potential left lower lobe pneumonia is read. Gallbladder hydrops evident, cirrhotic liver. ASSESSMENT AND PLAN: This is a 62-year-old male with diabetes, hypertension, coronary artery disease, pulmonary hypertension, hepatitis B, presenting now what appears to be septic shock, probably biliary in origin versus spontaneous bacterial peritonitis with a left lower lobe healthcare-associated pneumonia with acute kidney injury. We will give 1 dose of vancomycin, meropenem, doxycycline, and pending pancultures, sputum cultures, urine culture, urinalysis, blood cultures, and hepatitis workup has been ordered and we will also order a methicillin-resistant Staphylococcus aureus nasal screen test and we will make further recommendations. Babak Vivar MD
[2018-01-15 15:08] LABS: HEPATITIS B SURFACE AG Reactive (NEGATIVE)
[2018-01-15 15:09] LABS: HEP B SURFACE AG CONF CONFIRMED POSITIVE
[2018-01-15 15:17] LABS: HEPATITIS B SURFACE AG Reactive (NEGATIVE)
[2018-01-15 18:04] LABS: BASO # 0.01 K/mm3 (0.0-2.0); BASO % 0.1 % (0.0-3.0); EOS % 0.1 % (1.5-5.0); GRAN # 13.02 (1.4-6.5); HEMOGLOBIN 8.7 g/dL (14.0-18.0); LYMPH # 1.6 (1.2-3.4); MEAN CELL VOLUME 85.1 fl (80.0-105.0); MEAN CORPUSCULAR HEMOGLOBIN 30.1 pg (25.0-35.0); MEAN CORPUSCULAR HGB CONC 35.4 g/dl (31.0-37.0); MONO # 1.8 (0.1-0.6); MONO % 10.8 % (1.0-6.0); RBC 2.89 10^6/uL (3.5-6.1); RED CELL DISTRIBUTION WIDTH 21.8 % (11.5-14.5); WHITE BLOOD COUNT 16.5 10^3/uL (4.5-11.0)
[2018-01-15 18:10] LABS: PLATELET COUNT 44 10^3/uL (120.0-450.0)
[2018-01-15 18:12] LABS: ALB/GLOB RATIO 1.1 (1.1-1.8); ALBUMIN 2.8 g/dL (3.0-4.8)
[2018-01-15 18:23] LABS: PROTHROMBIN TIME 47.3 SECONDS (9.4-12.5)
[2018-01-15 18:24] LABS: INR 4.03
[2018-01-15 18:27] LABS: ARTERIAL BLOOD GAS HCO3 15.2 mmol/L (21-28); ARTERIAL BLOOD GAS O2 SAT 96.8 % (95-98); ARTERIAL BLOOD GAS PCO2 24 mm/Hg (35-45); ARTERIAL BLOOD GAS PH 7.41 (7.35-7.45); ARTERIAL BLOOD GAS TCO2 15.9 mmol.L (22-28)
--- NOTE | 2018-01-15 20:35 | CP.PCM.CON ---
History of Present Illness - History of Present Illness History of Present Illness: 62 year old male with a history of HTN, HL, CAD s/p CABG and MVR complicated by afib, presenting with shortness of breath, admitted with shock, multiorgan failure, renal failure on dialysis, with anemia and thrombocytopenia. I am unab le to obtain a history from the patient. Review of his blood work shows a platelet brooke of 44,000 and hgb of 8.3. Past medical, surgical, family, social history cannot be obtained from the patient. Allergies: NKA per documentation Review of systems cannot be obtained from the patient. Peripheral smear: Mild toxic granulation in WBC, few bands, mild anisopoikilocytosis, no increase in schistocytes, reduced platelets, some large platelets, no platelet clumping. Past Patient History - Past Social History Smoking Status: Unknown If Ever Smoked - CARDIAC Hx Cardiac Disorders: Yes Hx Congestive Heart Failure: Yes Hx Hypertension: Yes Hx Mitral Valve Prolapse: Yes - PULMONARY Hx Respiratory Disorders: Yes (L lung collapse postop 10/2017) - NEUROLOGICAL Hx Neurological Disorder: No - HEENT Hx HEENT Problems: No - RENAL Hx Chronic Kidney Disease: No - ENDOCRINE/METABOLIC Hx Endocrine Disorders: Yes Hx Diabetes Mellitus Type 2: Yes - HEMATOLOGICAL/ONCOLOGICAL Hx Blood Disorders: No - INTEGUMENTARY Hx Dermatological Problems: Yes Other/Comment: surgical scar midsternal and epigastric - MUSCULOSKELETAL/RHEUMATOLOGICAL Hx Musculoskeletal Disorders: No - GASTROINTESTINAL Hx Gastrointestinal Disorders: No - GENITOURINARY/GYNECOLOGICAL Hx Genitourinary Disorders: No - PSYCHIATRIC Hx Depression: No Hx Emotional Abuse: No Hx Physical Abuse: No Hx Substance Use: No - SURGICAL HISTORY Hx Surgeries: Yes Hx Coronary Artery Bypass Graft: Yes (quadruple bypass 10/2017) Hx Valve Replacement: Yes (mitral 10/2017) Meds Allergies/Adverse Reactions: Allergies Allergy/AdvReac Type Severity Reaction Status Date / Time No Known Allergies Allergy Verified 01/14/18 11:05 - Medications Medications: Current Medications Albumin Human (Albumin Human 25% (12.5 Gm/50 Ml)) 12.5 gm IV Q4H NILES Last Admin: 01/15/18 17:01 Dose: 12.5 gm Heparin Sodium (Porcine) (Heparin) 5,000 units SC Q12 NILES; Protocol Last Admin: 01/14/18 22:53 Dose: 5,000 units Hydrocortisone Sodium Succinate (Solu-Cortef) 50 mg IVP Q6H NILES Last Admin: 01/15/18 13:33 Dose: 50 mg Fentanyl Citrate (Fentanyl Citrate/Sodium Chloride 1 Mg/100 Ml) 1,000 mcg in 100 mls @ 2 mls/hr IV .Q24H PRN; Protocol PRN Reason: TITRATE PER MD ORDER Last Titration: 01/14/18 22:29 Dose: 5 mcg/hr, 0.5 mls/hr Midazolam 100 mg/100ml in NS (Midazolam 100 Mg/100ml In Ns) 100 mg in 100 mls @ 1 mls/hr IV .Q24H PRN; Protocol PRN Reason: Sedation NOREPINEPHRINE BIT/0.9 % NACL (Levophed 4 Mg/ 250 Ml Ns Premixed) 4 mg in 250 mls @ 15 mls/hr IV .[id number] PRN; Protocol PRN Reason: TITRATE PER MD ORDER Last Admin: 01/15/18 19:39 Dose: 30 mcg/min, 112.5 mls/hr Meropenem/Sodium Chloride (Merrem Iv 500 Mg/Ns 50 Ml) 500 mg in 50 mls @ 100 mls/hr IVPB Q12 NILES; Protocol Last Admin: 01/15/18 09:20 Dose: 100 mls/hr Doxycycline Hyclate 100 mg/ (Sodium Chloride) 100 mls @ 100 mls/hr IVPB Q12 NILES; Protocol Last Admin: 01/15/18 09:20 Dose: 100 mls/hr Vasopressin 20 units/ Sodium (Chloride) 101 mls @ 9.09 mls/hr IV .Q11H7M NILES; Protocol Last Admin: 01/15/18 16:00 Dose: 9.09 mls/hr Dobutamine HCl/Dextrose (Dobutamine/Dextrose 5% 500mg/250ml) 500 mg in 250 mls @ 6.651 mls/hr IV .Q24H PRN; Protocol PRN Reason: TITRATE PER PROTOCOL Last Titration: 01/15/18 09:40 Dose: Infused Acetylcysteine 8,870 mg/ (Dextrose) 1,044.35 mls @ 62.5 mls/hr IV .[id number] ONE; Protocol Stop: 01/16/18 06:42 Last Admin: 01/15/18 18:04 Dose: 62.5 mls/hr Epinephrine HCl 1 mg/ Sodium (Chloride) 51 mls @ 3.06 mls/hr IV .[id number] PRN; P rotocol PRN Reason: TITRATE PER MD ORDER Last Titration: 01/15/18 20:27 Dose: 5 mcg/min, 15.3 mls/hr Thiamine HCl 200 mg/ Sodium (Chloride) 52 mls @ 104 mls/hr IV Q12 NILES Sodium Bicarbonate 150 meq/ (Dextrose) 1,150 mls @ 125 mls/hr IV .Q9H12M [facility] Last Admin: 01/15/18 12:20 Dose: 125 mls/hr Ondansetron HCl (Zofran Inj) 4 mg IVP Q4H PRN PRN Reason: Nausea/Vomiting Pantoprazole Sodium (Protonix Inj) [address] [facility] Last Admin: 01/15/18 09:19 Dose: 40 mg Physical Exam - Head Exam Head Exam: ATRAUMATIC - Eye Exam Eye Exam: Normal appearance - ENT Exam ENT Exam: Mucous Membranes Dry - Respiratory Exam Respiratory Exam: Decreased Breath Sounds - Cardiovascular Exam Cardiovascular Exam: +S1, +S2 - GI/Abdominal Exam GI & Abdominal Exam: Normal Bowel Sounds - Extremities Exam Extremities exam: Positive for: pedal edema Results - Vital Signs Recent Vital Signs: Last Vital Signs Temp 97.9 F 01/15/18 18:00 Pulse 99 H 01/15/18 18:00 Resp 26 H 01/15/18 18:00 BP 110/45 L 01/15/18 18:00 Pulse Ox 95 01/15/18 18:00 - Labs Result Diagrams: 01/16/18 05:30 01/16/18 05:30 Labs: Laboratory Results - last 24 hr 01/14/18 01/14/18 01/14/18 19:31 19:31 19:31 WBC RBC Hgb Hct MCV MCH MCHC RDW Plt Count Manual Plt Count Gran % Lymph % (Auto) [place] % (Auto) Eos % (Auto) Baso % (Auto) Gran # Lymph # (Auto) [place] # (Auto) Eos # (Auto) Baso # (Auto) PT INR APTT pCO2 pO2 HCO3 ABG pH ABG Total CO2 ABG O2 Saturation ABG O2 Content ABG Base Excess ABG Hemoglobin ABG Carboxyhemoglobin POC ABG HHb (Measured) ABG Methemoglobin ABG O2 Capacity ABG Potassium VBG pH VBG pCO2 VBG HCO3 VBG Total CO2 VBG O2 Sat (Calc) VBG Base Excess VBG Potassium Hgb O2 Saturation Sodium Chloride Glucose Lactate Mechanical Rate FiO2 Tidal Volume PEEP Potassium Carbon Dioxide Anion Gap BUN Creatinine Est GFR ( Amer) Est GFR (Non-Af Amer) POC Glucose (mg/dL) Random Glucose Hemoglobin A1c Fructosamine 315 H Calcium Phosphorus Magnesium Total Bilirubin Direct Bilirubin AST ALT Alkaline Phosphatase Ammonia Total Creatine Kinase CK-MB (CK-2) CK-MB (CK-2) % Troponin I C-React Prot High Sens > 15.00 H Total Protein Albumin Globulin Albumin/Globulin Ratio Triglycerides Cholesterol LDL Cholesterol Direct HDL Cholesterol 25-OH Vitamin D Total Procalcitonin 4.96 H Arterial Blood Potassium Venous Blood Potassium Salicylates Acetaminophen Alcohol, Quantitative Hepatitis A IgM Ab Hep Bs Antigen Hep Bs Ag Neutralizatn Hep Bs Antibody Hep B Core IgM Ab Hepatitis C Antibody HIV 1&2 Antibody Screen 01/14/18 01/14/18 01/14/18 22:26 22:30 22:46 WBC RBC Hgb Hct MCV MCH MCHC RDW Plt Count Manual Plt Count Gran % Lymph % (Auto) [place] % (Auto) Eos % (Auto) Baso % (Auto) Gran # Lymph # (Auto) [place] # (Auto) Eos # (Auto) Baso # (Auto) PT INR APTT pCO2 21 L pO2 266.0 H 260 H HCO3 17.5 L ABG pH 7.53 H ABG Total CO2 18.1 L ABG O2 Saturation 100.0 H ABG O2 Content ABG Base Excess -3.2 L ABG Hemoglobin ABG Carboxyhemoglobin POC ABG HHb (Measured) ABG Methemoglobin ABG O2 Capacity ABG Potassium 4.9 VBG pH 7.51 H VBG pCO2 24.0 L VBG HCO3 19.2 L VBG Total CO2 19.9 L VBG O2 Sat (Calc) 100.1 H VBG Base Excess -2.1 L VBG Potassium 5.2 Hgb O2 Saturation Sodium 135.0 130 L 128.0 L Chloride 97.0 L 102 98.0 Glucose 97 99 Lactate 3.7 H 4.4 H* Mechanical Rate 20 FiO2 80.0 21.0 Tidal Volume 450 PEEP 5 Potassium 5.2 H Carbon Dioxide 20 L Anion Gap 13 BUN 36 H Creatinine 4.4 H Est GFR ( Amer) 17 Est GFR (Non-Af Amer) 14 POC Glucose (mg/dL) Random Glucose 97 Hemoglobin A1c Fructosamine Calcium 6.6 L* Phosphorus 5.1 H Magnesium 1.9 Total Bilirubin 5.6 H Direct Bilirubin AST 752 H ALT 380 H Alkaline Phosphatase 454 H Ammonia Total Creatine Kinase 467 H CK-MB (CK-2) 8.4 H CK-MB (CK-2) % Troponin I 0.08 C-React Prot High Sens Total Protein 6.2 Albumin 2.0 L Globulin 4.2 Albumin/Globulin Ratio 0.5 L Triglycerides Cholesterol LDL Cholesterol Direct HDL Cholesterol 25-OH Vitamin D Total Procalcitonin Arterial Blood Potassium 4.9 Venous Blood Potassium 5.2 Salicylates Acetaminophen Alcohol, Quantitative Hepatitis A IgM Ab Hep Bs Antigen Hep Bs Ag Neutralizatn Hep Bs Antibody Hep B Core IgM Ab Hepatitis C Antibody HIV 1&2 Antibody Screen 01/14/18 01/14/18 01/14/18 22:57 22:58 23:00 WBC RBC Hgb Hct MCV MCH MCHC RDW Plt Count Manual Plt Count Gran % Lymph % (Auto) [place] % (Auto) Eos % (Auto) Baso % (Auto) Gran # Lymph # (Auto) [place] # (Auto) Eos # (Auto) Baso # (Auto) PT INR APTT pCO2 pO2 HCO3 ABG pH ABG Total CO2 ABG O2 Saturation ABG O2 Content ABG Base Excess ABG Hemoglobin ABG Carboxyhemoglobin POC ABG HHb (Measured) ABG Methemoglobin ABG O2 Capacity ABG Potassium VBG pH VBG pCO2 VBG HCO3 VBG Total CO2 VBG O2 Sat (Calc) VBG Base Excess VBG Potassium Hgb O2 Saturation Sodium Chloride Glucose Lactate Mechanical Rate FiO2 Tidal Volume PEEP Potassium Carbon Dioxide Anion Gap BUN Creatinine Est GFR ( Amer) Est GFR (Non-Af Amer) POC Glucose (mg/dL) Random Glucose Hemoglobin A1c Fructosamine Calcium Phosphorus Magnesium Total Bilirubin Direct Bilirubin AST ALT Alkaline Phosphatase Ammonia Total Creatine Kinase CK-MB (CK-2) CK-MB (CK-2) % Troponin I C-React Prot High Sens Total Protein Albumin Globulin Albumin/Globulin Ratio Triglycerides Cholesterol LDL Cholesterol Direct HDL Cholesterol 25-OH Vitamin D Total Procalcitonin Arterial Blood Potassium Venous Blood Potassium Salicylates < 1 L Acetaminophen < 10.0 L Alcohol, Quantitative < 10 Hepatitis A IgM Ab Hep Bs Antigen Reactive Hep Bs Ag Neutralizatn Confirmed positive H Hep Bs Antibody Hep B Core IgM Ab Negative Hepatitis C Antibody Negative HIV 1&2 Antibody Screen 01/14/18 01/14/18 01/15/18 23:00 23:00 00:40 WBC 10.5 RBC 4.31 Hgb 12.9 L Hct 35.9 L MCV 83.3 MCH 29.9 MCHC 35.9 RDW 21.3 H Plt Count 86 L Manual Plt Count Gran % 67.6 Lymph % (Auto) 21.5 L [place] % (Auto) 8.5 H Eos % (Auto) 2.2 Baso % (Auto) 0.2 Gran # 7.10 H Lymph # (Auto) 2.3 [place] # (Auto) 0.9 H Eos # (Auto) 0.2 Baso # (Auto) 0.02 PT INR APTT pCO2 pO2 HCO3 ABG pH ABG Total CO2 ABG O2 Saturation ABG O2 Content ABG Base Excess ABG Hemoglobin ABG Carboxyhemoglobin POC ABG HHb (Measured) ABG Methemoglobin ABG O2 Capacity ABG Potassium VBG pH VBG pCO2 VBG HCO3 VBG Total CO2 VBG O2 Sat (Calc) VBG Base Excess VBG Potassium Hgb O2 Saturation Sodium Chloride Glucose Lactate Mechanical Rate FiO2 Tidal Volume PEEP Potassium Carbon Dioxide Anion Gap BUN Creatinine Est GFR ( Amer) Est GFR (Non-Af Amer) POC Glucose (mg/dL) Random Glucose Hemoglobin A1c Fructosamine Calcium Phosphorus Magnesium Total Bilirubin Direct Bilirubin AST ALT Alkaline Phosphatase Ammonia Total Creatine Kinase CK-MB (CK-2) CK-MB (CK-2) % Troponin I C-React Prot High Sens Total Protein Albumin Globulin Albumin/Globulin Ratio Triglycerides Cholesterol LDL Cholesterol Direct HDL Cholesterol 25-OH Vitamin D Total Procalcitonin Arterial Blood Potassium Venous Blood Potassium Salicylates Acetaminophen Alcohol, Quantitative Hepatitis A IgM Ab Hep Bs Antigen Hep Bs Ag Neutralizatn Hep Bs Antibody Negative Hep B Core IgM Ab Hepatitis C Antibody HIV 1&2 Antibody Screen Negative 01/15/18 01/15/18 01/15/18 03:30 03:30 03:30 WBC 12.3 H RBC 4.39 Hgb 13.2 L Hct 37.1 L MCV 84.5 MCH 30.1 MCHC 35.6 RDW 21.5 H Plt Count 87 L Manual Plt Count Gran % 69.6 H Lymph % (Auto) 20.1 L [place] % (Auto) 8.1 H Eos % (Auto) 2.0 Baso % (Auto) 0.2 Gran # 8.54 H Lymph # (Auto) 2.5 [place] # (Auto) 1.0 H Eos # (Auto) 0.2 Baso # (Auto) 0.03 PT INR APTT pCO2 pO2 HCO3 ABG pH ABG Total CO2 ABG O2 Saturation ABG O2 Content ABG Base Excess ABG Hemoglobin ABG Carboxyhemoglobin POC ABG HHb (Measured) ABG Methemoglobin ABG O2 Capacity ABG Potassium VBG pH VBG pCO2 VBG HCO3 VBG Total CO2 VBG O2 Sat (Calc) VBG Base Excess VBG Potassium Hgb O2 Saturation Sodium 128 L Chloride 103 Glucose Lactate Mechanical Rate FiO2 Tidal Volume PEEP Potassium 5.6 H* Carbon Dioxide 15 L Anion Gap 16 BUN 37 H Creatinine 4.7 H Est GFR ( Amer) 15 Est GFR (Non-Af Amer) 13 POC Glucose (mg/dL) Random Glucose 69 L Hemoglobin A1c Fructosamine Calcium 6.1 L* Phosphorus 5.7 H Magnesium 1.9 Total Bilirubin 5.3 H Direct Bilirubin 4.4 H AST 853 H ALT 391 H Alkaline Phosphatase 436 H Ammonia Total Creatine Kinase 1124 H CK-MB (CK-2) 9.6 H CK-MB (CK-2) % 0.9 L Troponin I 0.12 D C-React Prot High Sens Total Protein 5.8 Albumin 1.8 L Globulin 4.0 Albumin/Globulin Ratio 0.4 L Triglycerides 126 Cholesterol 145 LDL Cholesterol Direct 76 HDL Cholesterol 12 L 25-OH Vitamin D Total 17.6 L Procalcitonin Arterial Blood Potassium Venous Blood Potassium Salicylates Acetaminophen Alcohol, Quantitative Hepatitis A IgM Ab Hep Bs Antigen Hep Bs Ag Neutralizatn Hep Bs Antibody Hep B Core IgM Ab Hepatitis C Antibody HIV 1&2 Antibody Screen 01/15/18 01/15/18 01/15/18 03:30 03:30 05:34 WBC RBC Hgb Hct MCV MCH MCHC RDW Plt Count Manual Plt Count Gran % Lymph % (Auto) [place] % (Auto) Eos % (Auto) Baso % (Auto) Gran # Lymph # (Auto) [place] # (Auto) Eos # (Auto) Baso # (Auto) PT INR APTT pCO2 pO2 105 H HCO3 ABG pH ABG Total CO2 ABG O2 Saturation ABG O2 Content ABG Base Excess ABG Hemoglobin ABG Carboxyhemoglobin POC ABG HHb (Measured) ABG Methemoglobin ABG O2 Capacity ABG Potassium VBG pH 7.43 VBG pCO2 22.0 L VBG HCO3 14.6 L VBG Total CO2 15.3 L VBG O2 Sat (Calc) 99.3 H VBG Base Excess -7.6 L VBG Potassium 5.7 H Hgb O2 Saturation Sodium 128.0 L Chloride 98.0 Glucose 73 L Lactate 6.7 H* Mechanical Rate FiO2 21.0 Tidal Volume PEEP Potassium Carbon Dioxide Anion Gap BUN Creatinine Est GFR ( Amer) Est GFR (Non-Af Amer) POC Glucose (mg/dL) 72 Random Glucose Hemoglobin A1c 6.3 Fructosamine Calcium Phosphorus Magnesium Total Bilirubin Direct Bilirubin AST ALT Alkaline Phosphatase Ammonia Total Creatine Kinase CK-MB (CK-2) CK-MB (CK-2) % Troponin I C-React Prot High Sens Total Protein Albumin Globulin Albumin/Globulin Ratio Triglycerides Cholesterol LDL Cholesterol Direct HDL Cholesterol 25-OH Vitamin D Total Procalcitonin Arterial Blood Potassium Venous Blood Potassium 5.7 H Salicylates Acetaminophen Alcohol, Quantitative Hepatitis A IgM Ab Hep Bs Antigen Hep Bs Ag Neutralizatn Hep Bs Antibody Hep B Core IgM Ab Hepatitis C Antibody HIV 1&2 Antibody Screen 01/15/18 01/15/18 01/15/18 05:50 06:00 06:43 WBC RBC Hgb Hct MCV MCH MCHC RDW Plt Count Manual Plt Count Gran % Lymph % (Auto) [place] % (Auto) Eos % (Auto) Baso % (Auto) Gran # Lymph # (Auto) [place] # (Auto) Eos # (Auto) Baso # (Auto) PT INR APTT pCO2 26 L pO2 86.0 42 HCO3 14.0 L ABG pH 7.34 L ABG Total CO2 14.8 L ABG O2 Saturation 98.2 H ABG O2 Content ABG Base Excess -10.1 L ABG Hemoglobin ABG Carboxyhemoglobin POC ABG HHb (Measured) ABG Methemoglobin ABG O2 Capacity ABG Potassium 4.8 VBG pH 7.28 L VBG pCO2 35.0 L VBG HCO3 16.4 L VBG Total CO2 17.5 L VBG O2 Sat (Calc) 74.5 H VBG Base Excess -9.4 L VBG Potassium 5.4 H Hgb O2 Saturation Sodium 130.0 L 131.0 L Chloride 99.0 98.0 Glucose 76 76 Lactate 8.2 H* 8.3 H* Mechanical Rate FiO2 40.0 21.0 Tidal Volume PEEP Potassium Carbon Dioxide Anion Gap BUN Creatinine Est GFR ( Amer) Est GFR (Non-Af Amer) POC Glucose (mg/dL) Random Glucose Hemoglobin A1c Fructosamine Calcium Phosphorus Magnesium Total Bilirubin Direct Bilirubin AST ALT Alkaline Phosphatase Ammonia Total Creatine Kinase CK-MB (CK-2) CK-MB (CK-2) % Troponin I C-React Prot High Sens Total Protein Albumin Globulin Albumin/Globulin Ratio Triglycerides Cholesterol LDL Cholesterol Direct HDL Cholesterol 25-OH Vitamin D Total Procalcitonin Arterial Blood Potassium 4.8 Venous Blood Potassium 5.4 H Salicylates Acetaminophen Alcohol, Quantitative Hepatitis A IgM Ab Negative Hep Bs Antigen Reactive Hep Bs Ag Neutralizatn Hep Bs Antibody Hep B Core IgM Ab Negative Hepatitis C Antibody Negative HIV 1&2 Antibody Screen 01/15/18 01/15/18 01/15/18 06:51 06:51 07:37 WBC RBC Hgb Hct MCV MCH MCHC RDW Plt Count Manual Plt Count 85 L Gran % Lymph % (Auto) [place] % (Auto) Eos % (Auto) Baso % (Auto) Gran # Lymph # (Auto) [place] # (Auto) Eos # (Auto) Baso # (Auto) PT 23.4 H INR 2.01 APTT 79.4 H pCO2 pO2 HCO3 ABG pH ABG Total CO2 ABG O2 Saturation ABG O2 Content ABG Base Excess ABG Hemoglobin ABG Carboxyhemoglobin POC ABG HHb (Measured) ABG Methemoglobin ABG O2 Capacity ABG Potassium VBG pH VBG pCO2 VBG HCO3 VBG Total CO2 VBG O2 Sat (Calc) VBG Base Excess VBG Potassium Hgb O2 Saturation Sodium Chloride Glucose Lactate Mechanical Rate FiO2 Tidal Volume PEEP Potassium Carbon Dioxide Anion Gap BUN Creatinine Est GFR ( Amer) Est GFR (Non-Af Amer) POC Glucose (mg/dL) 88 Random Glucose Hemoglobin A1c Fructosamine Calcium Phosphorus Magnesium Total Bilirubin Direct Bilirubin AST ALT Alkaline Phosphatase Ammonia Total Creatine Kinase CK-MB (CK-2) CK-MB (CK-2) % Troponin I C-React Prot High Sens Total Protein Albumin Globulin Albumin/Globulin Ratio Triglycerides Cholesterol LDL Cholesterol Direct HDL Cholesterol 25-OH Vitamin D Total Procalcitonin Arterial Blood Potassium Venous Blood Potassium Salicylates Acetaminophen Alcohol, Quantitative Hepatitis A IgM Ab Hep Bs Antigen Hep Bs Ag Neutralizatn Hep Bs Antibody Hep B Core IgM Ab Hepatitis C Antibody HIV 1&2 Antibody Screen 01/15/18 01/15/18 01/15/18 07:45 08:26 09:40 WBC RBC Hgb Hct MCV MCH MCHC RDW Plt Count Manual Plt Count Gran % Lymph % (Auto) [place] % (Auto) Eos % (Auto) Baso % (Auto) Gran # Lymph # (Auto) [place] # (Auto) Eos # (Auto) Baso # (Auto) PT INR APTT pCO2 23 L pO2 80.0 HCO3 12.7 L ABG pH 7.35 ABG Total CO2 13.4 L ABG O2 Saturation 96.9 ABG O2 Content 15.5 ABG Base Excess -11.1 L ABG Hemoglobin 11.7 ABG Carboxyhemoglobin 1.8 H POC ABG HHb (Measured) 3.0 ABG Methemoglobin 1.2 ABG O2 Capacity 16.0 ABG Potassium VBG pH VBG pCO2 VBG HCO3 VBG Total CO2 VBG O2 Sat (Calc) VBG Base Excess VBG Potassium Hgb O2 Saturation 93.9 L Sodium Chloride Glucose Lactate Mechanical Rate FiO2 40.0 Tidal Volume PEEP Potassium Carbon Dioxide Anion Gap BUN Creatinine Est GFR ( Amer) Est GFR (Non-Af Amer) POC Glucose (mg/dL) Random Glucose Hemoglobin A1c Fructosamine Calcium Phosphorus Magnesium Total Bilirubin Direct Bilirubin AST ALT Alkaline Phosphatase Ammonia 23 Total Creatine Kinase CK-MB (CK-2) CK-MB (CK-2) % Troponin I C-React Prot High Sens Total Protein Albumin Globulin Albumin/Globulin Ratio Triglycerides Cholesterol LDL Cholesterol Direct HDL Cholesterol 25-OH Vitamin D Total Procalcitonin Arterial Blood Potassium Venous Blood Potassium Salicylates Acetaminophen Alcohol, Quantitative Hepatitis A IgM Ab Hep Bs Antigen Hep Bs Ag Neutralizatn Confirmed positive H Hep Bs Antibody Hep B Core IgM Ab Hepatitis C Antibody HIV 1&2 Antibody Screen 01/15/18 01/15/18 01/15/18 11:21 16:56 17:55 WBC 16.5 H D RBC 2.89 L Hgb 8.7 L D Hct 24.6 L MCV 85.1 MCH 30.1 MCHC 35.4 RDW 21.8 H Plt Count 44 L* Manual Plt Count Gran % 79.0 H Lymph % (Auto) 10.0 L [place] % (Auto) 10.8 H Eos % (Auto) 0.1 L Baso % (Auto) 0.1 Gran # 13.02 H Lymph # (Auto) 1.6 [place] # (Auto) 1.8 H Eos # (Auto) 0.0 Baso # (Auto) 0.01 PT INR APTT pCO2 pO2 HCO3 ABG pH ABG Total CO2 ABG O2 Saturation ABG O2 Content ABG Base Excess ABG Hemoglobin ABG Carboxyhemoglobin POC ABG HHb (Measured) ABG Methemoglobin ABG O2 Capacity ABG Potassium VBG pH VBG pCO2 VBG HCO3 VBG Total CO2 VBG O2 Sat (Calc) VBG Base Excess VBG Potassium Hgb O2 Saturation Sodium Chloride Glucose Lactate Mechanical Rate FiO2 Tidal Volume PEEP Potassium Carbon Dioxide Anion Gap BUN Creatinine Est GFR ( Amer) Est GFR (Non-Af Amer) POC Glucose (mg/dL) 117 H 135 H Random Glucose Hemoglobin A1c Fructosamine Calcium Phosphorus Magnesium Total Bilirubin Direct Bilirubin AST ALT Alkaline Phosphatase Ammonia Total Creatine Kinase CK-MB (CK-2) CK-MB (CK-2) % Troponin I C-React Prot High Sens Total Protein Albumin Globulin Albumin/Globulin Ratio Triglycerides Cholesterol LDL Cholesterol Direct HDL Cholesterol 25-OH Vitamin D Total Procalcitonin Arterial Blood Potassium Venous Blood Potassium Salicylates Acetaminophen Alcohol, Quantitative Hepatitis A IgM Ab Hep Bs Antigen Hep Bs Ag Neutralizatn Hep Bs Antibody Hep B Core IgM Ab Hepatitis C Antibody HIV 1&2 Antibody Screen 01/15/18 01/15/18 01/15/18 17:55 17:55 18:25 WBC RBC Hgb Hct MCV MCH MCHC RDW Plt Count Manual Plt Count Gran % Lymph % (Auto) [place] % (Auto) Eos % (Auto) Baso % (Auto) Gran # Lymph # (Auto) [place] # (Auto) Eos # (Auto) Baso # (Auto) PT 47.3 H INR 4.03 H* APTT pCO2 24 L pO2 69.0 L HCO3 15.2 L ABG pH 7.41 ABG Total CO2 15.9 L ABG O2 Saturation 96.8 ABG O2 Content ABG Base Excess -7.6 L ABG Hemoglobin ABG Carboxyhemoglobin POC ABG HHb (Measured) ABG Methemoglobin ABG O2 Capacity ABG Potassium 4.3 VBG pH VBG pCO2 VBG HCO3 VBG Total CO2 VBG O2 Sat (Calc) VBG Base Excess VBG Potassium Hgb O2 Saturation Sodium 130 L 131.0 L Chloride 92 L 96.0 L Glucose 120 H Lactate 10.2 H* Mechanical Rate 16 FiO2 40.0 Tidal Volume 450 PEEP 5 Potassium 4.7 Carbon Dioxide 18 L Anion Gap 25 H BUN 21 Creatinine 3.1 H Est GFR ( Amer) 25 Est GFR (Non-Af Amer) 21 POC Glucose (mg/dL) Random Glucose 116 H Hemoglobin A1c Fructosamine Calcium 6.0 L* Phosphorus Magnesium Total Bilirubin 4.4 H Direct Bilirubin AST 1068 H ALT 405 H Alkaline Phosphatase 118 Ammonia Total Creatine Kinase CK-MB (CK-2) CK-MB (CK-2) % Troponin I C-React Prot High Sens Total Protein 5.4 L Albumin 2.8 L Globulin 2.6 Albumin/Globulin Ratio 1.1 Triglycerides Cholesterol LDL Cholesterol Direct HDL Cholesterol 25-OH Vitamin D Total Procalcitonin Arterial Blood Potassium 4.3 Venous Blood Potassium Salicylates Acetaminophen Alcohol, Quantitative Hepatitis A IgM Ab Hep Bs Antigen Hep Bs Ag Neutralizatn Hep Bs Antibody Hep B Core IgM Ab Hepatitis C Antibody HIV 1&2 Antibody Screen Assessment & Plan (1) Thrombocytopenia Assessment and Plan: likely secondary to acute illness no increase in schistocytes seen on smear transfuse plt if < 20,000 Status: Acute (2) Leukocytosis Assessment and Plan: on antibiotics Status: Acute (3) Anemia Assessment and Plan: retic count, b12, folate, ferritin to further characterize anemia of chronic disease and renal disease Thank you for this interesting consult. Status: Acute
[2018-01-15 20:51] LABS: PLATELET ESTIMATE LOW (NORMAL)
[2018-01-15] MEDS ORDERED: Phytonadione 10 MG in Sodium Chloride 0.9% 50 ML IV ONE (21:03)
--- NOTE | 2018-01-15 21:12 | CON ---
DATE: 01/15/2018 GASTROENTEROLOGY CONSULTATION REQUESTING PHYSICIAN: Dr. Simms. REASON FOR CONSULTATION: I have been asked to see this 62-year-old male, who underwent quadruple bypass as well as mitral valve replacement back in October 2017, who was brought to the emergency room by family for increasing shortness of breath, generalized weakness, and poor urine output. The patient has been short of breath in the emergency room. The patient was found to have a large left pleural effusion, for which he underwent a thoracentesis. The patient was found to be in acute renal failure with hyperkalemia requiring urgent hemodialysis. This morning his blood pressure fell to 60 systolic requiring initiation of pressors. The patient has a history of hepatitis B. It is unclear to me if this has been treated in the past. He denies any abdominal pain upon presentation to the hospital, fevers or chills. Cultures thus far have been negative. His liver enzymes on admission to the hospital were elevated with AST 728, ALT 439, alkaline phosphatase of 547, LDH of 1779, and a total bilirubin of 7.3. This morning, his AST is up to 853, ALT down to 391, alkaline phosphatase down to 436, total bilirubin down to 4.4. There is no history of alcohol or acetaminophen use. The patient remains on pressors. He is intubated, but alert. PAST MEDICAL HISTORY: Notable for valvular heart disease, coronary artery disease, left pleural effusion, hypertension. PAST SURGICAL HISTORY: Notable for quadruple bypass and mitral valve replacement in 10/2017. SOCIAL HISTORY: There is no history of cigarette smoking or alcohol use. FAMILY HISTORY: Noncontributory. REVIEW OF SYSTEMS: Fourteen-point review of systems is notable for shortness of breath, decreased urine output. MEDICATIONS AT HOME: Include hydralazine, Norvasc, potassium chloride, pantoprazole, metoprolol, Lasix, clobetasol, Lipitor, aspirin, and albuterol. PHYSICAL EXAMINATION: GENERAL: Elderly male, lying in bed, intubated. VITAL SIGNS: Reveal a temperature of 99.5, blood pressure of 82/36, heart rate of 92 on pressors. HEENT: Reveal sclerae to be icteric. Conjunctivae pale. NECK: Supple. CHEST: Reveal decreased breath sounds at the left base. HEART: Exam reveals regular rate and rhythm. ABDOMEN: Soft, nontender. No mass. EXTREMITIES: Show no edema. The patient can follow simple exams. LABORATORY DATA: Reveal sodium of 128, potassium of 5.6, BUN 37, creatinine 4.7, phosphorus of 5.7, total bilirubin 5.3, AST 53, ALT 391, alkaline phosphatase of 436, albumin of 1.8. Coags reveal PT 23.4, INR 2.01, PTT of 79.4. CBC reveals white blood cell count of 12.3, hemoglobin 13.2, platelet count of 87,000. CT scan of the abdomen and pelvis shows mild ascites, gallstone, mildly thickened gallbladder wall in the nodular surface of the liver to suggest cirrhosis. There is no biliary ductal dilatation. IMPRESSION: A 62-year-old male with a history of hepatitis B, admitted to the hospital with increasing shortness of breath, decreased urine output, and elevated liver enzymes. He was hypothermic upon presentation to the emergency room. He has also been hypotensive in the last 24 hours requiring treatment with dobutamine and Levophed. He is on the ventilator for respiratory failure. His liver enzymes are elevated. He is noted to have a gallstone without biliary ductal dilatation on CT scan, clearly he has multisystem organ failure, and is currently hypotensive. The elevated liver enzymes are most likely secondary to decompensated cirrhosis. The patient may also have hepatopulmonary and hepatorenal syndrome causing respiratory failure and renal failure. He may also be septic. His prognosis is extremely poor in view of multisystem organ failure. RECOMMENDATIONS: 1. Continue supportive care. 2. Await hepatitis serology. 3. There is no clinical evidence of acute cholecystitis or cholangitis. There is no need for a percutaneous cholecystotomy tube at this time. 4. Continue broad-spectrum antibiotics. I have discussed this case with ICU attending, Dr. Shen. I have also informed the son that the patient's condition is extremely grave and the prognosis is poor. Benjamin Cooper MD
--- NOTE | 2018-01-15 23:59 | PN ---
DATE: 01/15/2018 SUBJECTIVE: The patient is seen in ICU bed 1. The patient is intubated, on ventilator. The patient's son is at the bedside. The patient is arousable to painful stimuli. Overnight nurse's notes were reviewed.. The patient was seen between 10:30 a.m. and 11:00 a.m. this morning. PHYSICAL EXAMINATION: VITAL SIGNS: T-max 99 degrees Fahrenheit. Heart rate 82, normal sinus rhythm 82 to 84. Blood pressure 106/44, 93/51. Respirations 18 to 29. GENERAL: The patient is presently on multiple pressors for blood pressure support. HEENT: Head examination; normocephalic, atraumatic. HEENT examination shows pinkish pale conjunctivae. Icteric sclerae. No oropharyngeal lesion. Positive ET tube. NECK: No neck rigidity. CHEST: Examination shows median sternotomy surgical scar. LUNGS: Examination shows decreased breath sounds bilaterally at the bases, questionable rhonchi in upper lung arthur anteriorly. CARDIOVASCULAR: Positive systolic murmur in left sternal border, right second intercostal space. ABDOMEN: Soft and protuberant. Positive bowel sounds. Positive upper abdominal and right upper quadrant deep tenderness. No rebound tenderness. GENITALIA: Male. RECTAL: Examination is deferred. EXTREMITIES: Chronic skin changes of the lower extremity. Positive swelling of the lower extremity. MUSCULOSKELETAL: Examination as per body mass index. NEUROLOGIC: Examination is limited. Gait examination could not be tested. DIAGNOSTICS: The patient had a CAT scan done overnight. The result shows cardiomegaly, pleural effusion, pulmonary vascular congestion, coronary artery bypass graft, impacted gallstone in the neck of the gallbladder distended, bilateral perinephric stranding, gastroparesis and ascites. EKG is pending. LABORATORY DATA: WBC 12.3, hemoglobin and hematocrit 13.2 and 37.1, and platelets 87,000. Granulocytes 70% segs. Morning ABG on FiO2 of 40%; pH of 7.34, pCO2 of 26, glucose 86, bicarb 14, saturation 98.2. Sodium 128, potassium 5.6, chloride 103, CO2 of 15, BUN 37, creatinine 4.7, glucose 69, calcium 6.1, phosphorus 5.7, magnesium 1.9, total bili 5.3, direct bili 4.4, AST 853, ALT 391, alk phos 436. CPK 1124, troponin 0.12, albumin 1.8. IMPRESSION AND PLAN: 1. Ventilator-dependent respiratory failure. 2. Hypothermia with hypovolemic hypotensive shock. 3. Multiple inotrope-dependent hypotensive hypovolemic shock with severe hypothermia. 4. Increased anion gap lactic acidosis and metabolic acidosis. 5. Acute renal failure, hemodialysis requiring and dependent. 6. Cardiomegaly. 7. Bilateral pleural effusion. 8. Possible congestive heart failure with pulmonary vascular congestion. 9. History of recent coronary artery bypass graft and coronary artery disease. 10. History of recent mitral valve repair. 11. Distended gallbladder with impacted gallstone in the neck of the gallbladder. 12. Bilateral perinephric stranding. 13. Gastroparesis. 14. Ascites. 15. Thrombocytopenia. 16. Granulocytosis. 17. Leukocytosis. 18. Anemia. 19. Questionable and possible disseminated intravascular coagulation. 20. Metabolic acidosis and increased anion gap metabolic acidosis and lactic acidosis. 21. Hyponatremia. 22. Non-hemolyzed hyperkalemia. 23. Hypocalcemia. 24. Hyperphosphatemia. 25. Severe transaminitis and hyperbilirubinemia versus shock liver versus hepatorenal syndrome. 26. Rhabdomyolysis with elevated CPK. 27. Hypoalbuminemia. 28. albumin-globulin ratio. 29. Large left pleural effusion status post thoracentesis with removal of 1800 mL of pleural fluid. 30. Questionable hemorrhagic left pleural effusion. 31. Status post right femoral triple-lumen catheter placement and arterial line placement. 32. History of hypertension. 33. History of recent coronary artery disease, coronary artery bypass graft. 34. Thrombocytopenia, etiology undetermined versus questionable and possible disseminated intravascular coagulation. PLAN: At this time, the patient is to be continued on multiple pressors for blood pressure support. The patient is in the process of getting dialyzed at present which is initiated already. The patient will be continued on broad-spectrum IV antibiotic as per Infectious Disease. Hematology consultation will be requested for evaluation of thrombocytopenia and coagulopathy. The patient will be continued on Intensive Care Unit with continuation of the ventilator support with close followup with multiple subspecialty including linen grader, market specialist, silver miner blasting, and Infectious Disease. I have met with the patient's yesterday and I have met with the patient's son today in the ICU. All details about the patient's condition, diagnosis, test results, recommendation were explained to the patient's son at length and all questions concerned answered. I have extensively and clearly explained to the patient's and the son about the patient's overall guarded to poor prognosis and critical condition which they acknowledged understand. Dictated and electronically signed, not read. Abdon Simms MD
[2018-01-16 00:32] LABS: VENOUS BLOOD GAS BASE EXCESS -11.8 mmol/L (0.0-2.0); VENOUS BLOOD GAS PO2 73 mm/Hg (30-55); VENOUS BLOOD PH 7.27 (7.32-7.43)
[2018-01-16] MEDS: Albumin Human 25% (12.5 gm/50 ml) IV SCH ×6 (01:01→21:02)
[2018-01-16] MEDS: EPINEPHrine- 1 MG in Sodium Chloride 0.9% 50 ML IV PRN ×4 (02:18→16:25)
[2018-01-16 05:39] LABS: ARTERIAL BLOOD GAS O2 SAT 91.8 % (95-98); ARTERIAL BLOOD GAS PCO2 28 mm/Hg (35-45); ARTERIAL BLOOD GAS TCO2 10.7 mmol.L (22-28)
[2018-01-16 05:51] LABS: ARTERIAL BLOOD GAS PH 7.15 (7.35-7.45)
[2018-01-16 05:52] LABS: ARTERIAL BLOOD GAS HCO3 9.8 mmol/L (21-28)
[2018-01-16] MEDS ORDERED: Sodium Bicarbonate (8.4%) 50 Meq Syringe IVP ONE (06:05)
[2018-01-16 06:34] LABS: BASO # 0.02 K/mm3 (0.0-2.0); BASO % 0.1 % (0.0-3.0); GRAN # 17.69 (1.4-6.5); GRAN % 78.7 % (50.0-68.0); HEMOGLOBIN 8.3 g/dL (14.0-18.0); LYMPH # 2.2 (1.2-3.4); LYMPH % 9.6 % (22.0-35.0); MEAN CELL VOLUME 89.2 fl (80.0-105.0); MEAN CORPUSCULAR HEMOGLOBIN 29.9 pg (25.0-35.0); MEAN CORPUSCULAR HGB CONC 33.5 g/dl (31.0-37.0); MONO # 2.6 (0.1-0.6); MONO % 11.6 % (1.0-6.0); RBC 2.78 10^6/uL (3.5-6.1); RED CELL DISTRIBUTION WIDTH 22.4 % (11.5-14.5); WHITE BLOOD COUNT 22.5 10^3/uL (4.5-11.0)
[2018-01-16 06:50] LABS: PLATELET COUNT 38 10^3/uL (120.0-450.0)
[2018-01-16 07:22] LABS: PROTHROMBIN TIME 53.6 SECONDS (9.4-12.5)
--- NOTE | 2018-01-16 07:30 | PN ---
DATE: 01/16/2018 SUBJECTIVE: The patient is seen in the 128, bed 1. The patient's status is somewhat unchanged, remains intubated on a ventilator on pressors. He is responsive. It appears that he opened his eyes this morning and there has been no fevers reported. His temperature is improved. PHYSICAL EXAMINATION: VITAL SIGNS: On exam, temperature is 97, heart rate of 92, blood pressure is 107, respiratory rate on the vent. HEENT: Examination of HEENT reveals ET tube in place. NECK: Supple. LUNGS: Have decreased breath sounds. HEART: Normal S1, S2. ABDOMEN: Soft, nontender. No rebound. No guarding. No masses. LABORATORY DATA: Laboratory examination reveals a white count of 22,000, hemoglobin of 8, platelets of 38,000. Coagulation is noted. Chemistries reveals the patient's creatinine is improved at 3.1 and procalcitonin is noted to be 4.96. The patient had LFT elevations, alk phos is improved in 118, AST is over at 1000. Lactic acid is noted. Hepatitis B surface antigen is positive. Hepatitis B surface antibody is negative. Hepatitis B core IgM is negative. Hepatitis C is negative. HIV is negative. Hepatitis A is negative. Microbiology reveals blood cultures are all negative x4 bottles. This morning's chest x-ray results are pending. Dr. Kael France's note is reviewed. There is no impression or plan. It consists of the history and laboratories consultation. Dr. Simms's progress note is also reviewed. Dr. Cooper's consultation is also reviewed. He feels there is no clinical evidence of acute cholecystitis or cholangitis. ASSESSMENT AND PLAN: A 62-year-old male who was seen earlier today in ICU with history of diabetes, hypertension, coronary artery disease, pulmonary hypertension, chronic hepatitis B surface antigen positive with presenting with septic shock, source unclear gastrointestinal, biliary origin versus spontaneous bacterial peritonitis with a left lower lobe healthcare-associated pneumonia in a patient with acute kidney injury and thrombocytopenia in a patient who recently had coronary artery bypass graft and had mitral valve repair. He did not have mitral valve replacement, he did have a mitral valve repair. Wound cultures were negative thus far. We will continue the intermittent vancomycin, meropenem and doxycycline. Awaiting for final culture results, clinical response and we will follow closely with you. Overall prognosis is poor. Babak Vivar MD [facility] # [id number]
[2018-01-16 07:37] LABS: INR 4.52; PARTIAL THROMBOPLASTIN TIME 156.9 Seconds (25.1-36.5)
--- NOTE | 2018-01-16 07:55 | CP.PCM.PN ---
Subjective - Date & Time of Evaluation Date of Evaluation: 01/16/18 Time of Evaluation: 07:47 - Subjective Subjective: Mendoza Srivastava DO PGY1 - Surgery Progress Note Patient was seen this AM at bedside in ICU Patient is still intubated/sedated No acute events reported overnight ROS unable to be assessed due to intubated/sedated status. Objective - Vital Signs/Intake and Output Vital Signs (last 24 hours): Temp Pulse Resp BP Pulse Ox 97.9 F 92 H 26 H 107/36 L 95 01/15/18 18:00 01/16/18 00:40 01/15/18 18:00 01/16/18 00:39 01/15/18 18:00 Intake and Output: 01/16/18 01/16/18 06:59 18:59 Intake Total 911 Balance 911 - Medications Medications: Current Medications Albumin Human (Albumin Human 25% (12.5 Gm/50 Ml)) 12.5 gm IV Q4H NILES Last Admin: 01/16/18 05:30 Dose: 12.5 gm Heparin Sodium (Porcine) (Heparin) 5,000 units SC Q12 NILES; Protocol Last Admin: 01/14/18 22:53 Dose: 5,000 units Hydrocortisone Sodium Succinate (Solu-Cortef) 50 mg IVP Q6H NILES Last Admin: 01/15/18 21:16 Dose: 50 mg Fentanyl Citrate (Fentanyl Citrate/Sodium Chloride 1 Mg/100 Ml) 1,000 mcg in 100 mls @ 2 mls/hr IV .Q24H PRN; Protocol PRN Reason: TITRATE PER MD ORDER Last Titration: 01/14/18 22:29 Dose: 5 mcg/hr, 0.5 mls/hr Midazolam 100 mg/100ml in NS (Midazolam 100 Mg/100ml In Ns) 100 mg in 100 mls @ 1 mls/hr IV .Q24H PRN; Protocol PRN Reason: Sedation Meropenem/Sodium Chloride (Merrem Iv 500 Mg/Ns 50 Ml) 500 mg in 50 mls @ 100 mls/hr IVPB Q12 NILES; Protocol Last Admin: 01/15/18 21:17 Dose: 100 mls/hr Doxycycline Hyclate 100 mg/ (Sodium Chloride) 100 mls @ 100 mls/hr IVPB Q12 NILES; Protocol Last Admin: 01/15/18 21:17 Dose: 100 mls/hr Vasopressin 20 units/ Sodium (Chloride) 101 mls @ 9.09 mls/hr IV .Q11H7M [facility]; Protocol Last Admin: 01/16/18 00:39 Dose: 9.09 mls/hr Dobutamine HCl/Dextrose (Dobutamine/Dextrose 5% 500mg/250ml) 500 mg in 250 mls @ 6.651 mls/hr IV .Q24H PRN; Protocol PRN Reason: TITRATE PER PROTOCOL Last Titration: 01/15/18 09:40 Dose: Infused Epinephrine HCl 1 mg/ Sodium (Chloride) 51 mls @ 3.06 mls/hr IV .[id number] PRN; Protocol PRN Reason: TITRATE PER MD ORDER Last Admin: 01/16/18 06:35 Dose: 5 mcg/min, 15.3 mls/hr Thiamine HCl 200 mg/ Sodium (Chloride) 52 mls @ 104 mls/hr IV Q12 [facility] Last Admin: 01/15/18 21:51 Dose: 104 mls/hr Sodium Bicarbonate 150 meq/ (Dextrose) 1,150 mls @ 125 mls/hr IV .Q9H12M [facility] Last Admin: 01/15/18 12:20 Dose: 125 mls/hr Norepinephrine Bitartrate 8 mg (/ Sodium Chloride) 258 mls @ 7.74 mls/hr IV .Q24H PRN; Protocol PRN Reason: TITRATE PER MD ORDER Last Admin: 01/16/18 06:36 Dose: 30 mcg/min, 58.05 mls/hr Ondansetron HCl (Zofran Inj) 4 mg IVP Q4H PRN PRN Reason: Nausea/Vomiting Pantoprazole Sodium (Protonix Inj) 40 mg IVP DAILY [facility] Last Admin: 01/15/18 09:19 Dose: 40 mg - Labs Labs: 01/16/18 05:30 01/15/18 17:55 PT 53.6 SECONDS (9.4-12.5) H 01/16/18 05:30 INR 4.52 H* 01/16/18 05:30 APTT 156.9 Seconds (25.1-36.5) H* 01/16/18 05:30 Physical Exam - Constitutional Appears: Toxic, No Acute Distress - Head Exam Head Exam: ATRAUMATIC, NORMOCEPHALIC - Eye Exam Eye Exam: EOMI, PERRL, Scleral icterus - ENT Exam Additional comments: ET Tube in place - Respiratory Exam Additional comments: Vented - Cardiovascular Exam Cardiovascular Exam: RRR, +S1, +S2 - GI/Abdominal Exam Additional comments: Fluid wave present Distended Dull to percussion - Skin Additional comments: Jaundice Assessment and Plan - Assessment and Plan (Free Text) Assessment: 62M admitted to ICU for urgent HD; Shock; and Found to meet SIRS w/o clear source of infection identified. Surgery consulted for evaluation of large cholelithiasis on CTAP w/ associated Tbili / Dbili elevations. Plan: -CTAP shows 8.5 x 6.4 mm stone along biliary tract -Abd U/s official - Gallbladder contracted possible biliary sludge + cholelithiasis - CBD not visualized -Can consider MRCP once patient stabilized -C/w Abx as per ID -C/w DVT PPX -C/w Aggressive fluid resuscitation -Monitor urine output -Correct electrolytes -Dialysis as per nephrology -Vent management as per intesivist service -IR reccs No need for percutaneous cholecystostomy at this time -Further reccs by Dr. Deanna Srivastava DO PGY1 - Internal Medicine [employer] - Surgical Progress Note for Dr. Huerta
[2018-01-16 08:04] LABS: ALB/GLOB RATIO 1.1 (1.1-1.8); ALBUMIN 2.6 g/dL (3.0-4.8); ALT/SGPT 394 U/L (7-56); AST/SGOT 1121 U/L (17-59); BILIRUBIN,DIRECT 3.8 mg/dL (0.0-0.4); BLOOD UREA NITROGEN 22 mg/dL (7-21); CALCIUM 5.5 mg/dL (8.4-10.5); GFR NON-AFRICAN AMERICAN 15
[2018-01-16 08:12] LABS: PLATELET COUNT MANUAL 45 K/mm3 (120-450)
[2018-01-16 08:38] VITALS: RESP 17
[2018-01-16 09:00] LABS: URINE BILIRUBIN LARGE (NEGATIVE); URINE BLOOD LARGE (NEGATIVE); URINE GLUCOSE (UA) 100 mg/dL (NEGATIVE); URINE LEUKOCYTE ESTERASE SMALL Leu/uL (NEGATIVE); URINE PROTEIN >=300 mg/dL (<30 mg/dL); URINE UROBILINOGEN 0.2 E.U./dL (<1 E.U./dL)
[2018-01-16 09:11] LABS: URINE APPEARANCE CLEAR (CLEAR); URINE COLOR YELLOW (YELLOW)
[2018-01-16] MEDS ORDERED: Phytonadione 10 MG in Sodium Chloride 0.9% 50 ML IV ONE (09:18)
[2018-01-16 09:27] LABS: URINE BACTERIA LARGE (NEG); URINE RBC 25 - 30 /hpf (0-2)
[2018-01-16 09:28] LABS: URINE AMORPHOUS SEDIMENT MODERATE; URINE COARSE GRANULAR CAST TRACE /hpf (0-2); URINE FINE GRANULAR CAST 0 - 2 /hpf (0-2); URINE HYALINE CAST 0 - 2 /hpf
--- NOTE | 2018-01-16 09:44 | CP.PCM.PN ---
Subjective - Date & Time of Evaluation Date of Evaluation: 01/16/18 Time of Evaluation: 09:40 - Subjective Subjective: Nephrology Consultation Note: Assessment: critical Acute Kidney Injury (N17.9) oligoanuria: likely ATN due to hypotension/shock ? 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 2nd session 01/16. Will plan to do again today . remains critical - not clear how much UF he will tolerate did not tolerate UF yesterday due to hypotension on multiple pressors. currently on bicarb gtt pt on pressors. GI, ID and cardiology following. k hopefully should improve w/ HD recc check ionized calcium w/ blood gas may need repletion S: seen and examined, remains critically ill on multiple pressors ROS: unable obtain from pt Physical Examination: VS as below General Appearance: in no acute respiratory distress, ill appearing. orally intubated Vitals reviewed and noted as below Head; Atraumatic, normocephalic ENT: orally intubated EYES: Pupils are equal, round and reactive to light accommodation. Eye muscles and extraocular movement intact. Sclera is icteric. Neck; supple no lymphadenopathy, no thyromegaly or bruit Lungs: Increased respiratory rate/effort. Breath sounds reduced b/l Heart: Normal rate. s1s2 normal. No rub or gallop. has CABG scar + Extremities: 1+ edema. No varicose veins. Neurological: Patient is intubated and sedatedsedated Skin: Warm and dry. Normal turgor. No rash. Palpitation: jaundiced Abdomen: Abdomen is soft. Bowel sounds +. There is no abdominal tenderness, no guarding/rigidity no organomegaly. Psych: unable to assess intubated and sedated MSK: no joint tenderness or swelling. Digits and nails normal, no deformity : kidney or bladder not palpable. has da silva Labs/imaging reviewed. Past medical history, past surgical history, family history, social history, allergy reviewed and noted as below Family hx: no hx of CKD. Rest non-contributory Objective - Vital Signs/Intake and Output Vital Signs (last 24 hours): Temp Pulse Resp BP Pulse Ox 97.5 F L 83 17 117/39 L 93 L 01/16/18 08:24 01/16/18 08:24 01/16/18 06:00 01/16/18 06:00 01/16/18 05:00 Intake and Output: 01/16/18 01/16/18 06:59 18:59 Intake Total 4653 Output Total 15 Balance 4638 - Medications Medications: Current Medications Albumin Human (Albumin Human 25% (12.5 Gm/50 Ml)) 12.5 gm IV Q4H NILES Last Admin: 01/16/18 09:15 Dose: 12.5 gm Hydrocortisone Sodium Succinate (Solu-Cortef) 50 mg IVP Q6H NILES Last Admin: 01/16/18 09:22 Dose: 50 mg Fentanyl Citrate (Fentanyl Citrate/Sodium Chloride 1 Mg/100 Ml) 1,000 mcg in 100 mls @ 2 mls/hr IV .Q24H PRN; Protocol PRN Reason: TITRATE PER MD ORDER Last Titration: 01/14/18 22:29 Dose: 5 mcg/hr, 0.5 mls/hr Midazolam 100 mg/100ml in NS (Midazolam 100 Mg/100ml In Ns) 100 mg in 100 mls @ 1 mls/hr IV .Q24H PRN; Protocol PRN Reason: Sedation Meropenem/Sodium Chloride (Merrem Iv 500 Mg/Ns 50 Ml) 500 mg in 50 mls @ 100 mls/hr IVPB Q12 NIL[facility]; Protocol Last Admin: 01/15/18 21:17 Dose: 100 mls/hr Doxycycline Hyclate 100 mg/ (Sodium Chloride) 100 mls @ 100 mls/hr IVPB Q12 [facility]IL[facility]; Protocol Last Admin: 01/15/18 21:17 Dose: 100 mls/hr Vasopressin 20 units/ Sodium (Chloride) 101 mls @ 9.09 mls/hr IV .Q11H7M [facility]IL[facility]; Protocol Last Admin: 01/16/18 00:39 Dose: 9.09 mls/hr Dobutamine HCl/Dextrose (Dobutamine/Dextrose 5% 500mg/250ml) 500 mg in 250 mls @ 6.651 mls/hr IV .Q24H PRN; Protocol PRN Reason: TITRATE PER PROTOCOL Last Titration: 01/15/18 09:40 Dose: Infused Epinephrine HCl 1 mg/ Sodium (Chloride) 51 mls @ 3.06 mls/hr IV .[id number] PRN; P rotocol PRN Reason: TITRATE PER MD ORDER Last Admin: 01/16/18 06:35 Dose: 5 mcg/min, 15.3 mls/hr Thiamine HCl 200 mg/ Sodium (Chloride) 52 mls @ 104 mls/hr IV Q12 [facility] Last Admin: 01/15/18 21:51 Dose: 104 mls/hr Sodium Bicarbonate 150 meq/ (Dextrose) 1,150 mls @ 125 mls/hr IV .Q9H12M [facility] Last Admin: 01/15/18 12:20 Dose: 125 mls/hr Norepinephrine Bitartrate 8 mg (/ Sodium Chloride) 258 mls @ 7.74 mls/hr IV .Q24H PRN; Protocol PRN Reason: TITRATE PER MD ORDER Last Admin: 01/16/18 06:36 Dose: 30 mcg/min, 58.05 mls/hr Phytonadione 10 mg/ Sodium (Chloride) 51 mls @ 100 mls/hr IV ONCE ONE Stop: 01/16/18 09:48 Ondansetron HCl (Zofran Inj) 4 mg IVP Q4H PRN PRN Reason: Nausea/Vomiting Pantoprazole Sodium (Protonix Inj) 40 mg IVP DAILY [facility] Last Admin: 01/15/18 09:19 Dose: 40 mg - Labs Labs: 01/16/18 05:30 01/16/18 05:30 PT 53.6 SECONDS (9.4-12.5) H 01/16/18 05:30 INR 4.52 H* 01/16/18 05:30 APTT 156.9 Seconds (25.1-36.5) H* 01/16/18 05:30
[2018-01-16] MEDS: MEROPENEM 500 MG in NS 500 MG/50 ML BAG IVPB SCH (09:55)
--- NOTE | 2018-01-16 10:09 | CP.CCUPN ---
<Jerome Vaughan - Last Filed: 01/16/18 13:13> CCU Subjective - Physician Review Subjective (Free Text): Jerome Vaughan, PGY1 ICU Progress Note for Dr. Shen Patient was seen and examined at bedside this morning. Patient is intubated on sedation. Ventilation settings are PRVC 450/16/5/50%. Patient opens his eyes and is awake at times. He is moving his extremities spontaneously. Patient is following commands. BP was 127/45 at the arterial line. No adverse overnight events. Patient received HD session yesterday, 2.5 hour treatment. Patient's condition remains guarded. Patient's prognosis was discussed with family at bedside after interview. CCU Objective - Vital Signs / Intake & Output Vital Signs (Last 4 hours): Vital Signs Temp Pulse 01/16/18 08:24 97.5 F L 83 01/16/18 08:23 97.5 F L 83 01/16/18 08:22 97.5 F L 83 01/16/18 08:21 97.7 F 82 01/16/18 08:20 97.7 F 83 01/16/18 08:19 97.7 F 82 01/16/18 08:18 97.7 F 82 01/16/18 08:17 97.7 F 83 01/16/18 08:16 97.5 F L 82 01/16/18 08:15 97.5 F L 83 01/16/18 08:14 97.7 F 82 01/16/18 08:13 97.7 F 83 01/16/18 08:12 97.7 F 82 01/16/18 08:11 97.7 F 83 01/16/18 08:10 97.5 F L 84 01/16/18 08:09 97.5 F L 83 01/16/18 08:08 97.7 F 84 01/16/18 08:07 97.7 F 82 01/16/18 08:06 97.7 F 83 01/16/18 08:05 97.7 F 83 01/16/18 08:04 97.7 F 83 01/16/18 08:03 97.7 F 83 01/16/18 08:02 97.7 F 84 01/16/18 08:01 97.7 F 83 01/16/18 08:00 97.7 F 83 01/16/18 07:59 97.7 F 84 01/16/18 07:58 97.7 F 83 01/16/18 07:57 97.7 F 84 01/16/18 07:56 97.7 F 85 01/16/18 07:55 97.7 F 83 01/16/18 07:54 97.7 F 83 01/16/18 07:53 97.7 F 84 01/16/18 07:52 97.7 F 84 01/16/18 07:51 97.7 F 83 01/16/18 07:50 97.7 F 84 01/16/18 07:49 97.7 F 84 01/16/18 07:48 97.7 F 85 01/16/18 07:47 97.7 F 84 01/16/18 07:46 97.7 F 85 01/16/18 07:42 97.7 F 85 01/16/18 07:41 97.7 F 85 01/16/18 07:40 97.7 F 85 01/16/18 07:39 97.7 F 84 01/16/18 07:38 97.7 F 85 01/16/18 07:37 97.9 F 84 01/16/18 07:36 97.9 F 85 01/16/18 07:35 97.9 F 83 01/16/18 07:34 97.9 F 84 01/16/18 07:33 97.9 F 85 01/16/18 07:32 97.9 F 84 01/16/18 07:31 97.9 F 84 01/16/18 07:30 97.9 F 85 01/16/18 07:29 97.9 F 84 01/16/18 07:28 97.9 F 85 01/16/18 07:27 97.9 F 85 01/16/18 07:26 97.9 F 84 01/16/18 07:25 97.9 F 84 01/16/18 07:24 98.1 F 85 01/16/18 07:23 98.1 F 85 01/16/18 07:22 98.1 F 86 01/16/18 07:20 98.1 F 85 01/16/18 07:19 98.1 F 86 Intake and Output (Last 8hrs): Intake & Output 01/15/18 01/16/1801/16/18 22:59 06:59 14:59 Intake Total 4759 4102 0 Output Total 5 15 Balance 4754 4087 0 Weight 96.706 kg Intake: IV 4759 4102 0 Acetadote 750 750 Albumin 100 150 Epinephrine drip 97 180 Fentanyl 6 IVF 1565 IVPB 252 Left Antecubital 1500 Levophed 1390 910 Output: Urine 5 15 Urethral (Saunders) 5 15 - Physical Exam Head: Positive for: Atraumatic, Normocephalic Pupils: Positive for: PERRL Conjunctiva: Positive for: Normal Mouth: Positive for: Moist Mucous Membranes Neck: Positive for: Other (R-IJ HD catheter in place) Respiratory/Chest: Positive for: Rhonchi (Rhonci at the lower lung bases ). Negative for: Wheezes, Rales Cardiovascular: Positive for: Regular Rate and Rhythm, Normal S1, S2. Negative for: Murmurs Abdomen: Positive for: Distention. Negative for: Peritoneal Signs, Rebound, Mass/Organomegaly Genitourinary Male: Positive for: Other (Saunders in place. Minimal to no drainage. ) Upper Extremity: Positive for: NORMAL PULSES. Negative for: Cyanosis, Edema, Swelling, Erythema Lower Extremity: Positive for: Edema (+1 pitting edema bilaterally. ), NORMAL PULSES, Other (Femoral central venous line and femoral arterial line in place at R-groin. ). Negative for: CALF TENDERNESS, Tenderness Skin: Positive for: Warm, Dry, Normal Color, Other (Well healing surgical scar in midline of the chest). Negative for: Rashes Psychiatric: Negative for: Alert, Oriented x 3 Other physical findings (Free Text): Patient is awake at times and follows commands like squeezing finger. - Medications Active Medications: Active Medications Generic Name Dose Route Start Last Admin Trade Name Freq PRN Reason Stop Dose Admin Albumin Human 12.5 gm 01/15/18 09:00 01/16/18 09:15 Albumin Human 25% (12.5 Gm/50 Ml) IV 12.5 gm Q4H NILES Administration Hydrocortisone Sodium Succinate 50 mg 01/15/18 08:30 01/16/18 09:22 Solu-Cortef IVP 50 mg Q6H NILES Administration Fentanyl Citrate 1,000 mcg in 100 mls @ 2 mls/hr 01/14/18 12:33 01/14/18 22:29 Fentanyl Citrate/Sodium Chloride 1 Mg/100 Ml IV 5 mcg/hr .Q24H PRN 0.5 mls/hr TITRATE PER MD ORDER Titration Protocol 20 MCG/HR Midazolam 100 mg/100ml in NS 100 mg in 100 mls @ 1 mls/hr 01/14/18 12:33 Midazolam 100 Mg/100ml In Ns IV .Q24H PRN Sedation Protocol 1 MG/HR Meropenem/Sodium Chloride 500 mg in 50 mls @ 100 mls/hr 01/14/18 22:00 01/16/18 09:55 Merrem Iv 500 Mg/Ns 50 Ml IVPB 100 mls/hr Q12 NILES Administration Protocol Doxycycline Hyclate 100 mg/ 100 mls @ 100 mls/hr 01/14/18 22:00 01/16/18 09:55 Sodium Chloride IVPB 100 mls/hr Q12 NILES Administration Protocol Vasopressin 20 units/ Sodium 101 mls @ 9.09 mls/hr 01/15/18 04:45 01/16/18 00:39 Chloride IV 9.09 mls/hr .[id number] NILES Administration Protocol 0.03 U/MIN Dobutamine HCl/Dextrose 500 mg in 250 mls @ 6.651 mls/hr 01/15/18 08:21 01/15/18 09:40 Dobutamine/Dextrose 5% 500mg/250ml IV Infused .Q24H PRN Titration TITRATE PER PROTOCOL Protocol 2.5 MCG/KG/MIN Epinephrine HCl 1 mg/ Sodium 51 mls @ 3.06 mls/hr 01/15/18 09:05 01/16/18 06:35 Chloride IV 5 mcg/min .[id number] PRN 15.3 mls/hr TITRATE PER MD ORDER Administration Protocol 1 MCG/MIN Thiamine HCl 200 mg/ Sodium 52 mls @ 104 mls/hr 01/15/18 22:00 01/16/18 09:56 Chloride IV 104 mls/hr Q12 NILES Administration Sodium Bicarbonate 150 meq/ 1,150 mls @ 125 mls/hr 01/15/18 12:17 01/15/18 12:20 Dextrose IV 125 mls/hr .[id number] NILES Administration Norepinephrine Bitartrate 8 mg 258 mls @ 7.74 mls/hr 01/16/18 00:42 01/16/18 06:36 / Sodium Chloride IV 30 mcg/min .Q24H PRN 58.05 mls/hr TITRATE PER MD ORDER Administration Protocol 4 MCG/MIN Ondansetron HCl 4 mg 01/14/18 18:50 Zofran Inj IVP Q4H PRN Nausea/Vomiting Pantoprazole Sodium 40 mg 01/15/18 10:00 01/15/18 09:19 Protonix Inj IVP 40 mg DAILY NILES Administration - Patient Studies Lab Studies: Microbiology Studies 01/14/18 20:26 Blood Culture - Preliminary Blood NO GROWTH AFTER 24 HOURS 01/14/18 20:26 Blood Culture - Preliminary Blood NO GROWTH AFTER 24 HOURS 01/14/18 11:19 Blood Culture - Preliminary Blood NO GROWTH AFTER 24 HOURS 01/14/18 11:00 Blood Culture - Preliminary Blood NO GROWTH AFTER 24 HOURS Lab Studies 01/16/18 01/16/18 01/16/18 Range/Units 08:42 08:30 07:56 WBC (4.5-11.0) 10^3/uL RBC (3.5-6.1) 10^6/uL Hgb (14.0-18.0) g/dL Hct (42.0-52.0) % MCV (80.0-105.0) fl MCH (25.0-35.0) pg MCHC (31.0-37.0) g/dl RDW (11.5-14.5) % Plt Count (120.0-450.0) 10^3/uL Manual Plt Count (120-450) K/mm3 Gran % (50.0-68.0) % Lymph % (Auto) (22.0-35.0) % [place] % (Auto) (1.0-6.0) % Eos % (Auto) (1.5-5.0) % Baso % (Auto) (0.0-3.0) % Gran # (1.4-6.5) Lymph # (Auto) (1.2-3.4) [place] # (Auto) (0.1-0.6) Eos # (Auto) (0.0-0.7) Baso # (Auto) (0.0-2.0) K/mm3 Platelet Evaluation (NORMAL) Retic Count (0.5-1.5) % PT (9.4-12.5) SECONDS INR APTT (25.1-36.5) Seconds Fibrinogen (200-400) mg/dl pCO2 (35-45) mm/Hg pO2 (30-55) mm/Hg HCO3 (21-28) mmol/L ABG pH (7.35-7.45) ABG Total CO2 (22-28) mmol.L ABG O2 Saturation (95-98) % ABG Base Excess (-2.0-3.0) mmol/L ABG Potassium (3.6-5.2) mmol/L VBG pH (7.32-7.43) VBG pCO2 (40-60) VBG HCO3 (21-28) mmol/l VBG Total CO2 (22-28) mmol.L VBG O2 Sat (Calc) (40-65) % VBG Base Excess (0.0-2.0) mmol/L VBG Potassium (3.6-5.2) mmol/L Sodium (132-148) mmol/L Chloride (98-107) mmol/L Glucose (75-110) mg/dl Lactate (0.7-2.1) mmol/L Mechanical Rate FiO2 % Tidal Volume PEEP Potassium (3.6-5.0) mmol/L Carbon Dioxide (21-33) mmol/L Anion Gap (10-20) BUN (7-21) mg/dL Creatinine (0.8-1.5) mg/dl Est GFR ( Amer) Est GFR (Non-Af Amer) POC Glucose (mg/dL) (65-110) mg/dL Random Glucose (70-110) mg/dL Hemoglobin A1c (4.2-6.5) % Calcium (8.4-10.5) mg/dL Phosphorus (2.5-4.5) mg/dL Magnesium (1.7-2.2) mg/dL Total Bilirubin (0.2-1.3) mg/dL Direct Bilirubin (0.0-0.4) mg/dL AST (17-59) U/L ALT (7-56) U/L Alkaline Phosphatase (38-126) U/L Total Creatine Kinase (35-230) U/L CK-MB (CK-2) (0.0-3.6) ng/mL CK-MB (CK-2) % (2.5-3.0) % Troponin I ng/mL C-React Prot High Sens (1.00-3.00) mg/L Total Protein (5.8-8.3) g/dL Total Protein (PEP) (6.1-8.1) g/dL Albumin (3.0-4.8) g/dL Globulin gm/dL Albumin/Globulin Ratio (1.1-1.8) Triglycerides (35-160) mg/dL Cholesterol (130-200) mg/dL LDL Cholesterol Direct (0-129) mg/dL HDL Cholesterol (29-60) mg/dL 25-OH Vitamin D Total (30.0-100.0) NG/ML Procalcitonin (0.19-0.49) NG/ML Arterial Blood Potassium (3.6-5.2) mmol/L Venous Blood Potassium (3.6-5.2) mmol/L Urine Color Yellow (YELLOW) Urine Appearance Clear (CLEAR) Urine pH 8.0 (4.7-8.0) Ur Specific [place] 1.020 (1.005-1.035) Urine Protein >=300 H (<30 mg/dL) mg/dL Urine Glucose (UA) 100 H (NEGATIVE) mg/dL Urine Ketones Negative (NEGATIVE) mg/dL Urine Blood Large H (NEGATIVE) Urine Nitrate Negative (NEGATIVE) Urine Bilirubin Large H (NEGATIVE) Urine Urobilinogen 0.2 (<1 E.U./dL) E.U./dL Ur Leukocyte Esterase Small H (NEGATIVE) Sav/uL Urine RBC 25 - 30 (0-2) /hpf Urine WBC 10 - 15 (0-6) /hpf Ur Epithelial Cells None (0-5) /hpf Amorphous Sediment Moderate Urine Bacteria Large (NEG) Hyaline Casts 0 - 2 /hpf Fine Granular Casts 0 - 2 (0-2) /hpf Coarse Granular Casts Trace (0-2) /hpf Urine Other [place]ast Ur Random Creatinine Urine Total Volume Microalb/Creat Ratio (<30) Hepatitis A IgM Ab (NEGATIVE) Hep Bs Antigen (NEGATIVE) Hep Bs Ag Neutralizatn Hep Bs Antibody (NEGATIVE) Hep B Core IgM Ab (NEGATIVE) Hepatitis C Antibody (NEGATIVE) HIV 1&2 Antibody Screen (NEGATIVE) Blood Type B POSITIVE Blood Type Confirm B POSITIVE Antibody Screen Negative BBK History Checked No verified bt 01/16/18 01/16/18 01/16/18 Range/Units 05:30 05:30 05:30 WBC 22.5 H D (4.5-11.0) 10^3/uL RBC 2.78 L (3.5-6.1) 10^6/uL Hgb 8.3 L (14.0-18.0) g/dL Hct 24.8 L (42.0-52.0) % MCV 89.2 D (80.0-105.0) fl MCH 29.9 (25.0-35.0) pg MCHC 33.5 (31.0-37.0) g/dl RDW 22.4 H (11.5-14.5) % Plt Count 38 L* (120.0-450.0) 10^3/uL Manual Plt Count 45 L* (120-450) K/mm3 Gran % 78.7 H (50.0-68.0) % Lymph % (Auto) 9.6 L (22.0-35.0) % [place] % (Auto) 11.6 H (1.0-6.0) % Eos % (Auto) 0.0 L (1.5-5.0) % Baso % (Auto) 0.1 (0.0-3.0) % Gran # 17.69 H (1.4-6.5) Lymph # (Auto) 2.2 (1.2-3.4) [place] # (Auto) 2.6 H (0.1-0.6) Eos # (Auto) 0.0 (0.0-0.7) Baso # (Auto) 0.02 (0.0-2.0) K/mm3 Platelet Evaluation (NORMAL) Retic Count 1.12 (0.5-1.5) % PT 53.6 H (9.4-12.5) SECONDS INR 4.52 H* APTT 156.9 H* (25.1-36.5) Seconds Fibrinogen (200-400) mg/dl pCO2 28 L (35-45) mm/Hg pO2 64.0 L (30-55) mm/Hg HCO3 9.8 L* (21-28) mmol/L ABG pH 7.15 L* (7.35-7.45) ABG Total CO2 10.7 L (22-28) mmol.L ABG O2 Saturation 91.8 L (95-98) % ABG Base Excess -17.6 L (-2.0-3.0) mmol/L ABG Potassium 5.7 H (3.6-5.2) mmol/L VBG pH (7.32-7.43) VBG pCO2 (40-60) VBG HCO3 (21-28) mmol/l VBG Total CO2 (22-28) mmol.L VBG O2 Sat (Calc) (40-65) % VBG Base Excess (0.0-2.0) mmol/L VBG Potassium (3.6-5.2) mmol/L Sodium 129.0 L (132-148) mmol/L Chloride 93.0 L (98-107) mmol/L Glucose 106 (75-110) mg/dl Lactate 16.1 H* (0.7-2.1) mmol/L Mechanical Rate FiO2 40.0 % Tidal Volume PEEP Potassium (3.6-5.0) mmol/L Carbon Dioxide (21-33) mmol/L Anion Gap (10-20) BUN (7-21) mg/dL Creatinine (0.8-1.5) mg/dl Est GFR ( Amer) Est GFR (Non-Af Amer) POC Glucose (mg/dL) (65-110) mg/dL Random Glucose (70-110) mg/dL Hemoglobin A1c (4.2-6.5) % Calcium (8.4-10.5) mg/dL Phosphorus (2.5-4.5) mg/dL Magnesium (1.7-2.2) mg/dL Total Bilirubin (0.2-1.3) mg/dL Direct Bilirubin (0.0-0.4) mg/dL AST (17-59) U/L ALT (7-56) U/L Alkaline Phosphatase (38-126) U/L Total Creatine Kinase (35-230) U/L CK-MB (CK-2) (0.0-3.6) ng/mL CK-MB (CK-2) % (2.5-3.0) % Troponin I ng/mL C-React Prot High Sens (1.00-3.00) mg/L Total Protein (5.8-8.3) g/dL Total Protein (PEP) (6.1-8.1) g/dL Albumin (3.0-4.8) g/dL Globulin gm/dL Albumin/Globulin Ratio (1.1-1.8) Triglycerides (35-160) mg/dL Cholesterol (130-200) mg/dL LDL Cholesterol Direct (0-129) mg/dL HDL Cholesterol (29-60) mg/dL 25-OH Vitamin D Total (30.0-100.0) NG/ML Procalcitonin (0.19-0.49) NG/ML Arterial Blood Potassium 5.7 H (3.6-5.2) mmol/L Venous Blood Potassium (3.6-5.2) mmol/L Urine Color (YELLOW) Urine Appearance (CLEAR) Urine pH (4.7-8.0) Ur Specific [place] (1.005-1.035) Urine Protein (<30 mg/dL) mg/dL Urine Glucose (UA) (NEGATIVE) mg/dL Urine Ketones (NEGATIVE) mg/dL Urine Blood (NEGATIVE) Urine Nitrate (NEGATIVE) Urine Bilirubin (NEGATIVE) Urine Urobilinogen (<1 E.U./dL) E.U./dL Ur Leukocyte Esterase (NEGATIVE) Sav/uL Urine RBC (0-2) /hpf Urine WBC (0-6) /hpf Ur Epithelial Cells (0-5) /hpf Amorphous Sediment Urine Bacteria (NEG) Hyaline Casts /hpf Fine Granular Casts (0-2) /hpf Coarse Granular Casts (0-2) /hpf Urine Other Ur Random Creatinine Urine Total Volume Microalb/Creat Ratio (<30) Hepatitis A IgM Ab (NEGATIVE) Hep Bs Antigen (NEGATIVE) Hep Bs Ag Neutralizatn Hep Bs Antibody (NEGATIVE) Hep B Core IgM Ab (NEGATIVE) Hepatitis C Antibody (NEGATIVE) HIV 1&2 Antibody Screen (NEGATIVE) Blood Type Blood Type Confirm Antibody Screen BBK History Checked 01/16/18 01/16/18 01/16/18 Range/Units 05:30 04:51 00:18 WBC (4.5-11.0) 10^3/uL RBC (3.5-6.1) 10^6/uL Hgb (14.0-18.0) g/dL Hct (42.0-52.0) % MCV (80.0-105.0) fl MCH (25.0-35.0) pg MCHC (31.0-37.0) g/dl RDW (11.5-14.5) % Plt Count (120.0-450.0) 10^3/uL Manual Plt Count (120-450) K/mm3 Gran % (50.0-68.0) % Lymph % (Auto) (22.0-35.0) % [place] % (Auto) (1.0-6.0) % Eos % (Auto) (1.5-5.0) % Baso % (Auto) (0.0-3.0) % Gran # (1.4-6.5) Lymph # (Auto) (1.2-3.4) [place] # (Auto) (0.1-0.6) Eos # (Auto) (0.0-0.7) Baso # (Auto) (0.0-2.0) K/mm3 Platelet Evaluation (NORMAL) Retic Count (0.5-1.5) % PT (9.4-12.5) SECONDS INR APTT (25.1-36.5) Seconds Fibrinogen (200-400) mg/dl pCO2 (35-45) mm/Hg pO2 (30-55) mm/Hg HCO3 (21-28) mmol/L ABG pH (7.35-7.45) ABG Total CO2 (22-28) mmol.L ABG O2 Saturation (95-98) % ABG Base Excess (-2.0-3.0) mmol/L ABG Potassium (3.6-5.2) mmol/L VBG pH (7.32-7.43) VBG pCO2 (40-60) VBG HCO3 (21-28) mmol/l VBG Total CO2 (22-28) mmol.L VBG O2 Sat (Calc) (40-65) % VBG Base Excess (0.0-2.0) mmol/L VBG Potassium (3.6-5.2) mmol/L Sodium 130 L (132-148) mmol/L Chloride 90 L (98-107) mmol/L Glucose (75-110) mg/dl Lactate (0.7-2.1) mmol/L Mechanical Rate FiO2 % Tidal Volume PEEP Potassium 6.2 H* D (3.6-5.0) mmol/L Carbon Dioxide 11 L (21-33) mmol/L Anion Gap 34 H (10-20) BUN 22 H (7-21) mg/dL Creatinine 4.0 H (0.8-1.5) mg/dl Est GFR ( Amer) 19 Est GFR (Non-Af Amer) 15 POC Glucose (mg/dL) 104 140 H (65-110) mg/dL Random Glucose 103 (70-110) mg/dL Hemoglobin A1c (4.2-6.5) % Calcium 5.5 L* (8.4-10.5) mg/dL Phosphorus 7.6 H (2.5-4.5) mg/dL Magnesium 1.7 (1.7-2.2) mg/dL Total Bilirubin 4.8 H (0.2-1.3) mg/dL Direct Bilirubin 3.8 H (0.0-0.4) mg/dL AST 1121 H (17-59) U/L ALT 394 H (7-56) U/L Alkaline Phosphatase 157 H D (38-126) U/L Total Creatine Kinase (35-230) U/L CK-MB (CK-2) (0.0-3.6) ng/mL CK-MB (CK-2) % (2.5-3.0) % Troponin I ng/mL C-React Prot High Sens (1.00-3.00) mg/L Total Protein 5.1 L (5.8-8.3) g/dL Total Protein (PEP) (6.1-8.1) g/dL Albumin 2.6 L (3.0-4.8) g/dL Globulin 2.4 gm/dL Albumin/Globulin Ratio 1.1 (1.1-1.8) Triglycerides (35-160) mg/dL Cholesterol (130-200) mg/dL LDL Cholesterol Direct (0-129) mg/dL HDL Cholesterol (29-60) mg/dL 25-OH Vitamin D Total (30.0-100.0) NG/ML Procalcitonin (0.19-0.49) NG/ML Arterial Blood Potassium (3.6-5.2) mmol/L Venous Blood Potassium (3.6-5.2) mmol/L Urine Color (YELLOW) Urine Appearance (CLEAR) Urine pH (4.7-8.0) Ur Specific [place] (1.005-1.035) Urine Protein (<30 mg/dL) mg/dL Urine Glucose (UA) (NEGATIVE) mg/dL Urine Ketones (NEGATIVE) mg/dL Urine Blood (NEGATIVE) Urine Nitrate (NEGATIVE) Urine Bilirubin (NEGATIVE) Urine Urobilinogen (<1 E.U./dL) E.U./dL Ur Leukocyte Esterase (NEGATIVE) Sav/uL Urine RBC (0-2) /hpf Urine WBC (0-6) /hpf Ur Epithelial Cells (0-5) /hpf Amorphous Sediment Urine Bacteria (NEG) Hyaline Casts /hpf Fine Granular Casts (0-2) /hpf Coarse Granular Casts (0-2) /hpf Urine Other Ur Random Creatinine Urine Total Volume Microalb/Creat Ratio (<30) Hepatitis A IgM Ab (NEGATIVE) Hep Bs Antigen (NEGATIVE) Hep Bs Ag Neutralizatn Hep Bs Antibody (NEGATIVE) Hep B Core IgM Ab (NEGATIVE) Hepatitis C Antibody (NEGATIVE) HIV 1&2 Antibody Screen (NEGATIVE) Blood Type Blood Type Confirm Antibody Screen BBK History Checked 01/16/18 01/15/18 01/15/18 Range/Units 00:00 21:46 20:42 WBC (4.5-11.0) 10^3/uL RBC (3.5-6.1) 10^6/uL Hgb (14.0-18.0) g/dL Hct (42.0-52.0) % MCV (80.0-105.0) fl MCH (25.0-35.0) pg MCHC (31.0-37.0) g/dl RDW (11.5-14.5) % Plt Count (120.0-450.0) 10^3/uL Manual Plt Count (120-450) K/mm3 Gran % (50.0-68.0) % Lymph % (Auto) (22.0-35.0) % [place] % (Auto) (1.0-6.0) % Eos % (Auto) (1.5-5.0) % Baso % (Auto) (0.0-3.0) % Gran # (1.4-6.5) Lymph # (Auto) (1.2-3.4) [place] # (Auto) (0.1-0.6) Eos # (Auto) (0.0-0.7) Baso # (Auto) (0.0-2.0) K/mm3 Platelet Evaluation (NORMAL) Retic Count (0.5-1.5) % PT (9.4-12.5) SECONDS INR APTT (25.1-36.5) Seconds Fibrinogen 108 L (200-400) mg/dl pCO2 (35-45) mm/Hg pO2 73 H (30-55) mm/Hg HCO3 (21-28) mmol/L ABG pH (7.35-7.45) ABG Total CO2 (22-28) mmol.L ABG O2 Saturation (95-98) % ABG Base Excess (-2.0-3.0) mmol/L ABG Potassium (3.6-5.2) mmol/L VBG pH 7.27 L (7.32-7.43) VBG pCO2 30.0 L (40-60) VBG HCO3 13.8 L (21-28) mmol/l VBG Total CO2 14.7 L (22-28) mmol.L VBG O2 Sat (Calc) 96.9 H (40-65) % VBG Base Excess -11.8 L (0.0-2.0) mmol/L VBG Potassium 5.4 H (3.6-5.2) mmol/L Sodium 127.0 L (132-148) mmol/L Chloride 89.0 L (98-107) mmol/L Glucose 133 H (75-110) mg/dl Lactate 14.6 H* (0.7-2.1) mmol/L Mechanical Rate FiO2 21.0 % Tidal Volume PEEP Potassium (3.6-5.0) mmol/L Carbon Dioxide (21-33) mmol/L Anion Gap (10-20) BUN (7-21) mg/dL Creatinine (0.8-1.5) mg/dl Est GFR ( Amer) Est GFR (Non-Af Amer) POC Glucose (mg/dL) 140 H (65-110) mg/dL Random Glucose (70-110) mg/dL Hemoglobin A1c (4.2-6.5) % Calcium (8.4-10.5) mg/dL Phosphorus (2.5-4.5) mg/dL Magnesium (1.7-2.2) mg/dL Total Bilirubin (0.2-1.3) mg/dL Direct Bilirubin (0.0-0.4) mg/dL AST (17-59) U/L ALT (7-56) U/L Alkaline Phosphatase (38-126) U/L Total Creatine Kinase (35-230) U/L CK-MB (CK-2) (0.0-3.6) ng/mL CK-MB (CK-2) % (2.5-3.0) % Troponin I ng/mL C-React Prot High Sens (1.00-3.00) mg/L Total Protein (5.8-8.3) g/dL Total Protein (PEP) (6.1-8.1) g/dL Albumin (3.0-4.8) g/dL Globulin gm/dL Albumin/Globulin Ratio (1.1-1.8) Triglycerides (35-160) mg/dL Cholesterol (130-200) mg/dL LDL Cholesterol Direct (0-129) mg/dL HDL Cholesterol (29-60) mg/dL 25-OH Vitamin D Total (30.0-100.0) NG/ML Procalcitonin (0.19-0.49) NG/ML Arterial Blood Potassium (3.6-5.2) mmol/L Venous Blood Potassium 5.4 H (3.6-5.2) mmol/L Urine Color (YELLOW) Urine Appearance (CLEAR) Urine pH (4.7-8.0) Ur Specific [place] (1.005-1.035) Urine Protein (<30 mg/dL) mg/dL Urine Glucose (UA) (NEGATIVE) mg/dL Urine Ketones (NEGATIVE) mg/dL Urine Blood (NEGATIVE) Urine Nitrate (NEGATIVE) Urine Bilirubin (NEGATIVE) Urine Urobilinogen (<1 E.U./dL) E.U./dL Ur Leukocyte Esterase (NEGATIVE) Sav/uL Urine RBC (0-2) /hpf Urine WBC (0-6) /hpf Ur Epithelial Cells (0-5) /hpf Amorphous Sediment Urine Bacteria (NEG) Hyaline Casts /hpf Fine Granular Casts (0-2) /hpf Coarse Granular Casts (0-2) /hpf Urine Other Ur Random Creatinine Urine Total Volume Microalb/Creat Ratio (<30) Hepatitis A IgM Ab (NEGATIVE) Hep Bs Antigen (NEGATIVE) Hep Bs Ag Neutralizatn Hep Bs Antibody (NEGATIVE) Hep B Core IgM Ab (NEGATIVE) Hepatitis C Antibody (NEGATIVE) HIV 1&2 Antibody Screen (NEGATIVE) Blood Type Blood Type Confirm Antibody Screen BBK History Checked 01/15/18 01/15/18 01/15/18 Range/Units 20:42 18:25 17:55 WBC (4.5-11.0) 10^3/uL RBC (3.5-6.1) 10^6/uL Hgb (14.0-18.0) g/dL Hct (42.0-52.0) % MCV (80.0-105.0) fl MCH (25.0-35.0) pg MCHC (31.0-37.0) g/dl RDW (11.5-14.5) % Plt Count (120.0-450.0) 10^3/uL Manual Plt Count (120-450) K/mm3 Gran % (50.0-68.0) % Lymph % (Auto) (22.0-35.0) % [place] % (Auto) (1.0-6.0) % Eos % (Auto) (1.5-5.0) % Baso % (Auto) (0.0-3.0) % Gran # (1.4-6.5) Lymph # (Auto) (1.2-3.4) [place] # (Auto) (0.1-0.6) Eos # (Auto) (0.0-0.7) Baso # (Auto) (0.0-2.0) K/mm3 Platelet Evaluation (NORMAL) Retic Count 1.12 (0.5-1.5) % PT (9.4-12.5) SECONDS INR APTT (25.1-36.5) Seconds Fibrinogen (200-400) mg/dl pCO2 24 L (35-45) mm/Hg pO2 69.0 L (30-55) mm/Hg HCO3 15.2 L (21-28) mmol/L ABG pH 7.41 (7.35-7.45) ABG Total CO2 15.9 L (22-28) mmol.L ABG O2 Saturation 96.8 (95-98) % ABG Base Excess -7.6 L (-2.0-3.0) mmol/L ABG Potassium 4.3 (3.6-5.2) mmol/L VBG pH (7.32-7.43) VBG pCO2 (40-60) VBG HCO3 (21-28) mmol/l VBG Total CO2 (22-28) mmol.L VBG O2 Sat (Calc) (40-65) % VBG Base Excess (0.0-2.0) mmol/L VBG Potassium (3.6-5.2) mmol/L Sodium 131.0 L 130 L (132-148) mmol/L Chloride 96.0 L 92 L (98-107) mmol/L Glucose 120 H (75-110) mg/dl Lactate 10.2 H* (0.7-2.1) mmol/L Mechanical Rate 16 FiO2 40.0 % Tidal Volume 450 PEEP 5 Potassium 4.7 (3.6-5.0) mmol/L Carbon Dioxide 18 L (21-33) mmol/L Anion Gap 25 H (10-20) BUN 21 (7-21) mg/dL Creatinine 3.1 H (0.8-1.5) mg/dl Est GFR ( Amer) 25 Est GFR (Non-Af Amer) 21 POC Glucose (mg/dL) (65-110) mg/dL Random Glucose 116 H (70-110) mg/dL Hemoglobin A1c (4.2-6.5) % Calcium 6.0 L* (8.4-10.5) mg/dL Phosphorus (2.5-4.5) mg/dL Magnesium (1.7-2.2) mg/dL Total Bilirubin 4.4 H (0.2-1.3) mg/dL Direct Bilirubin (0.0-0.4) mg/dL AST 1068 H (17-59) U/L ALT 405 H (7-56) U/L Alkaline Phosphatase 118 (38-126) U/L Total Creatine Kinase (35-230) U/L CK-MB (CK-2) (0.0-3.6) ng/mL CK-MB (CK-2) % (2.5-3.0) % Troponin I ng/mL C-React Prot High Sens (1.00-3.00) mg/L Total Protein 5.4 L (5.8-8.3) g/dL Total Protein (PEP) (6.1-8.1) g/dL Albumin 2.8 L (3.0-4.8) g/dL Globulin 2.6 gm/dL Albumin/Globulin Ratio 1.1 (1.1-1.8) Triglycerides (35-160) mg/dL Cholesterol (130-200) mg/dL LDL Cholesterol Direct (0-129) mg/dL HDL Cholesterol (29-60) mg/dL 25-OH Vitamin D Total (30.0-100.0) NG/ML Procalcitonin (0.19-0.49) NG/ML Arterial Blood Potassium 4.3 (3.6-5.2) mmol/L Venous Blood Potassium (3.6-5.2) mmol/L Urine Color (YELLOW) Urine Appearance (CLEAR) Urine pH (4.7-8.0) Ur Specific [place] (1.005-1.035) Urine Protein (<30 mg/dL) mg/dL Urine Glucose (UA) (NEGATIVE) mg/dL Urine Ketones (NEGATIVE) mg/dL Urine Blood (NEGATIVE) Urine Nitrate (NEGATIVE) Urine Bilirubin (NEGATIVE) Urine Urobilinogen (<1 E.U./dL) E.U./dL Ur Leukocyte Esterase (NEGATIVE) Sav/uL Urine RBC (0-2) /hpf Urine WBC (0-6) /hpf Ur Epithelial Cells (0-5) /hpf Amorphous Sediment Urine Bacteria (NEG) Hyaline Casts /hpf Fine Granular Casts (0-2) /hpf Coarse Granular Casts (0-2) /hpf Urine Other Ur Random Creatinine Urine Total Volume Microalb/Creat Ratio (<30) Hepatitis A IgM Ab (NEGATIVE) Hep Bs Antigen (NEGATIVE) Hep Bs Ag Neutralizatn Hep Bs Antibody (NEGATIVE) Hep B Core IgM Ab (NEGATIVE) Hepatitis C Antibody (NEGATIVE) HIV 1&2 Antibody Screen (NEGATIVE) Blood Type Blood Type Confirm Antibody Screen BBK History Checked 01/15/18 01/15/18 01/15/18 Range/Units 17:55 17:55 16:56 WBC 16.5 H D (4.5-11.0) 10^3/uL RBC 2.89 L (3.5-6.1) 10^6/uL Hgb 8.7 L D (14.0-18.0) g/dL Hct 24.6 L (42.0-52.0) % MCV 85.1 (80.0-105.0) fl MCH 30.1 (25.0-35.0) pg MCHC 35.4 (31.0-37.0) g/dl RDW 21.8 H (11.5-14.5) % Plt Count 44 L* (120.0-450.0) 10^3/uL Manual Plt Count (120-450) K/mm3 Gran % 79.0 H (50.0-68.0) % Lymph % (Auto) 10.0 L (22.0-35.0) % [place] % (Auto) 10.8 H (1.0-6.0) % Eos % (Auto) 0.1 L (1.5-5.0) % Baso % (Auto) 0.1 (0.0-3.0) % Gran # 13.02 H (1.4-6.5) Lymph # (Auto) 1.6 (1.2-3.4) [place] # (Auto) 1.8 H (0.1-0.6) Eos # (Auto) 0.0 (0.0-0.7) Baso # (Auto) 0.01 (0.0-2.0) K/mm3 Platelet Evaluation Low (NORMAL) Retic Count (0.5-1.5) % PT 47.3 H (9.4-12.5) SECONDS INR 4.03 H* APTT (25.1-36.5) Seconds Fibrinogen (200-400) mg/dl pCO2 (35-45) mm/Hg pO2 (30-55) mm/Hg HCO3 (21-28) mmol/L ABG pH (7.35-7.45) ABG Total CO2 (22-28) mmol.L ABG O2 Saturation (95-98) % ABG Base Excess (-2.0-3.0) mmol/L ABG Potassium (3.6-5.2) mmol/L VBG pH (7.32-7.43) VBG pCO2 (40-60) VBG HCO3 (21-28) mmol/l VBG Total CO2 (22-28) mmol.L VBG O2 Sat (Calc) (40-65) % VBG Base Excess (0.0-2.0) mmol/L VBG Potassium (3.6-5.2) mmol/L Sodium (132-148) mmol/L Chloride (98-107) mmol/L Glucose (75-110) mg/dl Lactate (0.7-2.1) mmol/L Mechanical Rate FiO2 % Tidal Volume PEEP Potassium (3.6-5.0) mmol/L Carbon Dioxide (21-33) mmol/L Anion Gap (10-20) BUN (7-21) mg/dL Creatinine (0.8-1.5) mg/dl Est GFR ( Amer) Est GFR (Non-Af Amer) POC Glucose (mg/dL) 135 H (65-110) mg/dL Random Glucose (70-110) mg/dL Hemoglobin A1c (4.2-6.5) % Calcium (8.4-10.5) mg/dL Phosphorus (2.5-4.5) mg/dL Magnesium (1.7-2.2) mg/dL Total Bilirubin (0.2-1.3) mg/dL Direct Bilirubin (0.0-0.4) mg/dL AST (17-59) U/L ALT (7-56) U/L Alkaline Phosphatase (38-126) U/L Total Creatine Kinase (35-230) U/L CK-MB (CK-2) (0.0-3.6) ng/mL CK-MB (CK-2) % (2.5-3.0) % Troponin I ng/mL C-React Prot High Sens (1.00-3.00) mg/L Total Protein (5.8-8.3) g/dL Total Protein (PEP) (6.1-8.1) g/dL Albumin (3.0-4.8) g/dL Globulin gm/dL Albumin/Globulin Ratio (1.1-1.8) Triglycerides (35-160) mg/dL Cholesterol (130-200) mg/dL LDL Cholesterol Direct (0-129) mg/dL HDL Cholesterol (29-60) mg/dL 25-OH Vitamin D Total (30.0-100.0) NG/ML Procalcitonin (0.19-0.49) NG/ML Arterial Blood Potassium (3.6-5.2) mmol/L Venous Blood Potassium (3.6-5.2) mmol/L Urine Color (YELLOW) Urine Appearance (CLEAR) Urine pH (4.7-8.0) Ur Specific [place] (1.005-1.035) Urine Protein (<30 mg/dL) mg/dL Urine Glucose (UA) (NEGATIVE) mg/dL Urine Ketones (NEGATIVE) mg/dL Urine Blood (NEGATIVE) Urine Nitrate (NEGATIVE) Urine Bilirubin (NEGATIVE) Urine Urobilinogen (<1 E.U./dL) E.U./dL Ur Leukocyte Esterase (NEGATIVE) Sav/uL Urine RBC (0-2) /hpf Urine WBC (0-6) /hpf Ur Epithelial Cells (0-5) /hpf Amorphous Sediment Urine Bacteria (NEG) Hyaline Casts /hpf Fine Granular Casts (0-2) /hpf Coarse Granular Casts (0-2) /hpf Urine Other Ur Random Creatinine Urine Total Volume Microalb/Creat Ratio (<30) Hepatitis A IgM Ab (NEGATIVE) Hep Bs Antigen (NEGATIVE) Hep Bs Ag Neutralizatn Hep Bs Antibody (NEGATIVE) Hep B Core IgM Ab (NEGATIVE) Hepatitis C Antibody (NEGATIVE) HIV 1&2 Antibody Screen (NEGATIVE) Blood Type Blood Type Confirm Antibody Screen BBK History Checked 01/15/18 01/15/18 01/15/18 Range/Units 11:21 07:45 07:37 WBC (4.5-11.0) 10^3/uL RBC (3.5-6.1) 10^6/uL Hgb (14.0-18.0) g/dL Hct (42.0-52.0) % MCV (80.0-105.0) fl MCH (25.0-35.0) pg MCHC (31.0-37.0) g/dl RDW (11.5-14.5) % Plt Count (120.0-450.0) 10^3/uL Manual Plt Count (120-450) K/mm3 Gran % (50.0-68.0) % Lymph % (Auto) (22.0-35.0) % [place] % (Auto) (1.0-6.0) % Eos % (Auto) (1.5-5.0) % Baso % (Auto) (0.0-3.0) % Gran # (1.4-6.5) Lymph # (Auto) (1.2-3.4) [place] # (Auto) (0.1-0.6) Eos # (Auto) (0.0-0.7) Baso # (Auto) (0.0-2.0) K/mm3 Platelet Evaluation (NORMAL) Retic Count (0.5-1.5) % PT (9.4-12.5) SECONDS INR APTT (25.1-36.5) Seconds Fibrinogen (200-400) mg/dl pCO2 (35-45) mm/Hg pO2 (30-55) mm/Hg HCO3 (21-28) mmol/L ABG pH (7.35-7.45) ABG Total CO2 (22-28) mmol.L ABG O2 Saturation (95-98) % ABG Base Excess (-2.0-3.0) mmol/L ABG Potassium (3.6-5.2) mmol/L VBG pH (7.32-7.43) VBG pCO2 (40-60) VBG HCO3 (21-28) mmol/l VBG Total CO2 (22-28) mmol.L VBG O2 Sat (Calc) (40-65) % VBG Base Excess (0.0-2.0) mmol/L VBG Potassium (3.6-5.2) mmol/L Sodium (132-148) mmol/L Chloride (98-107) mmol/L Glucose (75-110) mg/dl Lactate (0.7-2.1) mmol/L Mechanical Rate FiO2 % Tidal Volume PEEP Potassium (3.6-5.0) mmol/L Carbon Dioxide (21-33) mmol/L Anion Gap (10-20) BUN (7-21) mg/dL Creatinine (0.8-1.5) mg/dl Est GFR ( Amer) Est GFR (Non-Af Amer) POC Glucose (mg/dL) 117 H 88 (65-110) mg/dL Random Glucose (70-110) mg/dL Hemoglobin A1c (4.2-6.5) % Calcium (8.4-10.5) mg/dL Phosphorus (2.5-4.5) mg/dL Magnesium (1.7-2.2) mg/dL Total Bilirubin (0.2-1.3) mg/dL Direct Bilirubin (0.0-0.4) mg/dL AST (17-59) U/L ALT (7-56) U/L Alkaline Phosphatase (38-126) U/L Total Creatine Kinase (35-230) U/L CK-MB (CK-2) (0.0-3.6) ng/mL CK-MB (CK-2) % (2.5-3.0) % Troponin I ng/mL C-React Prot High Sens (1.00-3.00) mg/L Total Protein (5.8-8.3) g/dL Total Protein (PEP) (6.1-8.1) g/dL Albumin (3.0-4.8) g/dL Globulin gm/dL Albumin/Globulin Ratio (1.1-1.8) Triglycerides (35-160) mg/dL Cholesterol (130-200) mg/dL LDL Cholesterol Direct (0-129) mg/dL HDL Cholesterol (29-60) mg/dL 25-OH Vitamin D Total (30.0-100.0) NG/ML Procalcitonin (0.19-0.49) NG/ML Arterial Blood Potassium (3.6-5.2) mmol/L Venous Blood Potassium (3.6-5.2) mmol/L Urine Color (YELLOW) Urine Appearance (CLEAR) Urine pH (4.7-8.0) Ur Specific [place] (1.005-1.035) Urine Protein (<30 mg/dL) mg/dL Urine Glucose (UA) (NEGATIVE) mg/dL Urine Ketones (NEGATIVE) mg/dL Urine Blood (NEGATIVE) Urine Nitrate (NEGATIVE) Urine Bilirubin (NEGATIVE) Urine Urobilinogen (<1 E.U./dL) E.U./dL Ur Leukocyte Esterase (NEGATIVE) Sav/uL Urine RBC (0-2) /hpf Urine WBC (0-6) /hpf Ur Epithelial Cells (0-5) /hpf Amorphous Sediment Urine Bacteria (NEG) Hyaline Casts /hpf Fine Granular Casts (0-2) /hpf Coarse Granular Casts (0-2) /hpf Urine Other Ur Random Creatinine Urine Total Volume Microalb/Creat Ratio (<30) Hepatitis A IgM Ab (NEGATIVE) Hep Bs Antigen (NEGATIVE) Hep Bs Ag Neutralizatn Confirmed positive H Hep Bs Antibody (NEGATIVE) Hep B Core IgM Ab (NEGATIVE) Hepatitis C Antibody (NEGATIVE) HIV 1&2 Antibody Screen (NEGATIVE) Blood Type Blood Type Confirm Antibody Screen BBK History Checked 01/15/18 01/15/18 01/15/18 Range/Units 06:43 06:00 05:34 WBC (4.5-11.0) 10^3/uL RBC (3.5-6.1) 10^6/uL Hgb (14.0-18.0) g/dL Hct (42.0-52.0) % MCV (80.0-105.0) fl MCH (25.0-35.0) pg MCHC (31.0-37.0) g/dl RDW (11.5-14.5) % Plt Count (120.0-450.0) 10^3/uL Manual Plt Count (120-450) K/mm3 Gran % (50.0-68.0) % Lymph % (Auto) (22.0-35.0) % [place] % (Auto) (1.0-6.0) % Eos % (Auto) (1.5-5.0) % Baso % (Auto) (0.0-3.0) % Gran # (1.4-6.5) Lymph # (Auto) (1.2-3.4) [place] # (Auto) (0.1-0.6) Eos # (Auto) (0.0-0.7) Baso # (Auto) (0.0-2.0) K/mm3 Platelet Evaluation (NORMAL) Retic Count (0.5-1.5) % PT (9.4-12.5) SECONDS INR APTT (25.1-36.5) Seconds Fibrinogen (200-400) mg/dl pCO2 (35-45) mm/Hg pO2 42 (30-55) mm/Hg HCO3 (21-28) mmol/L ABG pH (7.35-7.45) ABG Total CO2 (22-28) mmol.L ABG O2 Saturation (95-98) % ABG Base Excess (-2.0-3.0) mmol/L ABG Potassium (3.6-5.2) mmol/L VBG pH 7.28 L (7.32-7.43) VBG pCO2 35.0 L (40-60) VBG HCO3 16.4 L (21-28) mmol/l VBG Total CO2 17.5 L (22-28) mmol.L VBG O2 Sat (Calc) 74.5 H (40-65) % VBG Base Excess -9.4 L (0.0-2.0) mmol/L VBG Potassium 5.4 H (3.6-5.2) mmol/L Sodium 131.0 L (132-148) mmol/L Chloride 98.0 (98-107) mmol/L Glucose 76 (75-110) mg/dl Lactate 8.3 H* (0.7-2.1) mmol/L Mechanical Rate FiO2 21.0 % Tidal Volume PEEP Potassium (3.6-5.0) mmol/L Carbon Dioxide (21-33) mmol/L Anion Gap (10-20) BUN (7-21) mg/dL Creatinine (0.8-1.5) mg/dl Est GFR ( Amer) Est GFR (Non-Af Amer) POC Glucose (mg/dL) 72 (65-110) mg/dL Random Glucose (70-110) mg/dL Hemoglobin A1c (4.2-6.5) % Calcium (8.4-10.5) mg/dL Phosphorus (2.5-4.5) mg/dL Magnesium (1.7-2.2) mg/dL Total Bilirubin (0.2-1.3) mg/dL Direct Bilirubin (0.0-0.4) mg/dL AST (17-59) U/L ALT (7-56) U/L Alkaline Phosphatase (38-126) U/L Total Creatine Kinase (35-230) U/L CK-MB (CK-2) (0.0-3.6) ng/mL CK-MB (CK-2) % (2.5-3.0) % Troponin I ng/mL C-React Prot High Sens (1.00-3.00) mg/L Total Protein (5.8-8.3) g/dL Total Protein (PEP) (6.1-8.1) g/dL Albumin (3.0-4.8) g/dL Globulin gm/dL Albumin/Globulin Ratio (1.1-1.8) Triglycerides (35-160) mg/dL Cholesterol (130-200) mg/dL LDL Cholesterol Direct (0-129) mg/dL HDL Cholesterol (29-60) mg/dL 25-OH Vitamin D Total (30.0-100.0) NG/ML Procalcitonin (0.19-0.49) NG/ML Arterial Blood Potassium (3.6-5.2) mmol/L Venous Blood Potassium 5.4 H (3.6-5.2) mmol/L Urine Color (YELLOW) Urine Appearance (CLEAR) Urine pH (4.7-8.0) Ur Specific [place] (1.005-1.035) Urine Protein (<30 mg/dL) mg/dL Urine Glucose (UA) (NEGATIVE) mg/dL Urine Ketones (NEGATIVE) mg/dL Urine Blood (NEGATIVE) Urine Nitrate (NEGATIVE) Urine Bilirubin (NEGATIVE) Urine Urobilinogen (<1 E.U./dL) E.U./dL Ur Leukocyte Esterase (NEGATIVE) Sav/uL Urine RBC (0-2) /hpf Urine WBC (0-6) /hpf Ur Epithelial Cells (0-5) /hpf Amorphous Sediment Urine Bacteria (NEG) Hyaline Casts /hpf Fine Granular Casts (0-2) /hpf Coarse Granular Casts (0-2) /hpf Urine Other Ur Random Creatinine Urine Total Volume Microalb/Creat Ratio (<30) Hepatitis A IgM Ab Negative (NEGATIVE) Hep Bs Antigen Reactive (NEGATIVE) Hep Bs Ag Neutralizatn Hep Bs Antibody (NEGATIVE) Hep B Core IgM Ab Negative (NEGATIVE) Hepatitis C Antibody Negative (NEGATIVE) HIV 1&2 Antibody Screen (NEGATIVE) Blood Type Blood Type Confirm Antibody Screen BBK History Checked 01/15/18 01/15/18 01/15/18 Range/Units 03:30 03:30 03:30 WBC (4.5-11.0) 10^3/uL RBC (3.5-6.1) 10^6/uL Hgb (14.0-18.0) g/dL Hct (42.0-52.0) % MCV (80.0-105.0) fl MCH (25.0-35.0) pg MCHC (31.0-37.0) g/dl RDW (11.5-14.5) % Plt Count (120.0-450.0) 10^3/uL Manual Plt Count (120-450) K/mm3 Gran % (50.0-68.0) % Lymph % (Auto) (22.0-35.0) % [place] % (Auto) (1.0-6.0) % Eos % (Auto) (1.5-5.0) % Baso % (Auto) (0.0-3.0) % Gran # (1.4-6.5) Lymph # (Auto) (1.2-3.4) [place] # (Auto) (0.1-0.6) Eos # (Auto) (0.0-0.7) Baso # (Auto) (0.0-2.0) K/mm3 Platelet Evaluation (NORMAL) Retic Count (0.5-1.5) % PT (9.4-12.5) SECONDS INR APTT (25.1-36.5) Seconds Fibrinogen (200-400) mg/dl pCO2 (35-45) mm/Hg pO2 105 H (30-55) mm/Hg HCO3 (21-28) mmol/L ABG pH (7.35-7.45) ABG Total CO2 (22-28) mmol.L ABG O2 Saturation (95-98) % ABG Base Excess (-2.0-3.0) mmol/L ABG Potassium (3.6-5.2) mmol/L VBG pH 7.43 (7.32-7.43) VBG pCO2 22.0 L (40-60) VBG HCO3 14.6 L (21-28) mmol/l VBG Total CO2 15.3 L (22-28) mmol.L VBG O2 Sat (Calc) 99.3 H (40-65) % VBG Base Excess -7.6 L (0.0-2.0) mmol/L VBG Potassium 5.7 H (3.6-5.2) mmol/L Sodium 128.0 L (132-148) mmol/L Chloride 98.0 (98-107) mmol/L Glucose 73 L (75-110) mg/dl Lactate 6.7 H* (0.7-2.1) mmol/L Mechanical Rate FiO2 21.0 % Tidal Volume PEEP Potassium (3.6-5.0) mmol/L Carbon Dioxide (21-33) mmol/L Anion Gap (10-20) BUN (7-21) mg/dL Creatinine (0.8-1.5) mg/dl Est GFR ( Amer) Est GFR (Non-Af Amer) POC Glucose (mg/dL) (65-110) mg/dL Random Glucose (70-110) mg/dL Hemoglobin A1c 6.3 (4.2-6.5) % Calcium (8.4-10.5) mg/dL Phosphorus (2.5-4.5) mg/dL Magnesium (1.7-2.2) mg/dL Total Bilirubin (0.2-1.3) mg/dL Direct Bilirubin (0.0-0.4) mg/dL AST (17-59) U/L ALT (7-56) U/L Alkaline Phosphatase (38-126) U/L Total Creatine Kinase (35-230) U/L CK-MB (CK-2) (0.0-3.6) ng/mL CK-MB (CK-2) % (2.5-3.0) % Troponin I ng/mL C-React Prot High Sens (1.00-3.00) mg/L Total Protein (5.8-8.3) g/dL Total Protein (PEP) (6.1-8.1) g/dL Albumin (3.0-4.8) g/dL Globulin gm/dL Albumin/Globulin Ratio (1.1-1.8) Triglycerides (35-160) mg/dL Cholesterol (130-200) mg/dL LDL Cholesterol Direct (0-129) mg/dL HDL Cholesterol (29-60) mg/dL 25-OH Vitamin D Total 17.6 L (30.0-100.0) NG/ML Procalcitonin (0.19-0.49) NG/ML Arterial Blood Potassium (3.6-5.2) mmol/L Venous Blood Potassium 5.7 H (3.6-5.2) mmol/L Urine Color (YELLOW) Urine Appearance (CLEAR) Urine pH (4.7-8.0) Ur Specific [place] (1.005-1.035) Urine Protein (<30 mg/dL) mg/dL Urine Glucose (UA) (NEGATIVE) mg/dL Urine Ketones (NEGATIVE) mg/dL Urine Blood (NEGATIVE) Urine Nitrate (NEGATIVE) Urine Bilirubin (NEGATIVE) Urine Urobilinogen (<1 E.U./dL) E.U./dL Ur Leukocyte Esterase (NEGATIVE) Sav/uL Urine RBC (0-2) /hpf Urine WBC (0-6) /hpf Ur Epithelial Cells (0-5) /hpf Amorphous Sediment Urine Bacteria (NEG) Hyaline Casts /hpf Fine Granular Casts (0-2) /hpf Coarse Granular Casts (0-2) /hpf Urine Other Ur Random Creatinine Urine Total Volume Microalb/Creat Ratio (<30) Hepatitis A IgM Ab (NEGATIVE) Hep Bs Antigen (NEGATIVE) Hep Bs Ag Neutralizatn Hep Bs Antibody (NEGATIVE) Hep B Core IgM Ab (NEGATIVE) Hepatitis C Antibody (NEGATIVE) HIV 1&2 Antibody Screen (NEGATIVE) Blood Type Blood Type Confirm Antibody Screen BBK History Checked 01/15/18 01/15/18 01/14/18 Range/Units 03:30 03:30 23:00 WBC (4.5-11.0) 10^3/uL RBC (3.5-6.1) 10^6/uL Hgb (14.0-18.0) g/dL Hct (42.0-52.0) % MCV (80.0-105.0) fl MCH (25.0-35.0) pg MCHC (31.0-37.0) g/dl RDW (11.5-14.5) % Plt Count (120.0-450.0) 10^3/uL Manual Plt Count (120-450) K/mm3 Gran % (50.0-68.0) % Lymph % (Auto) (22.0-35.0) % [place] % (Auto) (1.0-6.0) % Eos % (Auto) (1.5-5.0) % Baso % (Auto) (0.0-3.0) % Gran # (1.4-6.5) Lymph # (Auto) (1.2-3.4) [place] # (Auto) (0.1-0.6) Eos # (Auto) (0.0-0.7) Baso # (Auto) (0.0-2.0) K/mm3 Platelet Evaluation (NORMAL) Retic Count (0.5-1.5) % PT (9.4-12.5) SECONDS INR APTT (25.1-36.5) Seconds Fibrinogen (200-400) mg/dl pCO2 (35-45) mm/Hg pO2 (30-55) mm/Hg HCO3 (21-28) mmol/L ABG pH (7.35-7.45) ABG Total CO2 (22-28) mmol.L ABG O2 Saturation (95-98) % ABG Base Excess (-2.0-3.0) mmol/L ABG Potassium (3.6-5.2) mmol/L VBG pH (7.32-7.43) VBG pCO2 (40-60) VBG HCO3 (21-28) mmol/l VBG Total CO2 (22-28) mmol.L VBG O2 Sat (Calc) (40-65) % VBG Base Excess (0.0-2.0) mmol/L VBG Potassium (3.6-5.2) mmol/L Sodium 128 L (132-148) mmol/L Chloride 103 (98-107) mmol/L Glucose (75-110) mg/dl Lactate (0.7-2.1) mmol/L Mechanical Rate FiO2 % Tidal Volume PEEP Potassium 5.6 H* (3.6-5.0) mmol/L Carbon Dioxide 15 L (21-33) mmol/L Anion Gap 16 (10-20) BUN 37 H (7-21) mg/dL Creatinine 4.7 H (0.8-1.5) mg/dl Est GFR ( Amer) 15 Est GFR (Non-Af Amer) 13 POC Glucose (mg/dL) (65-110) mg/dL Random Glucose 69 L (70-110) mg/dL Hemoglobin A1c (4.2-6.5) % Calcium 6.1 L* (8.4-10.5) mg/dL Phosphorus 5.7 H (2.5-4.5) mg/dL Magnesium 1.9 (1.7-2.2) mg/dL Total Bilirubin 5.3 H (0.2-1.3) mg/dL Direct Bilirubin 4.4 H (0.0-0.4) mg/dL AST 853 H (17-59) U/L ALT 391 H (7-56) U/L Alkaline Phosphatase 436 H (38-126) U/L Total Creatine Kinase 1124 H (35-230) U/L CK-MB (CK-2) 9.6 H (0.0-3.6) ng/mL CK-MB (CK-2) % 0.9 L (2.5-3.0) % Troponin I 0.12 D ng/mL C-React Prot High Sens (1.00-3.00) mg/L Total Protein 5.8 (5.8-8.3) g/dL Total Protein (PEP) 5.3 L (6.1-8.1) g/dL Albumin 1.8 L (3.0-4.8) g/dL Globulin 4.0 gm/dL Albumin/Globulin Ratio 0.4 L (1.1-1.8) Triglycerides 126 (35-160) mg/dL Cholesterol 145 (130-200) mg/dL LDL Cholesterol Direct 76 (0-129) mg/dL HDL Cholesterol 12 L (29-60) mg/dL 25-OH Vitamin D Total (30.0-100.0) NG/ML Procalcitonin (0.19-0.49) NG/ML Arterial Blood Potassium (3.6-5.2) mmol/L Venous Blood Potassium (3.6-5.2) mmol/L Urine Color (YELLOW) Urine Appearance (CLEAR) Urine pH (4.7-8.0) Ur Specific [place] (1.005-1.035) Urine Protein (<30 mg/dL) mg/dL Urine Glucose (UA) (NEGATIVE) mg/dL Urine Ketones (NEGATIVE) mg/dL Urine Blood (NEGATIVE) Urine Nitrate (NEGATIVE) Urine Bilirubin (NEGATIVE) Urine Urobilinogen (<1 E.U./dL) E.U./dL Ur Leukocyte Esterase (NEGATIVE) Sav/uL Urine RBC (0-2) /hpf Urine WBC (0-6) /hpf Ur Epithelial Cells (0-5) /hpf Amorphous Sediment Urine Bacteria (NEG) Hyaline Casts /hpf Fine Granular Casts (0-2) /hpf Coarse Granular Casts (0-2) /hpf Urine Other Ur Random Creatinine Urine Total Volume Microalb/Creat Ratio (<30) Hepatitis A IgM Ab (NEGATIVE) Hep Bs Antigen (NEGATIVE) Hep Bs Ag Neutralizatn Hep Bs Antibody (NEGATIVE) Hep B Core IgM Ab (NEGATIVE) Hepatitis C Antibody (NEGATIVE) HIV 1&2 Antibody Screen Negative (NEGATIVE) Blood Type Blood Type Confirm Antibody Screen BBK History Checked 01/14/18 01/14/18 01/14/18 Range/Units 23:00 23:00 22:46 WBC (4.5-11.0) 10^3/uL RBC (3.5-6.1) 10^6/uL Hgb (14.0-18.0) g/dL Hct (42.0-52.0) % MCV (80.0-105.0) fl MCH (25.0-35.0) pg MCHC (31.0-37.0) g/dl RDW (11.5-14.5) % Plt Count (120.0-450.0) 10^3/uL Manual Plt Count (120-450) K/mm3 Gran % (50.0-68.0) % Lymph % (Auto) (22.0-35.0) % [place] % (Auto) (1.0-6.0) % Eos % (Auto) (1.5-5.0) % Baso % (Auto) (0.0-3.0) % Gran # (1.4-6.5) Lymph # (Auto) (1.2-3.4) [place] # (Auto) (0.1-0.6) Eos # (Auto) (0.0-0.7) Baso # (Auto) (0.0-2.0) K/mm3 Platelet Evaluation (NORMAL) Retic Count (0.5-1.5) % PT (9.4-12.5) SECONDS INR APTT (25.1-36.5) Seconds Fibrinogen (200-400) mg/dl pCO2 (35-45) mm/Hg pO2 (30-55) mm/Hg HCO3 (21-28) mmol/L ABG pH (7.35-7.45) ABG Total CO2 (22-28) mmol.L ABG O2 Saturation (95-98) % ABG Base Excess (-2.0-3.0) mmol/L ABG Potassium (3.6-5.2) mmol/L VBG pH (7.32-7.43) VBG pCO2 (40-60) VBG HCO3 (21-28) mmol/l VBG Total CO2 (22-28) mmol.L VBG O2 Sat (Calc) (40-65) % VBG Base Excess (0.0-2.0) mmol/L VBG Potassium (3.6-5.2) mmol/L Sodium (132-148) mmol/L Chloride (98-107) mmol/L Glucose (75-110) mg/dl Lactate (0.7-2.1) mmol/L Mechanical Rate FiO2 % Tidal Volume PEEP Potassium (3.6-5.0) mmol/L Carbon Dioxide (21-33) mmol/L Anion Gap (10-20) BUN (7-21) mg/dL Creatinine (0.8-1.5) mg/dl Est GFR ( Amer) Est GFR (Non-Af Amer) POC Glucose (mg/dL) (65-110) mg/dL Random Glucose (70-110) mg/dL Hemoglobin A1c (4.2-6.5) % Calcium (8.4-10.5) mg/dL Phosphorus (2.5-4.5) mg/dL Magnesium (1.7-2.2) mg/dL Total Bilirubin (0.2-1.3) mg/dL Direct Bilirubin (0.0-0.4) mg/dL AST (17-59) U/L ALT (7-56) U/L Alkaline Phosphatase (38-126) U/L Total Creatine Kinase (35-230) U/L CK-MB (CK-2) (0.0-3.6) ng/mL CK-MB (CK-2) % (2.5-3.0) % Troponin I ng/mL C-React Prot High Sens (1.00-3.00) mg/L Total Protein (5.8-8.3) g/dL Total Protein (PEP) (6.1-8.1) g/dL Albumin (3.0-4.8) g/dL Globulin gm/dL Albumin/Globulin Ratio (1.1-1.8) Triglycerides (35-160) mg/dL Cholesterol (130-200) mg/dL LDL Cholesterol Direct (0-129) mg/dL HDL Cholesterol (29-60) mg/dL 25-OH Vitamin D Total (30.0-100.0) NG/ML Procalcitonin (0.19-0.49) NG/ML Arterial Blood Potassium (3.6-5.2) mmol/L Venous Blood Potassium (3.6-5.2) mmol/L Urine Color (YELLOW) Urine Appearance (CLEAR) Urine pH (4.7-8.0) Ur Specific [place] (1.005-1.035) Urine Protein (<30 mg/dL) mg/dL Urine Glucose (UA) (NEGATIVE) mg/dL Urine Ketones (NEGATIVE) mg/dL Urine Blood (NEGATIVE) Urine Nitrate (NEGATIVE) Urine Bilirubin (NEGATIVE) Urine Urobilinogen (<1 E.U./dL) E.U./dL Ur Leukocyte Esterase (NEGATIVE) Sav/uL Urine RBC (0-2) /hpf Urine WBC (0-6) /hpf Ur Epithelial Cells (0-5) /hpf Amorphous Sediment Urine Bacteria (NEG) Hyaline Casts /hpf Fine Granular Casts (0-2) /hpf Coarse Granular Casts (0-2) /hpf Urine Other Ur Random Creatinine TNP Urine Total Volume TNP Microalb/Creat Ratio (<30) Hepatitis A IgM Ab (NEGATIVE) Hep Bs Antigen Reactive (NEGATIVE) Hep Bs Ag Neutralizatn Confirmed positive H Hep Bs Antibody Negative (NEGATIVE) Hep B Core IgM Ab Negative (NEGATIVE) Hepatitis C Antibody Negative (NEGATIVE) HIV 1&2 Antibody Screen (NEGATIVE) Blood Type Blood Type Confirm Antibody Screen BBK History Checked 01/14/18 01/14/18 Range/Units 19:31 19:31 WBC (4.5-11.0) 10^3/uL RBC (3.5-6.1) 10^6/uL Hgb (14.0-18.0) g/dL Hct (42.0-52.0) % MCV (80.0-105.0) fl MCH (25.0-35.0) pg MCHC (31.0-37.0) g/dl RDW (11.5-14.5) % Plt Count (120.0-450.0) 10^3/uL Manual Plt Count (120-450) K/mm3 Gran % (50.0-68.0) % Lymph % (Auto) (22.0-35.0) % [place] % (Auto) (1.0-6.0) % Eos % (Auto) (1.5-5.0) % Baso % (Auto) (0.0-3.0) % Gran # (1.4-6.5) Lymph # (Auto) (1.2-3.4) [place] # (Auto) (0.1-0.6) Eos # (Auto) (0.0-0.7) Baso # (Auto) (0.0-2.0) K/mm3 Platelet Evaluation (NORMAL) Retic Count (0.5-1.5) % PT (9.4-12.5) SECONDS INR APTT (25.1-36.5) Seconds Fibrinogen (200-400) mg/dl pCO2 (35-45) mm/Hg pO2 (30-55) mm/Hg HCO3 (21-28) mmol/L ABG pH (7.35-7.45) ABG Total CO2 (22-28) mmol.L ABG O2 Saturation (95-98) % ABG Base Excess (-2.0-3.0) mmol/L ABG Potassium (3.6-5.2) mmol/L VBG pH (7.32-7.43) VBG pCO2 (40-60) VBG HCO3 (21-28) mmol/l VBG Total CO2 (22-28) mmol.L VBG O2 Sat (Calc) (40-65) % VBG Base Excess (0.0-2.0) mmol/L VBG Potassium (3.6-5.2) mmol/L Sodium (132-148) mmol/L Chloride (98-107) mmol/L Glucose (75-110) mg/dl Lactate (0.7-2.1) mmol/L Mechanical Rate FiO2 % Tidal Volume PEEP Potassium (3.6-5.0) mmol/L Carbon Dioxide (21-33) mmol/L Anion Gap (10-20) BUN (7-21) mg/dL Creatinine (0.8-1.5) mg/dl Est GFR ( Amer) Est GFR (Non-Af Amer) POC Glucose (mg/dL) (65-110) mg/dL Random Glucose (70-110) mg/dL Hemoglobin A1c (4.2-6.5) % Calcium (8.4-10.5) mg/dL Phosphorus (2.5-4.5) mg/dL Magnesium (1.7-2.2) mg/dL Total Bilirubin (0.2-1.3) mg/dL Direct Bilirubin (0.0-0.4) mg/dL AST (17-59) U/L ALT (7-56) U/L Alkaline Phosphatase (38-126) U/L Total Creatine Kinase (35-230) U/L CK-MB (CK-2) (0.0-3.6) ng/mL CK-MB (CK-2) % (2.5-3.0) % Troponin I ng/mL C-React Prot High Sens > 15.00 H (1.00-3.00) mg/L Total Protein (5.8-8.3) g/dL Total Protein (PEP) (6.1-8.1) g/dL Albumin (3.0-4.8) g/dL Globulin gm/dL Albumin/Globulin Ratio (1.1-1.8) Triglycerides (35-160) mg/dL Cholesterol (130-200) mg/dL LDL Cholesterol Direct (0-129) mg/dL HDL Cholesterol (29-60) mg/dL 25-OH Vitamin D Total (30.0-100.0) NG/ML Procalcitonin 4.96 H (0.19-0.49) NG/ML Arterial Blood Potassium (3.6-5.2) mmol/L Venous Blood Potassium (3.6-5.2) mmol/L Urine Color (YELLOW) Urine Appearance (CLEAR) Urine pH (4.7-8.0) Ur Specific [place] (1.005-1.035) Urine Protein (<30 mg/dL) mg/dL Urine Glucose (UA) (NEGATIVE) mg/dL Urine Ketones (NEGATIVE) mg/dL Urine Blood (NEGATIVE) Urine Nitrate (NEGATIVE) Urine Bilirubin (NEGATIVE) Urine Urobilinogen (<1 E.U./dL) E.U./dL Ur Leukocyte Esterase (NEGATIVE) Sav/uL Urine RBC (0-2) /hpf Urine WBC (0-6) /hpf Ur Epithelial Cells (0-5) /hpf Amorphous Sediment Urine Bacteria (NEG) Hyaline Casts /hpf Fine Granular Casts (0-2) /hpf Coarse Granular Casts (0-2) /hpf Urine Other Ur Random Creatinine Urine Total Volume Microalb/Creat Ratio (<30) Hepatitis A IgM Ab (NEGATIVE) Hep Bs Antigen (NEGATIVE) Hep Bs Ag Neutralizatn Hep Bs Antibody (NEGATIVE) Hep B Core IgM Ab (NEGATIVE) Hepatitis C Antibody (NEGATIVE) HIV 1&2 Antibody Screen (NEGATIVE) Blood Type Blood Type Confirm Antibody Screen BBK History Checked Laboratory Results - last 24 hr 01/14/18 01/14/18 01/14/18 19:31 19:31 22:46 WBC RBC Hgb Hct MCV MCH MCHC RDW Plt Count Manual Plt Count Gran % Lymph % (Auto) [place] % (Auto) Eos % (Auto) Baso % (Auto) Gran # Lymph # (Auto) [place] # (Auto) Eos # (Auto) Baso # (Auto) Platelet Evaluation Retic Count PT INR APTT Fibrinogen pCO2 pO2 HCO3 ABG pH ABG Total CO2 ABG O2 Saturation ABG Base Excess ABG Potassium VBG pH VBG pCO2 VBG HCO3 VBG Total CO2 VBG O2 Sat (Calc) VBG Base Excess VBG Potassium Sodium Chloride Glucose Lactate Mechanical Rate FiO2 Tidal Volume PEEP Potassium Carbon Dioxide Anion Gap BUN Creatinine Est GFR ( Amer) Est GFR (Non-Af Amer) POC Glucose (mg/dL) Random Glucose Hemoglobin A1c Calcium Phosphorus Magnesium Total Bilirubin Direct Bilirubin AST ALT Alkaline Phosphatase Total Creatine Kinase CK-MB (CK-2) CK-MB (CK-2) % Troponin I C-React Prot High Sens > 15.00 H Total Protein Total Protein (PEP) Albumin Globulin Albumin/Globulin Ratio Triglycerides Cholesterol LDL Cholesterol Direct HDL Cholesterol 25-OH Vitamin D Total Procalcitonin 4.96 H Arterial Blood Potassium Venous Blood Potassium Urine Color Urine Appearance Urine pH Ur Specific [place] Urine Protein Urine Glucose (UA) Urine Ketones Urine Blood Urine Nitrate Urine Bilirubin Urine Urobilinogen Ur Leukocyte Esterase Urine RBC Urine WBC Ur Epithelial Cells Amorphous Sediment Urine Bacteria Hyaline Casts Fine Granular Casts Coarse Granular Casts Urine Other Ur Random Creatinine TNP Urine Total Volume TNP Microalb/Creat Ratio Hepatitis A IgM Ab Hep Bs Antigen Hep Bs Ag Neutralizatn Hep Bs Antibody Hep B Core IgM Ab Hepatitis C Antibody HIV 1&2 Antibody Screen Blood Type Blood Type Confirm Antibody Screen BBK History Checked 11/01/14/18 01/14/18 23:00 23:00 23:00 WBC RBC Hgb Hct MCV MCH MCHC RDW Plt Count Manual Plt Count Gran % Lymph % (Auto) [place] % (Auto) Eos % (Auto) Baso % (Auto) Gran # Lymph # (Auto) [place] # (Auto) Eos # (Auto) Baso # (Auto) Platelet Evaluation Retic Count PT INR APTT Fibrinogen pCO2 pO2 HCO3 ABG pH ABG Total CO2 ABG O2 Saturation ABG Base Excess ABG Potassium VBG pH VBG pCO2 VBG HCO3 VBG Total CO2 VBG O2 Sat (Calc) VBG Base Excess VBG Potassium Sodium Chloride Glucose Lactate Mechanical Rate FiO2 Tidal Volume PEEP Potassium Carbon Dioxide Anion Gap BUN Creatinine Est GFR ( Amer) Est GFR (Non-Af Amer) POC Glucose (mg/dL) Random Glucose Hemoglobin A1c Calcium Phosphorus Magnesium Total Bilirubin Direct Bilirubin AST ALT Alkaline Phosphatase Total Creatine Kinase CK-MB (CK-2) CK-MB (CK-2) % Troponin I C-React Prot High Sens Total Protein Total Protein (PEP) Albumin Globulin Albumin/Globulin Ratio Triglycerides Cholesterol LDL Cholesterol Direct HDL Cholesterol 25-OH Vitamin D Total Procalcitonin Arterial Blood Potassium Venous Blood Potassium Urine Color Urine Appearance Urine pH Ur Specific [place] Urine Protein Urine Glucose (UA) Urine Ketones Urine Blood Urine Nitrate Urine Bilirubin Urine Urobilinogen Ur Leukocyte Esterase Urine RBC Urine WBC Ur Epithelial Cells Amorphous Sediment Urine Bacteria Hyaline Casts Fine Granular Casts Coarse Granular Casts Urine Other Ur Random Creatinine Urine Total Volume Microalb/Creat Ratio Hepatitis A IgM Ab Hep Bs Antigen Reactive Hep Bs Ag Neutralizatn Confirmed positive H Hep Bs Antibody Negative Hep B Core IgM Ab Negative Hepatitis C Antibody Negative HIV 1&2 Antibody Screen Negative Blood Type Blood Type Confirm Antibody Screen BBK History Checked 01/15/18 01/15/18 01/15/18 03:30 03:30 03:30 WBC RBC Hgb Hct MCV MCH MCHC RDW Plt Count Manual Plt Count Gran % Lymph % (Auto) [place] % (Auto) Eos % (Auto) Baso % (Auto) Gran # Lymph # (Auto) [place] # (Auto) Eos # (Auto) Baso # (Auto) Platelet Evaluation Retic Count PT INR APTT Fibrinogen pCO2 pO2 HCO3 ABG pH ABG Total CO2 ABG O2 Saturation ABG Base Excess ABG Potassium VBG pH VBG pCO2 VBG HCO3 VBG Total CO2 VBG O2 Sat (Calc) VBG Base Excess VBG Potassium Sodium 128 L Chloride 103 Glucose Lactate Mechanical Rate FiO2 Tidal Volume PEEP Potassium 5.6 H* Carbon Dioxide 15 L Anion Gap 16 BUN 37 H Creatinine 4.7 H Est GFR ( Amer) 15 Est GFR (Non-Af Amer) 13 POC Glucose (mg/dL) Random Glucose 69 L Hemoglobin A1c Calcium 6.1 L* Phosphorus 5.7 H Magnesium 1.9 Total Bilirubin 5.3 H Direct Bilirubin 4.4 H AST 853 H ALT 391 H Alkaline Phosphatase 436 H Total Creatine Kinase 1124 H CK-MB (CK-2) 9.6 H CK-MB (CK-2) % 0.9 L Troponin I 0.12 D C-React Prot High Sens Total Protein 5.8 Total Protein (PEP) 5.3 L Albumin 1.8 L Globulin 4.0 Albumin/Globulin Ratio 0.4 L Triglycerides 126 Cholesterol 145 LDL Cholesterol Direct 76 HDL Cholesterol 12 L 25-OH Vitamin D Total 17.6 L Procalcitonin Arterial Blood Potassium Venous Blood Potassium Urine Color Urine Appearance Urine pH Ur Specific [place] Urine Protein Urine Glucose (UA) Urine Ketones Urine Blood Urine Nitrate Urine Bilirubin Urine Urobilinogen Ur Leukocyte Esterase Urine RBC Urine WBC Ur Epithelial Cells Amorphous Sediment Urine Bacteria Hyaline Casts Fine Granular Casts Coarse Granular Casts Urine Other Ur Random Creatinine Urine Total Volume Microalb/Creat Ratio Hepatitis A IgM Ab Hep Bs Antigen Hep Bs Ag Neutralizatn Hep Bs Antibody Hep B Core IgM Ab Hepatitis C Antibody HIV 1&2 Antibody Screen Blood Type Blood Type Confirm Antibody Screen BBK History Checked 01/15/18 01/15/18 01/15/18 03:30 03:30 05:34 WBC RBC Hgb Hct MCV MCH MCHC RDW Plt Count Manual Plt Count Gran % Lymph % (Auto) [place] % (Auto) Eos % (Auto) Baso % (Auto) Gran # Lymph # (Auto) [place] # (Auto) Eos # (Auto) Baso # (Auto) Platelet Evaluation Retic Count PT INR APTT Fibrinogen pCO2 pO2 105 H HCO3 ABG pH ABG Total CO2 ABG O2 Saturation ABG Base Excess ABG Potassium VBG pH 7.43 VBG pCO2 22.0 L VBG HCO3 14.6 L VBG Total CO2 15.3 L VBG O2 Sat (Calc) 99.3 H VBG Base Excess -7.6 L VBG Potassium 5.7 H Sodium 128.0 L Chloride 98.0 Glucose 73 L Lactate 6.7 H* Mechanical Rate FiO2 21.0 Tidal Volume PEEP Potassium Carbon Dioxide Anion Gap BUN Creatinine Est GFR ( Amer) Est GFR (Non-Af Amer) POC Glucose (mg/dL) 72 Random Glucose Hemoglobin A1c 6.3 Calcium Phosphorus Magnesium Total Bilirubin Direct Bilirubin AST ALT Alkaline Phosphatase Total Creatine Kinase CK-MB (CK-2) CK-MB (CK-2) % Troponin I C-React Prot High Sens Total Protein Total Protein (PEP) Albumin Globulin Albumin/Globulin Ratio Triglycerides Cholesterol LDL Cholesterol Direct HDL Cholesterol 25-OH Vitamin D Total Procalcitonin Arterial Blood Potassium Venous Blood Potassium 5.7 H Urine Color Urine Appearance Urine pH Ur Specific [place] Urine Protein Urine Glucose (UA) Urine Ketones Urine Blood Urine Nitrate Urine Bilirubin Urine Urobilinogen Ur Leukocyte Esterase Urine RBC Urine WBC Ur Epithelial Cells Amorphous Sediment Urine Bacteria Hyaline Casts Fine Granular Casts Coarse Granular Casts Urine Other Ur Random Creatinine Urine Total Volume Microalb/Creat Ratio Hepatitis A IgM Ab Hep Bs Antigen Hep Bs Ag Neutralizatn Hep Bs Antibody Hep B Core IgM Ab Hepatitis C Antibody HIV 1&2 Antibody Screen Blood Type Blood Type Confirm Antibody Screen BBK History Checked 01/15/18 01/15/18 01/15/18 06:00 06:43 07:37 WBC RBC Hgb Hct MCV MCH MCHC RDW Plt Count Manual Plt Count Gran % Lymph % (Auto) [place] % (Auto) Eos % (Auto) Baso % (Auto) Gran # Lymph # (Auto) [place] # (Auto) Eos # (Auto) Baso # (Auto) Platelet Evaluation Retic Count PT INR APTT Fibrinogen pCO2 pO2 42 HCO3 ABG pH ABG Total CO2 ABG O2 Saturation ABG Base Excess ABG Potassium VBG pH 7.28 L VBG pCO2 35.0 L VBG HCO3 16.4 L VBG Total CO2 17.5 L VBG O2 Sat (Calc) 74.5 H VBG Base Excess -9.4 L VBG Potassium 5.4 H Sodium 131.0 L Chloride 98.0 Glucose 76 Lactate 8.3 H* Mechanical Rate FiO2 21.0 Tidal Volume PEEP Potassium Carbon Dioxide Anion Gap BUN Creatinine Est GFR ( Amer) Est GFR (Non-Af Amer) POC Glucose (mg/dL) 88 Random Glucose Hemoglobin A1c Calcium Phosphorus Magnesium Total Bilirubin Direct Bilirubin AST ALT Alkaline Phosphatase Total Creatine Kinase CK-MB (CK-2) CK-MB (CK-2) % Troponin I C-React Prot High Sens Total Protein Total Protein (PEP) Albumin Globulin Albumin/Globulin Ratio Triglycerides Cholesterol LDL Cholesterol Direct HDL Cholesterol 25-OH Vitamin D Total Procalcitonin Arterial Blood Potassium Venous Blood Potassium 5.4 H Urine Color Urine Appearance Urine pH Ur Specific [place] Urine Protein Urine Glucose (UA) Urine Ketones Urine Blood Urine Nitrate Urine Bilirubin Urine Urobilinogen Ur Leukocyte Esterase Urine RBC Urine WBC Ur Epithelial Cells Amorphous Sediment Urine Bacteria Hyaline Casts Fine Granular Casts Coarse Granular Casts Urine Other Ur Random Creatinine Urine Total Volume Microalb/Creat Ratio Hepatitis A IgM Ab Negative Hep Bs Antigen Reactive Hep Bs Ag Neutralizatn Hep Bs Antibody Hep B Core IgM Ab Negative Hepatitis C Antibody Negative HIV 1&2 Antibody Screen Blood Type Blood Type Confirm Antibody Screen BBK History Checked 01/15/18 01/15/18 01/15/18 07:45 11:21 16:56 WBC RBC Hgb Hct MCV MCH MCHC RDW Plt Count Manual Plt Count Gran % Lymph % (Auto) [place] % (Auto) Eos % (Auto) Baso % (Auto) Gran # Lymph # (Auto) [place] # (Auto) Eos # (Auto) Baso # (Auto) Platelet Evaluation Retic Count PT INR APTT Fibrinogen pCO2 pO2 HCO3 ABG pH ABG Total CO2 ABG O2 Saturation ABG Base Excess ABG Potassium VBG pH VBG pCO2 VBG HCO3 VBG Total CO2 VBG O2 Sat (Calc) VBG Base Excess VBG Potassium Sodium Chloride Glucose Lactate Mechanical Rate FiO2 Tidal Volume PEEP Potassium Carbon Dioxide Anion Gap BUN Creatinine Est GFR ( Amer) Est GFR (Non-Af Amer) POC Glucose (mg/dL) 117 H 135 H Random Glucose Hemoglobin A1c Calcium Phosphorus Magnesium Total Bilirubin Direct Bilirubin AST ALT Alkaline Phosphatase Total Creatine Kinase CK-MB (CK-2) CK-MB (CK-2) % Troponin I C-React Prot High Sens Total Protein Total Protein (PEP) Albumin Globulin Albumin/Globulin Ratio Triglycerides Cholesterol LDL Cholesterol Direct HDL Cholesterol 25-OH Vitamin D Total Procalcitonin Arterial Blood Potassium Venous Blood Potassium Urine Color Urine Appearance Urine pH Ur Specific [place] Urine Protein Urine Glucose (UA) Urine Ketones Urine Blood Urine Nitrate Urine Bilirubin Urine Urobilinogen Ur Leukocyte Esterase Urine RBC Urine WBC Ur Epithelial Cells Amorphous Sediment Urine Bacteria Hyaline Casts Fine Granular Casts Coarse Granular Casts Urine Other Ur Random Creatinine Urine Total Volume Microalb/Creat Ratio Hepatitis A IgM Ab Hep Bs Antigen Hep Bs Ag Neutralizatn Confirmed positive H Hep Bs Antibody Hep B Core IgM Ab Hepatitis C Antibody HIV 1&2 Antibody Screen Blood Type Blood Type Confirm Antibody Screen BBK History Checked 01/15/18 01/15/18 01/15/18 17:55 17:55 17:55 WBC 16.5 H D RBC 2.89 L Hgb 8.7 L D Hct 24.6 L MCV 85.1 MCH 30.1 MCHC 35.4 RDW 21.8 H Plt Count 44 L* Manual Plt Count Gran % 79.0 H Lymph % (Auto) 10.0 L [place] % (Auto) 10.8 H Eos % (Auto) 0.1 L Baso % (Auto) 0.1 Gran # 13.02 H Lymph # (Auto) 1.6 [place] # (Auto) 1.8 H Eos # (Auto) 0.0 Baso # (Auto) 0.01 Platelet Evaluation Low Retic Count PT 47.3 H INR 4.03 H* APTT Fibrinogen pCO2 pO2 HCO3 ABG pH ABG Total CO2 ABG O2 Saturation ABG Base Excess ABG Potassium VBG pH VBG pCO2 VBG HCO3 VBG Total CO2 VBG O2 Sat (Calc) VBG Base Excess VBG Potassium Sodium 130 L Chloride 92 L Glucose Lactate Mechanical Rate FiO2 Tidal Volume PEEP Potassium 4.7 Carbon Dioxide 18 L Anion Gap 25 H BUN 21 Creatinine 3.1 H Est GFR ( Amer) 25 Est GFR (Non-Af Amer) 21 POC Glucose (mg/dL) Random Glucose 116 H Hemoglobin A1c Calcium 6.0 L* Phosphorus Magnesium Total Bilirubin 4.4 H Direct Bilirubin AST 1068 H ALT 405 H Alkaline Phosphatase 118 Total Creatine Kinase CK-MB (CK-2) CK-MB (CK-2) % Troponin I C-React Prot High Sens Total Protein 5.4 L Total Protein (PEP) Albumin 2.8 L Globulin 2.6 Albumin/Globulin Ratio 1.1 Triglycerides Cholesterol LDL Cholesterol Direct HDL Cholesterol 25-OH Vitamin D Total Procalcitonin Arterial Blood Potassium Venous Blood Potassium Urine Color Urine Appearance Urine pH Ur Specific [place] Urine Protein Urine Glucose (UA) Urine Ketones Urine Blood Urine Nitrate Urine Bilirubin Urine Urobilinogen Ur Leukocyte Esterase Urine RBC Urine WBC Ur Epithelial Cells Amorphous Sediment Urine Bacteria Hyaline Casts Fine Granular Casts Coarse Granular Casts Urine Other Ur Random Creatinine Urine Total Volume Microalb/Creat Ratio Hepatitis A IgM Ab Hep Bs Antigen Hep Bs Ag Neutralizatn Hep Bs Antibody Hep B Core IgM Ab Hepatitis C Antibody HIV 1&2 Antibody Screen Blood Type Blood Type Confirm Antibody Screen BBK History Checked 01/15/18 01/15/18 01/15/18 18:25 20:42 20:42 WBC RBC Hgb Hct MCV MCH MCHC RDW Plt Count Manual Plt Count Gran % Lymph % (Auto) [place] % (Auto) Eos % (Auto) Baso % (Auto) Gran # Lymph # (Auto) [place] # (Auto) Eos # (Auto) Baso # (Auto) Platelet Evaluation Retic Count 1.12 PT INR APTT Fibrinogen 108 L pCO2 24 L pO2 69.0 L HCO3 15.2 L ABG pH 7.41 ABG Total CO2 15.9 L ABG O2 Saturation 96.8 ABG Base Excess -7.6 L ABG Potassium 4.3 VBG pH VBG pCO2 VBG HCO3 VBG Total CO2 VBG O2 Sat (Calc) VBG Base Excess VBG Potassium Sodium 131.0 L Chloride 96.0 L Glucose 120 H Lactate 10.2 H* Mechanical Rate 16 FiO2 40.0 Tidal Volume 450 PEEP 5 Potassium Carbon Dioxide Anion Gap BUN Creatinine Est GFR ( Amer) Est GFR (Non-Af Amer) POC Glucose (mg/dL) Random Glucose Hemoglobin A1c Calcium Phosphorus Magnesium Total Bilirubin Direct Bilirubin AST ALT Alkaline Phosphatase Total Creatine Kinase CK-MB (CK-2) CK-MB (CK-2) % Troponin I C-React Prot High Sens Total Protein Total Protein (PEP) Albumin Globulin Albumin/Globulin Ratio Triglycerides Cholesterol LDL Cholesterol Direct HDL Cholesterol 25-OH Vitamin D Total Procalcitonin Arterial Blood Potassium 4.3 Venous Blood Potassium Urine Color Urine Appearance Urine pH Ur Specific [place] Urine Protein Urine Glucose (UA) Urine Ketones Urine Blood Urine Nitrate Urine Bilirubin Urine Urobilinogen Ur Leukocyte Esterase Urine RBC Urine WBC Ur Epithelial Cells Amorphous Sediment Urine Bacteria Hyaline Casts Fine Granular Casts Coarse Granular Casts Urine Other Ur Random Creatinine Urine Total Volume Microalb/Creat Ratio Hepatitis A IgM Ab Hep Bs Antigen Hep Bs Ag Neutralizatn Hep Bs Antibody Hep B Core IgM Ab Hepatitis C Antibody HIV 1&2 Antibody Screen Blood Type Blood Type Confirm Antibody Screen BBK History Checked 01/15/18 01/16/18 01/16/18 21:46 00:00 00:18 WBC RBC Hgb Hct MCV MCH MCHC RDW Plt Count Manual Plt Count Gran % Lymph % (Auto) [place] % (Auto) Eos % (Auto) Baso % (Auto) Gran # Lymph # (Auto) [place] # (Auto) Eos # (Auto) Baso # (Auto) Platelet Evaluation Retic Count PT INR APTT Fibrinogen pCO2 pO2 73 H HCO3 ABG pH ABG Total CO2 ABG O2 Saturation ABG Base Excess ABG Potassium VBG pH 7.27 L VBG pCO2 30.0 L VBG HCO3 13.8 L VBG Total CO2 14.7 L VBG O2 Sat (Calc) 96.9 H VBG Base Excess -11.8 L VBG Potassium 5.4 H Sodium 127.0 L Chloride 89.0 L Glucose 133 H Lactate 14.6 H* Mechanical Rate FiO2 21.0 Tidal Volume PEEP Potassium Carbon Dioxide Anion Gap BUN Creatinine Est GFR ( Amer) Est GFR (Non-Af Amer) POC Glucose (mg/dL) 140 H 140 H Random Glucose Hemoglobin A1c Calcium Phosphorus Magnesium Total Bilirubin Direct Bilirubin AST ALT Alkaline Phosphatase Total Creatine Kinase CK-MB (CK-2) CK-MB (CK-2) % Troponin I C-React Prot High Sens Total Protein Total Protein (PEP) Albumin Globulin Albumin/Globulin Ratio Triglycerides Cholesterol LDL Cholesterol Direct HDL Cholesterol 25-OH Vitamin D Total Procalcitonin Arterial Blood Potassium Venous Blood Potassium 5.4 H Urine Color Urine Appearance Urine pH Ur Specific [place] Urine Protein Urine Glucose (UA) Urine Ketones Urine Blood Urine Nitrate Urine Bilirubin Urine Urobilinogen Ur Leukocyte Esterase Urine RBC Urine WBC Ur Epithelial Cells Amorphous Sediment Urine Bacteria Hyaline Casts Fine Granular Casts Coarse Granular Casts Urine Other Ur Random Creatinine Urine Total Volume Microalb/Creat Ratio Hepatitis A IgM Ab Hep Bs Antigen Hep Bs Ag Neutralizatn Hep Bs Antibody Hep B Core IgM Ab Hepatitis C Antibody HIV 1&2 Antibody Screen Blood Type Blood Type Confirm Antibody Screen BBK History Checked 01/16/18 01/16/18 01/16/18 04:51 05:30 05:30 WBC 22.5 H D RBC 2.78 L Hgb 8.3 L Hct 24.8 L MCV 89.2 D MCH 29.9 MCHC 33.5 RDW 22.4 H Plt Count 38 L* Manual Plt Count 45 L* Gran % 78.7 H Lymph % (Auto) 9.6 L [place] % (Auto) 11.6 H Eos % (Auto) 0.0 L Baso % (Auto) 0.1 Gran # 17.69 H Lymph # (Auto) 2.2 [place] # (Auto) 2.6 H Eos # (Auto) 0.0 Baso # (Auto) 0.02 Platelet Evaluation Retic Count 1.12 PT INR APTT Fibrinogen pCO2 pO2 HCO3 ABG pH ABG Total CO2 ABG O2 Saturation ABG Base Excess ABG Potassium VBG pH VBG pCO2 VBG HCO3 VBG Total CO2 VBG O2 Sat (Calc) VBG Base Excess VBG Potassium Sodium 130 L Chloride 90 L Glucose Lactate Mechanical Rate FiO2 Tidal Volume PEEP Potassium 6.2 H* D Carbon Dioxide 11 L Anion Gap 34 H BUN 22 H Creatinine 4.0 H Est GFR ( Amer) 19 Est GFR (Non-Af Amer) 15 POC Glucose (mg/dL) 104 Random Glucose 103 Hemoglobin A1c Calcium 5.5 L* Phosphorus 7.6 H Magnesium 1.7 Total Bilirubin 4.8 H Direct Bilirubin 3.8 H AST 1121 H ALT 394 H Alkaline Phosphatase 157 H D Total Creatine Kinase CK-MB (CK-2) CK-MB (CK-2) % Troponin I C-React Prot High Sens Total Protein 5.1 L Total Protein (PEP) Albumin 2.6 L Globulin 2.4 Albumin/Globulin Ratio 1.1 Triglycerides Cholesterol LDL Cholesterol Direct HDL Cholesterol 25-OH Vitamin D Total Procalcitonin Arterial Blood Potassium Venous Blood Potassium Urine Color Urine Appearance Urine pH Ur Specific [place] Urine Protein Urine Glucose (UA) Urine Ketones Urine Blood Urine Nitrate Urine Bilirubin Urine Urobilinogen Ur Leukocyte Esterase Urine RBC Urine WBC Ur Epithelial Cells Amorphous Sediment Urine Bacteria Hyaline Casts Fine Granular Casts Coarse Granular Casts Urine Other Ur Random Creatinine Urine Total Volume Microalb/Creat Ratio Hepatitis A IgM Ab Hep Bs Antigen Hep Bs Ag Neutralizatn Hep Bs Antibody Hep B Core IgM Ab Hepatitis C Antibody HIV 1&2 Antibody Screen Blood Type Blood Type Confirm Antibody Screen BBK History Checked 01/16/18 01/16/18 01/16/18 05:30 05:30 07:56 WBC RBC Hgb Hct MCV MCH MCHC RDW Plt Count Manual Plt Count Gran % Lymph % (Auto) [place] % (Auto) Eos % (Auto) Baso % (Auto) Gran # Lymph # (Auto) [place] # (Auto) Eos # (Auto) Baso # (Auto) Platelet Evaluation Retic Count PT 53.6 H INR 4.52 H* APTT 156.9 H* Fibrinogen pCO2 28 L pO2 64.0 L HCO3 9.8 L* ABG pH 7.15 L* ABG Total CO2 10.7 L ABG O2 Saturation 91.8 L ABG Base Excess -17.6 L ABG Potassium 5.7 H VBG pH VBG pCO2 VBG HCO3 VBG Total CO2 VBG O2 Sat (Calc) VBG Base Excess VBG Potassium Sodium 129.0 L Chloride 93.0 L Glucose 106 Lactate 16.1 H* Mechanical Rate FiO2 40.0 Tidal Volume PEEP Potassium Carbon Dioxide Anion Gap BUN Creatinine Est GFR ( Amer) Est GFR (Non-Af Amer) POC Glucose (mg/dL) Random Glucose Hemoglobin A1c Calcium Phosphorus Magnesium Total Bilirubin Direct Bilirubin AST ALT Alkaline Phosphatase Total Creatine Kinase CK-MB (CK-2) CK-MB (CK-2) % Troponin I C-React Prot High Sens Total Protein Total Protein (PEP) Albumin Globulin Albumin/Globulin Ratio Triglycerides Cholesterol LDL Cholesterol Direct HDL Cholesterol 25-OH Vitamin D Total Procalcitonin Arterial Blood Potassium 5.7 H Venous Blood Potassium Urine Color Urine Appearance Urine pH Ur Specific [place] Urine Protein Urine Glucose (UA) Urine Ketones Urine Blood Urine Nitrate Urine Bilirubin Urine Urobilinogen Ur Leukocyte Esterase Urine RBC Urine WBC Ur Epithelial Cells Amorphous Sediment Urine Bacteria Hyaline Casts Fine Granular Casts Coarse Granular Casts Urine Other Ur Random Creatinine Urine Total Volume Microalb/Creat Ratio Hepatitis A IgM Ab Hep Bs Antigen Hep Bs Ag Neutralizatn Hep Bs Antibody Hep B Core IgM Ab Hepatitis C Antibody HIV 1&2 Antibody Screen Blood Type B POSITIVE Blood Type Confirm Antibody Screen Negative BBK History Checked No verified bt 01/16/18 01/16/18 08:30 08:42 WBC RBC Hgb Hct MCV MCH MCHC RDW Plt Count Manual Plt Count Gran % Lymph % (Auto) [place] % (Auto) Eos % (Auto) Baso % (Auto) Gran # Lymph # (Auto) [place] # (Auto) Eos # (Auto) Baso # (Auto) Platelet Evaluation Retic Count PT INR APTT Fibrinogen pCO2 pO2 HCO3 ABG pH ABG Total CO2 ABG O2 Saturation ABG Base Excess ABG Potassium VBG pH VBG pCO2 VBG HCO3 VBG Total CO2 VBG O2 Sat (Calc) VBG Base Excess VBG Potassium Sodium Chloride Glucose Lactate Mechanical Rate FiO2 Tidal Volume PEEP Potassium Carbon Dioxide Anion Gap BUN Creatinine Est GFR ( Amer) Est GFR (Non-Af Amer) POC Glucose (mg/dL) Random Glucose Hemoglobin A1c Calcium Phosphorus Magnesium Total Bilirubin Direct Bilirubin AST ALT Alkaline Phosphatase Total Creatine Kinase CK-MB (CK-2) CK-MB (CK-2) % Troponin I C-React Prot High Sens Total Protein Total Protein (PEP) Albumin Globulin Albumin/Globulin Ratio Triglycerides Cholesterol LDL Cholesterol Direct HDL Cholesterol 25-OH Vitamin D Total Procalcitonin Arterial Blood Potassium Venous Blood Potassium Urine Color Yellow Urine Appearance Clear Urine pH 8.0 Ur Specific [place] 1.020 Urine Protein >=300 H Urine Glucose (UA) 100 H Urine Ketones Negative Urine Blood Large H Urine Nitrate Negative Urine Bilirubin Large H Urine Urobilinogen 0.2 Ur Leukocyte Esterase Small H Urine RBC 25 - 30 Urine WBC 10 - 15 Ur Epithelial Cells None Amorphous Sediment Moderate Urine Bacteria Large Hyaline Casts 0 - 2 Fine Granular Casts 0 - 2 Coarse Granular Casts Trace Urine Other [place] Ur Random Creatinine Urine Total Volume Microalb/Creat Ratio Hepatitis A IgM Ab Hep Bs Antigen Hep Bs Ag Neutralizatn Hep Bs Antibody Hep B Core IgM Ab Hepatitis C Antibody HIV 1&2 Antibody Screen Blood Type Blood Type Confirm B POSITIVE Antibody Screen BBK History Checked EKG/Cardiology Studies: Cardiology / EKG Studies 01/16/18 07:00 EKG [ELECTROCARDIOGRAM] DAILY Comment: Reason For Exam: CAD/MVR Fingerstick Blood Sugar Results: 104 Review of Systems - Review of Systems Systems not reviewed;Unavailable: Acuity of Condition Critical Care Progress Note - Ventilator Checklist Head of Bed 30 Degrees: Yes Daily Sedation Vacation: Yes Daily Assessment of Readiness to Wean: Yes Daily Spontaneous Breathing Trial: Yes PUD Prophalyxis: Yes DVT Prophylaxis: Yes Oral Care with Chlorhexidine Gluconate {CHG}: Yes - Vent Settings MODE:: PRVC TIDAL VOLUME:: 450 RESP RATE:: 16 FIO2:: 50 PEEP:: 5 - Extremities/Vascular Does the Patient have a Central Venous Catheter?: Yes Insertion Site: Femoral Vein Does the Patient need a Central Venous Catheter?: Yes Does the Patient have a Saunders Catheter?: Yes Does the Patient need a Saunders Catheter?: Yes Catheter Insertion Criteria: Need for accurate measurement of output in critically ill patient - Prophylaxis GI Prophylaxis GI: PPI - Prophylaxis DVT Prophylaxis DVT: SCDs Assessment/Plan - Assessment and Plan (Free Text) Assessment: Patient is a 62 y/o M with PMHx of HTN, HLD, 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 ICU was consulted for management. Patient is admitted for Distributive Shock with Multiorgan Dysfunction in the setting of acute renal failure with ATN and Hepatic Failure, Respiratory Failure, Severe Lactic Acidosis, and Thrombocytopenia 2/2 sepsis. Plan: Neuro: - Intubated; ET tube is in place - Patient follows commands and moves extremities spontaneously - taper down fentanyl gtt Cardio: - Distributive shock with Multiorgan Dysfunction Syndrome - c/w Levophed, Vasopressin, Epinephrine, and stress dose steroids for hemodynamic support - Lactic acidosis; lactate level is uptrending - c/w thiamine 200mg IV q12 - Maintain MAP > 65 - Central line in place at femoral vein - Arterial line in place at femoral artery - Echo (01/14/18): normal EF. Grade I diastolic dysfunction. Echo does not suggest primary cardiac cause as MV repair appears preserved. No wall motion abnormalities. Filling pressures not elevated. - serial troponins are indeterminate - Hx of mitral valve repair - Cardio consulted (Dr. Hernandez) and recs appreciated Pulm: - Intubated for respiratory failure with Multiorgan Dysfunction Syndrome - ET tube in place. Vent management: HOB 30 degrees, sedation, daily SBT, PUD ppx, DVT ppx, and oral hygiene - f/u pleural fluid studies - Does not appear to be in ARDS: c/w low-intermediate tidal volume ventilation to prevent barotrauma - CXR (01/15): no acute cardiopulmonary changes from previous CXR. - Patient is s/p thoracentesis (01/14) since CXR on admission showed left sided pleural effusion - Maintain SaO2 > 92% GI: - Worsening transaminitis with hepatic failure; uptrending LFTs, INR; hypoalbuninemia - c/w bicarb gtt at 125 mls/hr - c/w N-acetylcysteine - HepB sAg positive with HepBsAb negative - ASA, acetaminophen, and EtOH levels are negative - Patient is unstable for GI or IR procedures at this time - CT A/P (01/15): potential left lower lobe PNA. Cirrhotic liver. Cholelithiasis likely gallbladder hydrops evident. (see full report) - GI ppx: Protonix IVP 40mg - NPO Renal: - Acute Renal Failure likely due to Acute Tubular Necrosis 2/2 Distributive Shock - HD session yesterday for 2.5 hours; no fluid removed. Plan for HD session today. - Hyperkalemia; K was 6.2 today - c/w bicarb gtt at 125 mls/hr - c/w albumin 12.5g IV q4H - UA shows significant proteinuria - Monitor BUN/Cr - Monitor Intake and Output - Avoid nephrotoxic meds - Trialysis catheter in place a the right IJ Heme: - Thrombocytopenia 2/2 sepsis; platelets downtrending to 38 today. - Heme/onc consulted. Follow up recommendations - fibrinogen level low - H/H downtrending but stable - 8.3/24.8 - No platelet transfusion at this time considering patient is not actively bleeding - INR is uptrending to 4.5 - Heparin SC for DVT ppx is held at this time; SCD ID: - Suspicious for septic shock - Leukocytosis; uptrending wbc - c/w meropenem and doxycycline as per ID recommendations - f/u pleural effusion analysis (s/p thoracentesis) - f/u procalcitonin level - f/u urine cx - f/u sputum cx - Blood cx preliminary negative results, f/u official results Dispo: Continue to monitor patient in the ICU. Patient's overall prognosis is poor. Case was discussed and reviewed with Attending Physician, Dr. Shen. <Sriram Shen - Last Filed: 01/16/18 16:18> CCU Objective - Vital Signs / Intake & Output Vital Signs (Last 4 hours): Vital Signs BP BP 01/16/18 14:00 94/41 L 01/16/18 13:00 94/31 L 111/41 L Intake and Output (Last 8hrs): Intake & Output 01/16/18 01/16/18 01/16/18 06:59 14:59 22:59 Intake Total 4102 166 Output Total 15 Balance 4087 166 Weight 213 lb 3.2 oz Intake: IV 4102 166 Acetadote 750 Albumin 150 Epinephrine drip 180 IVPB 252 Left Antecubital 1500 Levophed 910 Output: Urine 15 Urethral ([place]) 15 - Medications Active Medications: Active Medications Generic Name Dose Route Start Last Admin Trade Name Freq PRN Reason Stop Dose Admin Albumin Human 12.5 gm 01/15/18 09:00 01/16/18 14:13 Albumin Human 25% (12.5 Gm/50 Ml) IV 12.5 gm Q4H NILES Administration Hydrocortisone Sodium Succinate 50 mg 01/15/18 08:30 01/16/18 09:22 Solu-Cortef IVP 50 mg Q6H NILES Administration Fentanyl Citrate 1,000 mcg in 100 mls @ 2 mls/hr 01/14/18 12:33 01/14/18 22:29 Fentanyl Citrate/Sodium Chloride 1 Mg/100 Ml IV 5 mcg/hr .Q24H PRN 0.5 mls/hr TITRATE PER MD ORDER Titration Protocol 20 MCG/HR Midazolam 100 mg/100ml in NS 100 mg in 100 mls @ 1 mls/hr 01/14/18 12:33 Midazolam 100 Mg/100ml In Ns IV .Q24H PRN Sedation Protocol 1 MG/HR Doxycycline Hyclate 100 mg/ 100 mls @ 100 mls/hr 01/14/18 22:00 01/16/18 09:55 Sodium Chloride IVPB 100 mls/hr Q12 NILES Administration Protocol Vasopressin 20 units/ Sodium 101 mls @ 9.09 mls/hr 01/15/18 04:45 01/16/18 00:39 Chloride IV 9.09 mls/hr .[id number] NILES Administration Protocol 0.03 U/MIN Dobutamine HCl/Dextrose 500 mg in 250 mls @ 6.651 mls/hr 01/15/18 08:21 01/15/18 09:40 Dobutamine/Dextrose 5% 500mg/250ml IV Infused .Q24H PRN Titration TITRATE PER PROTOCOL Protocol 2.5 MCG/KG/MIN Epinephrine HCl 1 mg/ Sodium 51 mls @ 3.06 mls/hr 01/15/18 09:05 01/16/18 09:30 Chloride IV 3 mcg/min .[id number] PRN 9.18 mls/hr TITRATE PER MD ORDER Titration Protocol 1 MCG/MIN Thiamine HCl 200 mg/ Sodium 52 mls @ 104 mls/hr 01/15/18 22:00 01/16/18 09:56 Chloride IV 104 mls/hr Q12 NILES Administration Sodium Bicarbonate 150 meq/ 1,150 mls @ 125 mls/hr 01/15/18 12:17 01/15/18 12:20 Dextrose IV 125 mls/hr .[id number] NILES Administration Norepinephrine Bitartrate 8 mg 258 mls @ 7.74 mls/hr 01/16/18 00:42 01/16/18 10:30 / Sodium Chloride IV 20 mcg/min .Q24H PRN 38.7 mls/hr TITRATE PER MD ORDER Titration Protocol 4 MCG/MIN Piperacillin Sod/Tazobactam Sod 100 mls @ 25 mls/hr 01/16/18 13:30 Zosyn 3.375 In Ns 100ml IVPB 01/16/18 17:29 Q12 NILES Protocol Mupirocin 0 gm 01/16/18 18:00 Bactroban Ointment NS 01/21/18 10:01 BID NILES Ondansetron HCl 4 mg 01/14/18 18:50 Zofran Inj IVP Q4H PRN Nausea/Vomiting Pantoprazole Sodium 40 mg 01/15/18 10:00 01/15/18 09:19 Protonix Inj IVP 40 mg DAILY NILES Administration - Patient Studies Lab Studies: Microbiology Studies 01/14/18 19:27 MRSA Culture (Admit) - Final Naris 01/14/18 16:54 Body Fluid Culture - Preliminary Thoracic Fluid NO GROWTH AFTER 24 HOURS 01/14/18 11:19 Blood Culture - Preliminary Blood NO GROWTH AFTER 48 HOURS 01/14/18 11:00 Blood Culture - Preliminary Blood NO GROWTH AFTER 48 HOURS 01/14/18 20:26 Blood Culture - Preliminary Blood NO GROWTH AFTER 24 HOURS 01/14/18 20:26 Blood Culture - Preliminary Blood NO GROWTH AFTER 24 HOURS Lab Studies 01/16/18 01/16/18 01/16/18 Range/Units 16:06 14:52 09:50 WBC (4.5-11.0) 10^3/uL RBC (3.5-6.1) 10^6/uL Hgb (14.0-18.0) g/dL Hct (42.0-52.0) % MCV (80.0-105.0) fl MCH (25.0-35.0) pg MCHC (31.0-37.0) g/dl RDW (11.5-14.5) % Plt Count (120.0-450.0) 10^3/uL Manual Plt Count (120-450) K/mm3 Gran % (50.0-68.0) % Lymph % (Auto) (22.0-35.0) % [place] % (Auto) (1.0-6.0) % Eos % (Auto) (1.5-5.0) % Baso % (Auto) (0.0-3.0) % Gran # (1.4-6.5) Lymph # (Auto) (1.2-3.4) [place] # (Auto) (0.1-0.6) Eos # (Auto) (0.0-0.7) Baso # (Auto) (0.0-2.0) K/mm3 Platelet Evaluation (NORMAL) Retic Count (0.5-1.5) % PT (9.4-12.5) SECONDS INR APTT (25.1-36.5) Seconds Fibrinogen (200-400) mg/dl pCO2 (35-45) mm/Hg pO2 117 H (30-55) mm/Hg HCO3 (21-28) mmol/L ABG pH (7.35-7.45) ABG Total CO2 (22-28) mmol.L ABG O2 Saturation (95-98) % ABG Base Excess (-2.0-3.0) mmol/L ABG Potassium (3.6-5.2) mmol/L VBG pH 7.15 L* (7.32-7.43) VBG pCO2 30.0 L (40-60) VBG HCO3 10.5 L (21-28) mmol/l VBG Total CO2 11.4 L (22-28) mmol.L VBG O2 Sat (Calc) 100.5 H (40-65) % VBG Base Excess -17.1 L (0.0-2.0) mmol/L VBG Potassium 6.3 H* (3.6-5.2) mmol/L Sodium 128.0 L (132-148) mmol/L Chloride 87.0 L (98-107) mmol/L Glucose 102 (75-110) mg/dl Lactate > 20.0 H* (0.7-2.1) mmol/L Mechanical Rate FiO2 21.0 % Tidal Volume PEEP Potassium (3.6-5.0) mmol/L Carbon Dioxide (21-33) mmol/L Anion Gap (10-20) BUN (7-21) mg/dL Creatinine (0.8-1.5) mg/dl Est GFR ( Amer) Est GFR (Non-Af Amer) POC Glucose (mg/dL) 90 59 L (65-110) mg/dL Random Glucose (70-110) mg/dL Calcium (8.4-10.5) mg/dL Phosphorus (2.5-4.5) mg/dL Magnesium (1.7-2.2) mg/dL Ferritin ng/mL Total Bilirubin (0.2-1.3) mg/dL Direct Bilirubin (0.0-0.4) mg/dL AST (17-59) U/L ALT (7-56) U/L Alkaline Phosphatase (38-126) U/L Total Creatine Kinase (35-230) U/L CK-MB (CK-2) (0.0-3.6) ng/mL CK-MB (CK-2) % (2.5-3.0) % Troponin I ng/mL Total Protein (5.8-8.3) g/dL Total Protein (PEP) (6.1-8.1) g/dL Albumin (3.0-4.8) g/dL Globulin gm/dL Albumin/Globulin Ratio (1.1-1.8) Triglycerides (35-160) mg/dL Cholesterol (130-200) mg/dL LDL Cholesterol Direct (0-129) mg/dL HDL Cholesterol (29-60) mg/dL Vitamin B12 (239-931) pg/mL Folate ng/mL PTH Intact Whole Molec (14-64) pg/mL Arterial Blood Potassium (3.6-5.2) mmol/L Venous Blood Potassium 6.3 H* (3.6-5.2) mmol/L Urine Color (YELLOW) Urine Appearance (CLEAR) Urine pH (4.7-8.0) Ur Specific [place] (1.005-1.035) Urine Protein (<30 mg/dL) mg/dL Urine Glucose (UA) (NEGATIVE) mg/dL Urine Ketones (NEGATIVE) mg/dL Urine Blood (NEGATIVE) Urine Nitrate (NEGATIVE) Urine Bilirubin (NEGATIVE) Urine Urobilinogen (<1 E.U./dL) E.U./dL Ur Leukocyte Esterase (NEGATIVE) Sav/uL Urine RBC (0-2) /hpf Urine WBC (0-6) /hpf Ur Epithelial Cells (0-5) /hpf Amorphous Sediment Urine Bacteria (NEG) Hyaline Casts /hpf Fine Granular Casts (0-2) /hpf Coarse Granular Casts (0-2) /hpf Urine Other Ur Random Creatinine Urine Total Volume Microalb/Creat Ratio (<30) Pleural Total Protein g/dL Pleural LDH U/L Pleural Glucose mg/dL Double Strand DNA Ab IU/mL Hep Bs Antigen (NEGATIVE) Hep Bs Ag Neutralizatn Hep B Core IgM Ab (NEGATIVE) Hepatitis C Antibody (NEGATIVE) Blood Type Blood Type Confirm Antibody Screen BBK History Checked 01/16/18 01/16/18 01/16/18 Range/Units 08:42 08:30 07:56 WBC (4.5-11.0) 10^3/uL RBC (3.5-6.1) 10^6/uL Hgb (14.0-18.0) g/dL Hct (42.0-52.0) % MCV (80.0-105.0) fl MCH (25.0-35.0) pg MCHC (31.0-37.0) g/dl RDW (11.5-14.5) % Plt Count (120.0-450.0) 10^3/uL Manual Plt Count (120-450) K/mm3 Gran % (50.0-68.0) % Lymph % (Auto) (22.0-35.0) % [place] % (Auto) (1.0-6.0) % Eos % (Auto) (1.5-5.0) % Baso % (Auto) (0.0-3.0) % Gran # (1.4-6.5) Lymph # (Auto) (1.2-3.4) [place] # (Auto) (0.1-0.6) Eos # (Auto) (0.0-0.7) Baso # (Auto) (0.0-2.0) K/mm3 Platelet Evaluation (NORMAL) Retic Count (0.5-1.5) % PT (9.4-12.5) SECONDS INR APTT (25.1-36.5) Seconds Fibrinogen (200-400) mg/dl pCO2 (35-45) mm/Hg pO2 (30-55) mm/Hg HCO3 (21-28) mmol/L ABG pH (7.35-7.45) ABG Total CO2 (22-28) mmol.L ABG O2 Saturation (95-98) % ABG Base Excess (-2.0-3.0) mmol/L ABG Potassium (3.6-5.2) mmol/L VBG pH (7.32-7.43) VBG pCO2 (40-60) VBG HCO3 (21-28) mmol/l VBG Total CO2 (22-28) mmol.L VBG O2 Sat (Calc) (40-65) % VBG Base Excess (0.0-2.0) mmol/L VBG Potassium (3.6-5.2) mmol/L Sodium (132-148) mmol/L Chloride (98-107) mmol/L Glucose (75-110) mg/dl Lactate (0.7-2.1) mmol/L Mechanical Rate FiO2 % Tidal Volume PEEP Potassium (3.6-5.0) mmol/L Carbon Dioxide (21-33) mmol/L Anion Gap (10-20) BUN (7-21) mg/dL Creatinine (0.8-1.5) mg/dl Est GFR ( Amer) Est GFR (Non-Af Amer) POC Glucose (mg/dL) (65-110) mg/dL Random Glucose (70-110) mg/dL Calcium (8.4-10.5) mg/dL Phosphorus (2.5-4.5) mg/dL Magnesium (1.7-2.2) mg/dL Ferritin ng/mL Total Bilirubin (0.2-1.3) mg/dL Direct Bilirubin (0.0-0.4) mg/dL AST (17-59) U/L ALT (7-56) U/L Alkaline Phosphatase (38-126) U/L Total Creatine Kinase (35-230) U/L CK-MB (CK-2) (0.0-3.6) ng/mL CK-MB (CK-2) % (2.5-3.0) % Troponin I ng/mL Total Protein (5.8-8.3) g/dL Total Protein (PEP) (6.1-8.1) g/dL Albumin (3.0-4.8) g/dL Globulin gm/dL Albumin/Globulin Ratio (1.1-1.8) Triglycerides (35-160) mg/dL Cholesterol (130-200) mg/dL LDL Cholesterol Direct (0-129) mg/dL HDL Cholesterol (29-60) mg/dL Vitamin B12 (239-931) pg/mL Folate ng/mL PTH Intact Whole Molec (14-64) pg/mL Arterial Blood Potassium (3.6-5.2) mmol/L Venous Blood Potassium (3.6-5.2) mmol/L Urine Color Yellow (YELLOW) Urine Appearance Clear (CLEAR) Urine pH 8.0 (4.7-8.0) Ur Specific [place] 1.020 (1.005-1.035) Urine Protein >=300 H (<30 mg/dL) mg/dL Urine Glucose (UA) 100 H (NEGATIVE) mg/dL Urine Ketones Negative (NEGATIVE) mg/dL Urine Blood Large H (NEGATIVE) Urine Nitrate Negative (NEGATIVE) Urine Bilirubin Large H (NEGATIVE) Urine Urobilinogen 0.2 (<1 E.U./dL) E.U./dL Ur Leukocyte Esterase Small H (NEGATIVE) Sav/uL Urine RBC 25 - 30 (0-2) /hpf Urine WBC 10 - 15 (0-6) /hpf Ur Epithelial Cells None (0-5) /hpf Amorphous Sediment Moderate Urine Bacteria Large (NEG) Hyaline Casts 0 - 2 /hpf Fine Granular Casts 0 - 2 (0-2) /hpf Coarse Granular Casts Trace (0-2) /hpf Urine Other [place]ast Ur Random Creatinine Urine Total Volume Microalb/Creat Ratio (<30) Pleural Total Protein g/dL Pleural LDH U/L Pleural Glucose mg/dL Double Strand DNA Ab IU/mL Hep Bs Antigen (NEGATIVE) Hep Bs Ag Neutralizatn Hep B Core IgM Ab (NEGATIVE) Hepatitis C Antibody (NEGATIVE) Blood Type B POSITIVE Blood Type Confirm B POSITIVE Antibody Screen Negative BBK History Checked No verified bt 01/16/18 01/16/18 01/16/18 Range/Units 05:30 05:30 05:30 WBC 22.5 H D (4.5-11.0) 10^3/uL RBC 2.78 L (3.5-6.1) 10^6/uL Hgb 8.3 L (14.0-18.0) g/dL Hct 24.8 L (42.0-52.0) % MCV 89.2 D (80.0-105.0) fl MCH 29.9 (25.0-35.0) pg MCHC 33.5 (31.0-37.0) g/dl RDW 22.4 H (11.5-14.5) % Plt Count 38 L* (120.0-450.0) 10^3/uL Manual Plt Count 45 L* (120-450) K/mm3 Gran % 78.7 H (50.0-68.0) % Lymph % (Auto) 9.6 L (22.0-35.0) % [place] % (Auto) 11.6 H (1.0-6.0) % Eos % (Auto) 0.0 L (1.5-5.0) % Baso % (Auto) 0.1 (0.0-3.0) % Gran # 17.69 H (1.4-6.5) Lymph # (Auto) 2.2 (1.2-3.4) [place] # (Auto) 2.6 H (0.1-0.6) Eos # (Auto) 0.0 (0.0-0.7) Baso # (Auto) 0.02 (0.0-2.0) K/mm3 Platelet Evaluation (NORMAL) Retic Count 1.12 (0.5-1.5) % PT 53.6 H (9.4-12.5) SECONDS INR 4.52 H* APTT 156.9 H* (25.1-36.5) Seconds Fibrinogen (200-400) mg/dl pCO2 28 L (35-45) mm/Hg pO2 64.0 L (30-55) mm/Hg HCO3 9.8 L* (21-28) mmol/L ABG pH 7.15 L* (7.35-7.45) ABG Total CO2 10.7 L (22-28) mmol.L ABG O2 Saturation 91.8 L (95-98) % ABG Base Excess -17.6 L (-2.0-3.0) mmol/L ABG Potassium 5.7 H (3.6-5.2) mmol/L VBG pH (7.32-7.43) VBG pCO2 (40-60) VBG HCO3 (21-28) mmol/l VBG Total CO2 (22-28) mmol.L VBG O2 Sat (Calc) (40-65) % VBG Base Excess (0.0-2.0) mmol/L VBG Potassium (3.6-5.2) mmol/L Sodium 129.0 L (132-148) mmol/L Chloride 93.0 L (98-107) mmol/L Glucose 106 (75-110) mg/dl Lactate 16.1 H* (0.7-2.1) mmol/L Mechanical Rate FiO2 40.0 % Tidal Volume PEEP Potassium (3.6-5.0) mmol/L Carbon Dioxide (21-33) mmol/L Anion Gap (10-20) BUN (7-21) mg/dL Creatinine (0.8-1.5) mg/dl Est GFR ( Amer) Est GFR (Non-Af Amer) POC Glucose (mg/dL) (65-110) mg/dL Random Glucose (70-110) mg/dL Calcium (8.4-10.5) mg/dL Phosphorus (2.5-4.5) mg/dL Magnesium (1.7-2.2) mg/dL Ferritin ng/mL Total Bilirubin (0.2-1.3) mg/dL Direct Bilirubin (0.0-0.4) mg/dL AST (17-59) U/L ALT (7-56) U/L Alkaline Phosphatase (38-126) U/L Total Creatine Kinase (35-230) U/L CK-MB (CK-2) (0.0-3.6) ng/mL CK-MB (CK-2) % (2.5-3.0) % Troponin I ng/mL Total Protein (5.8-8.3) g/dL Total Protein (PEP) (6.1-8.1) g/dL Albumin (3.0-4.8) g/dL Globulin gm/dL Albumin/Globulin Ratio (1.1-1.8) Triglycerides (35-160) mg/dL Cholesterol (130-200) mg/dL LDL Cholesterol Direct (0-129) mg/dL HDL Cholesterol (29-60) mg/dL Vitamin B12 (239-931) pg/mL Folate ng/mL PTH Intact Whole Molec (14-64) pg/mL Arterial Blood Potassium 5.7 H (3.6-5.2) mmol/L Venous Blood Potassium (3.6-5.2) mmol/L Urine Color (YELLOW) Urine Appearance (CLEAR) Urine pH (4.7-8.0) Ur Specific [place] (1.005-1.035) Urine Protein (<30 mg/dL) mg/dL Urine Glucose (UA) (NEGATIVE) mg/dL Urine Ketones (NEGATIVE) mg/dL Urine Blood (NEGATIVE) Urine Nitrate (NEGATIVE) Urine Bilirubin (NEGATIVE) Urine Urobilinogen (<1 E.U./dL) E.U./dL Ur Leukocyte Esterase (NEGATIVE) Sav/uL Urine RBC (0-2) /hpf Urine WBC (0-6) /hpf Ur Epithelial Cells (0-5) /hpf Amorphous Sediment Urine Bacteria (NEG) Hyaline Casts /hpf Fine Granular Casts (0-2) /hpf Coarse Granular Casts (0-2) /hpf Urine Other Ur Random Creatinine Urine Total Volume Microalb/Creat Ratio (<30) Pleural Total Protein g/dL Pleural LDH U/L Pleural Glucose mg/dL Double Strand DNA Ab IU/mL Hep Bs Antigen (NEGATIVE) Hep Bs Ag Neutralizatn Hep B Core IgM Ab (NEGATIVE) Hepatitis C Antibody (NEGATIVE) Blood Type Blood Type Confirm Antibody Screen BBK History Checked 01/16/18 01/16/18 01/16/18 Range/Units 05:30 04:51 00:18 WBC (4.5-11.0) 10^3/uL RBC (3.5-6.1) 10^6/uL Hgb (14.0-18.0) g/dL Hct (42.0-52.0) % MCV (80.0-105.0) fl MCH (25.0-35.0) pg MCHC (31.0-37.0) g/dl RDW (11.5-14.5) % Plt Count (120.0-450.0) 10^3/uL Manual Plt Count (120-450) K/mm3 Gran % (50.0-68.0) % Lymph % (Auto) (22.0-35.0) % [place] % (Auto) (1.0-6.0) % Eos % (Auto) (1.5-5.0) % Baso % (Auto) (0.0-3.0) % Gran # (1.4-6.5) Lymph # (Auto) (1.2-3.4) [place] # (Auto) (0.1-0.6) Eos # (Auto) (0.0-0.7) Baso # (Auto) (0.0-2.0) K/mm3 Platelet Evaluation (NORMAL) Retic Count (0.5-1.5) % PT (9.4-12.5) SECONDS INR APTT (25.1-36.5) Seconds Fibrinogen (200-400) mg/dl pCO2 (35-45) mm/Hg pO2 (30-55) mm/Hg HCO3 (21-28) mmol/L ABG pH (7.35-7.45) ABG Total CO2 (22-28) mmol.L ABG O2 Saturation (95-98) % ABG Base Excess (-2.0-3.0) mmol/L ABG Potassium (3.6-5.2) mmol/L VBG pH (7.32-7.43) VBG pCO2 (40-60) VBG HCO3 (21-28) mmol/l VBG Total CO2 (22-28) mmol.L VBG O2 Sat (Calc) (40-65) % VBG Base Excess (0.0-2.0) mmol/L VBG Potassium (3.6-5.2) mmol/L Sodium 130 L (132-148) mmol/L Chloride 90 L (98-107) mmol/L Glucose (75-110) mg/dl Lactate (0.7-2.1) mmol/L Mechanical Rate FiO2 % Tidal Volume PEEP Potassium 6.2 H* D (3.6-5.0) mmol/L Carbon Dioxide 11 L (21-33) mmol/L Anion Gap 34 H (10-20) BUN 22 H (7-21) mg/dL Creatinine 4.0 H (0.8-1.5) mg/dl Est GFR ( Amer) 19 Est GFR (Non-Af Amer) 15 POC Glucose (mg/dL) 104 140 H (65-110) mg/dL Random Glucose 103 (70-110) mg/dL Calcium 5.5 L* (8.4-10.5) mg/dL Phosphorus 7.6 H (2.5-4.5) mg/dL Magnesium 1.7 (1.7-2.2) mg/dL Ferritin 8730.0 ng/mL Total Bilirubin 4.8 H (0.2-1.3) mg/dL Direct Bilirubin 3.8 H (0.0-0.4) mg/dL AST 1121 H (17-59) U/L ALT 394 H (7-56) U/L Alkaline Phosphatase 157 H D (38-126) U/L Total Creatine Kinase (35-230) U/L CK-MB (CK-2) (0.0-3.6) ng/mL CK-MB (CK-2) % (2.5-3.0) % Troponin I ng/mL Total Protein 5.1 L (5.8-8.3) g/dL Total Protein (PEP) (6.1-8.1) g/dL Albumin 2.6 L (3.0-4.8) g/dL Globulin 2.4 gm/dL Albumin/Globulin Ratio 1.1 (1.1-1.8) Triglycerides (35-160) mg/dL Cholesterol (130-200) mg/dL LDL Cholesterol Direct (0-129) mg/dL HDL Cholesterol (29-60) mg/dL Vitamin B12 > 1000 H (239-931) pg/mL Folate 15.5 ng/mL PTH Intact Whole [place]olec (14-64) pg/mL Arterial Blood Potassium (3.6-5.2) mmol/L Venous Blood Potassium (3.6-5.2) mmol/L Urine Color (YELLOW) Urine Appearance (CLEAR) Urine pH (4.7-8.0) Ur Specific [place] (1.005-1.035) Urine Protein (<30 mg/dL) mg/dL Urine Glucose (UA) (NEGATIVE) mg/dL Urine Ketones (NEGATIVE) mg/dL Urine Blood (NEGATIVE) Urine Nitrate (NEGATIVE) Urine Bilirubin (NEGATIVE) Urine Urobilinogen (<1 E.U./dL) E.U./dL Ur Leukocyte Esterase (NEGATIVE) Sav/uL Urine RBC (0-2) /hpf Urine WBC (0-6) /hpf Ur Epithelial Cells (0-5) /hpf Amorphous Sediment Urine Bacteria (NEG) Hyaline Casts /hpf Fine Granular Casts (0-2) /hpf Coarse Granular Casts (0-2) /hpf Urine Other Ur Random Creatinine Urine Total Volume Microalb/Creat Ratio (<30) Pleural Total Protein g/dL Pleural LDH U/L Pleural Glucose mg/dL Double Strand DNA Ab IU/mL Hep Bs Antigen (NEGATIVE) Hep Bs Ag Neutralizatn Hep B Core IgM Ab (NEGATIVE) Hepatitis C Antibody (NEGATIVE) Blood Type Blood Type Confirm Antibody Screen BBK History Checked 01/16/18 01/15/18 01/15/18 Range/Units 00:00 21:46 20:42 WBC (4.5-11.0) 10^3/uL RBC (3.5-6.1) 10^6/uL Hgb (14.0-18.0) g/dL Hct (42.0-52.0) % MCV (80.0-105.0) fl MCH (25.0-35.0) pg MCHC (31.0-37.0) g/dl RDW (11.5-14.5) % Plt Count (120.0-450.0) 10^3/uL Manual Plt Count (120-450) K/mm3 Gran % (50.0-68.0) % Lymph % (Auto) (22.0-35.0) % [place] % (Auto) (1.0-6.0) % Eos % (Auto) (1.5-5.0) % Baso % (Auto) (0.0-3.0) % Gran # (1.4-6.5) Lymph # (Auto) (1.2-3.4) [place] # (Auto) (0.1-0.6) Eos # (Auto) (0.0-0.7) Baso # (Auto) (0.0-2.0) K/mm3 Platelet Evaluation (NORMAL) Retic Count (0.5-1.5) % PT (9.4-12.5) SECONDS INR APTT (25.1-36.5) Seconds Fibrinogen 108 L (200-400) mg/dl pCO2 (35-45) mm/Hg pO2 73 H (30-55) mm/Hg HCO3 (21-28) mmol/L ABG pH (7.35-7.45) ABG Total CO2 (22-28) mmol.L ABG O2 Saturation (95-98) % ABG Base Excess (-2.0-3.0) mmol/L ABG Potassium (3.6-5.2) mmol/L VBG pH 7.27 L (7.32-7.43) VBG pCO2 30.0 L (40-60) VBG HCO3 13.8 L (21-28) mmol/l VBG Total CO2 14.7 L (22-28) mmol.L VBG O2 Sat (Calc) 96.9 H (40-65) % VBG Base Excess -11.8 L (0.0-2.0) mmol/L VBG Potassium 5.4 H (3.6-5.2) mmol/L Sodium 127.0 L (132-148) mmol/L Chloride 89.0 L (98-107) mmol/L Glucose 133 H (75-110) mg/dl Lactate 14.6 H* (0.7-2.1) mmol/L Mechanical Rate FiO2 21.0 % Tidal Volume PEEP Potassium (3.6-5.0) mmol/L Carbon Dioxide (21-33) mmol/L Anion Gap (10-20) BUN (7-21) mg/dL Creatinine (0.8-1.5) mg/dl Est GFR ( Amer) Est GFR (Non-Af Amer) POC Glucose (mg/dL) 140 H (65-110) mg/dL Random Glucose (70-110) mg/dL Calcium (8.4-10.5) mg/dL Phosphorus (2.5-4.5) mg/dL Magnesium (1.7-2.2) mg/dL Ferritin ng/mL Total Bilirubin (0.2-1.3) mg/dL Direct Bilirubin (0.0-0.4) mg/dL AST (17-59) U/L ALT (7-56) U/L Alkaline Phosphatase (38-126) U/L Total Creatine Kinase (35-230) U/L CK-MB (CK-2) (0.0-3.6) ng/mL CK-MB (CK-2) % (2.5-3.0) % Troponin I ng/mL Total Protein (5.8-8.3) g/dL Total Protein (PEP) (6.1-8.1) g/dL Albumin (3.0-4.8) g/dL Globulin gm/dL Albumin/Globulin Ratio (1.1-1.8) Triglycerides (35-160) mg/dL Cholesterol (130-200) mg/dL LDL Cholesterol Direct (0-129) mg/dL HDL Cholesterol (29-60) mg/dL Vitamin B12 (239-931) pg/mL Folate ng/mL PTH Intact Whole Molec (14-64) pg/mL Arterial Blood Potassium (3.6-5.2) mmol/L Venous Blood Potassium 5.4 H (3.6-5.2) mmol/L Urine Color (YELLOW) Urine Appearance (CLEAR) Urine pH (4.7-8.0) Ur Specific [place] (1.005-1.035) Urine Protein (<30 mg/dL) mg/dL Urine Glucose (UA) (NEGATIVE) mg/dL Urine Ketones (NEGATIVE) mg/dL Urine Blood (NEGATIVE) Urine Nitrate (NEGATIVE) Urine Bilirubin (NEGATIVE) Urine Urobilinogen (<1 E.U./dL) E.U./dL Ur Leukocyte Esterase (NEGATIVE) Sav/uL Urine RBC (0-2) /hpf Urine WBC (0-6) /hpf Ur Epithelial Cells (0-5) /hpf Amorphous Sediment Urine Bacteria (NEG) Hyaline Casts /hpf Fine Granular Casts (0-2) /hpf Coarse Granular Casts (0-2) /hpf Urine Other Ur Random Creatinine Urine Total Volume Microalb/Creat Ratio (<30) Pleural Total Protein g/dL Pleural LDH U/L Pleural Glucose mg/dL Double Strand DNA Ab IU/mL Hep Bs Antigen (NEGATIVE) Hep Bs Ag Neutralizatn Hep B Core IgM Ab (NEGATIVE) Hepatitis C Antibody (NEGATIVE) Blood Type Blood Type Confirm Antibody Screen BBK History Checked 01/15/18 01/15/1818 Range/Units 20:42 18:25 17:55 WBC (4.5-11.0) 10^3/uL RBC (3.5-6.1) 10^6/uL Hgb (14.0-18.0) g/dL Hct (42.0-52.0) % MCV (80.0-105.0) fl MCH (25.0-35.0) pg MCHC (31.0-37.0) g/dl RDW (11.5-14.5) % Plt Count (120.0-450.0) 10^3/uL Manual Plt Count (120-450) K/mm3 Gran % (50.0-68.0) % Lymph % (Auto) (22.0-35.0) % [place] % (Auto) (1.0-6.0) % Eos % (Auto) (1.5-5.0) % Baso % (Auto) (0.0-3.0) % Gran # (1.4-6.5) Lymph # (Auto) (1.2-3.4) [place] # (Auto) (0.1-0.6) Eos # (Auto) (0.0-0.7) Baso # (Auto) (0.0-2.0) K/mm3 Platelet Evaluation (NORMAL) Retic Count 1.12 (0.5-1.5) % PT (9.4-12.5) SECONDS INR APTT (25.1-36.5) Seconds Fibrinogen (200-400) mg/dl pCO2 24 L (35-45) mm/Hg pO2 69.0 L (30-55) mm/Hg HCO3 15.2 L (21-28) mmol/L ABG pH 7.41 (7.35-7.45) ABG Total CO2 15.9 L (22-28) mmol.L ABG O2 Saturation 96.8 (95-98) % ABG Base Excess -7.6 L (-2.0-3.0) mmol/L ABG Potassium 4.3 (3.6-5.2) mmol/L VBG pH (7.32-7.43) VBG pCO2 (40-60) VBG HCO3 (21-28) mmol/l VBG Total CO2 (22-28) mmol.L VBG O2 Sat (Calc) (40-65) % VBG Base Excess (0.0-2.0) mmol/L VBG Potassium (3.6-5.2) mmol/L Sodium 131.0 L 130 L (132-148) mmol/L Chloride 96.0 L 92 L (98-107) mmol/L Glucose 120 H (75-110) mg/dl Lactate 10.2 H* (0.7-2.1) mmol/L Mechanical Rate 16 FiO2 40.0 % Tidal Volume 450 PEEP 5 Potassium 4.7 (3.6-5.0) mmol/L Carbon Dioxide 18 L (21-33) mmol/L Anion Gap 25 H (10-20) BUN 21 (7-21) mg/dL Creatinine 3.1 H (0.8-1.5) mg/dl Est GFR ( Amer) 25 Est GFR (Non-Af Amer) 21 POC Glucose (mg/dL) (65-110) mg/dL Random Glucose 116 H (70-110) mg/dL Calcium 6.0 L* (8.4-10.5) mg/dL Phosphorus (2.5-4.5) mg/dL Magnesium (1.7-2.2) mg/dL Ferritin ng/mL Total Bilirubin 4.4 H (0.2-1.3) mg/dL Direct Bilirubin (0.0-0.4) mg/dL AST 1068 H (17-59) U/L ALT 405 H (7-56) U/L Alkaline Phosphatase 118 (38-126) U/L Total Creatine Kinase (35-230) U/L CK-MB (CK-2) (0.0-3.6) ng/mL CK-MB (CK-2) % (2.5-3.0) % Troponin I ng/mL Total Protein 5.4 L (5.8-8.3) g/dL Total Protein (PEP) (6.1-8.1) g/dL Albumin 2.8 L (3.0-4.8) g/dL Globulin 2.6 gm/dL Albumin/Globulin Ratio 1.1 (1.1-1.8) Triglycerides (35-160) mg/dL Cholesterol (130-200) mg/dL LDL Cholesterol Direct (0-129) mg/dL HDL Cholesterol (29-60) mg/dL Vitamin B12 (239-931) pg/mL Folate ng/mL PTH Intact Whole [place]ole[place] (14-64) pg/mL Arterial Blood Potassium 4.3 (3.6-5.2) mmol/L Venous Blood Potassium (3.6-5.2) mmol/L Urine Color (YELLOW) Urine Appearance (CLEAR) Urine pH (4.7-8.0) Ur Specific [place] (1.005-1.035) Urine Protein (<30 mg/dL) mg/dL Urine Glucose (UA) (NEGATIVE) mg/dL Urine Ketones (NEGATIVE) mg/dL Urine Blood (NEGATIVE) Urine Nitrate (NEGATIVE) Urine Bilirubin (NEGATIVE) Urine Urobilinogen (<1 E.U./dL) E.U./dL Ur Leukocyte Esterase (NEGATIVE) Sav/uL Urine RBC (0-2) /hpf Urine WBC (0-6) /hpf Ur Epithelial Cells (0-5) /hpf Amorphous Sediment Urine Bacteria (NEG) Hyaline Casts /hpf Fine Granular Casts (0-2) /hpf Coarse Granular Casts (0-2) /hpf Urine Other Ur Random Creatinine Urine Total Volume Microalb/Creat Ratio (<30) Pleural Total Protein g/dL Pleural LDH U/L Pleural Glucose mg/dL Double Strand DNA Ab IU/mL Hep Bs Antigen (NEGATIVE) Hep Bs Ag Neutralizatn Hep B Core IgM Ab (NEGATIVE) Hepatitis C Antibody (NEGATIVE) Blood Type Blood Type Confirm Antibody Screen BBK History Checked 01/15/18 01/15/18 01/15/18 Range/Units 17:55 17:55 16:56 WBC 16.5 H D (4.5-11.0) 10^3/uL RBC 2.89 L (3.5-6.1) 10^6/uL Hgb 8.7 L D (14.0-18.0) g/dL Hct 24.6 L (42.0-52.0) % MCV 85.1 (80.0-105.0) fl MCH 30.1 (25.0-35.0) pg MCHC 35.4 (31.0-37.0) g/dl RDW 21.8 H (11.5-14.5) % Plt Count 44 L* (120.0-450.0) 10^3/uL Manual Plt Count (120-450) K/mm3 Gran % 79.0 H (50.0-68.0) % Lymph % (Auto) 10.0 L (22.0-35.0) % [place] % (Auto) 10.8 H (1.0-6.0) % Eos % (Auto) 0.1 L (1.5-5.0) % Baso % (Auto) 0.1 (0.0-3.0) % Gran # 13.02 H (1.4-6.5) Lymph # (Auto) 1.6 (1.2-3.4) [place] # (Auto) 1.8 H (0.1-0.6) Eos # (Auto) 0.0 (0.0-0.7) Baso # (Auto) 0.01 (0.0-2.0) K/mm3 Platelet Evaluation Low (NORMAL) Retic Count (0.5-1.5) % PT 47.3 H (9.4-12.5) SECONDS INR 4.03 H* APTT (25.1-36.5) Seconds Fibrinogen (200-400) mg/dl pCO2 (35-45) mm/Hg pO2 (30-55) mm/Hg HCO3 (21-28) mmol/L ABG pH (7.35-7.45) ABG Total CO2 (22-28) mmol.L ABG O2 Saturation (95-98) % ABG Base Excess (-2.0-3.0) mmol/L ABG Potassium (3.6-5.2) mmol/L VBG pH (7.32-7.43) VBG pCO2 (40-60) VBG HCO3 (21-28) mmol/l VBG Total CO2 (22-28) mmol.L VBG O2 Sat (Calc) (40-65) % VBG Base Excess (0.0-2.0) mmol/L VBG Potassium (3.6-5.2) mmol/L Sodium (132-148) mmol/L Chloride (98-107) mmol/L Glucose (75-110) mg/dl Lactate (0.7-2.1) mmol/L Mechanical Rate FiO2 % Tidal Volume PEEP Potassium (3.6-5.0) mmol/L Carbon Dioxide (21-33) mmol/L Anion Gap (10-20) BUN (7-21) mg/dL Creatinine (0.8-1.5) mg/dl Est GFR ( Amer) Est GFR (Non-Af Amer) POC Glucose (mg/dL) 135 H (65-110) mg/dL Random Glucose (70-110) mg/dL Calcium (8.4-10.5) mg/dL Phosphorus (2.5-4.5) mg/dL Magnesium (1.7-2.2) mg/dL Ferritin ng/mL Total Bilirubin (0.2-1.3) mg/dL Direct Bilirubin (0.0-0.4) mg/dL AST (17-59) U/L ALT (7-56) U/L Alkaline Phosphatase (38-126) U/L Total Creatine Kinase (35-230) U/L CK-MB (CK-2) (0.0-3.6) ng/mL CK-MB (CK-2) % (2.5-3.0) % Troponin I ng/mL Total Protein (5.8-8.3) g/dL Total Protein (PEP) (6.1-8.1) g/dL Albumin (3.0-4.8) g/dL Globulin gm/dL Albumin/Globulin Ratio (1.1-1.8) Triglycerides (35-160) mg/dL Cholesterol (130-200) mg/dL LDL Cholesterol Direct (0-129) mg/dL HDL Cholesterol (29-60) mg/dL Vitamin B12 (239-931) pg/mL Folate ng/mL PTH Intact Whole Molec (14-64) pg/mL Arterial Blood Potassium (3.6-5.2) mmol/L Venous Blood Potassium (3.6-5.2) mmol/L Urine Color (YELLOW) Urine Appearance (CLEAR) Urine pH (4.7-8.0) Ur Specific [place] (1.005-1.035) Urine Protein (<30 mg/dL) mg/dL Urine Glucose (UA) (NEGATIVE) mg/dL Urine Ketones (NEGATIVE) mg/dL Urine Blood (NEGATIVE) Urine Nitrate (NEGATIVE) Urine Bilirubin (NEGATIVE) Urine Urobilinogen (<1 E.U./dL) E.U./dL Ur Leukocyte Esterase (NEGATIVE) Sav/uL Urine RBC (0-2) /hpf Urine WBC (0-6) /hpf Ur Epithelial Cells (0-5) /hpf Amorphous Sediment Urine Bacteria (NEG) Hyaline Casts /hpf Fine Granular Casts (0-2) /hpf Coarse Granular Casts (0-2) /hpf Urine Other Ur Random Creatinine Urine Total Volume Microalb/Creat Ratio (<30) Pleural Total Protein g/dL Pleural LDH U/L Pleural Glucose mg/dL Double Strand DNA Ab IU/mL Hep Bs Antigen (NEGATIVE) Hep Bs Ag Neutralizatn Hep B Core IgM Ab (NEGATIVE) Hepatitis C Antibody (NEGATIVE) Blood Type Blood Type Confirm Antibody Screen BBK History Checked 01/15/18 01/15/18 01/15/18 Range/Units 11:21 07:45 07:37 WBC (4.5-11.0) 10^3/uL RBC (3.5-6.1) 10^6/uL Hgb (14.0-18.0) g/dL Hct (42.0-52.0) % MCV (80.0-105.0) fl MCH (25.0-35.0) pg MCHC (31.0-37.0) g/dl RDW (11.5-14.5) % Plt Count (120.0-450.0) 10^3/uL Manual Plt Count (120-450) K/mm3 Gran % (50.0-68.0) % Lymph % (Auto) (22.0-35.0) % [place] % (Auto) (1.0-6.0) % Eos % (Auto) (1.5-5.0) % Baso % (Auto) (0.0-3.0) % Gran # (1.4-6.5) Lymph # (Auto) (1.2-3.4) [place] # (Auto) (0.1-0.6) Eos # (Auto) (0.0-0.7) Baso # (Auto) (0.0-2.0) K/mm3 Platelet Evaluation (NORMAL) Retic Count (0.5-1.5) % PT (9.4-12.5) SECONDS INR APTT (25.1-36.5) Seconds Fibrinogen (200-400) mg/dl pCO2 (35-45) mm/Hg pO2 (30-55) mm/Hg HCO3 (21-28) mmol/L ABG pH (7.35-7.45) ABG Total CO2 (22-28) mmol.L ABG O2 Saturation (95-98) % ABG Base Excess (-2.0-3.0) mmol/L ABG Potassium (3.6-5.2) mmol/L VBG pH (7.32-7.43) VBG pCO2 (40-60) VBG HCO3 (21-28) mmol/l VBG Total CO2 (22-28) mmol.L VBG O2 Sat (Calc) (40-65) % VBG Base Excess (0.0-2.0) mmol/L VBG Potassium (3.6-5.2) mmol/L Sodium (132-148) mmol/L Chloride (98-107) mmol/L Glucose (75-110) mg/dl Lactate (0.7-2.1) mmol/L Mechanical Rate FiO2 % Tidal Volume PEEP Potassium (3.6-5.0) mmol/L Carbon Dioxide (21-33) mmol/L Anion Gap (10-20) BUN (7-21) mg/dL Creatinine (0.8-1.5) mg/dl Est GFR ( Amer) Est GFR (Non-Af Amer) POC Glucose (mg/dL) 117 H 88 (65-110) mg/dL Random Glucose (70-110) mg/dL Calcium (8.4-10.5) mg/dL Phosphorus (2.5-4.5) mg/dL Magnesium (1.7-2.2) mg/dL Ferritin ng/mL Total Bilirubin (0.2-1.3) mg/dL Direct Bilirubin (0.0-0.4) mg/dL AST (17-59) U/L ALT (7-56) U/L Alkaline Phosphatase (38-126) U/L Total Creatine Kinase (35-230) U/L CK-MB (CK-2) (0.0-3.6) ng/mL CK-MB (CK-2) % (2.5-3.0) % Troponin I ng/mL Total Protein (5.8-8.3) g/dL Total Protein (PEP) (6.1-8.1) g/dL Albumin (3.0-4.8) g/dL Globulin gm/dL Albumin/Globulin Ratio (1.1-1.8) Triglycerides (35-160) mg/dL Cholesterol (130-200) mg/dL LDL Cholesterol Direct (0-129) mg/dL HDL Cholesterol (29-60) mg/dL Vitamin B12 (239-931) pg/mL Folate ng/mL PTH Intact Whole [place]olec (14-64) pg/mL Arterial Blood Potassium (3.6-5.2) mmol/L Venous Blood Potassium (3.6-5.2) mmol/L Urine Color (YELLOW) Urine Appearance (CLEAR) Urine pH (4.7-8.0) Ur Specific [place] (1.005-1.035) Urine Protein (<30 mg/dL) mg/dL Urine Glucose (UA) (NEGATIVE) mg/dL Urine Ketones (NEGATIVE) mg/dL Urine Blood (NEGATIVE) Urine Nitrate (NEGATIVE) Urine Bilirubin (NEGATIVE) Urine Urobilinogen (<1 E.U./dL) E.U./dL Ur Leukocyte Esterase (NEGATIVE) Sav/uL Urine RBC (0-2) /hpf Urine WBC (0-6) /hpf Ur Epithelial Cells (0-5) /hpf Amorphous Sediment Urine Bacteria (NEG) Hyaline Casts /hpf Fine Granular Casts (0-2) /hpf Coarse Granular Casts (0-2) /hpf Urine Other Ur Random Creatinine Urine Total Volume Microalb/Creat Ratio (<30) Pleural Total Protein g/dL Pleural LDH U/L Pleural Glucose mg/dL Double Strand DNA Ab IU/mL Hep Bs Antigen (NEGATIVE) Hep Bs Ag Neutralizatn Confirmed positive H Hep B Core IgM Ab (NEGATIVE) Hepatitis C Antibody (NEGATIVE) Blood Type Blood Type Confirm Antibody Screen BBK History Checked 01/15/18 01/15/18 01/15/18 Range/Units 06:43 05:34 03:30 WBC (4.5-11.0) 10^3/uL RBC (3.5-6.1) 10^6/uL Hgb (14.0-18.0) g/dL Hct (42.0-52.0) % MCV (80.0-105.0) fl MCH (25.0-35.0) pg MCHC (31.0-37.0) g/dl RDW (11.5-14.5) % Plt Count (120.0-450.0) 10^3/uL Manual Plt Count (120-450) K/mm3 Gran % (50.0-68.0) % Lymph % (Auto) (22.0-35.0) % [place] % (Auto) (1.0-6.0) % Eos % (Auto) (1.5-5.0) % Baso % (Auto) (0.0-3.0) % Gran # (1.4-6.5) Lymph # (Auto) (1.2-3.4) [place] # (Auto) (0.1-0.6) Eos # (Auto) (0.0-0.7) Baso # (Auto) (0.0-2.0) K/mm3 Platelet Evaluation (NORMAL) Retic Count (0.5-1.5) % PT (9.4-12.5) SECONDS INR APTT (25.1-36.5) Seconds Fibrinogen (200-400) mg/dl pCO2 (35-45) mm/Hg pO2 42 105 H (30-55) mm/Hg HCO3 (21-28) mmol/L ABG pH (7.35-7.45) ABG Total CO2 (22-28) mmol.L ABG O2 Saturation (95-98) % ABG Base Excess (-2.0-3.0) mmol/L ABG Potassium (3.6-5.2) mmol/L VBG pH 7.28 L 7.43 (7.32-7.43) VBG pCO2 35.0 L 22.0 L (40-60) VBG HCO3 16.4 L 14.6 L (21-28) mmol/l VBG Total CO2 17.5 L 15.3 L (22-28) mmol.L VBG O2 Sat (Calc) 74.5 H 99.3 H (40-65) % VBG Base Excess -9.4 L -7.6 L (0.0-2.0) mmol/L VBG Potassium 5.4 H 5.7 H (3.6-5.2) mmol/L Sodium 131.0 L 128.0 L (132-148) mmol/L Chloride 98.0 98.0 (98-107) mmol/L Glucose 76 73 L (75-110) mg/dl Lactate 8.3 H* 6.7 H* (0.7-2.1) mmol/L Mechanical Rate FiO2 21.0 21.0 % Tidal Volume PEEP Potassium (3.6-5.0) mmol/L Carbon Dioxide (21-33) mmol/L Anion Gap (10-20) BUN (7-21) mg/dL Creatinine (0.8-1.5) mg/dl Est GFR ( Amer) Est GFR (Non-Af Amer) POC Glucose (mg/dL) 72 (65-110) mg/dL Random Glucose (70-110) mg/dL Calcium (8.4-10.5) mg/dL Phosphorus (2.5-4.5) mg/dL Magnesium (1.7-2.2) mg/dL Ferritin ng/mL Total Bilirubin (0.2-1.3) mg/dL Direct Bilirubin (0.0-0.4) mg/dL AST (17-59) U/L ALT (7-56) U/L Alkaline Phosphatase (38-126) U/L Total Creatine Kinase (35-230) U/L CK-MB (CK-2) (0.0-3.6) ng/mL CK-MB (CK-2) % (2.5-3.0) % Troponin I ng/mL Total Protein (5.8-8.3) g/dL Total Protein (PEP) (6.1-8.1) g/dL Albumin (3.0-4.8) g/dL Globulin gm/dL Albumin/Globulin Ratio (1.1-1.8) Triglycerides (35-160) mg/dL Cholesterol (130-200) mg/dL LDL Cholesterol Direct (0-129) mg/dL HDL Cholesterol (29-60) mg/dL Vitamin B12 (239-931) pg/mL Folate ng/mL PTH Intact Whole [place]ole[place] (14-64) pg/mL Arterial Blood Potassium (3.6-5.2) mmol/L Venous Blood Potassium 5.4 H 5.7 H (3.6-5.2) mmol/L Urine Color (YELLOW) Urine Appearance (CLEAR) Urine pH (4.7-8.0) Ur Specific [place] (1.005-1.035) Urine Protein (<30 mg/dL) mg/dL Urine Glucose (UA) (NEGATIVE) mg/dL Urine Ketones (NEGATIVE) mg/dL Urine Blood (NEGATIVE) Urine Nitrate (NEGATIVE) Urine Bilirubin (NEGATIVE) Urine Urobilinogen (<1 E.U./dL) E.U./dL Ur Leukocyte Esterase (NEGATIVE) Sav/uL Urine RBC (0-2) /hpf Urine WBC (0-6) /hpf Ur Epithelial Cells (0-5) /hpf Amorphous Sediment Urine Bacteria (NEG) Hyaline Casts /hpf Fine Granular Casts (0-2) /hpf Coarse Granular Casts (0-2) /hpf Urine Other Ur Random Creatinine Urine Total Volume Microalb/Creat Ratio (<30) Pleural Total Protein g/dL Pleural LDH U/L Pleural Glucose mg/dL Double Strand DNA Ab IU/mL Hep Bs Antigen (NEGATIVE) Hep Bs Ag Neutralizatn Hep B Core IgM Ab (NEGATIVE) Hepatitis C Antibody (NEGATIVE) Blood Type Blood Type Confirm Antibody Screen BBK History Checked 01/15/18 01/15/18 01/15/18 Range/Units 03:30 03:30 03:30 WBC (4.5-11.0) 10^3/uL RBC (3.5-6.1) 10^6/uL Hgb (14.0-18.0) g/dL Hct (42.0-52.0) % MCV (80.0-105.0) fl MCH (25.0-35.0) pg MCHC (31.0-37.0) g/dl RDW (11.5-14.5) % Plt Count (120.0-450.0) 10^3/uL Manual Plt Count (120-450) K/mm3 Gran % (50.0-68.0) % Lymph % (Auto) (22.0-35.0) % [place] % (Auto) (1.0-6.0) % Eos % (Auto) (1.5-5.0) % Baso % (Auto) (0.0-3.0) % Gran # (1.4-6.5) Lymph # (Auto) (1.2-3.4) [place] # (Auto) (0.1-0.6) Eos # (Auto) (0.0-0.7) Baso # (Auto) (0.0-2.0) K/mm3 Platelet Evaluation (NORMAL) Retic Count (0.5-1.5) % PT (9.4-12.5) SECONDS INR APTT (25.1-36.5) Seconds Fibrinogen (200-400) mg/dl pCO2 (35-45) mm/Hg pO2 (30-55) mm/Hg HCO3 (21-28) mmol/L ABG pH (7.35-7.45) ABG Total CO2 (22-28) mmol.L ABG O2 Saturation (95-98) % ABG Base Excess (-2.0-3.0) mmol/L ABG Potassium (3.6-5.2) mmol/L VBG pH (7.32-7.43) VBG pCO2 (40-60) VBG HCO3 (21-28) mmol/l VBG Total CO2 (22-28) mmol.L VBG O2 Sat (Calc) (40-65) % VBG Base Excess (0.0-2.0) mmol/L VBG Potassium (3.6-5.2) mmol/L Sodium 128 L (132-148) mmol/L Chloride 103 (98-107) mmol/L Glucose (75-110) mg/dl Lactate (0.7-2.1) mmol/L Mechanical Rate FiO2 % Tidal Volume PEEP Potassium 5.6 H* (3.6-5.0) mmol/L Carbon Dioxide 15 L (21-33) mmol/L Anion Gap 16 (10-20) BUN 37 H (7-21) mg/dL Creatinine 4.7 H (0.8-1.5) mg/dl Est GFR ( Amer) 15 Est GFR (Non-Af Amer) 13 POC Glucose (mg/dL) (65-110) mg/dL Random Glucose 69 L (70-110) mg/dL Calcium 6.1 L* (8.4-10.5) mg/dL Phosphorus 5.7 H (2.5-4.5) mg/dL Magnesium 1.9 (1.7-2.2) mg/dL Ferritin ng/mL Total Bilirubin 5.3 H (0.2-1.3) mg/dL Direct Bilirubin 4.4 H (0.0-0.4) mg/dL AST 853 H (17-59) U/L ALT 391 H (7-56) U/L Alkaline Phosphatase 436 H (38-126) U/L Total Creatine Kinase 1124 H (35-230) U/L CK-MB (CK-2) 9.6 H (0.0-3.6) ng/mL CK-MB (CK-2) % 0.9 L (2.5-3.0) % Troponin I 0.12 D ng/mL Total Protein 5.8 (5.8-8.3) g/dL Total Protein (PEP) 5.3 L (6.1-8.1) g/dL Albumin 1.8 L (3.0-4.8) g/dL Globulin 4.0 gm/dL Albumin/Globulin Ratio 0.4 L (1.1-1.8) Triglycerides 126 (35-160) mg/dL Cholesterol 145 (130-200) mg/dL LDL Cholesterol Direct 76 (0-129) mg/dL HDL Cholesterol 12 L (29-60) mg/dL Vitamin B12 (239-931) pg/mL Folate ng/mL PTH Intact Whole [place] 1503 H (14-64) pg/mL Arterial Blood Potassium (3.6-5.2) mmol/L Venous Blood Potassium (3.6-5.2) mmol/L Urine Color (YELLOW) Urine Appearance (CLEAR) Urine pH (4.7-8.0) Ur Specific [place] (1.005-1.035) Urine Protein (<30 mg/dL) mg/dL Urine Glucose (UA) (NEGATIVE) mg/dL Urine Ketones (NEGATIVE) mg/dL Urine Blood (NEGATIVE) Urine Nitrate (NEGATIVE) Urine Bilirubin (NEGATIVE) Urine Urobilinogen (<1 E.U./dL) E.U./dL Ur Leukocyte Esterase (NEGATIVE) Sav/uL Urine RBC (0-2) /hpf Urine WBC (0-6) /hpf Ur Epithelial Cells (0-5) /hpf Amorphous Sediment Urine Bacteria (NEG) Hyaline Casts /hpf Fine Granular Casts (0-2) /hpf Coarse Granular Casts (0-2) /hpf Urine Other Ur Random Creatinine Urine Total Volume Microalb/Creat Ratio (<30) Pleural Total Protein g/dL Pleural LDH U/L Pleural Glucose mg/dL Double Strand DNA Ab IU/mL Hep Bs Antigen (NEGATIVE) Hep Bs Ag Neutralizatn Hep B Core IgM Ab (NEGATIVE) Hepatitis C Antibody (NEGATIVE) Blood Type Blood Type Confirm Antibody Screen BBK History Checked 01/14/18 01/14/18 01/14/18 Range/Units 23:00 22:46 22:46 WBC (4.5-11.0) 10^3/uL RBC (3.5-6.1) 10^6/uL Hgb (14.0-18.0) g/dL Hct (42.0-52.0) % MCV (80.0-105.0) fl MCH (25.0-35.0) pg MCHC (31.0-37.0) g/dl RDW (11.5-14.5) % Plt Count (120.0-450.0) 10^3/uL Manual Plt Count (120-450) K/mm3 Gran % (50.0-68.0) % Lymph % (Auto) (22.0-35.0) % [place] % (Auto) (1.0-6.0) % Eos % (Auto) (1.5-5.0) % Baso % (Auto) (0.0-3.0) % Gran # (1.4-6.5) Lymph # (Auto) (1.2-3.4) [place] # (Auto) (0.1-0.6) Eos # (Auto) (0.0-0.7) Baso # (Auto) (0.0-2.0) K/mm3 Platelet Evaluation (NORMAL) Retic Count (0.5-1.5) % PT (9.4-12.5) SECONDS INR APTT (25.1-36.5) Seconds Fibrinogen (200-400) mg/dl pCO2 (35-45) mm/Hg pO2 (30-55) mm/Hg HCO3 (21-28) mmol/L ABG pH (7.35-7.45) ABG Total CO2 (22-28) mmol.L ABG O2 Saturation (95-98) % ABG Base Excess (-2.0-3.0) mmol/L ABG Potassium (3.6-5.2) mmol/L VBG pH (7.32-7.43) VBG pCO2 (40-60) VBG HCO3 (21-28) mmol/l VBG Total CO2 (22-28) mmol.L VBG O2 Sat (Calc) (40-65) % VBG Base Excess (0.0-2.0) mmol/L VBG Potassium (3.6-5.2) mmol/L Sodium (132-148) mmol/L Chloride (98-107) mmol/L Glucose (75-110) mg/dl Lactate (0.7-2.1) mmol/L Mechanical Rate FiO2 % Tidal Volume PEEP Potassium (3.6-5.0) mmol/L Carbon Dioxide (21-33) mmol/L Anion Gap (10-20) BUN (7-21) mg/dL Creatinine (0.8-1.5) mg/dl Est GFR ( Amer) Est GFR (Non-Af Amer) POC Glucose (mg/dL) (65-110) mg/dL Random Glucose (70-110) mg/dL Calcium (8.4-10.5) mg/dL Phosphorus (2.5-4.5) mg/dL Magnesium (1.7-2.2) mg/dL Ferritin ng/mL Total Bilirubin (0.2-1.3) mg/dL Direct Bilirubin (0.0-0.4) mg/dL AST (17-59) U/L ALT (7-56) U/L Alkaline Phosphatase (38-126) U/L Total Creatine Kinase (35-230) U/L CK-MB (CK-2) (0.0-3.6) ng/mL CK-MB (CK-2) % (2.5-3.0) % Troponin I ng/mL Total Protein (5.8-8.3) g/dL Total Protein (PEP) (6.1-8.1) g/dL Albumin (3.0-4.8) g/dL Globulin gm/dL Albumin/Globulin Ratio (1.1-1.8) Triglycerides (35-160) mg/dL Cholesterol (130-200) mg/dL LDL Cholesterol Direct (0-129) mg/dL HDL Cholesterol (29-60) mg/dL Vitamin B12 (239-931) pg/mL Folate ng/mL PTH Intact Whole [place] 998 H (14-64) pg/mL Arterial Blood Potassium (3.6-5.2) mmol/L Venous Blood Potassium (3.6-5.2) mmol/L Urine Color (YELLOW) Urine Appearance (CLEAR) Urine pH (4.7-8.0) Ur Specific [place] (1.005-1.035) Urine Protein (<30 mg/dL) mg/dL Urine Glucose (UA) (NEGATIVE) mg/dL Urine Ketones (NEGATIVE) mg/dL Urine Blood (NEGATIVE) Urine Nitrate (NEGATIVE) Urine Bilirubin (NEGATIVE) Urine Urobilinogen (<1 E.U./dL) E.U./dL Ur Leukocyte Esterase (NEGATIVE) Sav/uL Urine RBC (0-2) /hpf Urine WBC (0-6) /hpf Ur Epithelial Cells (0-5) /hpf Amorphous Sediment Urine Bacteria (NEG) Hyaline Casts /hpf Fine Granular Casts (0-2) /hpf Coarse Granular Casts (0-2) /hpf Urine Other Ur Random Creatinine TNP Urine Total Volume TNP Microalb/Creat Ratio (<30) Pleural Total Protein g/dL Pleural LDH U/L Pleural Glucose mg/dL Double Strand DNA Ab 4 IU/mL Hep Bs Antigen Reactive (NEGATIVE) Hep Bs Ag Neutralizatn Confirmed positive H Hep B Core IgM Ab Negative (NEGATIVE) Hepatitis C Antibody Negative (NEGATIVE) Blood Type Blood Type Confirm Antibody Screen BBK History Checked 01/14/18 01/14/18 Range/Units 19:27 19:27 WBC (4.5-11.0) 10^3/uL RBC (3.5-6.1) 10^6/uL Hgb (14.0-18.0) g/dL Hct (42.0-52.0) % MCV (80.0-105.0) fl MCH (25.0-35.0) pg MCHC (31.0-37.0) g/dl RDW (11.5-14.5) % Plt Count (120.0-450.0) 10^3/uL Manual Plt Count (120-450) K/mm3 Gran % (50.0-68.0) % Lymph % (Auto) (22.0-35.0) % [place] % (Auto) (1.0-6.0) % Eos % (Auto) (1.5-5.0) % Baso % (Auto) (0.0-3.0) % Gran # (1.4-6.5) Lymph # (Auto) (1.2-3.4) [place] # (Auto) (0.1-0.6) Eos # (Auto) (0.0-0.7) Baso # (Auto) (0.0-2.0) K/mm3 Platelet Evaluation (NORMAL) Retic Count (0.5-1.5) % PT (9.4-12.5) SECONDS INR APTT (25.1-36.5) Seconds Fibrinogen (200-400) mg/dl pCO2 (35-45) mm/Hg pO2 (30-55) mm/Hg HCO3 (21-28) mmol/L ABG pH (7.35-7.45) ABG Total CO2 (22-28) mmol.L ABG O2 Saturation (95-98) % ABG Base Excess (-2.0-3.0) mmol/L ABG Potassium (3.6-5.2) mmol/L VBG pH (7.32-7.43) VBG pCO2 (40-60) VBG HCO3 (21-28) mmol/l VBG Total CO2 (22-28) mmol.L VBG O2 Sat (Calc) (40-65) % VBG Base Excess (0.0-2.0) mmol/L VBG Potassium (3.6-5.2) mmol/L Sodium (132-148) mmol/L Chloride (98-107) mmol/L Glucose (75-110) mg/dl Lactate (0.7-2.1) mmol/L Mechanical Rate FiO2 % Tidal Volume PEEP Potassium (3.6-5.0) mmol/L Carbon Dioxide (21-33) mmol/L Anion Gap (10-20) BUN (7-21) mg/dL Creatinine (0.8-1.5) mg/dl Est GFR ( Amer) Est GFR (Non-Af Amer) POC Glucose (mg/dL) (65-110) mg/dL Random Glucose (70-110) mg/dL Calcium (8.4-10.5) mg/dL Phosphorus (2.5-4.5) mg/dL Magnesium (1.7-2.2) mg/dL Ferritin ng/mL Total Bilirubin (0.2-1.3) mg/dL Direct Bilirubin (0.0-0.4) mg/dL AST (17-59) U/L ALT (7-56) U/L Alkaline Phosphatase (38-126) U/L Total Creatine Kinase (35-230) U/L CK-MB (CK-2) (0.0-3.6) ng/mL CK-MB (CK-2) % (2.5-3.0) % Troponin I ng/mL Total Protein (5.8-8.3) g/dL Total Protein (PEP) (6.1-8.1) g/dL Albumin (3.0-4.8) g/dL Globulin gm/dL Albumin/Globulin Ratio (1.1-1.8) Triglycerides (35-160) mg/dL Cholesterol (130-200) mg/dL LDL Cholesterol Direct (0-129) mg/dL HDL Cholesterol (29-60) mg/dL Vitamin B12 (239-931) pg/mL Folate ng/mL PTH Intact Whole [place]olec (14-64) pg/mL Arterial Blood Potassium (3.6-5.2) mmol/L Venous Blood Potassium (3.6-5.2) mmol/L Urine Color (YELLOW) Urine Appearance (CLEAR) Urine pH (4.7-8.0) Ur Specific [place] (1.005-1.035) Urine Protein (<30 mg/dL) mg/dL Urine Glucose (UA) (NEGATIVE) mg/dL Urine Ketones (NEGATIVE) mg/dL Urine Blood (NEGATIVE) Urine Nitrate (NEGATIVE) Urine Bilirubin (NEGATIVE) Urine Urobilinogen (<1 E.U./dL) E.U./dL Ur Leukocyte Esterase (NEGATIVE) Sav/uL Urine RBC (0-2) /hpf Urine WBC (0-6) /hpf Ur Epithelial Cells (0-5) /hpf Amorphous Sediment Urine Bacteria (NEG) Hyaline Casts /hpf Fine Granular Casts (0-2) /hpf Coarse Granular Casts (0-2) /hpf Urine Other Ur Random Creatinine Urine Total Volume Microalb/Creat Ratio (<30) Pleural Total Protein 4.8 g/dL Pleural LDH 500 U/L Pleural Glucose 188 mg/dL Double Strand DNA Ab IU/mL Hep Bs Antigen (NEGATIVE) Hep Bs Ag Neutralizatn Hep B Core IgM Ab (NEGATIVE) Hepatitis C Antibody (NEGATIVE) Blood Type Blood Type Confirm Antibody Screen BBK History Checked Laboratory Results - last 24 hr 01/14/18 01/14/18 01/14/18 19:27 19:27 22:46 WBC RBC Hgb Hct MCV MCH MCHC RDW Plt Count Manual Plt Count Gran % Lymph % (Auto) [place] % (Auto) Eos % (Auto) Baso % (Auto) Gran # Lymph # (Auto) [place] # (Auto) Eos # (Auto) Baso # (Auto) Platelet Evaluation Retic Count PT INR APTT Fibrinogen pCO2 pO2 HCO3 ABG pH ABG Total CO2 ABG O2 Saturation ABG Base Excess ABG Potassium VBG pH VBG pCO2 VBG HCO3 VBG Total CO2 VBG O2 Sat (Calc) VBG Base Excess VBG Potassium Sodium Chloride Glucose Lactate Mechanical Rate FiO2 Tidal Volume PEEP Potassium Carbon Dioxide Anion Gap BUN Creatinine Est GFR ( Amer) Est GFR (Non-Af Amer) POC Glucose (mg/dL) Random Glucose Calcium Phosphorus Magnesium Ferritin Total Bilirubin Direct Bilirubin AST ALT Alkaline Phosphatase Total Creatine Kinase CK-MB (CK-2) CK-MB (CK-2) % Troponin I Total Protein Total Protein (PEP) Albumin Globulin Albumin/Globulin Ratio Triglycerides Cholesterol LDL Cholesterol Direct HDL Cholesterol Vitamin B12 Folate PTH Intact Whole [place] Arterial Blood Potassium Venous Blood Potassium Urine Color Urine Appearance Urine pH Ur Specific [place] Urine Protein Urine Glucose (UA) Urine Ketones Urine Blood Urine Nitrate Urine Bilirubin Urine Urobilinogen Ur Leukocyte Esterase Urine RBC Urine WBC Ur Epithelial Cells Amorphous Sediment Urine Bacteria Hyaline Casts Fine Granular Casts Coarse Granular Casts Urine Other Ur Random Creatinine TNP Urine Total Volume TNP Microalb/Creat Ratio Pleural Total Protein 4.8 Pleural LDH 500 Pleural Glucose 188 Double Strand DNA Ab 4 Hep Bs Antigen Hep Bs Ag Neutralizatn Hep B Core IgM Ab Hepatitis C Antibody Blood Type Blood Type Confirm Antibody Screen BBK History Checked 01/14/18 01/14/18 01/15/18 22:46 23:00 03:30 WBC RBC Hgb Hct MCV MCH MCHC RDW Plt Count Manual Plt Count Gran % Lymph % (Auto) [place] % (Auto) Eos % (Auto) Baso % (Auto) Gran # Lymph # (Auto) [place] # (Auto) Eos # (Auto) Baso # (Auto) Platelet Evaluation Retic Count PT INR APTT Fibrinogen pCO2 pO2 HCO3 ABG pH ABG Total CO2 ABG O2 Saturation ABG Base Excess ABG Potassium VBG pH VBG pCO2 VBG HCO3 VBG Total CO2 VBG O2 Sat (Calc) VBG Base Excess VBG Potassium Sodium 128 L Chloride 103 Glucose Lactate Mechanical Rate FiO2 Tidal Volume PEEP Potassium 5.6 H* Carbon Dioxide 15 L Anion Gap 16 BUN 37 H Creatinine 4.7 H Est GFR ( Amer) 15 Est GFR (Non-Af Amer) 13 POC Glucose (mg/dL) Random Glucose 69 L Calcium 6.1 L* Phosphorus 5.7 H Magnesium 1.9 Ferritin Total Bilirubin 5.3 H Direct Bilirubin 4.4 H AST 853 H ALT 391 H Alkaline Phosphatase 436 H Total Creatine Kinase 1124 H CK-MB (CK-2) 9.6 H CK-MB (CK-2) % 0.9 L Troponin I 0.12 D Total Protein 5.8 Total Protein (PEP) Albumin 1.8 L Globulin 4.0 Albumin/Globulin Ratio 0.4 L Triglycerides 126 Cholesterol 145 LDL Cholesterol Direct 76 HDL Cholesterol 12 L Vitamin B12 Folate PTH Intact Whole [place] 998 H Arterial Blood Potassium Venous Blood Potassium Urine Color Urine Appearance Urine pH Ur Specific [place] Urine Protein Urine Glucose (UA) Urine Ketones Urine Blood Urine Nitrate Urine Bilirubin Urine Urobilinogen Ur Leukocyte Esterase Urine RBC Urine WBC Ur Epithelial Cells Amorphous Sediment Urine Bacteria Hyaline Casts Fine Granular Casts Coarse Granular Casts Urine Other Ur Random Creatinine Urine Total Volume Microalb/Creat Ratio Pleural Total Protein Pleural LDH Pleural Glucose Double Strand DNA Ab Hep Bs Antigen Reactive Hep Bs Ag Neutralizatn Confirmed positive H Hep B Core IgM Ab Negative Hepatitis C Antibody Negative Blood Type Blood Type Confirm Antibody Screen BBK History Checked 01/15/18 01/15/18 01/15/18 03:30 03:30 03:30 WBC RBC Hgb Hct MCV MCH MCHC RDW Plt Count Manual Plt Count Gran % Lymph % (Auto) [place] % (Auto) Eos % (Auto) Baso % (Auto) Gran # Lymph # (Auto) [place] # (Auto) Eos # (Auto) Baso # (Auto) Platelet Evaluation Retic Count PT INR APTT Fibrinogen pCO2 pO2 105 H HCO3 ABG pH ABG Total CO2 ABG O2 Saturation ABG Base Excess ABG Potassium VBG pH 7.43 VBG pCO2 22.0 L VBG HCO3 14.6 L VBG Total CO2 15.3 L VBG O2 Sat (Calc) 99.3 H VBG Base Excess -7.6 L VBG Potassium 5.7 H Sodium 128.0 L Chloride 98.0 Glucose 73 L Lactate 6.7 H* Mechanical Rate FiO2 21.0 Tidal Volume PEEP Potassium Carbon Dioxide Anion Gap BUN Creatinine Est GFR ( Amer) Est GFR (Non-Af Amer) POC Glucose (mg/dL) Random Glucose Calcium Phosphorus Magnesium Ferritin Total Bilirubin Direct Bilirubin AST ALT Alkaline Phosphatase Total Creatine Kinase CK-MB (CK-2) CK-MB (CK-2) % Troponin I Total Protein Total Protein (PEP) 5.3 L Albumin Globulin Albumin/Globulin Ratio Triglycerides Cholesterol LDL Cholesterol Direct HDL Cholesterol Vitamin B12 Folate PTH Intact Whole [place] 1503 H Arterial Blood Potassium Venous Blood Potassium 5.7 H Urine Color Urine Appearance Urine pH Ur Specific [place] Urine Protein Urine Glucose (UA) Urine Ketones Urine Blood Urine Nitrate Urine Bilirubin Urine Urobilinogen Ur Leukocyte Esterase Urine RBC Urine WBC Ur Epithelial Cells Amorphous Sediment Urine Bacteria Hyaline Casts Fine Granular Casts Coarse Granular Casts Urine Other Ur Random Creatinine Urine Total Volume Microalb/Creat Ratio Pleural Total Protein Pleural LDH Pleural Glucose Double Strand DNA Ab Hep Bs Antigen Hep Bs Ag Neutralizatn Hep B Core IgM Ab Hepatitis C Antibody Blood Type Blood Type Confirm Antibody Screen BBK History Checked 01/15/18 01/15/18 01/15/18 05:34 06:43 07:37 WBC RBC Hgb Hct MCV MCH MCHC RDW Plt Count Manual Plt Count Gran % Lymph % (Auto) [place] % (Auto) Eos % (Auto) Baso % (Auto) Gran # Lymph # (Auto) [place] # (Auto) Eos # (Auto) Baso # (Auto) Platelet Evaluation Retic Count PT INR APTT Fibrinogen pCO2 pO2 42 HCO3 ABG pH ABG Total CO2 ABG O2 Saturation ABG Base Excess ABG Potassium VBG pH 7.28 L VBG pCO2 35.0 L VBG HCO3 16.4 L VBG Total CO2 17.5 L VBG O2 Sat (Calc) 74.5 H VBG Base Excess -9.4 L VBG Potassium 5.4 H Sodium 131.0 L Chloride 98.0 Glucose 76 Lactate 8.3 H* Mechanical Rate FiO2 21.0 Tidal Volume PEEP Potassium Carbon Dioxide Anion Gap BUN Creatinine Est GFR ( Amer) Est GFR (Non-Af Amer) POC Glucose (mg/dL) 72 88 Random Glucose Calcium Phosphorus Magnesium Ferritin Total Bilirubin Direct Bilirubin AST ALT Alkaline Phosphatase Total Creatine Kinase CK-MB (CK-2) CK-MB (CK-2) % Troponin I Total Protein Total Protein (PEP) Albumin Globulin Albumin/Globulin Ratio Triglycerides Cholesterol LDL Cholesterol Direct HDL Cholesterol Vitamin B12 Folate PTH Intact Whole [place] Arterial Blood Potassium Venous Blood Potassium 5.4 H Urine Color Urine Appearance Urine pH Ur Specific [place] Urine Protein Urine Glucose (UA) Urine Ketones Urine Blood Urine Nitrate Urine Bilirubin Urine Urobilinogen Ur Leukocyte Esterase Urine RBC Urine WBC Ur Epithelial Cells Amorphous Sediment Urine Bacteria Hyaline Casts Fine Granular Casts Coarse Granular Casts Urine Other Ur Random Creatinine Urine Total Volume Microalb/Creat Ratio Pleural Total Protein Pleural LDH Pleural Glucose Double Strand DNA Ab Hep Bs Antigen Hep Bs Ag Neutralizatn Hep B Core IgM Ab Hepatitis C Antibody Blood Type Blood Type Confirm Antibody Screen BBK History Checked 01/15/18 01/15/18 01/15/18 07:45 11:21 16:56 WBC RBC Hgb Hct MCV MCH MCHC RDW Plt Count Manual Plt Count Gran % Lymph % (Auto) [place] % (Auto) Eos % (Auto) Baso % (Auto) Gran # Lymph # (Auto) [place] # (Auto) Eos # (Auto) Baso # (Auto) Platelet Evaluation Retic Count PT INR APTT Fibrinogen pCO2 pO2 HCO3 ABG pH ABG Total CO2 ABG O2 Saturation ABG Base Excess ABG Potassium VBG pH VBG pCO2 VBG HCO3 VBG Total CO2 VBG O2 Sat (Calc) VBG Base Excess VBG Potassium Sodium Chloride Glucose Lactate Mechanical Rate FiO2 Tidal Volume PEEP Potassium Carbon Dioxide Anion Gap BUN Creatinine Est GFR ( Amer) Est GFR (Non-Af Amer) POC Glucose (mg/dL) 117 H 135 H Random Glucose Calcium Phosphorus Magnesium Ferritin Total Bilirubin Direct Bilirubin AST ALT Alkaline Phosphatase Total Creatine Kinase CK-MB (CK-2) CK-MB (CK-2) % Troponin I Total Protein Total Protein (PEP) Albumin Globulin Albumin/Globulin Ratio Triglycerides Cholesterol LDL Cholesterol Direct HDL Cholesterol Vitamin B12 Folate PTH Intact Whole Molec Arterial Blood Potassium Venous Blood Potassium Urine Color Urine Appearance Urine pH Ur Specific [place] Urine Protein Urine Glucose (UA) Urine Ketones Urine Blood Urine Nitrate Urine Bilirubin Urine Urobilinogen Ur Leukocyte Esterase Urine RBC Urine WBC Ur Epithelial Cells Amorphous Sediment Urine Bacteria Hyaline Casts Fine Granular Casts Coarse Granular Casts Urine Other Ur Random Creatinine Urine Total Volume Microalb/Creat Ratio Pleural Total Protein Pleural LDH Pleural Glucose Double Strand DNA Ab Hep Bs Antigen Hep Bs Ag Neutralizatn Confirmed positive H Hep B Core IgM Ab Hepatitis C Antibody Blood Type Blood Type Confirm Antibody Screen BBK History Checked 01/15/18 01/15/18 01/15/18 17:55 17:55 17:55 WBC 16.5 H D RBC 2.89 L Hgb 8.7 L D Hct 24.6 L MCV 85.1 MCH 30.1 MCHC 35.4 RDW 21.8 H Plt Count 44 L* Manual Plt Count Gran % 79.0 H Lymph % (Auto) 10.0 L [place] % (Auto) 10.8 H Eos % (Auto) 0.1 L Baso % (Auto) 0.1 Gran # 13.02 H Lymph # (Auto) 1.6 [place] # (Auto) 1.8 H Eos # (Auto) 0.0 Baso # (Auto) 0.01 Platelet Evaluation Low Retic Count PT 47.3 H INR 4.03 H* APTT Fibrinogen pCO2 pO2 HCO3 ABG pH ABG Total CO2 ABG O2 Saturation ABG Base Excess ABG Potassium VBG pH VBG pCO2 VBG HCO3 VBG Total CO2 VBG O2 Sat (Calc) VBG Base Excess VBG Potassium Sodium 130 L Chloride 92 L Glucose Lactate Mechanical Rate FiO2 Tidal Volume PEEP Potassium 4.7 Carbon Dioxide 18 L Anion Gap 25 H BUN 21 Creatinine 3.1 H Est GFR ( Amer) 25 Est GFR (Non-Af Amer) 21 POC Glucose (mg/dL) Random Glucose 116 H Calcium 6.0 L* Phosphorus Magnesium Ferritin Total Bilirubin 4.4 H Direct Bilirubin AST 1068 H ALT 405 H Alkaline Phosphatase 118 Total Creatine Kinase CK-MB (CK-2) CK-MB (CK-2) % Troponin I Total Protein 5.4 L Total Protein (PEP) Albumin 2.8 L Globulin 2.6 Albumin/Globulin Ratio 1.1 Triglycerides Cholesterol LDL Cholesterol Direct HDL Cholesterol Vitamin B12 Folate PTH Intact Whole Molec Arterial Blood Potassium Venous Blood Potassium Urine Color Urine Appearance Urine pH Ur Specific [place] Urine Protein Urine Glucose (UA) Urine Ketones Urine Blood Urine Nitrate Urine Bilirubin Urine Urobilinogen Ur Leukocyte Esterase Urine RBC Urine WBC Ur Epithelial Cells Amorphous Sediment Urine Bacteria Hyaline Casts Fine Granular Casts Coarse Granular Casts Urine Other Ur Random Creatinine Urine Total Volume Microalb/Creat Ratio Pleural Total Protein Pleural LDH Pleural Glucose Double Strand DNA Ab Hep Bs Antigen Hep Bs Ag Neutralizatn Hep B Core IgM Ab Hepatitis C Antibody Blood Type Blood Type Confirm Antibody Screen BBK History Checked 01/15/18 01/15/18 01/15/18 18:25 20:42 20:42 WBC RBC Hgb Hct MCV MCH MCHC RDW Plt Count Manual Plt Count Gran % Lymph % (Auto) [place] % (Auto) Eos % (Auto) Baso % (Auto) Gran # Lymph # (Auto) [place] # (Auto) Eos # (Auto) Baso # (Auto) Platelet Evaluation Retic Count 1.12 PT INR APTT Fibrinogen 108 L pCO2 24 L pO2 69.0 L HCO3 15.2 L ABG pH 7.41 ABG Total CO2 15.9 L ABG O2 Saturation 96.8 ABG Base Excess -7.6 L ABG Potassium 4.3 VBG pH VBG pCO2 VBG HCO3 VBG Total CO2 VBG O2 Sat (Calc) VBG Base Excess VBG Potassium Sodium 131.0 L Chloride 96.0 L Glucose 120 H Lactate 10.2 H* Mechanical Rate 16 FiO2 40.0 Tidal Volume 450 PEEP 5 Potassium Carbon Dioxide Anion Gap BUN Creatinine Est GFR ( Amer) Est GFR (Non-Af Amer) POC Glucose (mg/dL) Random Glucose Calcium Phosphorus Magnesium Ferritin Total Bilirubin Direct Bilirubin AST ALT Alkaline Phosphatase Total Creatine Kinase CK-MB (CK-2) CK-MB (CK-2) % Troponin I Total Protein Total Protein (PEP) Albumin Globulin Albumin/Globulin Ratio Triglycerides Cholesterol LDL Cholesterol Direct HDL Cholesterol Vitamin B12 Folate PTH Intact Whole Molec Arterial Blood Potassium 4.3 Venous Blood Potassium Urine Color Urine Appearance Urine pH Ur Specific [place] Urine Protein Urine Glucose (UA) Urine Ketones Urine Blood Urine Nitrate Urine Bilirubin Urine Urobilinogen Ur Leukocyte Esterase Urine RBC Urine WBC Ur Epithelial Cells Amorphous Sediment Urine Bacteria Hyaline Casts Fine Granular Casts Coarse Granular Casts Urine Other Ur Random Creatinine Urine Total Volume Microalb/Creat Ratio Pleural Total Protein Pleural LDH Pleural Glucose Double Strand DNA Ab Hep Bs Antigen Hep Bs Ag Neutralizatn Hep B Core IgM Ab Hepatitis C Antibody Blood Type Blood Type Confirm Antibody Screen BBK History Checked 01/15/18 01/16/18 01/16/18 21:46 00:00 00:18 WBC RBC Hgb Hct MCV MCH MCHC RDW Plt Count Manual Plt Count Gran % Lymph % (Auto) [place] % (Auto) Eos % (Auto) Baso % (Auto) Gran # Lymph # (Auto) [place] # (Auto) Eos # (Auto) Baso # (Auto) Platelet Evaluation Retic Count PT INR APTT Fibrinogen pCO2 pO2 73 H HCO3 ABG pH ABG Total CO2 ABG O2 Saturation ABG Base Excess ABG Potassium VBG pH 7.27 L VBG pCO2 30.0 L VBG HCO3 13.8 L VBG Total CO2 14.7 L VBG O2 Sat (Calc) 96.9 H VBG Base Excess -11.8 L VBG Potassium 5.4 H Sodium 127.0 L Chloride 89.0 L Glucose 133 H Lactate 14.6 H* Mechanical Rate FiO2 21.0 Tidal Volume PEEP Potassium Carbon Dioxide Anion Gap BUN Creatinine Est GFR ( Amer) Est GFR (Non-Af Amer) POC Glucose (mg/dL) 140 H 140 H Random Glucose Calcium Phosphorus Magnesium Ferritin Total Bilirubin Direct Bilirubin AST ALT Alkaline Phosphatase Total Creatine Kinase CK-MB (CK-2) CK-MB (CK-2) % Troponin I Total Protein Total Protein (PEP) Albumin Globulin Albumin/Globulin Ratio Triglycerides Cholesterol LDL Cholesterol Direct HDL Cholesterol Vitamin B12 Folate PTH Intact Whole Molec Arterial Blood Potassium Venous Blood Potassium 5.4 H Urine Color Urine Appearance Urine pH Ur Specific [place] Urine Protein Urine Glucose (UA) Urine Ketones Urine Blood Urine Nitrate Urine Bilirubin Urine Urobilinogen Ur Leukocyte Esterase Urine RBC Urine WBC Ur Epithelial Cells Amorphous Sediment Urine Bacteria Hyaline Casts Fine Granular Casts Coarse Granular Casts Urine Other Ur Random Creatinine Urine Total Volume Microalb/Creat Ratio Pleural Total Protein Pleural LDH Pleural Glucose Double Strand DNA Ab Hep Bs Antigen Hep Bs Ag Neutralizatn Hep B Core IgM Ab Hepatitis C Antibody Blood Type Blood Type Confirm Antibody Screen BBK History Checked 01/16/18 01/16/18 01/16/18 04:51 05:30 05:30 WBC 22.5 H D RBC 2.78 L Hgb 8.3 L Hct 24.8 L MCV 89.2 D MCH 29.9 MCHC 33.5 RDW 22.4 H Plt Count 38 L* Manual Plt Count 45 L* Gran % 78.7 H Lymph % (Auto) 9.6 L [place] % (Auto) 11.6 H Eos % (Auto) 0.0 L Baso % (Auto) 0.1 Gran # 17.69 H Lymph # (Auto) 2.2 [place] # (Auto) 2.6 H Eos # (Auto) 0.0 Baso # (Auto) 0.02 Platelet Evaluation Retic Count 1.12 PT INR APTT Fibrinogen pCO2 pO2 HCO3 ABG pH ABG Total CO2 ABG O2 Saturation ABG Base Excess ABG Potassium VBG pH VBG pCO2 VBG HCO3 VBG Total CO2 VBG O2 Sat (Calc) VBG Base Excess VBG Potassium Sodium 130 L Chloride 90 L Glucose Lactate Mechanical Rate FiO2 Tidal Volume PEEP Potassium 6.2 H* D Carbon Dioxide 11 L Anion Gap 34 H BUN 22 H Creatinine 4.0 H Est GFR ( Amer) 19 Est GFR (Non-Af Amer) 15 POC Glucose (mg/dL) 104 Random Glucose 103 Calcium 5.5 L* Phosphorus 7.6 H Magnesium 1.7 Ferritin 8730.0 Total Bilirubin 4.8 H Direct Bilirubin 3.8 H AST 1121 H ALT 394 H Alkaline Phosphatase 157 H D Total Creatine Kinase CK-MB (CK-2) CK-MB (CK-2) % Troponin I Total Protein 5.1 L Total Protein (PEP) Albumin 2.6 L Globulin 2.4 Albumin/Globulin Ratio 1.1 Triglycerides Cholesterol LDL Cholesterol Direct HDL Cholesterol Vitamin B12 > 1000 H Folate 15.5 PTH Intact Whole Molec Arterial Blood Potassium Venous Blood Potassium Urine Color Urine Appearance Urine pH Ur Specific [place] Urine Protein Urine Glucose (UA) Urine Ketones Urine Blood Urine Nitrate Urine Bilirubin Urine Urobilinogen Ur Leukocyte Esterase Urine RBC Urine WBC Ur Epithelial Cells Amorphous Sediment Urine Bacteria Hyaline Casts Fine Granular Casts Coarse Granular Casts Urine Other Ur Random Creatinine Urine Total Volume Microalb/Creat Ratio Pleural Total Protein Pleural LDH Pleural Glucose Double Strand DNA Ab Hep Bs Antigen Hep Bs Ag Neutralizatn Hep B Core IgM Ab Hepatitis C Antibody Blood Type Blood Type Confirm Antibody Screen BBK History Checked 01/16/18 01/16/18 01/16/18 05:30 05:30 07:56 WBC RBC Hgb Hct MCV MCH MCHC RDW Plt Count Manual Plt Count Gran % Lymph % (Auto) [place] % (Auto) Eos % (Auto) Baso % (Auto) Gran # Lymph # (Auto) [place] # (Auto) Eos # (Auto) Baso # (Auto) Platelet Evaluation Retic Count PT 53.6 H INR 4.52 H* APTT 156.9 H* Fibrinogen pCO2 28 L pO2 64.0 L HCO3 9.8 L* ABG pH 7.15 L* ABG Total CO2 10.7 L ABG O2 Saturation 91.8 L ABG Base Excess -17.6 L ABG Potassium 5.7 H VBG pH VBG pCO2 VBG HCO3 VBG Total CO2 VBG O2 Sat (Calc) VBG Base Excess VBG Potassium Sodium 129.0 L Chloride 93.0 L Glucose 106 Lactate 16.1 H* Mechanical Rate FiO2 40.0 Tidal Volume PEEP Potassium Carbon Dioxide Anion Gap BUN Creatinine Est GFR ( Amer) Est GFR (Non-Af Amer) POC Glucose (mg/dL) Random Glucose Calcium Phosphorus Magnesium Ferritin Total Bilirubin Direct Bilirubin AST ALT Alkaline Phosphatase Total Creatine Kinase CK-MB (CK-2) CK-MB (CK-2) % Troponin I Total Protein Total Protein (PEP) Albumin Globulin Albumin/Globulin Ratio Triglycerides Cholesterol LDL Cholesterol Direct HDL Cholesterol Vitamin B12 Folate PTH Intact Whole [place]olec Arterial Blood Potassium 5.7 H Venous Blood Potassium Urine Color Urine Appearance Urine pH Ur Specific [place] Urine Protein Urine Glucose (UA) Urine Ketones Urine Blood Urine Nitrate Urine Bilirubin Urine Urobilinogen Ur Leukocyte Esterase Urine RBC Urine WBC Ur Epithelial Cells Amorphous Sediment Urine Bacteria Hyaline Casts Fine Granular Casts Coarse Granular Casts Urine Other Ur Random Creatinine Urine Total Volume Microalb/Creat Ratio Pleural Total Protein Pleural LDH Pleural Glucose Double Strand DNA Ab Hep Bs Antigen Hep Bs Ag Neutralizatn Hep B Core IgM Ab Hepatitis C Antibody Blood Type B POSITIVE Blood Type Confirm Antibody Screen Negative BBK History Checked No verified bt 01/16/18 01/16/18 01/16/18 08:30 08:42 09:50 WBC RBC Hgb Hct MCV MCH MCHC RDW Plt Count Manual Plt Count Gran % Lymph % (Auto) [place] % (Auto) Eos % (Auto) Baso % (Auto) Gran # Lymph # (Auto) [place] # (Auto) Eos # (Auto) Baso # (Auto) Platelet Evaluation Retic Count PT INR APTT Fibrinogen pCO2 pO2 117 H HCO3 ABG pH ABG Total CO2 ABG O2 Saturation ABG Base Excess ABG Potassium VBG pH 7.15 L* VBG pCO2 30.0 L VBG HCO3 10.5 L VBG Total CO2 11.4 L VBG O2 Sat (Calc) 100.5 H VBG Base Excess -17.1 L VBG Potassium 6.3 H* Sodium 128.0 L Chloride 87.0 L Glucose 102 Lactate > 20.0 H* Mechanical Rate FiO2 21.0 Tidal Volume PEEP Potassium Carbon Dioxide Anion Gap BUN Creatinine Est GFR ( Amer) Est GFR (Non-Af Amer) POC Glucose (mg/dL) Random Glucose Calcium Phosphorus Magnesium Ferritin Total Bilirubin Direct Bilirubin AST ALT Alkaline Phosphatase Total Creatine Kinase CK-MB (CK-2) CK-MB (CK-2) % Troponin I Total Protein Total Protein (PEP) Albumin Globulin Albumin/Globulin Ratio Triglycerides Cholesterol LDL Cholesterol Direct HDL Cholesterol Vitamin B12 Folate PTH Intact Whole Molec Arterial Blood Potassium Venous Blood Potassium 6.3 H* Urine Color Yellow Urine Appearance Clear Urine pH 8.0 Ur Specific [place] 1.020 Urine Protein >=300 H Urine Glucose (UA) 100 H Urine Ketones Negative Urine Blood Large H Urine Nitrate Negative Urine Bilirubin Large H Urine Urobilinogen 0.2 Ur Leukocyte Esterase Small H Urine RBC 25 - 30 Urine WBC 10 - 15 Ur Epithelial Cells None Amorphous Sediment Moderate Urine Bacteria Large Hyaline Casts 0 - 2 Fine Granular Casts 0 - 2 Coarse Granular Casts Trace Urine Other [place] Ur Random Creatinine Urine Total Volume Microalb/Creat Ratio Pleural Total Protein Pleural LDH Pleural Glucose Double Strand DNA Ab Hep Bs Antigen Hep Bs Ag Neutralizatn Hep B Core IgM Ab Hepatitis C Antibody Blood Type Blood Type Confirm B POSITIVE Antibody Screen BBK History Checked 01/16/18 01/16/18 14:52 16:06 WBC RBC Hgb Hct MCV MCH MCHC RDW Plt Count Manual Plt Count Gran % Lymph % (Auto) [place] % (Auto) Eos % (Auto) Baso % (Auto) Gran # Lymph # (Auto) [place] # (Auto) Eos # (Auto) Baso # (Auto) Platelet Evaluation Retic Count PT INR APTT Fibrinogen pCO2 pO2 HCO3 ABG pH ABG Total CO2 ABG O2 Saturation ABG Base Excess ABG Potassium VBG pH VBG pCO2 VBG HCO3 VBG Total CO2 VBG O2 Sat (Calc) VBG Base Excess VBG Potassium Sodium Chloride Glucose Lactate Mechanical Rate FiO2 Tidal Volume PEEP Potassium Carbon Dioxide Anion Gap BUN Creatinine Est GFR ( Amer) Est GFR (Non-Af Amer) POC Glucose (mg/dL) 59 L 90 Random Glucose Calcium Phosphorus Magnesium Ferritin Total Bilirubin Direct Bilirubin AST ALT Alkaline Phosphatase Total Creatine Kinase CK-MB (CK-2) CK-MB (CK-2) % Troponin I Total Protein Total Protein (PEP) Albumin Globulin Albumin/Globulin Ratio Triglycerides Cholesterol LDL Cholesterol Direct HDL Cholesterol Vitamin B12 Folate PTH Intact Whole Molec Arterial Blood Potassium Venous Blood Potassium Urine Color Urine Appearance Urine pH Ur Specific [place] Urine Protein Urine Glucose (UA) Urine Ketones Urine Blood Urine Nitrate Urine Bilirubin Urine Urobilinogen Ur Leukocyte Esterase Urine RBC Urine WBC Ur Epithelial Cells Amorphous Sediment Urine Bacteria Hyaline Casts Fine Granular Casts Coarse Granular Casts Urine Other Ur Random Creatinine Urine Total Volume Microalb/Creat Ratio Pleural Total Protein Pleural LDH Pleural Glucose Double Strand DNA Ab Hep Bs Antigen Hep Bs Ag Neutralizatn Hep B Core IgM Ab Hepatitis C Antibody Blood Type Blood Type Confirm Antibody Screen BBK History Checked EKG/Cardiology Studies: Cardiology / EKG Studies 01/16/18 07:00 EKG [ELECTROCARDIOGRAM] DAILY Comment: Reason For Exam: CAD/MVR Attending/Attestation - Attestation I have personally seen and examined this patient.: Yes I have fully participated in the care of the patient.: Yes I have reviewed all pertinent clinical information: Yes Notes (Text): 01/16/18 16:[address] Shen note
[2018-01-16 10:14] LABS: VENOUS BLOOD GAS BASE EXCESS -17.1 mmol/L (0.0-2.0); VENOUS BLOOD GAS PO2 117 mm/Hg (30-55); VENOUS BLOOD PH 7.15 (7.32-7.43)
--- NOTE | 2018-01-16 11:11 | RAD ---
Date of service: 01/16/2018 HISTORY: RESP.FAILURE COMPARISON: January 15, 2018. FINDINGS: LUNGS: Acute pulmonary edema asymmetrical left more prominent than right. PLEURA: Left lower lobe infiltrate inseparable from left pleural effusion. CARDIOVASCULAR: Atherosclerotic calcifications identified primarily aortic arch. Cardiomegaly and presumed asymmetrical pulmonary edema. Venous access catheter in stable, satisfactory position. OSSEOUS STRUCTURES: No significant abnormalities. VISUALIZED UPPER ABDOMEN: Normal. OTHER FINDINGS: Stable, satisfactory position ventilatory, vascular apparatus. IMPRESSION: Acute pulmonary edema.
[2018-01-16 12:58] LABS: TOTAL PROTEIN PLEURAL FLUID 4.8 g/dL
--- NOTE | 2018-01-16 13:05 | CP.PCM.PN ---
Subjective - Date & Time of Evaluation Date of Evaluation: 01/16/18 Time of Evaluation: 13:03 - Subjective Subjective: Remains critical Intubated on multiple pressors generalized edema/anasarca Objective - Vital Signs/Intake and Output Vital Signs (last 24 hours): Temp Pulse Resp BP Pulse Ox 97.3 F L 82 17 117/39 L 93 L 01/16/18 10:13 01/16/18 10:13 01/16/18 06:00 01/16/18 06:00 01/16/18 05:00 Intake and Output: 01/16/18 01/16/18 06:59 18:59 Intake Total 4653 28 Output Total 15 Balance 4638 28 - Medications Medications: Current Medications Albumin Human (Albumin Human 25% (12.5 Gm/50 Ml)) 12.5 gm IV Q4H NILES Last Admin: 01/16/18 09:15 Dose: 12.5 gm Hydrocortisone Sodium Succinate (Solu-Cortef) 50 mg IVP Q6H NILES Last Admin: 01/16/18 09:22 Dose: 50 mg Fentanyl Citrate (Fentanyl Citrate/Sodium Chloride 1 Mg/100 Ml) 1,000 mcg in 100 mls @ 2 mls/hr IV .Q24H PRN; Protocol PRN Reason: TITRATE PER MD ORDER Last Titration: 01/14/18 22:29 Dose: 5 mcg/hr, 0.5 mls/hr Midazolam 100 mg/100ml in NS (Midazolam 100 Mg/100ml In Ns) 100 mg in 100 mls @ 1 mls/hr IV .Q24H PRN; Protocol PRN Reason: Sedation Meropenem/Sodium Chloride (Merrem Iv 500 Mg/Ns 50 Ml) 500 mg in 50 mls @ 100 mls/hr IVPB Q12 NILES; Protocol Last Admin: 01/16/18 09:55 Dose: 100 mls/hr Doxycycline Hyclate 100 mg/ (Sodium Chloride) 100 mls @ 100 mls/hr IVPB Q12 NILES; Protocol Last Admin: 01/16/18 09:55 Dose: 100 mls/hr Vasopressin 20 units/ Sodium (Chloride) 101 mls @ 9.09 mls/hr IV .Q11H7M NILES; Protocol Last Admin: 01/16/18 00:39 Dose: 9.09 mls/hr Dobutamine HCl/Dextrose (Dobutamine/Dextrose 5% 500mg/250ml) 500 mg in 250 mls @ 6.651 mls/hr IV .Q24H PRN; Protocol PRN Reason: TITRATE PER PROTOCOL Last Titration: 01/15/18 09:40 Dose: Infused Epinephrine HCl 1 mg/ Sodium (Chloride) 51 mls @ 3.06 mls/hr IV .[id number] PRN; Protocol PRN Reason: TITRATE PER MD ORDER Last Titration: 01/16/18 09:30 Dose: 3 mcg/min, 9.18 mls/hr Thiamine HCl 200 mg/ Sodium (Chloride) 52 mls @ 104 mls/hr IV Q12 [facility] Last Admin: 01/16/18 09:56 Dose: 104 mls/hr Sodium Bicarbonate 150 meq/ (Dextrose) 1,150 mls @ 125 mls/hr IV .Q9H12M [facility] Last Admin: 01/15/18 12:20 Dose: 125 mls/hr Norepinephrine Bitartrate 8 mg (/ Sodium Chloride) 258 mls @ 7.74 mls/hr IV .Q24H PRN; Protocol PRN Reason: TITRATE PER MD ORDER Last Admin: 01/16/18 06:36 Dose: 30 mcg/min, 58.05 mls/hr Ondansetron HCl (Zofran Inj) 4 mg IVP Q4H PRN PRN Reason: Nausea/Vomiting Pantoprazole Sodium (Protonix Inj) 40 mg IVP DAILY [facility] Last Admin: 01/15/18 09:19 Dose: 40 mg - Labs Labs: 01/16/18 05:30 01/16/18 05:30 PT 53.6 SECONDS (9.4-12.5) H 01/16/18 05:30 INR 4.52 H* 01/16/18 05:30 APTT 156.9 Seconds (25.1-36.5) H* 01/16/18 05:30 - Constitutional Appears: Chronically Ill - Head Exam Head Exam: ATRAUMATIC, NORMAL INSPECTION, NORMOCEPHALIC - Neck Exam Neck Exam: Normal Inspection - Respiratory Exam Respiratory Exam: Decreased Breath Sounds, Rhonchi. absent: Wheezes - Cardiovascular Exam Cardiovascular Exam: REGULAR RHYTHM, +S1, +S2. absent: Murmur - GI/Abdominal Exam GI & Abdominal Exam: Distended, Soft, Normal Bowel Sounds - Extremities Exam Extremities Exam: Pedal Edema - Neurological Exam Neurological Exam: Altered - Skin Skin Exam: Normal Color, Rash Assessment and Plan - Assessment and Plan (Free Text) Assessment: 62 y/o admitted for anuric/oliguric acute renal failure, acidosis, hyperkalemia, acute on chronic liver dysfunction/coagulopathy, SOB, large L. pleural effusion with distributive shock. Cholilithiasis noted on imaging. 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 pleural effusion > ROBER now on HD via R. neck catheter > Intubated on FIO2 50% > transaminitis [id number]; severely acidotic, leukocytosis 22, > Anemia 8.3, Thrombocytopenia 132 > 38 , hyperkalemia 7.4 > 5.6 > 6.2 ; creat 7.4 > 4.7, INR 2.0 > 4.2 , ALB 1.8 ; > Hypotensive on vent support and pressor support: Vassopressin, Levophed; EPI drip ECHO done 01/14/2018: directly reviewed by me: Normal LVEF (small cavity); Normal RV size, no sig TR, no sig MR, mild AI, mild-mod LVH with grade 1 diastolic dysfunction. Findings are suggestive of distributive shock with associated hepatopathy and renal failure. - Echo does not suggest primary cardiac cause as MV repair appears preserved, wall motion and EF is normal and filling pressures are not elevated. - Cont HD and supportive CARE, prognosis is guarded
[2018-01-16 13:14] LABS: FOLATE 15.5 ng/mL
[2018-01-16] MEDS ORDERED: Piperacillin/Tazobact 3.375 gm 100 ML IVPB SCH (13:30)
[2018-01-16] MEDS: Sodium Bicarbonate 8.4% 150 MEQ in Dextrose 5% In Water 1,000 ML IV SCH ×3 (13:30→21:10)
--- NOTE | 2018-01-16 13:37 | PN ---
DATE: 01/16/2018 SUBJECTIVE: The patient is lying in bed, remains intubated. He is essentially anuric with 15 mL of urine output over the last 12 hours. He is awake and alert and follow simple commands. He remains deeply icteric. PHYSICAL EXAMINATION: VITAL SIGNS: Reveal temperature of 97.3, heart rate of 80, blood pressure of 117/39. HEENT: Reveals sclerae to be icteric. Conjunctivae pale. NECK: Supple. CHEST: Reveals distant breath sounds on the left. HEART: Reveals a regular rate and rhythm. ABDOMEN: Soft, nontender. EXTREMITY: Shows trace pedal edema. LABORATORY DATA: Reveals white blood cell count 22.5, hemoglobin 8.3, platelet count of 38,000. Coags reveal PT of 53.6, INR 4.52, fibrinogen of 108, PTT of 156.9. Chemistries reveal potassium 6.2. AST up to 1121, ALT 494, alkaline phosphatase 157, total bilirubin of 5.9, BUN 22, creatinine of 4. Chemistries reveal hepatitis B surface antigen positive. IMPRESSION: A 62-year-old male with multisystem organ failure, history of hepatitis B, elevated liver enzymes, multifactorial in etiology. I suspect that the patient has decompensated cirrhosis. His rise in liver enzymes are most likely secondary to shock liver as he has been hypotensive and requires pressors. He currently is thrombocytopenic with low fibrinogen. He may be developing disseminated intravascular coagulation. His prognosis is extremely poor. RECOMMENDATIONS: 1. Continue blood pressure support. 2. Would stop meropenem and switch to possibly Zosyn given the side effects of meropenem causing hepatotoxicity. 3. Follow liver enzymes. 4. Follow blood cultures, which have been negative. Benjamin Cooper MD
[2018-01-16 13:41] LABS: GLYCOMARK(R) 5.2 mcg/mL (7.3-36.6)
--- NOTE | 2018-01-16 13:52 | CARD ---
APPROVED REPORT Date of service: 01/16/2018 EKG Measurement Heart [id number] <Conclusion> Sinus rhythm with 1st degree AV block Left axis deviation Low voltage QRS Cannot rule out Anterior infarct, age undetermined IMI, age unknown ST & T wave abnormality c/w ischemia
[2018-01-16] MEDS ORDERED: Dextrose 50% SYRINGE Inj (50 ml) ONE ×3 (14:55→21:41)
[2018-01-16] MEDS ORDERED: Dextrose 50% SYRINGE Inj (50 ml) IVP ONE ×3 (14:55→21:44)
--- NOTE | 2018-01-16 15:07 | PN ---
DATE: 01/16/2018 SUBJECTIVE: The patient is seen and examined at bedside. He is alert, awake, somnolent; however, following commands easily. He is on PRVC, 450/16/5/50%. The patient is on 30 mcg per minute of norepinephrine, 5 mcg per minute of epinephrine, vasopressin 0.03 units per minute. He is on fentanyl 5 mcg per hour. He is getting third dose of N-acetylcysteine and he is on 125 mL per hour of bicarb drip. PHYSICAL EXAMINATION: VITAL SIGNS: On that setting, his heart rate 82, blood pressure 126/45 with mean arterial pressure 72, temperature 97.3. ENT: Head and neck atraumatic. The patient is intubated. LUNGS: Few crackles bibasilarly. HEART: Regular rate and rhythm. S1 and S2 distant. ABDOMEN: Soft, nontender and nondistended. MUSCULOSKELETAL: 1-2+ bilateral pedal and ankle edema. SKIN: Moist. A little bit yellowish hint. NEURO: The patient moves all extremities spontaneously and on request. PSYCH: The patient appears to be comfortable. Of note, the patient is still anuric. LABORATORY DATA: WBC 22.5, hemoglobin 8.3 (slightly down from 8.7), platelet count 45,000. Sodium 130, potassium 6.2, chloride 90, carbon dioxide 11, BUN 22, creatinine 4, glucose 103, calcium 5.5, AST 1121, total bilirubin 4.8, ALT 394, alkaline phosphatase 167. INR 4.52, up from 4.03; fibrinogen 108 (low). Hepatitis B surface antigen positive. MEDICATIONS: Acetadote, albumin 25% every 4 hours, doxycycline, epinephrine, fentanyl, hydrocortisone 50 mg IV every 6 hours, meropenem, norepinephrine, Zofran p.r.n., Protonix, vitamin K, bicarb drip, thiamine, vasopressin. ASSESSMENT AND PLAN: This is a 62-year-old gentleman with refractory distributive shock either secondary to sepsis or decompensated end-stage liver disease with multiorgan system failure including transaminitis, respiratory failure, encephalopathy, acute kidney injury/acute tubular necrosis, and severe lactic acidosis. 1. Neurologic: The patient is following command; however, somewhat more lethargic. He is on minimum rate of fentanyl simply for comfort. His ammonia level was 25. 2. Pulmonary: We will continue with low to intermediate tidal volume ventilation with maintaining plateau pressure less than 25 cmH20 to avoid ventilator-induced lung injury. Head of bed elevated >35 degrees. Oral hygiene. The patient might have small area of consolidation in the left lower lobe, which may or may not be a source of his septic shock. Infectious Disease Service is following him and he is on doxycycline, meropenem and vancomycin. The patient is anuric, thus obtaining urine for Legionella and Streptococcal antigen is a little bit problematic. 3. Cardiovascular: The patient is in refractory distributive shock. He is on norepinephrine 30 mcg per minute, epinephrine 5 mcg per minute, vasopressin 0.03 units per minute and stress dose steroids. He is getting albumin supplementation and resuscitation. We are giving him thiamine 200 mg IV b.i.d. IV ascorbic acid is not available at present time. I will touch base with the pharmacist about that as well. 4. Infectious Disease: Distributive shock that the patient has may be secondary to sepsis. No clear-cut source; however, the patient does have small area of consolidation in the left lower lobe. The patient is on doxycycline, vancomycin and meropenem. Blood cultures so far negative. Sputum cultures GPC in clusters. Culture from the pleural fluid is also pending, but does not appear to be empyema based on pH and how it looked on visual evaluation. Procalcitonin elevated; however, it may be due to anuric ATN/ROBER 5. Gastrointestinal: The patient has significant transaminitis. Differential diagnosis includes decompensated liver cirrhosis with superimposed versus primary ischemic hepatopathy. CBD is not dilated and based on my conversation with Surgical and Gastrointestinal Service, no signs of acute cholecystitis. I will continue with gastrointestinal prophylaxis and n.p.o. for now. 6. Renal: The patient is anuric. He will get dialysis today that will take care of acid-base abnormalities as well as electrolyte abnormalities. 7. Hematology: The patient has disseminated intravascular coagulation. Hematology Service is on board. 8. Endocrine: We will maintain blood glucose within 140-180 range according to NICE-SUGAR trial. The patient is on stress dose steroids. Overall prognosis is quite poor (refractory septic shock with four organ system failure, in persistent lactic acidosis, underlying end-stage liver disease). ccm time 40 min Sriram Shen MD [facility]
[2018-01-16] MEDS ORDERED: Vancomycin 1gm in NS 250ml 1 GM/250 ML BAG IVPB STA (16:27)
[2018-01-16 16:54] VITALS: TEMP 96.4; O2SAT 87
[2018-01-16 17:45] LABS: HEPATITIS B SURFACE AG Reactive (NEGATIVE)
[2018-01-16] MEDS ORDERED: Mupirocin 2% Ointment 15 GM TUBE NS SCH (18:00)
[2018-01-16 19:59] LABS: ARTERIAL BLOOD GAS HCO3 10.4 mmol/L (21-28); ARTERIAL BLOOD GAS O2 SAT 84.3 % (95-98); ARTERIAL BLOOD GAS PCO2 35 mm/Hg (35-45); ARTERIAL BLOOD GAS TCO2 11.5 mmol.L (22-28)
[2018-01-16 20:00] LABS: ARTERIAL BLOOD GAS PH 7.08 (7.35-7.45)
[2018-01-16] MEDS ORDERED: Thiamine 100 mg/ml Inj ONE (21:08)
[2018-01-16] MEDS ORDERED: Dextrose 50% SYRINGE Inj (50 ml) IVP PRN (21:44)
[2018-01-17] MEDS ORDERED: Morphine 2 mg/ml ISec IVP PRN (00:57)
[2018-01-17 01:28] VITALS: PULSE 24
[2018-01-17 01:37] VITALS: BP 15/15
--- NOTE | 2018-01-17 01:43 | CP.PCM.PRO ---
Pronouncement of Note - Clinical Findings Physical Exam: No Response Verbal/Painful Stimuli, Absent Peripheral Puls es{Carotid & Femoral}, Absent Heart & Breath Sounds, No Pupillary Light Reflex, Pupils Fixed & Dilated, Absence of Vital Signs - Pronouncement Time Time of Pronouncement of : 01:23 - Notifications Pronouncement Notifications: Family Notified, Atending Notified Aerodynamic Consultant Notified: No - Autopsy Autopsy Requested: No - [place] [id number]
--- NOTE | 2018-01-17 08:20 | CP.PCM.PN ---
Subjective - Date & Time of Evaluation Date of Evaluation: 01/17/18 Time of Evaluation: 01:45 - Subjective Subjective: Kishan Pratt D.O. PGY-3, [facility], Night Officer on Duty Received sign out with rice cleaning machine tender and risk management internship about patient's case. Per ICU attending Dr. Shen, family will likely be making a decision tonight about DNR and also possibly terminal extubation/withdrawal of care. ICU risk management internship Dr. Clements received page shortly before 10pm that patient has been having issues with hypoglycemia, likely due to worsening liver failure, and requiring dextrose. Order for one time D50 given with q1h PRN added. ICU risk management internship Dr. Clements received another page shortly after 11pm that family member is asking about use of morphine. Dr. Clements and myself arrived at bedside and discussed plan with two sons, spouse and son in law. At this time they are waiting for family members from [place] to arrive before moving forward, but they do agree that if he should lose pulses at this moment that they would not want CPR performed. Given this information, family agrees that we should sign DNR now but that this does not mean that we have to withdraw any care at this time, including the use of pressors. DNR signed by patient's spouse at 2324. Son-in-law presents himself as a Nurse Practitioner at [employer] in the ICU and expresses thoughts on use of morphine to avoid that patient gasp for air when terminal extubation does occur, advised that we will use morphine as needed as is routinely done. Also advised by family that the family members coming will arrive at approximately 1230am. ICU risk management internship receives page at about 1am that family is requesting withdrawal of care. Discussed with nurse, asked to call respiratory therapist to bedside. Accompanied Dr. Clements again to bedside. Morphine 10mg x1 ordered, with instructions to give 5mg before starting to stopping drips and extubating and to have another 5mg in hand should patient show discomfort or gasp for air. Large amount of family at bedside. Confirmed these are family's wishes. All drips except for fentanyl stopped and patient was extubated to mask by RT at about 0115. Kindly placed in room monitor to privacy mode to avoid further distress and stepped out to watch monitor. Patient's blood pressure and pulse quickly decreased and within minutes patient in asystole with flat reading on arterial line. Examination performed at bedside, refer to pronouncement note. Comfort provided to family members. Time of 0123. Call placed to attending physician Dr. Simms by service, awaiting call back. Objective - Vital Signs/Intake and Output Vital Signs (last 24 hours): Temp Pulse Resp BP Pulse Ox 96.4 F L 24 L 17 15/15 L 87 L 01/16/18 16:50 01/17/18 01:21 01/16/18 06:00 01/17/18 01:23 01/16/18 16:50 Intake and Output: 01/17/18 01/17/18 06:59 18:59 Intake Total 1275 Balance 1275 - Labs Labs: 01/16/18 05:30 01/16/18 05:30 PT 53.6 SECONDS (9.4-12.5) H 01/16/18 05:30 INR 4.52 H* 01/16/18 05:30 APTT 156.9 Seconds (25.1-36.5) H* 01/16/18 05:30
--- NOTE | 2018-01-18 07:36 | PN ---
DATE: 01/16/2018 LOCATION: The patient is seen in ICU, bed #1. SUBJECTIVE: The patient is intubated, on respirator. He is on vasopressin, on Levophed, and fentanyl drip. The patient is in the process of getting dialysis at present. The patient's is at bedside. The patient is intubated on a respirator and sedated. Not responsive. PHYSICAL EXAMINATION: VITAL SIGNS: T-max in the last 12 to 24 hours is 97.5 to 98.1. Telemetry shows sinus rhythm, heart rate 80 beats per minute. Blood pressure at present on the telemetry monitoring is 94/60. The patient has episodes of blood pressure with systolic blood pressure around 120s, diastolic around 40s. The patient's blood pressure yesterday was averaging about 70-80 systolic. O2 sat was 92% to 93% to 98% on a ventilator. HEENT: Head examination: Normocephalic, atraumatic. HEENT examination shows pale conjunctivae, icteric sclerae. Positive ET tube noted. NECK: No neck rigidity. Right neck, right IJ dialysis catheter noted. CHEST: Examination shows median sternotomy surgical scar. Decreased breath sounds at the left base. Positive rhonchi, upper lung field anteriorly. CARDIOVASCULAR: Exam shows S1, S2. Questionable systolic murmur at the left sternal border, right second intercostal space, left second intercostal space. ABDOMEN: Protuberant, distended. Decreased bowel sounds. The right groin shows right femoral arterial line and central line. GENITALIA: Male. RECTAL: Examination is deferred. EXTREMITIES: Show chronic discoloration of the lower extremities. MUSCULOSKELETAL: Examination shows a body mass index of 34. NEUROLOGIC: Examination is limited. Gait examination not tested. DIAGNOSTICS: On 01/16/2018, WBC count has gone up to 22.5, hemoglobin and hematocrit have dropped to 8.3, 24.8, platelets, manual 45,000. Granulocytes, 78% segs. PT and PTT have gone up to 53.6, INR 4.52, PTT to 157, fibrinogen level is 108. ABG from 01/06/2018 to 01/16/2018: pH of 7.15, pCO2 28, pO2 64, bicarb is 9.8, saturation of 92%, on 40% FiO2, with the lactate of 16.1 and lactate of greater than 20. Sodium 130, potassium 6.2. Heme non-hemolyzed, chloride 90, CO2 11, anion gap 34, BUN 22, creatinine 4, GFR is 15. Calcium is 5.5, phosphorus 7.6, magnesium 1.7, total bili 4.8, direct bili 3.8, AST 1121, ALT 394, alk phos 157, ammonia was 23, total protein 5.1, albumin 2.6. Vitamin B12 greater than 1000. PTH is 998 and 1503, procalcitonin level is 4.96. Vitamin D is 17.6. Vitamin B12 was greater than 1000. Cholesterol is 145, LDL cholesterol 76, HDL is 12. Urine analysis: 300 protein, 100 glucose, large blood, small leukocyte esterase, large bacteria, positive yeast. Salicylate less than 1, acetaminophen less than 10. Hepatitis B surface antigen is positive x2 and reactive x2. Hepatitis A IgM is negative. Hepatitis B surface antibody is negative, hepatitis B core IgM antibody is negative, hepatitis C antibody is negative. HIV is negative. Blood and MRSA cultures, MRSA nares is positive. Blood type is B positive. Chest x-ray from 01/16/2018, noted with pulmonary edema, left pleural effusion, left lower lobe infiltrate, left pleural effusion, cardiomegaly. CAT scan of the abdomen was done day before yesterday, results reviewed. EKG from today, an echocardiogram done from yesterday reviewed. IMPRESSION AND PLAN: 1. Ventilator-dependent respiratory failure with severe refractory, inotrope-dependent, hypovolemic, hypotensive versus questionable septic shock. 2. Decompensated end-stage liver and kidney disease. 3. Multi-organ dysfunction syndrome. 4. Ventilator-dependent respiratory failure. 5. Acute kidney injury, acute renal failure, acute tubular necrosis. 6. Severe lactic acidosis and metabolic acidosis. 7. Refractory hypotension. 8. Hypothermia. 9. Leukocytosis with granulocytosis. 10. Anemia with thrombocytopenia and granulocytosis. 11. Coagulopathy. 12. Hypofibrinogenemia. 13. Severe metabolic acidosis and lactic acidosis with hypoxemia and persistent refractory lactic acidosis. 14. Non-hemolyzed hyperkalemia. 15. Hyponatremia. 16. Increased anion gap metabolic acidosis. 17. Hyperphosphatemia. 18. Prediabetes. 19. Severe transaminitis and hyperbilirubinemia. 20. Possible elevated CPK, questionable rhabdomyolysis. 21. Indeterminate troponin. 22. Secondary hyperparathyroidism with elevated PTH of 998 and 1503. 23. Hyperprolactinemia. 24. Hypovitaminosis D. 25. Decreased HDL. 26. Proteinuria, glycosuria, microscopic hematuria, pyuria, bacteriuria, funguria. 27. Large left pleural effusion, status post left thoracentesis. 28. Hepatitis B. 29. Acute pulmonary edema with possible left lower lobe pneumonia with large left pleural effusion. 30. Cardiomegaly. 31. Bibasilar atelectasis and left upper lobe atelectasis. 32. Left lower lobe infiltrate and bronchograms. 33. Ventilator-dependent respiratory failure. 34. Status post coronary artery bypass graft. 35. Status post mitral valve repair. 36. Extensive coronary artery atherosclerosis. 37. Pleural effusion. 38. Cirrhosis of the liver. 39. Perihepatic ascites. 40. Distended gallbladder with thickened gallbladder wall and cholelithiasis. 41. Questionable hydrops gallbladder. 42. Peripancreatic reactive changes. 43. Abdominopelvic ascites with perihepatic perisplenic ascites. 44. Bilateral perinephric stranding. 45. Abdominal peritoneal ascites. 46. Left lower lobe pneumonia, atelectasis. 47. Pericardial effusion. 48. Questionable pancreatitis. 49. Cirrhosis. 50. Cholelithiasis with possible gallbladder hydrops. 51. Questionable colitis, proctitis, with thickening of the distal rectosigmoid. 52. Cholelithiasis with mildly distended gallbladder and thickened gallbladder wall. 53. Perihepatic perisplenic ascites. 54. Cholelithiasis with gallbladder lumen sludge with thickening of the gallbladder wall. 55. Left ventricular ejection fraction of 73% with concentric left ventricular hypertrophy. 56. Mild aortic regurgitation. 57. Intact mitral valve repair and annuloplasty ring. 58. Trace pericardial effusion. 59. Age indeterminate inferior myocardial infarction and chronic ischemic changes and left axis deviation. 60. Hepatitis B. 61. Methicillin-resistant Staphylococcus nares positive. 62. Multisystem organ failure and multiple organ dysfunction syndrome. 63. 63. History of chronic active hepatitis with transaminitis. 64. Decompensated cirrhosis and shock liver. 65. Disseminated intravascular coagulation with hypofibrinogenemia and thrombocytopenia. 66. Inotrope-dependent refractory shock. 67. Anuric acute renal failure, hemodialysis requiring. 68. Non-hemolyzed hyperkalemia. 69. History of severe triple-vessel coronary artery disease and myxomatous mitral valve repair. 70. Questionable septic shock versus hypovolemic hypotensive shock. 71. Acute tubular necrosis. 72. Cardio hepatorenal syndrome. 73. Non-hemolyzed hyperkalemia. 74. History of pulmonary hypertension. 75. Septic shock with left lower lobe pneumonia, Healthcare-associated pneumonia. 76. Status post mitral valve repair and ring annuloplasty. 77. History of severe mitral regurgitation secondary to myxomatous P2 prolapse. 78. History of severe pulmonary hypertension. 79. Status post coronary artery bypass graft. 80. History of recurrent left pleural effusion. 81. History of postoperative atrial fibrillation, atrial flutter. PLAN: At this time, the patient has been started on another dialysis treatment today. The patient has been ordered serial labs. The patient's overall prognosis is guarded to poor, which has been explained to the patient, , and children at length. The patient has been ordered serial labs. Daily PT/PTT has been ordered, serial labs ordered. CURRENT CONSULTATION: Interventional Radiology, Infectious Disease, Nephrology, Cardiology, Gastroenterology, Surgery. CURRENT MEDICATIONS: The patient has been treated with Acetadote drip yesterday till today morning. The patient has been given a dose of albumin. The patient has been started on Bactroban ointment to the nares. The patient has been given calcium gluconate yesterday and D50 yesterday and even today. The patient has been started on dobutamine drip. The patient is on doxycycline 100 mg every 12 hours, epinephrine drip. The patient is on fentanyl drip and Levophed drip. The patient is on Protonix 40 mg IV daily. The patient was started on sodium bicarb drip at 125 mL an hour. The patient is on stress dose Solu-Cortef 50 mg IV every 6 hours. The patient received a dose of vancomycin yesterday by the ICU Resident. The patient is on vasopressin drip at 0.03 units per minute. The patient is on Levophed drip at 4 mcg/minute with titration. The patient is on epinephrine drip at 1 mcg/minute with titration. The patient is on thiamine 200 mg IV every 12 hours. The patient has been given vitamin K 10 mg IV x2, one dose yesterday, one dose today. The patient is on Zofran IV every 4 hours. The patient has been ordered Zosyn 3.375 g IV every 12 hours by the sawmill equipment operator. The patient is on BiPAP. The patient is on vent setting. The patient has been on SCDs, SLY stockings. The patient's present vent settings are 50% FiO2 at the rate of 16, tidal volume 450. The patient's overall prognosis is extremely guarded to poor, which has been explained to the patient's almost every day since admission. The patient's son has been explained about the details at length. Overall prognosis is extremely guarded to poor. Family aware. TIME SPENT: More than 35 minutes. Dictated and electronically signed, not read. Abdon Simms MD
[2018-01-18 11:58] LABS: HEP B SURFACE AG CONF CONFIRMED POSITIVE
--- NOTE | 2018-01-20 23:11 | CP.PCM.PN ---
Subjective - Date & Time of Evaluation Date of Evaluation: 01/16/18 Time of Evaluation: 18:00 - Subjective Subjective: Vented Objective - Vital Signs/Intake and Output Vital Signs (last 24 hours): Temp Pulse Resp BP Pulse Ox 96.4 F L 24 L 17 15/15 L 87 L 01/16/18 16:50 01/17/18 01:21 01/16/18 06:00 01/17/18 01:23 01/16/18 16:50 - Labs Labs: 01/16/18 05:30 01/16/18 05:30 PT 53.6 SECONDS (9.4-12.5) H 01/16/18 05:30 INR 4.52 H* 01/16/18 05:30 APTT 156.9 Seconds (25.1-36.5) H* 01/16/18 05:30 - Head Exam Head Exam: ATRAUMATIC - Eye Exam Eye Exam: Normal appearance - ENT Exam ENT Exam: Mucous Membranes Dry - Respiratory Exam Respiratory Exam: NORMAL BREATHING PATTERN - Cardiovascular Exam Cardiovascular Exam: +S1, +S2 - GI/Abdominal Exam GI & Abdominal Exam: Normal Bowel Sounds Assessment and Plan (1) Thrombocytopenia Assessment & Plan: likely secondary to acute illness no increase in schistocytes seen on smear transfuse plt if < 20,000 Status: Acute (2) Leukocytosis Assessment & Plan: on antibiotics Status: Acute (3) Anemia Assessment & Plan: chronic disease and renal disease Status: Acute
== END 2018-01-17 01:23 | DRG 871 ==
LOC: ED 10:47 → ERH 11:57 → ICU 13:15 → ERH 13:15 → ICU 13:16
PROVIDERS: ADMIT Internal Medicine; ATTEND Internal Medicine
PROC: 5A1945Z Respiratory Ventilation, 24-96 Consecutive Hours (ICD-10-PCS; principal; 2018-01-14)
PROC: 0BH17EZ Insertion of Endotracheal Airway into Trachea, Via Natural or Artificial Opening (ICD-10-PCS; 2018-01-14)
PROC: 0W9B3ZZ Drainage of Left Pleural Cavity, Percutaneous Approach (ICD-10-PCS; 2018-01-14)
PROC: 04HY32Z Insertion of Monitoring Device into Lower Artery, Percutaneous Approach (ICD-10-PCS; 2018-01-14)
PROC: 05HM33Z Insertion of Infusion Device into Right Internal Jugular Vein, Percutaneous Approach (ICD-10-PCS; 2018-01-14)
PROC: B543ZZA Ultrasonography of Right Jugular Veins, Guidance (ICD-10-PCS; 2018-01-14)
PROC: 5A1D70Z Performance of Urinary Filtration, Intermittent, Less than 6 Hours Per Day (ICD-10-PCS; 2018-01-14)
DX: A41.9 Sepsis, unspecified organism (principal); N17.0 Acute kidney failure with tubular necrosis; J96.01 Acute respiratory failure with hypoxia; I50.33 Acute on chronic diastolic (congestive) heart failure; R65.21 Severe sepsis with septic shock; D65 Disseminated intravascular coagulation [defibrination syndrome]; K72.00 Acute and subacute hepatic failure without coma; K76.7 Hepatorenal syndrome; J18.1 Lobar pneumonia, unspecified organism; E87.2 Acidosis; E87.1 Hypo-osmolality and hyponatremia; M62.82 Rhabdomyolysis; I31.3 Pericardial effusion (noninflammatory); I13.0 Hypertensive heart and chronic kidney disease with heart failure and stage 1 through stage 4 chronic kidney disease, or unspecified chronic kidney disease; B18.1 Chronic viral hepatitis B without delta-agent; N25.81 Secondary hyperparathyroidism of renal origin; J90 Pleural effusion, not elsewhere classified; Z99.11 Dependence on respirator [ventilator] status; R57.8 Other shock; E87.5 Hyperkalemia; E83.39 Other disorders of phosphorus metabolism; I25.10 Atherosclerotic heart disease of native coronary artery without angina pectoris; K80.20 Calculus of gallbladder without cholecystitis without obstruction; T68.XXXA Hypothermia, initial encounter; I27.20 Pulmonary hypertension, unspecified; D69.59 Other secondary thrombocytopenia; E11.22 Type 2 diabetes mellitus with diabetic chronic kidney disease; E11.43 Type 2 diabetes mellitus with diabetic autonomic (poly)neuropathy; K31.84 Gastroparesis; E11.65 Type 2 diabetes mellitus with hyperglycemia; E88.09 Other disorders of plasma-protein metabolism, not elsewhere classified; Z66 Do not resuscitate; E55.9 Vitamin D deficiency, unspecified; N18.9 Chronic kidney disease, unspecified; I08.0 Rheumatic disorders of both mitral and aortic valves; K74.60 Unspecified cirrhosis of liver; Z79.82 Long term (current) use of aspirin; Z95.2 Presence of prosthetic heart valve; Z95.1 Presence of aortocoronary bypass graft